=== PATIENT | male | born 1930 | race Caucasian/White ===

== ENCOUNTER → 2016-03-10 | Outpatient (CLI) | payer MEDICARE, OTHER ==
[~2016-03-10] MED LIST: ACET-77 PO; ACET-93 PO; AMOX500C2 PO; ASPI-808 PO; ASPI-983 PO; CHOL100048 PO; CIPR500T4 PO; CLOP75TA69 PO; CLOT15CR9 TP; CLTR1PV45 VG; FERR-74 PO; FURO20TA4 PO; GUAI5LIQ5 PO; HYDR-3729 PO; HYDR-3812 PO; LISI40TA PO; MENT71OI TOP; METO-272 PO; METO100T2 PO; MULT1TAB69 PO; MUPI22OI2 TP; NAPR375T3 PO; OMEP40CA36 PO; OXYM-12 NS; PROM25SU43 RC
--- OUTSIDE RECORDS SUMMARY | 2016-03-10 11:32 | XMS REPORT | Continuity of Care Document ---
Author Author [facility] Organization [facility] Address Unknown Phone Unavailable Care Team Providers Care Assembler For Puller Over Hand Name Role Phone JOAN STODDARD MD PCP Insurance Providers Payer Name Policy Number Subscriber Name Relationship Wps Medicare [id number] [place] 18 Self / Same As Patient For Life [id number] [place] 18 Self / Same As [...] Pain 11/21/14 Discontinued Oxymetazoline Hcl 30 Ml [place], 2 Sprays Nasal Bedtime as needed for [...] - 99.5) 09/09/2015 6:21am Temperature (Calculated Celsius) 36.54061 degrees C (36.4 - 37.5) 09/09/2015 6:21am [...] 11 inches 09/09/2015 6:21am Height (Calculated Centimeters) 180.212550 cm 09/09/2015 6:21am Weight (Pounds) 146 pounds 09/09/2015 6:21am Weight (Ounces) 1.5 oz 09/09/2015 6:21am Weight (Calculated Grams) 45077.487 gm 09/09/2015 6:21am Weight (Calculated Kilograms) 66.838938 kilograms 09/09/2015 6:21am Calculated BMI 20.36 09/09/2015 6:21am Results No known relevant diagnostic tests, laboratory data and/or discharge summary. Procedures No known history of procedures. Encounters Encounter Location Arrival/Admit Date Discharge/Depart Date Attending Provider Departed Emergency Room [facility] 09/09/15 6:10am 09/08 8:25am MARIA ISABEL PRICE DO Recent Diagnosis
[2016-03-10 11:47] LABS: BASOPHILS % (AUTO) 0 % (0-10); EOSINOPHILS % (AUTO) 11 % (0-10); LYMPHOCYTES # (AUTO) 1.1 X 10^3 (1.0-4.0); LYMPHOCYTES % (AUTO) 12 % (12-44); MEAN CORPUSCULAR HEMOGLOBIN 25 PG (25-34); MEAN CORPUSCULAR HGB CONC 32 G/DL (32-36); MEAN CORPUSCULAR VOLUME 77 FL (80-99); MEAN PLATELET VOLUME 8.8 FL (7.4-10.4); MONOCYTES # (AUTO) 0.5 X 10^3 (0.0-1.0); MONOCYTES % (AUTO) 5 % (0-12); NEUTROPHILS # (AUTO) 6.9 X 10^3 (1.8-7.8); NEUTROPHILS % (AUTO) 73 % (42-75); PLATELET COUNT 627 10^3/uL (130-400); RED BLOOD COUNT 4.45 10^6/uL (4.35-5.85); RED CELL DISTRIBUTION WIDTH 18.9 % (10.0-14.5); WHITE BLOOD COUNT 9.6 10^3/uL (4.3-11.0)
[2016-03-10 12:08] LABS: ERYTHROCYTE SEDIMENTATION RATE 74 MM/HR (0-30)
[2016-03-10 12:10] LABS: ALANINE AMINOTRANSFERASE 7 U/L (0-55); ALBUMIN 3.5 G/DL (3.2-4.5); ANION GAP 9 MMOL/L (5-14); ASPARTATE AMINO TRANSFERASE 13 U/L (5-34); BILIRUBIN,TOTAL 0.4 MG/DL (0.1-1.0); BLOOD UREA NITROGEN 12 MG/DL (7-18); BUN/CREATININE RATIO 16; CALCIUM 9.2 MG/DL (8.5-10.1); CARBON DIOXIDE 27 MMOL/L (21-32); CHLORIDE 99 MMOL/L (98-107); CREATININE SERUM 0.77 MG/DL (0.60-1.30); GFR ESTIMATED > 60; GLUCOSE 106 MG/DL (70-105); POTASSIUM 4.8 MMOL/L (3.6-5.0); SODIUM 135 MMOL/L (135-145); TOTAL PROTEIN 7.5 G/DL (6.4-8.2)
--- NOTE | 2016-03-10 15:31 | Diagnostic Imaging Report ---
INDICATION: Stasis ulcer right foot. FINDINGS: Three views of the right foot show generalized osteopenia. There is no fracture or dislocation. There is cortical thinning along the lateral aspect of the head of the fifth metatarsal that could be due to osteomyelitis. IMPRESSION: Possible osteomyelitis of the head of the fifth metatarsal. Dictated by: Dictated on workstation # [id number]
== END ==
LOC: RAD 11:27
PROVIDERS: ATTEND Internal Medicine
DX: L89.614 Pressure ulcer of right heel, stage 4 (principal); L89.894 Pressure ulcer of other site, stage 4; I70.232 Atherosclerosis of native arteries of right leg with ulceration of calf; G82.20 Paraplegia, unspecified; L89.103 Pressure ulcer of unspecified part of back, stage 3
CPT/HCPCS: 36415; 73630; 80053; 85025; 85652

== ENCOUNTER → 2016-03-14 | Outpatient (CLI) | payer MEDICARE, OTHER ==
--- OUTSIDE RECORDS SUMMARY | 2016-03-14 13:16 | XMS REPORT | Continuity of Care Document ---
Author Author [facility] Organization [facility] Address Unknown Phone Unavailable Care Team Providers Care Plastics Heat Welder Name Role Phone JOAN STODDARD MD PCP Insurance Providers Payer Name Policy Number Subscriber Name Relationship Wps Medicare [id number] [place] 18 Self / Same As Patient For Life [id number] [place] 18 Self / Same As [...] Pain 11/21/14 Discontinued Oxymetazoline Hcl 30 Ml [place], 2 Sprays Nasal Bedtime as needed for [...] - 99.5) 09/09/2015 6:21am Temperature (Calculated Celsius) 36.08914 degrees C (36.4 - 37.5) 09/09/2015 6:21am [...] 11 inches 09/09/2015 6:21am Height (Calculated Centimeters) 180.514949 cm 09/09/2015 6:21am Weight (Pounds) 146 pounds 09/09/2015 6:21am Weight (Ounces) 1.5 oz 09/09/2015 6:21am Weight (Calculated Grams) 06507.487 gm 09/09/2015 6:21am Weight (Calculated Kilograms) 66.023304 kilograms 09/09/2015 6:21am Calculated BMI 20.36 09/09/2015 6:21am Results No known relevant diagnostic tests, laboratory data and/or discharge summary. Procedures No known history of procedures. Encounters Encounter Location Arrival/Admit Date Discharge/Depart Date Attending Provider Departed Emergency Room [facility] 09/09/15 6:10am 09/08 8:25am MARIA ISABEL PRICE DO Recent Diagnosis
--- NOTE | 2016-03-14 14:40 | Diagnostic Imaging Report ---
Examination: Segmental lower extremity pressure assessment and ankle brachial index measurement. Post volume recording waveforms are also obtained in the lower extremities. Indication: Peripheral arterial disease Findings: Systolic pressure in the right Upper extremity is 164, and the left Upper extremity is 163 mmHg. RIGHT Lower extremity systolic pressures are: In the upper thigh 154 , in the lower thigh 131, in the upper calf 103, and at the ankle 112. LEFT Lower extremity systolic pressures are: In the upper thigh 160 , in the lower thigh 174, in the upper calf 142, and at the ankle 137. ELYSE on the right is 0.68, and on the left is 0.84. Pulse volume recordings waveforms demonstrate mild dampening of the PVR waveforms in the right side. Impression: Findings compatible with peripheral arterial disease in the lower extremities worse on the right side. Dictated by: Dictated on workstation # [id number]
== END ==
LOC: RAD 13:12
PROVIDERS: ATTEND Internal Medicine
DX: I70.232 Atherosclerosis of native arteries of right leg with ulceration of calf (principal); L89.614 Pressure ulcer of right heel, stage 4; L89.894 Pressure ulcer of other site, stage 4; L89.103 Pressure ulcer of unspecified part of back, stage 3; G82.20 Paraplegia, unspecified
CPT/HCPCS: 93923

== ENCOUNTER → 2016-03-17 | Outpatient (CLI) | payer MEDICARE, OTHER ==
--- OUTSIDE RECORDS SUMMARY | 2016-03-17 10:38 | XMS REPORT | Continuity of Care Document ---
Author Author [facility] Organization [facility] Address Unknown Phone Unavailable Care Team Providers Care Chronometer Adjuster Name Role Phone JOAN STODDARD MD PCP Insurance Providers Payer Name Policy Number Subscriber Name Relationship Wps Medicare [id number] [place] 18 Self / Same As Patient For Life [id number] [place] 18 Self / Same As [...] Pain 11/21/14 Discontinued Oxymetazoline Hcl 30 Ml [place], 2 Sprays Nasal Bedtime as needed for [...] - 99.5) 09/09/2015 6:21am Temperature (Calculated Celsius) 36.23848 degrees C (36.4 - 37.5) 09/09/2015 6:21am [...] 11 inches 09/09/2015 6:21am Height (Calculated Centimeters) 180.784278 cm 09/09/2015 6:21am Weight (Pounds) 146 pounds 09/09/2015 6:21am Weight (Ounces) 1.5 oz 09/09/2015 6:21am Weight (Calculated Grams) 60900.487 gm 09/09/2015 6:21am Weight (Calculated Kilograms) 66.192418 kilograms 09/09/2015 6:21am Calculated BMI 20.36 09/09/2015 6:21am Results No known relevant diagnostic tests, laboratory data and/or discharge summary. Procedures No known history of procedures. Encounters Encounter Location Arrival/Admit Date Discharge/Depart Date Attending Provider Departed Emergency Room [facility] 09/09/15 6:10am 09/08 8:25am MARIA ISABEL PRICE DO Recent Diagnosis
--- NOTE | 2016-03-17 12:15 | Diagnostic Imaging Report ---
Three views of thoracic spine. INDICATION: Back pain. FINDINGS: There are multilevel compression fractures again seen similar to the 11/05/2015 exam. These appear to involve T6, T7, T9 and T10 levels. No definite change. The alignment of the posterior spinal line appears satisfactory with some limitation to the evaluation existing on this exam, however. The anterior longitudinal ligament demonstrates ossification and some anterior osteophytes along the inferior thoracic spine seen. IMPRESSION: Chronic compression fractures of T6, T7, T9, and T10 levels. Dictated by: Dictated on workstation # [id number]
== END ==
LOC: RAD 10:33
PROVIDERS: ATTEND Internal Medicine
DX: L89.103 Pressure ulcer of unspecified part of back, stage 3 (principal); M48.54XS Collapsed vertebra, not elsewhere classified, thoracic region, sequela of fracture
CPT/HCPCS: 72072

== ENCOUNTER → 2016-05-05 | Outpatient (CLI) | payer MEDICARE, OTHER ==
--- OUTSIDE RECORDS SUMMARY | 2016-05-05 11:15 | XMS REPORT | Continuity of Care Document ---
Author Author [facility] Organization [facility] Address Unknown Phone Unavailable Care Team Providers Care Accredited Legal Secretary Name Role Phone JOAN STODDARD MD PCP Insurance Providers Payer Name Policy Number Subscriber Name Relationship Wps Medicare [id number] [place] 18 Self / Same As Patient For Life [id number] [place] 18 Self / Same As [...] Pain 11/21/14 Discontinued Oxymetazoline Hcl 30 Ml [place], 2 Sprays Nasal Bedtime as needed for [...] Fracture (ED) Prescriptions See Medication Section Referrals OJAN STODDARD MD - Primary Care Physician Additional [...] - 99.5) 09/09/2015 6:21am Temperature (Calculated Celsius) 36.97659 degrees C (36.4 - 37.5) 09/09/2015 6:21am [...] 11 inches 09/09/2015 6:21am Height (Calculated Centimeters) 180.472650 cm 09/09/2015 6:21am Weight (Pounds) 146 pounds 09/09/2015 6:21am Weight (Ounces) 1.5 oz 09/09/2015 6:21am Weight (Calculated Grams) 13351.487 gm 09/09/2015 6:21am Weight (Calculated Kilograms) 66.133800 kilograms 09/09/2015 6:21am Calculated BMI 20.36 09/09/2015 6:21am Results No known relevant diagnostic tests, laboratory data and/or discharge summary. Procedures No known history of procedures. Encounters Encounter Location Arrival/Admit Date Discharge/Depart Date Attending Provider Departed Emergency Room [facility] 09/09/15 6:10am 09/08 8:25am MARIA ISABEL PRICE DO Recent Diagnosis
[2016-05-05 11:27] LABS: MEAN PLATELET VOLUME 8.6 FL (7.4-10.4); RED BLOOD COUNT 4.51 10^6/uL (4.35-5.85); RED CELL DISTRIBUTION WIDTH 19.2 % (10.0-14.5); WHITE BLOOD COUNT 5.9 10^3/uL (4.3-11.0)
== END ==
LOC: LAB 11:10
PROVIDERS: ATTEND Internal Medicine
DX: M86.171 Other acute osteomyelitis, right ankle and foot (principal); L89.614 Pressure ulcer of right heel, stage 4; L89.894 Pressure ulcer of other site, stage 4; I70.232 Atherosclerosis of native arteries of right leg with ulceration of calf; G82.20 Paraplegia, unspecified; L89.103 Pressure ulcer of unspecified part of back, stage 3
CPT/HCPCS: 36415; 85027; 85652

== ENCOUNTER → 2016-05-12 | Outpatient (CLI) | payer MEDICARE, OTHER ==
--- OUTSIDE RECORDS SUMMARY | 2016-05-12 11:15 | XMS REPORT | Continuity of Care Document ---
Author Author [facility] Organization [facility] Address Unknown Phone Unavailable Care Team Providers Care Home Performance Consultant Name Role Phone JOAN STODDARD MD PCP Insurance Providers Payer Name Policy Number Subscriber Name Relationship Wps Medicare [id number] [place] 18 Self / Same As Patient For Life [id number] [place] 18 Self / Same As [...] Pain 11/21/14 Discontinued Oxymetazoline Hcl 30 Ml [place], 2 Sprays Nasal Bedtime as needed for [...] - 99.5) 09/09/2015 6:21am Temperature (Calculated Celsius) 36.46468 degrees C (36.4 - 37.5) 09/09/2015 6:21am [...] 11 inches 09/09/2015 6:21am Height (Calculated Centimeters) 180.737068 cm 09/09/2015 6:21am Weight (Pounds) 146 pounds 09/09/2015 6:21am Weight (Ounces) 1.5 oz 09/09/2015 6:21am Weight (Calculated Grams) 31795.487 gm 09/09/2015 6:21am Weight (Calculated Kilograms) 66.625873 kilograms 09/09/2015 6:21am Calculated BMI 20.36 09/09/2015 6:21am Results No known relevant diagnostic tests, laboratory data and/or discharge summary. Procedures No known history of procedures. Encounters Encounter Location Arrival/Admit Date Discharge/Depart Date Attending Provider Departed Emergency Room [facility] 09/09/15 6:10am 09/08 8:25am MARIA ISABEL PRICE DO Recent Diagnosis
--- NOTE | 2016-05-12 16:04 | Diagnostic Imaging Report ---
Three views of the right foot. INDICATION: Wound. COMPARISON: 03/10/2016. FINDINGS: There is bone resorption involving the head of the fifth metatarsal. Accounting for positional and technique differences, there is no definite change from 03/10/2016. No older baseline studies are available for comparison. There is background osteopenia. Area of a healed skin ulcer and dorsal skin ulceration are also marked with no underlying bony erosion seen. No acute fracture. IMPRESSION: Stable erosion seen at the head of the fifth metatarsal, could relate to osteomyelitis. Unfortunately, no old or baseline radiographs are available for comparison. There is no change, however, from February 2016. Dictated by: Dictated on workstation # [id number]
== END ==
LOC: RAD 11:11
PROVIDERS: ATTEND Internal Medicine
DX: M86.171 Other acute osteomyelitis, right ankle and foot (principal); L89.614 Pressure ulcer of right heel, stage 4; L89.894 Pressure ulcer of other site, stage 4; I70.232 Atherosclerosis of native arteries of right leg with ulceration of calf; G82.20 Paraplegia, unspecified; L89.103 Pressure ulcer of unspecified part of back, stage 3
CPT/HCPCS: 73630

== ENCOUNTER 2016-06-02 09:45 | Outpatient (RCR) | payer MEDICARE, OTHER ==
--- OUTSIDE RECORDS SUMMARY | 2016-03-10 09:13 | XMS REPORT | Continuity of Care Document ---
Author Author [facility] Organization [facility] Address Unknown Phone Unavailable Care Team Providers Care Sustainability Specialist Name Role Phone JOAN STODDARD MD PCP Insurance Providers Payer Name Policy Number Subscriber Name Relationship Wps Medicare [id number] [place] 18 Self / Same As Patient For Life [id number] [place] 18 Self / Same As Patient Advance Directives Directive Response Recorded Date/Time Advance Directives No 09/09/15 6:21am Resuscitation Status Full Code 09/09/15 6:21am Chief Complaint and Reason for Visit Chief Complaint Lower Extremity Reason for Visit Paraplegia following spinal cord injury Osteoporosis Closed fracture of distal end of left fibula and tibia Problems Active Problems Medical Problem Onset Date Status Closed fracture of distal end of left fibula and tibia Unknown Acute Closed fracture of right proximal tibia Unknown Acute Decubitus skin ulcer Unknown Acute Fall on same level Unknown Acute Fracture of distal end of left femur Unknown Acute Hematuria Unknown Acute Hypotension Unknown Acute Hypovolemia Unknown Acute Hypoxia Unknown Acute Osteoporosis Unknown Acute 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 Unknown Acute Paraplegia following spinal cord injury Unknown Acute Urinary tract infection Unknown Acute Medications Current Home Medications Medication Dose Units Route Directions Days/Qty Instructions Start Date Cholecalciferol (Vitamin D3) 1,000 Unit 1,000 Unit Oral Daily Furosemide 20 Mg 20 Mg Oral Daily 11/21/14 Lisinopril 40 Mg 40 Mg Oral Daily 11/21/14 Metoprolol Tartrate 100 Mg 50 Mg Oral Twice A Day 11/24/14 Multivitamin 1 Each 1 Tab Oral Daily 11/24/14 Omeprazole 40 Mg 40 Mg Oral Daily 12/31/14 Hydrocodone/Acetaminophen 1 Each 1 Tab Oral Every 4HRS as needed for Pain 12/31/14 Guaifenesin/Dextromethorphan 5 Ml 5 Ml Oral Every 4HRS as needed for Cough 01/01/15 Promethazine Hcl 25 Mg 25 Mg Rectal Every 4HRS as needed for Nausea/ Vomiting 01/01/15 Acetaminophen 500 Mg 500 Mg Oral Every 6 Hours as needed for Mild Pain 01/01/15 Ferrous Sulfate 325 Mg 325 Mg Oral Three Times A Day 01/01/15 Aspirin 81 Mg 81 Mg Oral Daily 02/09/15 Clopidogrel Bisulfate 75 Mg 75 Mg Oral Daily 02/09/15 Past Home Medications Medication Directions Ordered Status Metoprolol Succinate 50 Mg Tab.sr.24h, 50 Mg Oral Twice A Day 10/05/10 Discontinued Aspirin 325 Mg Tablet, 325 Mg Oral Bedtime 11/21/14 Discontinued Ciprofloxacin Hcl 500 Mg Tablet, 500 Mg Oral Twice A Day 11/21/14 Discontinued Naproxen 375 Mg Tablet, 375 Mg Oral Twice A Day as needed for Pain 11/21/14 Discontinued Oxymetazoline Hcl 30 Ml [place], 2 Sprays Nasal Bedtime as needed for Congestion 11/21/14 Discontinued Mupirocin 22 Gm Oint...g., Topical Twice A Day as needed for Rash 11/24/14 Discontinued Clotrimazole 45 Gm Cr, Vaginal 11/24/14 Discontinued Clotrimazole 15 Gm Cream..g., Topical Twice A Day as needed for Rash Discontinued Hydrocodone/Acetaminophen 1 Each Tablet, 1 Tab Oral Every 4HRS as needed for Pain 11/28/14 Discontinued Acetaminophen 500 Mg Tablet, 1000 Mg Oral Every 6 Hours as needed for Mild Pain 11/28/14 Discontinued Menthol/Lanolin/Calamine/Znox 71 Gm Oint, 0 Gm Topically Three Times A Day Discontinued Amoxicillin 500 Mg Capsule, 500 Mg Oral Every 8HRS 11/28/14 Discontinued Ciprofloxacin Hcl 500 Mg Tablet, 500 Mg Oral Twice A Day 12/07/14 Discontinued Social History Social History Problem Response Recorded Date/Time Alcohol Use Denies Use 09/09/2015 6:21am Recreational Drug Use No 09/09/2015 6:21am Recent Foreign Travel No 09/09/2015 6:21am Recent Infectious Disease Exposure No 09/09/2015 6:21am Hospitalization with Isolation Denies 09/09/2015 6:21am Smoking Status Former Smoker 09/09/2015 6:21am Do you dip or chew tobacco? No 09/09/2015 6:21am Query Response Start Date Stop Date Smoking Status Former Smoker 12/28/2009 Hospital Discharge Instructions No hospital discharge instructions. Plan of Care Discharge Date 09/09/15 8:25am Disposition 03 XFER SNF Condition at Discharge Stable Instructions/Education Provided Ankle Fracture (ED) Prescriptions See Medication Section Referrals JOAN STODDARD MD - Primary Care Physician Additional Instructions/Education MAY CONTINUE YOUR CURRENT HYDROCODONE NEEDED FOR PAIN CONTINUE CURRENT WOUND CARE HEAVILY PAD ENTIRE FOOT AND LOWER LEG UP TO THE KNEE WEAR CAM BOOT AT ALL TIMES FOLLOW UP WITH DR. BRAXTON IN THE OFFICE THIS WEEK DR. STODDARD FOR FURTHER CARE All discharge instructions reviewed with patient and/or family. Voiced understanding. Functional Status No functional status results. Allergies, Adverse Reactions, Alerts No known allergies. Immunizations Name Given Type Date of Pneumonia Vaccine 12/29/11 Historical Date of Influenza Vaccine 12/19/14 Historical Tetanus Booster (TDap) Unknown Historical Vital Signs Acute Vital Signs Vital Response Date/Time Temperature (Fahrenheit) 98.0 degrees F (97.6 - 99.5) 09/09/2015 6:21am Temperature (Calculated Celsius) 36.38620 degrees C (36.4 - 37.5) 09/09/2015 6:21am Pulse Rate (adult) 92 bpm (60 - 90) 09/09/2015 6:21am Respiratory Rate 18 bpm (12 - 24) 09/09/2015 6:21am O2 Sat by Pulse Oximetry 90 % (88 - 100) 09/09/2015 6:21am Blood Pressure 109/57 mm Hg 09/09/2015 6:21am Blood Pressure Mean 74 mm Hg 09/09/2015 6:21am Pain Numeric Pain Scale 0-No Pain 09/09/2015 6:21am Height (Feet) 5 feet 09/09/2015 6:21am Height (Inches) 11 inches 09/09/2015 6:21am Height (Calculated Centimeters) 180.852706 cm 09/09/2015 6:21am Weight (Pounds) 146 pounds 09/09/2015 6:21am Weight (Ounces) 1.5 oz 09/09/2015 6:21am Weight (Calculated Grams) 07367.487 gm 09/09/2015 6:21am Weight (Calculated Kilograms) 66.157710 kilograms 09/09/2015 6:21am Calculated BMI 20.36 09/09/2015 6:21am Results No known relevant diagnostic tests, laboratory data and/or discharge summary. Procedures No known history of procedures. Encounters Encounter Location Arrival/Admit Date Discharge/Depart Date Attending Provider Departed Emergency Room [facility] 09/09/15 6:10am 09/08 8:25am MARIA ISABEL PRICE DO Recent Diagnosis
== END 2016-06-08 | disposition home or self-care (01) ==
LOC: WOUNDCARE 09:45
PROVIDERS: ATTEND Internal Medicine
DX: L89.614 Pressure ulcer of right heel, stage 4 (principal); L89.894 Pressure ulcer of other site, stage 4; I70.232 Atherosclerosis of native arteries of right leg with ulceration of calf; G82.20 Paraplegia, unspecified; L89.103 Pressure ulcer of unspecified part of back, stage 3
CPT/HCPCS: 11042; 36415; 73630; 80053; 85025; 85652; 87070; 87075; 87077; 87101; 87186; 87205; 99214; 99215

== ENCOUNTER → 2016-06-16 | Outpatient (CLI) | payer MEDICARE, OTHER ==
[~2016-06-16] VITALS: Ht 180.3 cm; Wt 66.3 kg
[~2016-06-16] MED LIST changes: +VANCOMYCIN 1 GM/NS 250 ML IVPB IV ONE
--- NOTE | 2016-06-16 14:29 | Diagnostic Imaging Report ---
INDICATION: Evaluate PICC line. COMPARISON: 11/26/2014. FINDINGS: Multiple frontal radiographic view of the chest were obtained. Left upper extremity PICC line is seen with tip in the high SVC. Lungs show chronic appearing asymmetric interstitial thickening within the upper lung garcia, which may be on the basis of underlying fibrosis. There is background of COPD. There is no focal alveolar consolidation, large effusion, nor pneumothorax. Cardiac silhouette and pulmonary vasculature within normal limits. There is aortic atherosclerosis. IMPRESSION: 1. Left upper extremity PICC line with tip in the high SVC. 2. No acute cardiopulmonary process. 3. Background of COPD. Dictated by: Dictated on workstation # [id number]
[2016-06-16 15:42] VITALS: BP 139/62
--- NOTE | 2016-06-27 14:10 | Physician Query-Final Dx ---
DANGELO GR 06/27/16 1410: Clinic Account Progress/Dx Physician Query: Please give a diagnosis for the Vancomycin tx thank you Date of Service Jun 16, 2016 at 12:59 DERRICK FORDE APRN 07/11/16 0831: Clinic Account Progress/Dx DIAGNOSIS: Diagnosis Osteomyelitis R DANGELO MANUEL June 27, 2016 14:10 DERRICK FORDE APRN July 11, 2016 08:31
== END ==
LOC: SDC 12:59
PROVIDERS: ATTEND Nurse Practitioner
DX: M86.9 Osteomyelitis, unspecified (principal); Z45.2 Encounter for adjustment and management of vascular access device
CPT/HCPCS: 36569; 71010; 76937; 96365

== ENCOUNTER → 2016-06-18 | Outpatient (CLI) | payer MEDICARE, OTHER ==
[~2016-06-18] MED LIST changes: -VANCOMYCIN 1 GM/NS 250 ML IVPB IV ONE
[2016-06-19 06:40] LABS: ANION GAP 13 MMOL/L (5-14); BLOOD UREA NITROGEN 10 MG/DL (7-18); BUN/CREATININE RATIO 15; CALCIUM 8.2 MG/DL (8.5-10.1); CARBON DIOXIDE 21 MMOL/L (21-32); CHLORIDE 97 MMOL/L (98-107); CREATININE SERUM 0.65 MG/DL (0.60-1.30); GFR ESTIMATED > 60; GLUCOSE 109 MG/DL (70-105); SODIUM 131 MMOL/L (135-145)
[2016-06-19 06:43] LABS: POTASSIUM 5.3 MMOL/L (3.6-5.0)
== END ==
LOC: CVS 19:01
PROVIDERS: ATTEND Nurse Practitioner Family
DX: M86.9 Osteomyelitis, unspecified (principal)
CPT/HCPCS: 80048; 80202

== ENCOUNTER → 2016-06-21 | Outpatient (CLI) | payer MEDICARE, OTHER ==
[2016-06-21 08:35] LABS: ANION GAP 9 MMOL/L (5-14); BLOOD UREA NITROGEN 7 MG/DL (7-18); BUN/CREATININE RATIO 14; CALCIUM 8.1 MG/DL (8.5-10.1); CARBON DIOXIDE 25 MMOL/L (21-32); CHLORIDE 103 MMOL/L (98-107); CREATININE SERUM 0.51 MG/DL (0.60-1.30); GFR ESTIMATED > 60; GLUCOSE 88 MG/DL (70-105); POTASSIUM 3.9 MMOL/L (3.6-5.0); SODIUM 137 MMOL/L (135-145)
== END ==
LOC: HH 07:39 → CVS 07:39
PROVIDERS: ATTEND Internal Medicine
DX: M86.9 Osteomyelitis, unspecified (principal)
CPT/HCPCS: 80048; 80202

== ENCOUNTER → 2016-06-25 | Outpatient (CLI) | payer MEDICARE, OTHER | LOC: CVS 05:20 | PROVIDERS: ATTEND Internal Medicine | DX: Z51.81 Encounter for therapeutic drug level monitoring (principal); Z79.2 Long term (current) use of antibiotics | CPT/HCPCS: 80202 ==

== ENCOUNTER → 2016-06-29 | Outpatient (CLI) | payer MEDICARE, OTHER ==
[2016-06-29 07:58] LABS: ANION GAP 9 MMOL/L (5-14); BLOOD UREA NITROGEN 12 MG/DL (7-18); BUN/CREATININE RATIO 17; CALCIUM 8.4 MG/DL (8.5-10.1); CARBON DIOXIDE 25 MMOL/L (21-32); CHLORIDE 103 MMOL/L (98-107); CREATININE SERUM 0.72 MG/DL (0.60-1.30); GFR ESTIMATED > 60; GLUCOSE 91 MG/DL (70-105); POTASSIUM 3.8 MMOL/L (3.6-5.0); SODIUM 137 MMOL/L (135-145)
== END ==
LOC: CVS 07:02
PROVIDERS: ATTEND Nurse Practitioner
DX: Z51.81 Encounter for therapeutic drug level monitoring (principal); Z79.2 Long term (current) use of antibiotics
CPT/HCPCS: 80048; 80202

== ENCOUNTER → 2016-07-02 | Outpatient (CLI) | payer MEDICARE, OTHER | LOC: CVS 05:30 | PROVIDERS: ATTEND Internal Medicine | DX: Z51.81 Encounter for therapeutic drug level monitoring (principal); Z79.2 Long term (current) use of antibiotics | CPT/HCPCS: 80202 ==

== ENCOUNTER → 2016-07-05 | Outpatient (CLI) | payer MEDICARE, OTHER | LOC: CVS 05:15 | PROVIDERS: ATTEND Internal Medicine | DX: Z51.81 Encounter for therapeutic drug level monitoring (principal); Z79.2 Long term (current) use of antibiotics | CPT/HCPCS: 80202 ==

== ENCOUNTER → 2016-07-05 | Outpatient (REF) | LOC: CVS 05:33 | PROVIDERS: ATTEND Internal Medicine | DX: Z51.81 Encounter for therapeutic drug level monitoring (principal); Z79.2 Long term (current) use of antibiotics ==

== ENCOUNTER → 2016-07-08 | Outpatient (CLI) | payer MEDICARE, OTHER | LOC: CVS 05:38 | PROVIDERS: ATTEND Internal Medicine | DX: Z51.81 Encounter for therapeutic drug level monitoring (principal); Z79.2 Long term (current) use of antibiotics ==

== ENCOUNTER 2016-07-09 17:58 | Emergency (ER) | payer MEDICARE, OTHER ==
[~2016-07-09] VITALS: Ht 167.6 cm; Wt 77.1 kg
--- NOTE | 2016-07-09 18:12 | ED General ---
General Chief Complaint: Catheter/Drain/Tube Problems Stated Complaint: PICC LINE BLEEDING Nursing Triage Note: alf staff advise that the pt. has been bleeding both dark red and bright red blood from his PICC. alf staff called the pt. pcp whom requested evaluation at the ER. Nursing Sepsis Screen: No Definite Risk Source of Information: Patient History of Present Illness Time Seen by Provider: 17:55 Initial Comments PT ARRIVES VIA EMS FROM [facility] PT HAS PICC LINE IN LEFT AC X 2 WEEKS--BEING TREATED FOR RIGHT FOOT INFECTION/ CHRONIC OSTEOMYELITIS AN HOUR AGO, WAS ON HIS WAY TO THE DINING ROOM WHEN HE NOTICED BLOOD ON HIS SLEEVE AND HAS HAD SOME BLOOD AROUND THE PICC LINE SITE UNDER THE DRESSING NO PAIN NO KNOWN INJURY PCP: DR. CAMACHO Allergies and Home Medications Allergies Coded Allergies: No Known Drug Allergies (Verified , 02/09/15) Home Medications Acetaminophen 500 Mg Tablet, 500 MG PO Q6H PRN for MILD PAIN, (Reported) Aspirin 81 Mg Tablet.dr, 81 MG PO DAILY, (Reported) Cholecalciferol (Vitamin D3) 1,000 Unit Capsule, 1,000 UNIT PO DAILY, (Reported) Clopidogrel Bisulfate 75 Mg Tablet, 75 MG PO DAILY, (Reported) Ferrous Sulfate 325 Mg Tablet, 325 MG PO TID, (Reported) Furosemide 20 Mg Tablet, 20 MG PO DAILY, (Reported) Guaifenesin/Dextromethorphan 5 Ml Liquid, 5 ML PO Q4H PRN for COUGH, (Reported) Hydrocodone/Acetaminophen 1 Each Tablet, 1 TAB PO Q4H PRN for PAIN, (Reported) Lisinopril 40 Mg Tablet, 40 MG PO DAILY, (Reported) Metoprolol Tartrate 100 Mg Tablet, 50 MG PO BID, (Reported) Multivitamin 1 Each Tablet, 1 TAB PO DAILY, (Reported) Omeprazole 40 Mg Capsule.dr, 40 MG PO DAILY, (Reported) Promethazine HCl 25 Mg Supp.rect, 25 MG RC Q4H PRN for NAUSEA/VOMITING, ( Reported) Constitutional: no symptoms reported Musculoskeletal: see HPI Skin: see HPI Past Lyzufnm-Asrlvw-Yqopbp Hx Patient Social History Alcohol Use: Denies Use Recreational Drug Use: No Smoking Status: Never a Smoker Former Smoker/When Quit: Dec 28, 2009 Recent Foreign Travel: No Contact w/Someone Who Travel: No Recent Infectious Disease Expo: No Recent Hopitalizations: Yes Immunizations Up To Date Tetanus Booster (TDap): Unknown Date of Pneumonia Vaccine: Dec 29, 2011 Date of Influenza Vaccine: Dec 19, 2014 Surgeries HX Surgeries: Yes (CAROTID SURGERY, LEFT SHOULDER; RT. TIBIAL FX & LT FEMUR FX ; PICC LINE) Surgeries: Orthopedic, Vascular Surgery Respiratory Hx Respiratory Disorders: Yes (uses o2 at all times.) Respiratory Disorders: COPD Cardiovascular Hx Cardiac Disorders: Yes Cardiac Disorders: Chronic Edema/Swelling, High Cholesterol, Hypertension, Peripheral Vascular Neurological Hx Neurological Disorders: Yes (PARAPLEGIA, CAROTID DISEASE) Neurological Disorders: Paralysis, Spinal Cord Injury Reproductive System Hx Reproductive Disorders: No Genitourinary Hx Genitourinary Disorders: Yes (INDWELLING JONES CATHETER) Genitourinary Disorders: Kidney Infection, Prostate Problems, Kidney Stones, Neurogenic Bladder, UTI-Chronic Gastrointestinal Hx Gastrointestinal Disorders: Yes Gastrointestinal Disorders: Chronic Constipation, Gall Bladder Disease Musculoskeletal Hx Musculoskeletal Disorders: Yes (PARAPLEGIA SINCE [place]; OSTEOMYELITIS) Musculoskeletal Disorders: Osteoporosis, Back Injury, Fractures Endocrine Hx Endocrine Disorders: No HEENT HX ENT Disorders: Yes HEENT Disorders: Dysphagia Cancer Hx Cancer: No Psychosocial Hx Psychiatric Problems: No Integumentary HX Skin/Integumentary Disorder: Yes (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 PICC LINE IS IN PLACE WITH NO EVIDENCE OF DISLODGEMENT. NO SURROUNDING HEMATOMA, OR SIGNS OF INFECTION. PICC LINE EASILY FLUSHED WITHOUT ANY EXTRAVASATION OF FLUID/BLOOD) Additional Procedures : Progress DRESSING TO PICC LINE IN LEFT AC CHANGED/AREA CLEANSED WITH BETASEPT USING STERILE TECHNIQUE Progress/Results/Core Measures Results/Orders My Orders Orders - MARIA ISABEL PRICE DO Chest 1 View, Ap/Pa Only (07/09/16 18:22) Vital Signs/I&O Vital Sign - Last 12Hours 07/09/16 07/09/16 18:02 18:51 Temp 98.0 Pulse 84 86 Resp 14 16 B/P (MAP) 141/80 Pulse Ox 93 97 O2 Delivery Room Air Blood Pressure Mean: 100 Diagnostic Imaging Comments CXR--TIP OF PICC LINE IN SVC, ESSENTIALLY UNCHANGED POSITION--PER RADIOLOGIST REPORT @ 1900 Reviewed: Reviewed by Me Departure Impression Impression: Primary Impression: Bleeding from PICC line Additional Impression: Dressing change Disposition: 03 XFER SNF Condition: Stable Departure-Patient Inst. Referrals: NICHOLE CAMACHO MD (PCP) Primary Care Physician DERRICK FORDE APRN (Family) Primary Care Physician Patient Instructions: How to Care for a Central Line Catheter, Peripherally- Inserted Central Catheter (DC) Add. Discharge Instructions: CONTINUE ALL PREVIOUS ORDERS FOLLOW UP WITH DR. CAMACHO FOR FURTHER CARE All discharge instructions reviewed with patient and/or family. Voiced understanding. MARIA ISABEL PRICE DO July 09, 2016 18:12
[2016-07-09 18:51] VITALS: BP 155/92
--- NOTE | 2016-07-09 18:56 | Diagnostic Imaging Report ---
CLINICAL INDICATION: Verify PICC line placement. EXAM: Portable chest x-ray upright view. COMPARISON: Portable chest x-ray upright view dated 06/16/2016. FINDINGS: Left PICC line is again seen with tip near the distal left innominate vein/SVC junction region. This appears relatively similar compared to the prior study. Otherwise, there is stable increased lung markings throughout both lungs likely representing atelectasis or scarring. There is increased discoid atelectasis or scarring in the medial left lung base. There is no interval lung infiltrate. There is no pleural effusion or pneumothorax. Bilateral apical pleural-parenchymal thickening/scarring is seen. Cardiac silhouette and pulmonary vasculature is within normal limits. The remainder of this exam shows no significant interval change compared to the prior study of comparison. IMPRESSION: 1: Left PICC line is seen with tip in the distal left innominate/SVC junction region. This has not significantly changed from the prior study. 2: Otherwise stable chest x-ray exam with atelectasis or scarring. Dictated by: Dictated on workstation # [id number]
== END 2016-07-09 19:08 ==
LOC: EDUNIT# 17:58 → ER 17:59
DX: T82.838A Hemorrhage due to vascular prosthetic devices, implants and grafts, initial encounter (principal); M86.471 Chronic osteomyelitis with draining sinus, right ankle and foot; G82.20 Paraplegia, unspecified; Z79.82 Long term (current) use of aspirin; Z79.02 Long term (current) use of antithrombotics/antiplatelets; Z79.899 Other long term (current) drug therapy; Z96.0 Presence of urogenital implants
CPT/HCPCS: 71010; 99283

== ENCOUNTER → 2016-07-09 | Outpatient (CLI) | payer MEDICARE, OTHER | LOC: LABNPT 05:10 | PROVIDERS: ATTEND Internal Medicine | DX: Z51.81 Encounter for therapeutic drug level monitoring (principal); Z79.2 Long term (current) use of antibiotics | CPT/HCPCS: 80202 ==

== ENCOUNTER → 2016-07-13 | Outpatient (CLI) | payer MEDICARE, OTHER | LOC: CVS 06:37 | PROVIDERS: ATTEND Nurse Practitioner | DX: Z51.81 Encounter for therapeutic drug level monitoring (principal); Z79.2 Long term (current) use of antibiotics | CPT/HCPCS: 80202 ==

== ENCOUNTER → 2016-07-13 | Outpatient (CLI) | payer MEDICARE, OTHER | LOC: HH 06:36 | PROVIDERS: ATTEND Nurse Practitioner | DX: Z53.9 Procedure and treatment not carried out, unspecified reason (principal) ==

== ENCOUNTER → 2016-07-19 | Outpatient (CLI) | payer MEDICARE, OTHER | LOC: CVS 06:16 | PROVIDERS: ATTEND Internal Medicine | DX: Z51.81 Encounter for therapeutic drug level monitoring (principal); Z79.2 Long term (current) use of antibiotics | CPT/HCPCS: 80202 ==

== ENCOUNTER 2016-07-23 19:12 | Emergency (ER) | payer MEDICARE, OTHER ==
[~2016-07-23] VITALS: Ht 180.3 cm; Wt 54.4 kg
[~2016-07-23 19:12] MED LIST changes: -FAMO-119 PO; -MERO1VIA IV; -NITR-65 PO; -PRD20T PO
[2016-07-23] MEDS ORDERED: NS IV 1000 ML 1,000 ML IV ONE (19:19)
[2016-07-23 19:33] LABS: BASOPHILS % (AUTO) 1 % (0-10); EOSINOPHILS # (AUTO) 0.7 10^3/uL (0.0-0.3); EOSINOPHILS % (AUTO) 10 % (0-10); LYMPHOCYTES # (AUTO) 0.8 X 10^3 (1.0-4.0); LYMPHOCYTES % (AUTO) 11 % (12-44); MEAN CORPUSCULAR HEMOGLOBIN 28 PG (25-34); MEAN CORPUSCULAR HGB CONC 33 G/DL (32-36); MEAN CORPUSCULAR VOLUME 83 FL (80-99); MEAN PLATELET VOLUME 9.7 FL (7.4-10.4); MONOCYTES % (AUTO) 13 % (0-12); NEUTROPHILS # (AUTO) 4.6 X 10^3 (1.8-7.8); NEUTROPHILS % (AUTO) 65 % (42-75); PLATELET COUNT 343 10^3/uL (130-400); RED BLOOD COUNT 3.94 10^6/uL (4.35-5.85); RED CELL DISTRIBUTION WIDTH 15.3 % (10.0-14.5); WHITE BLOOD COUNT 7.1 10^3/uL (4.3-11.0)
[2016-07-23 19:42] LABS: INR 1.3 (0.8-1.4); PROTHROMBIN TIME PATIENT 15.4 SEC (12.2-14.7)
[2016-07-23] MEDS ORDERED: FAMOTIDINE 20MG/2ML IV (PEPCID) IV STA (19:45)
[2016-07-23] MEDS ORDERED: methylPREDNISolone 125 MG (Solu-MEDROL) VIAL IV STA (19:45)
[2016-07-23] MEDS ORDERED: MEROPENEM 1,000 MG in NS (IVPB) 100 ML IV ONE (19:45)
[2016-07-23] MEDS ORDERED: diphenhydrAMINE 50 MG/ML INJ (BENADRYL) IVP ONE (19:45)
--- NOTE | 2016-07-23 19:46 | ED General ---
General Chief Complaint: Fever-Adult/Adol Stated Complaint: SEPSIS Nursing Triage Note: FEVER, RIGHT LOWER EXT. INFECTION. Nursing Sepsis Screen: Possible Sepsis Risk Source of Information: Patient Exam Limitations: No Limitations History of Present Illness Time Seen by Provider: 19:46 Allergies and Home Medications Allergies Coded Allergies: No Known Drug Allergies (Verified , 02/09/15) Home Medications Acetaminophen 500 Mg Tablet, 500 MG PO Q6H PRN for MILD PAIN, (Reported) Aspirin 81 Mg Tablet.dr, 81 MG PO DAILY, (Reported) Cholecalciferol (Vitamin D3) 1,000 Unit Capsule, 1,000 UNIT PO DAILY, (Reported) Clopidogrel Bisulfate 75 Mg Tablet, 75 MG PO DAILY, (Reported) Ferrous Sulfate 325 Mg Tablet, 325 MG PO TID, (Reported) Furosemide 20 Mg Tablet, 20 MG PO DAILY, (Reported) Guaifenesin/Dextromethorphan 5 Ml Liquid, 5 ML PO Q4H PRN for COUGH, (Reported) Hydrocodone/Acetaminophen 1 Each Tablet, 1 TAB PO Q4H PRN for PAIN, (Reported) Lisinopril 40 Mg Tablet, 40 MG PO DAILY, (Reported) Metoprolol Tartrate 100 Mg Tablet, 50 MG PO BID, (Reported) Multivitamin 1 Each Tablet, 1 TAB PO DAILY, (Reported) Omeprazole 40 Mg Capsule.dr, 40 MG PO DAILY, (Reported) Promethazine HCl 25 Mg Supp.rect, 25 MG RC Q4H PRN for NAUSEA/VOMITING, ( Reported) Past Kkstdwq-Tryqth-Rgbrgj Hx Patient Social History Alcohol Use: Denies Use Recreational Drug Use: No Smoking Status: Never a Smoker Former Smoker/When Quit: Dec 28, 2009 2nd Hand Smoke Exposure: No Recent Foreign Travel: No Contact w/Someone Who Travel: No Recent Infectious Disease Expo: No Recent Hopitalizations: Yes (RLE INFECTION) Immunizations Up To Date Tetanus Booster (TDap): Unknown Date of Pneumonia Vaccine: Dec 29, 2011 Date of Influenza Vaccine: Dec 19, 2014 Seasonal Allergies Seasonal Allergies: No Surgeries HX Surgeries: Yes (CAROTID SURGERY, LEFT SHOULDER; RT. TIBIAL FX & LT FEMUR FX ; PICC LINE) Surgeries: Orthopedic, Vascular Surgery Respiratory Hx Respiratory Disorders: Yes (uses o2 at all times.) Respiratory Disorders: COPD Cardiovascular Hx Cardiac Disorders: Yes Cardiac Disorders: Chronic Edema/Swelling, High Cholesterol, Hypertension, Peripheral Vascular Neurological Hx Neurological Disorders: Yes (PARAPLEGIA, CAROTID DISEASE) Neurological Disorders: Paralysis, Spinal Cord Injury Reproductive System Hx Reproductive Disorders: No Genitourinary Hx Genitourinary Disorders: Yes (INDWELLING JONES CATHETER) Genitourinary Disorders: Kidney Infection, Prostate Problems, Kidney Stones, Neurogenic Bladder, UTI-Chronic Gastrointestinal Hx Gastrointestinal Disorders: Yes Gastrointestinal Disorders: Chronic Constipation, Gall Bladder Disease Musculoskeletal Hx Musculoskeletal Disorders: Yes (PARAPLEGIA SINCE [place]; OSTEOMYELITIS) Musculoskeletal Disorders: Osteoporosis, Back Injury, Fractures Endocrine Hx Endocrine Disorders: No HEENT HX ENT Disorders: Yes HEENT Disorders: Dysphagia Cancer Hx Cancer: No Psychosocial Hx Psychiatric Problems: No Integumentary HX Skin/Integumentary Disorder: Yes (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; MRSA) Skin/Integumentary Disorders: Recent Skin Changes Blood Transfusions Hx Blood Disorders: Yes (ANEMIA) Family Medical History Family Medial History: FH: breast cancer 19 MOTHER Physical Exam-Suspected Sepsis Physical Exam Vital Signs Vital Sign - Last 12Hours Capillary Refill : Less Than 3 Seconds Blood Pressure Mean: 87 Focused Exam Lactic Acid Level Laboratory Tests Test 07/23/16 19:20 Lactic Acid Level 1.47 MMOL/L (0.50-2.00) Progress/Results/Core Measures Suspected Sepsis Recent Fever Within 48 Hours: Yes Infection Criteria Present: Documented Infection New/Unexplained Altered Menta: No Sepsis Screen: Possible Sepsis Risk Sepsis Diagnosis: SIRS Temperature:102.4 Pulse: 94 Respiratory Rate: 18 Laboratory Tests 07/23/16 19:20: White Blood Count 7.1 Blood Pressure 104 /79 Mean: 87 Laboratory Tests 07/23/16 19:20: Creatinine 0.98, INR Comment 1.3, Platelet Count 343, Total Bilirubin 0.6 Results/Orders Lab Results Laboratory Tests Test 07/23/16 19:20 07/23/16 20:45 Range/Units White Blood Count 7.1 4.3-11.0 10^3/uL Red Blood Count 3.94 L 4.35-5.85 10^6/uL Hemoglobin 10.9 L 13.3-17.7 G/DL Hematocrit 33 L 40-54 % Mean Corpuscular Volume 83 80-99 FL Mean Corpuscular Hemoglobin 28 25-34 PG Mean Corpuscular Hemoglobin Concent 33 32-36 G/DL Red Cell Distribution Width 15.3 H 10.0-14.5 % Platelet Count 343 130-400 10^3/uL Mean Platelet Volume 9.7 7.4-10.4 FL Neutrophils (%) (Auto) 65 42-75 % Lymphocytes (%) (Auto) 11 L 12-44 % Monocytes (%) (Auto) 13 H 0-12 % Eosinophils (%) (Auto) 10 0-10 % Basophils (%) (Auto) 1 0-10 % Neutrophils # (Auto) 4.6 1.8-7.8 X 10^3 Lymphocytes # (Auto) 0.8 L 1.0-4.0 X 10^3 Monocytes # (Auto) 1.0 0.0-1.0 X 10^3 Eosinophils # (Auto) 0.7 H 0.0-0.3 10^3/uL Basophils # (Auto) 0.0 0.0-0.1 10^3/uL Prothrombin Time 15.4 H 12.2-14.7 SEC INR Comment 1.3 0.8-1.4 Activated Partial Thromboplast Time 90 H 24-35 SEC Sodium Level 132 L 135-145 MMOL/L Potassium Level 3.9 3.6-5.0 MMOL/L Chloride Level 100 98-107 MMOL/L Carbon Dioxide Level 21 21-32 MMOL/L Anion Gap 11 5-14 MMOL/L Blood Urea Nitrogen 24 H 7-18 MG/DL Creatinine 0.98 0.60-1.30 MG/DL Estimat Glomerular Filtration Rate > 60 BUN/Creatinine Ratio 24 Glucose Level 126 H 70-105 MG/DL Lactic Acid Level 1.47 0.50-2.00 MMOL/L Calcium Level 8.5 8.5-10.1 MG/DL Total Bilirubin 0.6 0.1-1.0 MG/DL Aspartate Amino Transf (AST/SGOT) 10 5-34 U/L Alanine Aminotransferase (ALT/SGPT) 6 0-55 U/L Alkaline Phosphatase 65 40-136 U/L Troponin I < 0.30 <0.30 NG/ML Total Protein 5.8 L 6.4-8.2 G/DL Albumin 3.2 3.2-4.5 G/DL Urine Color YELLOW Urine Clarity VERY CLOUDY H Urine pH 5 5-9 Urine Specific [place] 1.020 1.016-1.022 Urine Protein 3+ H NEGATIVE Urine Glucose (UA) NEGATIVE NEGATIVE Urine Ketones NEGATIVE NEGATIVE Urine Nitrite POSITIVE H NEGATIVE Urine Bilirubin NEGATIVE NEGATIVE Urine Urobilinogen NORMAL NORMAL MG/DL Urine Leukocyte Esterase 3+ H NEGATIVE Urine RBC (Auto) 4+ H NEGATIVE Urine RBC 5-10 H /HPF Urine WBC 50-100 H /HPF Urine Squamous Epithelial Cells NONE /HPF Urine Crystals NONE /LPF Urine Bacteria FEW H /HPF Urine Casts NONE /LPF Urine Mucus NEGATIVE /LPF Urine Culture Indicated YES My Orders Orders - SEPIDEH ROTHMAN Cbc With Automated Diff (07/23/16 19:19) Comprehensive Metabolic Panel (07/23/16 19:19) Lactic Acid Analyzer (07/23/16 19:19) Blood Culture (07/23/16 19:19) Sputum Culture (07/23/16 19:19) Ua Culture If Indicated (07/23/16 19:19) Protime With Inr (07/23/16 19:19) Partial Thromboplastin Time (07/23/16 19:19) Chest 1 View, Ap/Pa Only (07/23/16 19:19) O2 (07/23/16 19:19) Saline Lock/Iv-Start (07/23/16 19:19) Saline Lock/Iv-Start (07/23/16 19:19) Ekg Tracing (07/23/16 19:19) Troponin I (07/23/16 19:19) Vital Signs Adult Sepsis Patie Q1HR (07/23/16 19:19) Remove Rings In Anticipation O (07/23/16 19:19) Ns Iv 1000 Ml (Sodium Chloride 0.9%) (07/23/16 19:19) Meropenem (Merrem 1000 Mg) (07/23/16 19:45) Diphenhydramine Injection (Benadryl Inje (07/23/16 19:45) Methylprednisolone Sod Succ (Solu-Medrol (07/23/16 19:45) Famotidine Injection (Pepcid Injection) (07/23/16 19:45) Foot, Right, 3 View (07/23/16 20:09) Urine Culture (07/23/16 20:45) Medications Given in ED Current Medications Medications Dose Ordered Sig/Danie Route Start Time Stop Time Status Last Admin Dose Admin Diphenhydramine HCl 25 mg ONCE ONCE IVP 07/23/16 19:45 07/23/16 19:47 DC 07/23/16 20:24 25 MG Meropenem 1000 mg/ Sodium Chloride 100 ml @ 200 mls/hr ONCE ONCE IV 07/23/16 19:45 07/23/16 20:14 DC 07/23/16 20:25 200 MLS/HR Sodium Chloride 1,000 ml @ 0 mls/hr Q0M ONCE IV 07/23/16 19:19 07/23/16 19:21 DC 07/23/16 19:41 0 MLS/HR Vital Signs/I&O Vital Sign - Last 12Hours 07/23/16 07/23/16 07/23/16 19:20 19:20 20:57 Temp 102.4 98.5 Pulse 94 91 Resp 18 18 B/P (MAP) 104/79 91/49 Pulse Ox 97 97 95 O2 Delivery Nasal Cannula Nasal Cannula O2 Flow Rate 2.00 2.00 2.00 Capillary Refill : Less Than 3 Seconds Blood Pressure Mean: 87 Departure Impression Impression: Primary Impression: Urinary tract infection Additional Impressions: Fever Drug-induced urticaria Disposition: HOME, SELF-CARE Condition: Improved Departure-Patient Inst. Decision time for Depature: 21:29 Referrals: NICHOLE CAMACHO MD (PCP/Family) Primary Care Physician Patient Instructions: Fever, Adult (DC), Hives (DC), Urinary Tract Infection, Adult (DC) Add. Discharge Instructions: All discharge instructions reviewed with patient and/or family. Voiced understanding. Medications as instructed. Discontinue vancomycin. Drink plenty of fluids. Mo Velazquez will follow-up with you at via [facility] for recheck early this week. Return to the emergency department for worsened fever, shortness of air, chest pain, dizziness, inability to urinate, or any other concerns. Scripts Meropenem (Merrem) 1,000 Mg/Vial Vial 1000 MG IV Q8H for 7 Days, #21 VIAL 0 Refills Prov: SEPIDEH ROTHMAN 07/23/16 Nitrofurantoin Monohyd/M-Cryst (Macrobid 100 mg Capsule) 100 Mg Capsule 1 TAB PO BID for 7 Days, #14 CAP 0 Refills Prov: SEPIDEH ROTHMAN 07/23/16 SEPIDEH ROTHMAN July 23, 2016 19:46
--- NOTE | 2016-07-23 19:48 | Diagnostic Imaging Report ---
INDICATION: Fever, right lower extremity infection. COMPARISON STUDY: Chest from May 09. FINDINGS: There are some COPD changes are again identified. There is calcification of the aorta. Left arm PICC line remains in place with its tip in the distal innominate vein. This is unchanged. Heart size and vascularity are normal. IMPRESSION: Stable chest. Dictated by: Dictated on workstation # [id number]
[2016-07-23 19:54] LABS: ALANINE AMINOTRANSFERASE 6 U/L (0-55); ALBUMIN 3.2 G/DL (3.2-4.5); ANION GAP 11 MMOL/L (5-14); ASPARTATE AMINO TRANSFERASE 10 U/L (5-34); BILIRUBIN,TOTAL 0.6 MG/DL (0.1-1.0); BLOOD UREA NITROGEN 24 MG/DL (7-18); BUN/CREATININE RATIO 24; CALCIUM 8.5 MG/DL (8.5-10.1); CARBON DIOXIDE 21 MMOL/L (21-32); CHLORIDE 100 MMOL/L (98-107); CREATININE SERUM 0.98 MG/DL (0.60-1.30); GFR ESTIMATED > 60; GLUCOSE 126 MG/DL (70-105); POTASSIUM 3.9 MMOL/L (3.6-5.0); SODIUM 132 MMOL/L (135-145); TOTAL PROTEIN 5.8 G/DL (6.4-8.2); TROPONIN I < 0.30 NG/ML (<0.30)
--- NOTE | 2016-07-23 20:38 | Diagnostic Imaging Report ---
INDICATION: History of pressure ulcers, right foot deformity, right lower extremity infection COMPARISON STUDIES: Right foot dated May 12. FINDINGS: Four views of the right foot demonstrate stable severe osteopenia. There appears to be increased reabsorption of the head of the fifth metatarsal. No fractures or subluxations are present. IMPRESSION: There is increasing reabsorption at the head of the fifth metatarsal. Possible osteomyelitis. Dictated by: Dictated on workstation # [id number]
[2016-07-23 20:52] LABS: BILIRUBIN,URINE NEGATIVE (NEGATIVE); KETONES,URINE NEGATIVE (NEGATIVE); LEUKOCYTE ESTERASE ,URINE 3+ (NEGATIVE); NITRITE,URINE POSITIVE (NEGATIVE); PH,URINE 5 (5-9); PROTEIN,URINE 3+ (NEGATIVE); UROBILINOGEN,URINE NORMAL (NORMAL)
[2016-07-23 21:01] LABS: WBC,URINE 50-100 /HPF
[2016-07-23] MEDS ORDERED: NITR-65 PO (21:33)
[2016-07-23] MEDS ORDERED: MERO1VIA IV (21:33)
[2016-07-23] MEDS ORDERED: PRD20T PO (21:40)
[2016-07-23] MEDS ORDERED: FAMO-119 PO (21:40)
[2016-07-23 22:00] VITALS: BP 114/56
== END 2016-07-23 22:00 | disposition home or self-care (01) ==
LOC: EDUNIT# 19:12 → ER 19:13
DX: N39.0 Urinary tract infection, site not specified (principal); I10 Essential (primary) hypertension; J44.9 Chronic obstructive pulmonary disease, unspecified; G83.9 Paralytic syndrome, unspecified; Z79.82 Long term (current) use of aspirin; Z79.899 Other long term (current) drug therapy
CPT/HCPCS: 36415; 71010; 73630; 80053; 81000; 83605; 84484; 85025; 85610; 85730; 87040; 87077; 87088; 87186; 93005; 96361; 96365; 96375

== ENCOUNTER → 2016-07-23 | Outpatient (CLI) | payer MEDICARE, OTHER ==
[~2016-07-23] MED LIST changes: +FAMO-119 PO; +MERO1VIA IV; +NITR-65 PO; +PRD20T PO
[2016-07-23 06:45] LABS: BASOPHILS % (AUTO) 0 % (0-10); EOSINOPHILS # (AUTO) 0.6 10^3/uL (0.0-0.3); EOSINOPHILS % (AUTO) 12 % (0-10); LYMPHOCYTES # (AUTO) 0.9 X 10^3 (1.0-4.0); LYMPHOCYTES % (AUTO) 17 % (12-44); MEAN CORPUSCULAR HEMOGLOBIN 28 PG (25-34); MEAN CORPUSCULAR HGB CONC 33 G/DL (32-36); MEAN CORPUSCULAR VOLUME 84 FL (80-99); MEAN PLATELET VOLUME 10.2 FL (7.4-10.4); MONOCYTES # (AUTO) 0.8 X 10^3 (0.0-1.0); MONOCYTES % (AUTO) 15 % (0-12); NEUTROPHILS # (AUTO) 2.8 X 10^3 (1.8-7.8); NEUTROPHILS % (AUTO) 55 % (42-75); PLATELET COUNT 318 10^3/uL (130-400); RED BLOOD COUNT 3.95 10^6/uL (4.35-5.85); RED CELL DISTRIBUTION WIDTH 15.3 % (10.0-14.5)
[2016-07-23 06:57] LABS: ANISOCYTOSIS SLIGHT; BAND NEUTROPHILS 8 %; BASOPHILS % (MANUAL) 0 %; EOSINOPHILS % (MANUAL) 14 %; LYMPHOCYTES % (MANUAL) 13 %; NEUTROPHILS % (MANUAL) 53 %; POIKILOCYTOSIS SLIGHT; REACTIVE LYMPHOCYTES 5 %
[2016-07-23 07:14] LABS: ALANINE AMINOTRANSFERASE 7 U/L (0-55); ALBUMIN 3.4 G/DL (3.2-4.5); ANION GAP 12 MMOL/L (5-14); ASPARTATE AMINO TRANSFERASE 9 U/L (5-34); BILIRUBIN,TOTAL 0.6 MG/DL (0.1-1.0); BLOOD UREA NITROGEN 19 MG/DL (7-18); BUN/CREATININE RATIO 23; CALCIUM 8.1 MG/DL (8.5-10.1); CARBON DIOXIDE 22 MMOL/L (21-32); CHLORIDE 100 MMOL/L (98-107); CREATININE SERUM 0.84 MG/DL (0.60-1.30); GFR ESTIMATED > 60; GLUCOSE 134 MG/DL (70-105); POTASSIUM 3.9 MMOL/L (3.6-5.0); SODIUM 134 MMOL/L (135-145); TOTAL PROTEIN 5.5 G/DL (6.4-8.2)
== END ==
LOC: CVS 06:39
PROVIDERS: ATTEND Internal Medicine
DX: Z51.81 Encounter for therapeutic drug level monitoring (principal); Z79.2 Long term (current) use of antibiotics
CPT/HCPCS: 80053; 85007; 85027

== ENCOUNTER → 2016-08-08 | Outpatient (CLI) | payer MEDICARE, OTHER ==
[~2016-08-08] VITALS: Ht 180.3 cm; Wt 54.5 kg
[~2016-08-08] MED LIST changes: +FAMO-119 PO; +MERO1VIA IV; +NITR-65 PO; +PRD20T PO
--- NOTE | 2016-08-08 13:22 | Diagnostic Imaging Report ---
INDICATION: PICC line placement. TECHNIQUE: PA and lateral views were obtained at 1:00 PM. COMPARISON: 07/23/2016. FINDINGS: A PICC line is seen from the left arm with the tip overlying the upper SVC. The lungs show no focal infiltrate. There is no pneumothorax or pleural fluid. There is a relatively poor inspiration. There are multiple compression deformities in the thoracic spine of uncertain age. IMPRESSION: No acute infiltrate, pneumothorax, or pleural fluid. The left-sided PICC line tip is overlying the upper SVC. There are multiple thoracic spine compression fractures which are of uncertain age. These did appear to be present, however, on the prior study of 03/17/2016. Dictated by: Dictated on workstation # [id number]
[2016-08-08 13:53] VITALS: BP 130/80
== END ==
LOC: SDC 12:36
PROVIDERS: ATTEND Nurse Practitioner
DX: Z45.2 Encounter for adjustment and management of vascular access device (principal)
CPT/HCPCS: 71020; 99211

== ENCOUNTER → 2016-08-12 | Outpatient (CLI) | payer MEDICARE, OTHER | LOC: CVS 19:24 | PROVIDERS: ATTEND Internal Medicine | DX: Z51.81 Encounter for therapeutic drug level monitoring (principal); Z79.2 Long term (current) use of antibiotics | CPT/HCPCS: 80202 ==

== ENCOUNTER → 2016-08-19 | Outpatient (CLI) | payer MEDICARE, OTHER | LOC: CVS 10:13 | PROVIDERS: ATTEND Nurse Practitioner | DX: M86.9 Osteomyelitis, unspecified (principal) | CPT/HCPCS: 80202 ==

== ENCOUNTER → 2016-08-29 | Outpatient (CLI) | payer MEDICARE, OTHER | LOC: CVS 10:20 | PROVIDERS: ATTEND Nurse Practitioner | DX: N17.9 Acute kidney failure, unspecified (principal) | CPT/HCPCS: 85652 ==

== ENCOUNTER 2016-09-01 10:00 | Outpatient (RCR) | payer MEDICARE, OTHER | END 2016-09-07 | disposition home or self-care (01) | LOC: WOUNDCARE 10:00 | PROVIDERS: ATTEND Internal Medicine | DX: L89.614 Pressure ulcer of right heel, stage 4 (principal); L89.894 Pressure ulcer of other site, stage 4; I70.232 Atherosclerosis of native arteries of right leg with ulceration of calf; G82.20 Paraplegia, unspecified; L89.103 Pressure ulcer of unspecified part of back, stage 3 | CPT/HCPCS: 11042; 97597; 99213; 99214 ==

== ENCOUNTER 2016-09-15 10:06 | Outpatient (RCR) | payer MEDICARE, OTHER | END 2016-09-26 16:00 | disposition home or self-care (01) | LOC: WOUNDCARE 10:06 | PROVIDERS: ATTEND Internal Medicine | DX: L89.614 Pressure ulcer of right heel, stage 4 (principal); L89.894 Pressure ulcer of other site, stage 4; I70.232 Atherosclerosis of native arteries of right leg with ulceration of calf; G82.20 Paraplegia, unspecified; L89.103 Pressure ulcer of unspecified part of back, stage 3 | CPT/HCPCS: 11042; 99213 ==

== ENCOUNTER 2017-07-27 14:36 | Emergency (ER) | payer MEDICARE, OTHER ==
[~2017-07-27] VITALS: Ht 165.1 cm; Wt 68.0 kg
[~2017-07-27 14:36] MED LIST changes: +ACHD5005 PO; -FERR-74 PO; +FERR325T18 PO; -HYDR-3812 PO; +METO100T12 PO; -METO100T2 PO; +NAPR-1084 PO; -NAPR375T3 PO
[2017-07-27 15:02] LABS: BASOPHILS % (AUTO) 0 % (0-10); EOSINOPHILS # (AUTO) 0.1 10^3/uL (0.0-0.3); EOSINOPHILS % (AUTO) 1 % (0-10); HEMATOCRIT 35 % (40-54); HEMOGLOBIN 12.1 G/DL (13.3-17.7); LYMPHOCYTES # (AUTO) 0.6 X 10^3 (1.0-4.0); LYMPHOCYTES % (AUTO) 7 % (12-44); MEAN CORPUSCULAR HEMOGLOBIN 31 PG (25-34); MEAN CORPUSCULAR HGB CONC 34 G/DL (32-36); MEAN CORPUSCULAR VOLUME 90 FL (80-99); MEAN PLATELET VOLUME 9.9 FL (7.4-10.4); MONOCYTES # (AUTO) 0.7 X 10^3 (0.0-1.0); MONOCYTES % (AUTO) 8 % (0-12); NEUTROPHILS # (AUTO) 7.3 X 10^3 (1.8-7.8); NEUTROPHILS % (AUTO) 84 % (42-75); PLATELET COUNT 317 10^3/uL (130-400); RED BLOOD COUNT 3.94 10^6/uL (4.35-5.85); RED CELL DISTRIBUTION WIDTH 14.2 % (10.0-14.5); WHITE BLOOD COUNT 8.7 10^3/uL (4.3-11.0)
[2017-07-27 15:15] LABS: ALANINE AMINOTRANSFERASE 12 U/L (0-55); ALKALINE PHOSPHATASE 90 U/L (40-136); BILIRUBIN,TOTAL 0.8 MG/DL (0.1-1.0); BUN/CREATININE RATIO 25; CALCIUM 9.8 MG/DL (8.5-10.1); CARBON DIOXIDE 21 MMOL/L (21-32); CHLORIDE 101 MMOL/L (98-107); GFR ESTIMATED > 60; GLUCOSE 125 MG/DL (70-105); POTASSIUM 4.6 MMOL/L (3.6-5.0); SODIUM 136 MMOL/L (135-145); TOTAL PROTEIN 8.4 GM/DL (6.4-8.2)
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
[2017-07-27 15:22] LABS: BAND NEUTROPHILS 32 %; BASOPHILS % (MANUAL) 0 %; EOSINOPHILS % (MANUAL) 0 %; LYMPHOCYTES % (MANUAL) 5 %; MONOCYTES % (MANUAL) 5 %; NEUTROPHILS % (MANUAL) 58 %; RBC MORPH NORMAL
--- NOTE | 2017-07-27 15:31 | Diagnostic Imaging Report ---
PATIENT HISTORY: Shortness of air. TECHNIQUE: Single frontal view of the chest COMPARISON: 08/08/2016 FINDINGS: Lung volumes are mildly large. There are minimal opacities in the left lung base, likely chronic. Mild perihilar opacities are seen, which appear mildly increased. There is diffuse osteopenia. There is aortic atherosclerosis. IMPRESSION: Large lung volumes with increased perihilar markings, may represent central vascular congestion. Linear opacities in the left lung base are likely scarring/atelectasis. Dictated by: Dictated on workstation # [id number]
[2017-07-27] MEDS ORDERED: CEPH500C PO (15:47)
[2017-07-27] MEDS ORDERED: FURO40TA4 PO (15:47)
[2017-07-27] MEDS ORDERED: CLOT15CR6 TOP (15:47)
[2017-07-27] MEDS ORDERED: HYDR-3816 PO (15:47)
[2017-07-27] MEDS ORDERED: FAMO20TA5 PO (15:47)
[2017-07-27] MEDS ORDERED: DULO30CA48 PO (15:47)
[2017-07-27] MEDS ORDERED: POTA20TA15 PO (15:47)
[2017-07-27] MEDS ORDERED: HYDR-700 PO (15:47)
[2017-07-27] MEDS ORDERED: ACET325T49 PO (15:47)
[2017-07-27] MEDS ORDERED: KETO120S11 TOP (15:47)
[2017-07-27] MEDS ORDERED: MULT-619 PO (15:47)
[2017-07-27 15:48] LABS: BILIRUBIN,URINE NEGATIVE (NEGATIVE); CLARITY,URINE SLIGHTLY CLOUDY; COLOR,URINE YELLOW; GLUCOSE, URINE (UA) NEGATIVE (NEGATIVE); KETONES,URINE NEGATIVE (NEGATIVE); LEUKOCYTE ESTERASE ,URINE 3+ (NEGATIVE); NITRITE,URINE NEGATIVE (NEGATIVE); PH,URINE 8 (5-9); PROTEIN,URINE 2+ (NEGATIVE); UROBILINOGEN,URINE NORMAL (NORMAL)
[2017-07-27] MEDS ORDERED: Z GUARD TOP (15:51)
[2017-07-27] MEDS ORDERED: VITS42.53 TP (15:51)
[2017-07-27 15:56] LABS: AMORPHOUS SEDIMENT,UR FEW AMOR PHOSPHATE /LPF; BACTERIA,URINE MODERATE /HPF; TRIPLE PHOSPHATE CRYSTAL,UR RARE /LPF; WBC,URINE 25-50 /HPF
[2017-07-27] MEDS ORDERED: IBUPROFEN 600 MG (MOTRIN) TAB PO ONE (16:15)
[2017-07-27] MEDS ORDERED: cefTRIAXone INJECTION 1,000 MG in NS (IVPB) 50 ML IV ONE (16:15)
[2017-07-27] MEDS ORDERED: NS IV 1000 ML 1,000 ML IV SCH (16:15)
[2017-07-27 18:43] VITALS: BP 120/58
== END 2017-07-27 18:43 | disposition home or self-care (01) ==
LOC: EDUNIT# 14:36 → ER 14:37
DX: N39.0 Urinary tract infection, site not specified (principal); J44.9 Chronic obstructive pulmonary disease, unspecified; E78.00 Pure hypercholesterolemia, unspecified; I10 Essential (primary) hypertension; M81.0 Age-related osteoporosis without current pathological fracture; I73.9 Peripheral vascular disease, unspecified; Z87.442 Personal history of urinary calculi; Z87.19 Personal history of other diseases of the digestive system; Z86.14 Personal history of Methicillin resistant Staphylococcus aureus infection; Z87.440 Personal history of urinary (tract) infections; Z79.02 Long term (current) use of antithrombotics/antiplatelets
CPT/HCPCS: 36415; 71045; 80053; 81000; 83605; 85007; 85027; 87040; 87088; 93041; 96361; 96365

== ENCOUNTER → 2018-02-20 | Outpatient (CLI) | payer MEDICARE, OTHER ==
[~2018-02-20] MED LIST changes: +ACET325T49 PO; +CEPH500C PO; +CLOT15CR6 TOP; +DULO30CA48 PO; +FAMO20TA5 PO; +FURO40TA4 PO; +HYDR-3816 PO; +HYDR-700 PO; +KETO120S2 TOP; +MULT-619 PO; +POTA20TA15 PO; +VITS42.53 TP; +Z GUARD TOP
== END ==
LOC: CVS 16:15
PROVIDERS: ATTEND Internal Medicine
DX: R19.7 Diarrhea, unspecified (principal)
CPT/HCPCS: 87324; 87449; 87493

== ENCOUNTER → 2018-05-12 | Outpatient (CLI) | payer MEDICARE, OTHER ==
[2018-05-12 17:42] LABS: BILIRUBIN,URINE NEGATIVE (NEGATIVE); CLARITY,URINE SLIGHTLY CLOUDY; COLOR,URINE YELLOW; GLUCOSE, URINE (UA) NEGATIVE (NEGATIVE); KETONES,URINE NEGATIVE (NEGATIVE); LEUKOCYTE ESTERASE ,URINE 3+ (NEGATIVE); NITRITE,URINE POSITIVE (NEGATIVE); PH,URINE 6 (5-9); PROTEIN,URINE 1+ (NEGATIVE); UROBILINOGEN,URINE NORMAL (NORMAL)
[2018-05-12 17:43] LABS: BASOPHILS % (AUTO) 0 % (0-10); EOSINOPHILS % (AUTO) 0 % (0-10); HEMATOCRIT 28 % (40-54); HEMOGLOBIN 8.8 G/DL (13.3-17.7); LYMPHOCYTES # (AUTO) 1.9 X 10^3 (1.0-4.0); LYMPHOCYTES % (AUTO) 9 % (12-44); MEAN CORPUSCULAR HEMOGLOBIN 25 PG (25-34); MEAN CORPUSCULAR HGB CONC 31 G/DL (32-36); MEAN CORPUSCULAR VOLUME 81 FL (80-99); MONOCYTES # (AUTO) 0.8 X 10^3 (0.0-1.0); MONOCYTES % (AUTO) 4 % (0-12); NEUTROPHILS # (AUTO) 17.3 X 10^3 (1.8-7.8); NEUTROPHILS % (AUTO) 87 % (42-75); PLATELET COUNT 640 10^3/uL (130-400); RED CELL DISTRIBUTION WIDTH 16.1 % (10.0-14.5); WHITE BLOOD COUNT 20.1 10^3/uL (4.3-11.0)
[2018-05-12 17:49] LABS: BACTERIA,URINE LARGE /HPF; RBC,URINE 0-2 /HPF; WBC,URINE 25-50 /HPF
[2018-05-12 17:59] LABS: ANISOCYTOSIS MODERATE; BAND NEUTROPHILS 0 %; BASOPHILS % (MANUAL) 0 %; EOSINOPHILS % (MANUAL) 0 %; HYPOCHROMASIA SLIGHT; LYMPHOCYTES % (MANUAL) 7 %; MONOCYTES % (MANUAL) 1 %; NEUTROPHILS % (MANUAL) 92 %
[2018-05-12 18:02] LABS: ALANINE AMINOTRANSFERASE 12 U/L (0-55); ALBUMIN 3.1 GM/DL (3.2-4.5); ALKALINE PHOSPHATASE 105 U/L (40-136); BILIRUBIN,TOTAL 0.4 MG/DL (0.1-1.0); BUN/CREATININE RATIO 17; CALCIUM 8.8 MG/DL (8.5-10.1); CARBON DIOXIDE 20 MMOL/L (21-32); CHLORIDE 98 MMOL/L (98-107); CREATININE SERUM 0.75 MG/DL (0.60-1.30); GFR ESTIMATED > 60; GLUCOSE 109 MG/DL (70-105); POTASSIUM 3.7 MMOL/L (3.6-5.0); SODIUM 130 MMOL/L (135-145); TOTAL PROTEIN 7.9 GM/DL (6.4-8.2)
== END ==
LOC: CVS 17:37
PROVIDERS: ATTEND Physician Assistant
DX: D62 Acute posthemorrhagic anemia (principal); M62.81 Muscle weakness (generalized); R82.90 Unspecified abnormal findings in urine; Z87.440 Personal history of urinary (tract) infections
CPT/HCPCS: 80053; 81000; 85007; 85027; 87077; 87088; 87186

== ENCOUNTER → 2018-05-12 | Outpatient (CLI) | payer MEDICARE, OTHER | LOC: LABNPT 18:07 | PROVIDERS: ATTEND Physician Assistant | DX: R53.81 Other malaise (principal); D62 Acute posthemorrhagic anemia; M62.81 Muscle weakness (generalized) | CPT/HCPCS: 87804 ==

== ENCOUNTER 2018-07-18 09:32 | Emergency (ER) | payer MEDICARE, OTHER ==
[~2018-07-18] VITALS: Ht 165.1 cm; Wt 68.1 kg
--- OUTSIDE RECORDS SUMMARY | 2018-07-18 09:39 | XMS REPORT | Continuity of Care Document ---
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 07/26/2016 SEPIDEH MCCULLOUGH Ot R50.9 FEVER, UNSPECIFIED 07/26/2016 SEPIDEH MCCULLOUGH Ot 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 07/26/2016 SEPIDEH MCCULLOUGH Ot Z79.899 OTHER [facility] (CURRENT) DRUG THERAPY 08/02/2016 NICHOLE CAMACHO MD Ot Z51.81 ENCOUNTER FOR THERAPEUTIC DRUG LEVEL MON 08/02/2016 NICHOLE CAMACHO MD, Ot Z79.2 [facility] (CURRENT) USE OF ANTIBIOTICS 08/05/2016 DERRICK FORDE LEASING SPECIALIST Ot Z51.81 ENCOUNTER FOR THERAPEUTIC DRUG LEVEL MON 08/05/2016 DERRICK FORDE LEASING SPECIALIST Ot Z79.2 [facility] (CURRENT) USE OF ANTIBIOTICS 08/08/2016 NICHOLE CAMACHO MD Ot Z51.81 ENCOUNTER FOR THERAPEUTIC DRUG LEVEL MON 08/08/2016 NICHOLE CAMACHO MD, Ot Z79.2 [facility] (CURRENT) USE OF ANTIBIOTICS 08/10/2016 NICHOLE CAMACHO MD Ot Z51.81 ENCOUNTER FOR THERAPEUTIC DRUG LEVEL MON 08/10/2016 NICHOLE CAMACHO MD, Ot Z79.2 [facility] (CURRENT) USE OF ANTIBIOTICS 08/15/2016 NICHOLE CAMACHO MD, Ot G82.20 PARAPLEGIA, UNSPECIFIED 08/15/2016 NICHOLE CAMACHO MD Ot 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 08/15/2016 NICHOLE CAMACHO MD Ot L89.103 PRESSURE ULCER OF UNSPECIFIED PART OF BA 08/15/2016 NICHOLE CAMACHO MD Ot L89.614 PRESSURE ULCER OF RIGHT HEEL, STAGE 4 08/15/2016 NICHOLE CAMACHO MD, Ot L89.894 PRESSURE ULCER OF OTHER SITE, STAGE 4 08/15/2016 NICHOLE CAMACHO MD, Ot Z51.81 ENCOUNTER FOR THERAPEUTIC DRUG LEVEL MON 08/15/2016 NICHOLE CAMACHO MD, Ot Z79.2 [facility] (CURRENT) USE OF ANTIBIOTICS 08/16/2016 NICHOLE CAMACHO MD, Ot Z51.81 ENCOUNTER FOR THERAPEUTIC DRUG LEVEL MON 08/16/2016 NICHOLE CAMACHO MD, Ot 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 08/17/2016 NICHOLE CAMACHO MD, Ot G82.20 PARAPLEGIA, UNSPECIFIED 08/17/2016 NICHOLE CAMACHO MD, Ot 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 08/17/2016 NICHOLE CAMACHO MD Ot L89.103 PRESSURE ULCER OF UNSPECIFIED PART OF BA 08/17/2016 NICHOLE CAMACHO MD Ot L89.614 PRESSURE ULCER OF RIGHT HEEL, STAGE 4 08/17/2016 NICHOLE CAMACHO MD Ot L89.894 PRESSURE ULCER OF OTHER SITE, STAGE 4 08/17/2016 NICHOLE CAMACHO MD Ot M86.171 OTHER ACUTE OSTEOMYELITIS, RIGHT ANKLE A 08/18/2016 NICHOLE CAMACHO MD Ot Z51.81 ENCOUNTER FOR THERAPEUTIC DRUG LEVEL MON 08/18/2016 NICHOLE CAMACHO MD Ot Z79.2 [facility] (CURRENT) USE OF ANTIBIOTICS 09/01/2016 DERRICK FORDE APRN Ot Z45.2 ENCOUNTER FOR ADJUSTMENT AND MANAGEMENT 09/05/2016 NICHOLE CAMACHO MD Ot Z51.81 ENCOUNTER FOR THERAPEUTIC DRUG LEVEL MON 09/05/2016 NICHOLE CAMACHO MD Ot Z79.2 [facility] (CURRENT) USE OF ANTIBIOTICS 09/07/2016 NICHOLE CAMACHO MD, Ot G82.20 PARAPLEGIA, UNSPECIFIED 09/07/2016 NICHOLE CAMACHO MD Ot 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 09/07/2016 NICHOLE CAMACHO MD Ot L89.103 PRESSURE ULCER OF UNSPECIFIED PART OF BA 09/07/2016 NICHOLE CAMACHO MD Ot L89.614 PRESSURE ULCER OF RIGHT HEEL, STAGE 4 09/07/2016 NICHOLE CAMACHO MD, Ot L89.894 PRESSURE ULCER OF OTHER SITE, STAGE 4 09/08/2016 DERRICK FORDE APRN Ot N17.9 ACUTE KIDNEY FAILURE, UNSPECIFIED 09/08/2016 NICHOLE CAMACHO MD, Ot G82.20 PARAPLEGIA, UNSPECIFIED 09/08/2016 NICHOLE CAMACHO MD Ot 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 09/08/2016 NICHOLE CAMACHO MD, Ot L89.103 PRESSURE ULCER OF UNSPECIFIED PART OF 09/08/2016 NICHOLE CAMACHO MD, Ot L89.614 PRESSURE ULCER OF RIGHT HEEL, STAGE 4 09/08/2016 NICHOLE CAMACHO MD, Ot L89.894 PRESSURE ULCER OF OTHER SITE, STAGE 4 09/09/2016 NICHOLE CAMACHO MD, Ot G82.20 PARAPLEGIA, UNSPECIFIED 09/09/2016 NICHOLE CAMACHO MD Ot 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 09/09/2016 NICHOLE CAMACHO MD Ot L89.103 PRESSURE ULCER OF UNSPECIFIED PART OF 09/09/2016 NICHOLE CAMACHO MD Ot L89.614 PRESSURE ULCER OF RIGHT HEEL, STAGE 4 09/09/2016 NICHOLE CAMACHO MD, Ot L89.894 PRESSURE ULCER OF OTHER SITE, STAGE 4 09/12/2016 DERRICK FORDE LEASING SPECIALIST Ot M86.9 OSTEOMYELITIS, UNSPECIFIED 09/23/2016 DERRICK FORDE LEASING SPECIALIST Ot M86.9 OSTEOMYELITIS, UNSPECIFIED 09/23/2016 DERRICK FORDE LEASING SPECIALIST Ot Z45.2 ENCOUNTER FOR ADJUSTMENT AND MANAGEMENT 09/26/2016 NICHLOE CAMACHO MD, Ot G82.20 PARAPLEGIA, UNSPECIFIED 09/26/2016 NICHOLE CAMACHO MD Ot 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 09/26/2016 NICHOLE CAMACHO MD Ot L89.103 PRESSURE ULCER OF UNSPECIFIED PART OF BA 09/26/2016 NICHOLE CAMACHO MD Ot L89.614 PRESSURE ULCER OF RIGHT HEEL, STAGE 4 09/26/2016 NICHOLE CAMACHO MD Ot L89.894 PRESSURE ULCER OF OTHER SITE, STAGE 4 09/27/2016 DERRICK FORDE LEASING SPECIALIST Ot N17.9 ACUTE KIDNEY FAILURE, UNSPECIFIED 10/03/2016 ASHLEYRANDA ETHELCHON BILLY Ot M86.9 OSTEOMYELITIS, UNSPECIFIED 10/03/2016 DERRICK FORDE LEASING SPECIALIST Ot Z45.2 ENCOUNTER FOR ADJUSTMENT AND MANAGEMENT 11/14/2016 MAURISIO DERRICK Reinoso LEASING SPECIALIST Ot M86.9 OSTEOMYELITIS, UNSPECIFIED 11/14/2016 DERRICK FORDE LEASING SPECIALIST Ot Z45.2 ENCOUNTER FOR ADJUSTMENT AND MANAGEMENT 01/27/2017 SEPIDEH MCCULLOUGH Ot G83.9 PARALYTIC SYNDROME, UNSPECIFIED 01/27/2017 SEPIDEH MCCULLOUGH Ot I10 ESSENTIAL (PRIMARY) HYPERTENSION 01/27/2017 SEPIDEH MCCULLOUGH Ot J44.9 CHRONIC OBSTRUCTIVE PULMONARY DISEASE, U 01/27/2017 SEPIDEH MCCULLOUGH Ot N39.0 URINARY TRACT INFECTION, SITE NOT SPECIF 01/27/2017 SEPIDEH MCCULLOUGH Ot R50.9 FEVER, UNSPECIFIED 01/27/2017 SEPIDEH MCCULLOUGH Ot Z51.81 ENCOUNTER FOR THERAPEUTIC DRUG LEVEL MON 01/27/2017 SEPIDEH MCCULLOUGH Ot Z79.2 [facility] (CURRENT) USE OF ANTIBIOTICS 01/27/2017 SEPIDEH MCCULLOUGH Ot 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 01/27/2017 SEPIDEH MCCULLOUGH Ot 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.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 07/06/2017 SEPIDEH MCCULLOUGH Ot G83.9 PARALYTIC SYNDROME, UNSPECIFIED 07/06/2017 SEPIDEH MCCULLOUGH Ot I10 ESSENTIAL (PRIMARY) HYPERTENSION 07/06/2017 SEPIDEH MCCULLOUGH Ot J44.9 CHRONIC OBSTRUCTIVE PULMONARY DISEASE, U 07/06/2017 SEPIDEH MCCULLOUGH Ot N39.0 URINARY TRACT INFECTION, SITE NOT SPECIF 07/06/2017 SEPIDEH MCCULLOUGH Ot R50.9 FEVER, UNSPECIFIED 07/06/2017 SEPIDEH MCCULLOUGH Ot Z51.81 ENCOUNTER FOR THERAPEUTIC DRUG LEVEL MON 07/06/2017 SEPIDEH MCCULLOUGH Ot 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0 URINARY TRACT INFECTION, SITE NOT SPECIF 07/27/2017 MUSA LINDSEY MD Ot R50.9 FEVER, UNSPECIFIED 07/27/2017 MUSA LINDSEY MD Ot 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 07/27/2017 MUSA LINDSEY MD Ot Z86.14 PERSONAL HISTORY OF METHICILLIN RESIS ST 07/27/2017 MUSA LINDSEY MD Ot Z87.19 PERSONAL HISTORY OF OTHER DISEASES OF TH 07/27/2017 MUSA LINDSEY MD, Ot Z87.440 PERSONAL HISTORY OF URINARY (TRACT) INFE 07/27/2017 MUSA LINDSEY MD Ot Z87.442 PERSONAL HISTORY OF URINARY CALCULI 07/31/2017 MUSA LINDSEY MD Ot E78.00 PURE HYPERCHOLESTEROLEMIA, UNSPECIFIED 07/31/2017 MUSA LINDSEY MD Ot I10 ESSENTIAL (PRIMARY) HYPERTENSION 07/31/2017 MUSA LINDSEY MD Ot I73.9 PERIPHERAL VASCULAR DISEASE, UNSPECIFIED 07/31/2017 MUSA LINDSEY MD, Ot J44.9 CHRONIC OBSTRUCTIVE PULMONARY DISEASE, U 07/31/2017 MUSA LINDSEY MD Ot M81.0 AGE-RELATED OSTEOPOROSIS W/O CURRENT PAT 07/31/2017 MUSA LINDSEY MD Ot N39.0 URINARY TRACT INFECTION, SITE NOT SPECIF 07/31/2017 MUSA LINDSEY MD Ot R50.9 FEVER, UNSPECIFIED 07/31/2017 MUSA LINDSEY MD Ot Z79.02 [facility] (CURRENT) USE OF ANTITHROMBOTI 07/31/2017 MUSA LINDSEY MD Ot Z86.14 PERSONAL HISTORY OF METHICILLIN RESIS ST 07/31/2017 MUSA LINDSEY MD Ot Z87.19 PERSONAL HISTORY OF OTHER DISEASES OF TH 07/31/2017 MUSA LINDSEY MD Ot Z87.440 PERSONAL HISTORY OF URINARY (TRACT) INFE 07/31/2017 MUSA LINDSEY MD Ot Z87.442 PERSONAL HISTORY OF URINARY CALCULI 08/24/2017 MATT GREGORY DO Ot 344.1 PARAPLEGIA NOS 08/24/2017 MATT GREGORY DO Ot 401.9 HYPERTENSION NOS 08/24/2017 MATT GREGORY DO Ot 441.4 ABDOM AORTIC ANEURYSM 08/24/2017 MATT GREGORY DO Ot V15.81 HX OF PAST NONCOMPLIANCE 08/24/2017 MAYITO ADAMSON, MIGEL Haas Ot Z01.818 ENCOUNTER FOR OTHER PREPROCEDURAL EXAMIN 08/24/2017 RICHI ADAMSON, JOAN Quintero Ot M54.6 PAIN IN THORACIC SPINE 08/24/2017 JENNIFER ADAMSON, LENA Odell Ot 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 08/24/2017 LENA RODRIGUEZ MD Ot 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 08/24/2017 NICHOLE CAMACHO MD Ot G82.20 PARAPLEGIA, UNSPECIFIED 08/24/2017 NICHOLE CAMACHO MD Ot 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 UL 08/24/2017 NICHOLE CAMACHO MD Ot L89.103 PRESSURE ULCER OF UNSPECIFIED PART OF BA 08/24/2017 NICHOLE CAMACHO MD Ot L89.614 PRESSURE ULCER OF RIGHT HEEL, STAGE 4 08/24/2017 NICHOLE CAMACHO MD Ot L89.894 PRESSURE ULCER OF OTHER SITE, STAGE 4 08/24/2017 NICHOLE CAMACHO MD Ot G82.20 PARAPLEGIA, UNSPECIFIED 08/24/2017 NICHOLE CAMACHO MD Ot 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 UL 08/24/2017 NICHOLE CAMACHO MD Ot L89.103 PRESSURE ULCER OF UNSPECIFIED PART OF BA 08/24/2017 NICHOLE CAMACHO MD Ot L89.614 PRESSURE ULCER OF RIGHT HEEL, STAGE 4 08/24/2017 NICHOLE CAMACHO MD, Ot L89.894 PRESSURE ULCER OF OTHER SITE, STAGE 4 08/24/2017 NICHOLE CAMACHO MD Ot L89.103 PRESSURE ULCER OF UNSPECIFIED PART OF BA 08/24/2017 NICHOLE CAMACHO MD, Ot M48.54XS COLLAPSED VERTEBRA, NEC, THORACIC REGION 08/24/2017 NICHOLE CAMACHO MD Ot G82.20 PARAPLEGIA, UNSPECIFIED 08/24/2017 NICHOLE CAMACHO MD Ot 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 UL 08/24/2017 NICHOLE CAMACHO MD Ot L89.103 PRESSURE ULCER OF UNSPECIFIED PART OF BA 08/24/2017 NICHOLE CAMACHO MD, Ot L89.614 PRESSURE ULCER OF RIGHT HEEL, STAGE 4 08/24/2017 NICHOLE CAMACHO MD, Ot L89.894 PRESSURE ULCER OF OTHER SITE, STAGE 4 08/24/2017 NICHOLE CAMACHO MD, Ot M86.171 OTHER ACUTE OSTEOMYELITIS, RIGHT ANKLE A 08/24/2017 NICHOLE CAMACHO MD, Ot G82.20 PARAPLEGIA, UNSPECIFIED 08/24/2017 NICHOLE CAMACHO MD Ot 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 08/24/2017 NICHOLE CAMACHO MD Ot L89.103 PRESSURE ULCER OF UNSPECIFIED PART OF BA 08/24/2017 NICHOLE CAMACHO MD Ot L89.614 PRESSURE ULCER OF RIGHT HEEL, STAGE 4 08/24/2017 NICHOLE CAMACHO MD, Ot L89.894 PRESSURE ULCER OF OTHER SITE, STAGE 4 08/24/2017 NICHOLE CAMACHO MD Ot M86.171 OTHER ACUTE OSTEOMYELITIS, RIGHT ANKLE A 08/24/2017 DERRICK FORDE APRN Ot M86.9 OSTEOMYELITIS, UNSPECIFIED 08/24/2017 DERRICK FORDE APRN Ot Z45.2 ENCOUNTER FOR ADJUSTMENT AND MANAGEMENT 08/24/2017 ETHEL HIRSCH Ot M86.9 OSTEOMYELITIS, UNSPECIFIED 08/24/2017 NICHOLE CAMACHO MD Ot M86.9 OSTEOMYELITIS, UNSPECIFIED 08/24/2017 NICHOLE CAMACHO MD Ot Z51.81 ENCOUNTER FOR THERAPEUTIC DRUG LEVEL MON 08/24/2017 NICHOLE CAMACHO MD Ot Z79.2 [facility] (CURRENT) USE OF ANTIBIOTICS 08/24/2017 DERRICK FORDE APRN Ot Z51.81 ENCOUNTER FOR THERAPEUTIC DRUG LEVEL MON 08/24/2017 DERRICK FORDE APRN Ot 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 08/24/2017 NICHOLE CAMACHO MD Ot Z51.81 ENCOUNTER FOR THERAPEUTIC DRUG LEVEL MON 08/24/2017 NICHOLE CAMACHO MD, Ot 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 08/24/2017 NICHOLE CAMACHO MD, Ot Z51.81 ENCOUNTER FOR THERAPEUTIC DRUG LEVEL Mon08/24/2017 NICHOLE CAMACHO MD, Ot 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81 ENCOUNTER FOR THERAPEUTIC DRUG LEVEL Mon08/24/2017 NICHOLE CAMACHO MD Ot Z79.2 [facility] (CURRENT) USE OF ANTIBIOTICS 08/24/2017 NICHOLE CAMACHO MD Ot Z51.81 ENCOUNTER FOR THERAPEUTIC DRUG LEVEL Mon08/24/2017 NICHOLE CAMACHO MD Ot Z79.2 [facility] (CURRENT) USE OF ANTIBIOTICS 08/24/2017 DERRICK FORDE APRN Ot Z45.2 ENCOUNTER FOR ADJUSTMENT AND MANAGEMENT 08/24/2017 NICHOLE CAMACHO MD Ot Z51.81 ENCOUNTER FOR THERAPEUTIC DRUG LEVEL MON 08/24/2017 NICHOLE CAMACHO MD, Ot 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 08/24/2017 DERRICK FORDE APRN Ot M86.9 OSTEOMYELITIS, UNSPECIFIED 08/24/2017 DERRICK FORDE APRN Ot N17.9 ACUTE KIDNEY FAILURE, UNSPECIFIED 08/28/2017 MATT GREGORY DO Ot 344.1 PARAPLEGIA NOS 08/28/2017 MATT GREGORY DO Ot 401.9 HYPERTENSION NOS 08/28/2017 MATT GREGORY DO Ot 441.4 ABDOM AORTIC ANEURYSM 08/28/2017 MATT GREGORY DO Ot V15.81 HX OF PAST NONCOMPLIANCE 08/28/2017 MAYITO ADAMSON, MIGEL Haas Ot Z01.818 ENCOUNTER FOR OTHER PREPROCEDURAL EXAMIN 08/28/2017 RICHI ADAMSON, JOAN Quintero Ot M54.6 PAIN IN THORACIC SPINE 08/28/2017 LENA RODRIGUEZ MD Ot 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 08/28/2017 LENA RODRIGUEZ MD Ot 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 08/28/2017 NICHOLE CAMACHO MD, Ot G82.20 PARAPLEGIA, UNSPECIFIED 08/28/2017 NICHOLE CAMACHO MD Ot 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 UL 08/28/2017 NICHOLE CAMACHO MD Ot L89.103 PRESSURE ULCER OF UNSPECIFIED PART OF BA 08/28/2017 NICHOLE CAMACHO MD Ot L89.614 PRESSURE ULCER OF RIGHT HEEL, STAGE 4 08/28/2017 NICHOLE CAMACHO MD Ot L89.894 PRESSURE ULCER OF OTHER SITE, STAGE 4 08/28/2017 NICHOLE CAMACHO MD Ot G82.20 PARAPLEGIA, UNSPECIFIED 08/28/2017 NICHOLE CAMACHO MD Ot 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 UL 08/28/2017 NICHOLE CAMACHO MD Ot L89.103 PRESSURE ULCER OF UNSPECIFIED PART OF BA 08/28/2017 NICHOLE CAMACHO MD Ot L89.614 PRESSURE ULCER OF RIGHT HEEL, STAGE 4 08/28/2017 NICHOLE CAMACHO MD Ot L89.894 PRESSURE ULCER OF OTHER SITE, STAGE 4 08/28/2017 NICHOLE CAMACHO MD Ot L89.103 PRESSURE ULCER OF UNSPECIFIED PART OF BA 08/28/2017 NICHOLE CAMACHO MD Ot M48.54XS COLLAPSED [place], NEC, THORACIC REGION 08/28/2017 NICHOLE CAMACHO MD, Ot G82.20 PARAPLEGIA, UNSPECIFIED 08/28/2017 NICHOLE CAMACHO MD Ot 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 UL 08/28/2017 NICHOLE CAMACHO MD Ot L89.103 PRESSURE ULCER OF UNSPECIFIED PART OF BA 08/28/2017 NICHOLE CAMACHO MD, Ot L89.614 PRESSURE ULCER OF RIGHT HEEL, STAGE 4 08/28/2017 NICHOLE CAMACHO MD Ot L89.894 PRESSURE ULCER OF OTHER SITE, STAGE 4 08/28/2017 NICHOLE CAMACHO MD Ot M86.171 OTHER ACUTE OSTEOMYELITIS, RIGHT ANKLE A 08/28/2017 NICHOLE CAMACHO MD Ot G82.20 PARAPLEGIA, UNSPECIFIED 08/28/2017 NICHOLE CAMACHO MD Ot 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 UL 08/28/2017 NICHOLE CAMACHO MD Ot L89.103 PRESSURE ULCER OF UNSPECIFIED PART OF BA 08/28/2017 NICHOLE CAMACHO MD, Ot L89.614 PRESSURE ULCER OF RIGHT HEEL, STAGE 4 08/28/2017 NICHOLE CAMACHO MD, Ot L89.894 PRESSURE ULCER OF OTHER SITE, STAGE 4 08/28/2017 NICHOLE CAMACHO MD, Ot M86.171 OTHER ACUTE OSTEOMYELITIS, RIGHT ANKLE A 08/28/2017 DERRICK FORDE APRN Ot M86.9 OSTEOMYELITIS, UNSPECIFIED 08/28/2017 DERRICK FORDE APRN Ot Z45.2 ENCOUNTER FOR ADJUSTMENT AND MANAGEMENT 08/28/2017 ETHEL HIRSCH Ot M86.9 OSTEOMYELITIS, UNSPECIFIED 08/28/2017 NICHOLE CAMACHO MD, Ot M86.9 OSTEOMYELITIS, UNSPECIFIED 08/28/2017 NICHOLE CAMACHO MD Ot Z51.81 ENCOUNTER FOR THERAPEUTIC DRUG LEVEL MON 08/28/2017 NICHOLE CAMACHO MD, Ot 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 08/28/2017 DERRICK FORDE APRN Ot Z51.81 ENCOUNTER FOR THERAPEUTIC DRUG LEVEL MON 08/28/2017 DERRICK FORDE APRN Ot 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 08/28/2017 NICHOLE CAMACHO MD Ot Z51.81 ENCOUNTER FOR THERAPEUTIC DRUG LEVEL Mon08/28/2017 NICHOLE CAMACHO MD Ot 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 08/28/2017 NICHOLE CAMACHO MD Ot Z51.81 ENCOUNTER FOR THERAPEUTIC DRUG LEVEL Mon08/28/2017 NICHOLE CAMACHO MD, Ot Z79.2 [facility] (CURRENT) USE OF ANTIBIOTICS 08/28/2017 NICHOLE CAMACHO MD, Ot Z51.81 ENCOUNTER FOR THERAPEUTIC DRUG LEVEL MON 08/28/2017 NICHOLE CAMACHO MD, Ot 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 08/28/2017 NICHOLE CAMACHO MD, Ot Z51.81 ENCOUNTER FOR THERAPEUTIC DRUG LEVEL MON 08/28/2017 NICHOLE CAMACHO MD, Ot Z79.2 [facility] (CURRENT) USE OF ANTIBIOTICS 08/28/2017 DERRICK FORDE APRN Ot Z53.9 PROCEDURE AND TREATMENT NOT CARRIED OUT, 08/28/2017 DERRICK FORDE APRN Ot Z51.81 ENCOUNTER FOR THERAPEUTIC DRUG LEVEL MON 08/28/2017 DERRICK FORDE APRN Ot Z79.2 [facility] (CURRENT) USE OF ANTIBIOTICS 08/28/2017 NICHOLE CAMACHO MD, Ot Z51.81 ENCOUNTER FOR THERAPEUTIC DRUG LEVEL MON 08/28/2017 NICHOLE CAMACHO MD, Ot 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 08/28/2017 NICHOLE CAMACHO MD, Ot Z51.81 ENCOUNTER FOR THERAPEUTIC DRUG LEVEL MON 08/28/2017 NICHOLE CAMACHO MD, Ot 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 08/28/2017 DERRICK FORDE APRN Ot Z45.2 ENCOUNTER FOR ADJUSTMENT AND MANAGEMENT 08/28/2017 NICHOLE CAMACHO MD, Ot Z51.81 ENCOUNTER FOR THERAPEUTIC DRUG LEVEL MON 08/28/2017 NICHOLE CAMACHO MD, Ot 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 08/28/2017 DERRICK FORDE APRN Ot M86.9 OSTEOMYELITIS, UNSPECIFIED 08/28/2017 DERRICK FORDE APRN Ot N17.9 ACUTE KIDNEY FAILURE, UNSPECIFIED 09/18/2017 MATT GREGORY DO Ot 344.1 PARAPLEGIA NOS 09/18/2017 MATT GREGORY DO Ot 401.9 HYPERTENSION NOS 09/18/2017 MATT GREGORY DO Ot 441.4 ABDOM AORTIC ANEURYSM 09/18/2017 MATT GREGORY DO Ot V15.81 HX OF PAST NONCOMPLIANCE 09/18/2017 MAYITO ADAMSON, MIGEL Haas Ot Z01.818 ENCOUNTER FOR OTHER PREPROCEDURAL EXAMIN 09/18/2017 RICHI ADAMSON, JOAN Quintero Ot M54.6 PAIN IN THORACIC SPINE 09/18/2017 LENA RODRIGUEZ MD Ot 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 09/18/2017 LENA RODRIGUEZ MD Ot 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 09/18/2017 NICHOLE CAMACHO MD, Ot G82.20 PARAPLEGIA, UNSPECIFIED 09/18/2017 NICHOLE CAMACHO MD Ot 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 UL 09/18/2017 NICHOLE CAMACHO MD Ot L89.103 PRESSURE ULCER OF UNSPECIFIED PART OF BA 09/18/2017 NICHOLE CAMACHO MD Ot L89.614 PRESSURE ULCER OF RIGHT HEEL, STAGE 4 09/18/2017 NICHOLE CAMACHO MD Ot L89.894 PRESSURE ULCER OF OTHER SITE, STAGE 4 09/18/2017 NICHOLE CAMACHO MD, Ot G82.20 PARAPLEGIA, UNSPECIFIED 09/18/2017 NICHOLE CAMACHO MD, Ot 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 UL 09/18/2017 NICHOLE CAMACHO MD Ot L89.103 PRESSURE ULCER OF UNSPECIFIED PART OF BA 09/18/2017 NICHOLE CAMACHO MD Ot L89.614 PRESSURE ULCER OF RIGHT HEEL, STAGE 4 09/18/2017 NICHOLE CAMACHO MD Ot L89.894 PRESSURE ULCER OF OTHER SITE, STAGE 4 09/18/2017 NICHOLE CAMACHO MD Ot L89.103 PRESSURE ULCER OF UNSPECIFIED PART OF BA 09/18/2017 NICHOLE CAMACHO MD Ot M48.54XS COLLAPSED [place]RA, NEC, THORACIC REGION 09/18/2017 NICHOLE CAMACHO MD, Ot G82.20 PARAPLEGIA, UNSPECIFIED 09/18/2017 NICHOLE CAMACHO MD Ot 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 09/18/2017 NICHOLE CAMACHO MD Ot L89.103 PRESSURE ULCER OF UNSPECIFIED PART OF BA 09/18/2017 NICHOLE CAMACHO MD Ot L89.614 PRESSURE ULCER OF RIGHT HEEL, STAGE 4 09/18/2017 NICHOLE CAMACHO MD Ot L89.894 PRESSURE ULCER OF OTHER SITE, STAGE 4 09/18/2017 NICHOLE CAMACHO MD Ot M86.171 OTHER ACUTE OSTEOMYELITIS, RIGHT ANKLE A 09/18/2017 NICHOLE CAMCAHO MD Ot G82.20 PARAPLEGIA, UNSPECIFIED 09/18/2017 NICHOLE CAMACHO MD Ot 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 UL 09/18/2017 NICHOLE CAMACHO MD Ot L89.103 PRESSURE ULCER OF UNSPECIFIED PART OF BA 09/18/2017 NICHOLE CAMACHO MD Ot L89.614 PRESSURE ULCER OF RIGHT HEEL, STAGE 4 09/18/2017 NICHOLE CAMACHO MD, Ot L89.894 PRESSURE ULCER OF OTHER SITE, STAGE 4 09/18/2017 NICHOLE CAMACHO MD Ot M86.171 OTHER ACUTE OSTEOMYELITIS, RIGHT ANKLE A 09/18/2017 DERRICK FORDE APRN Ot M86.9 OSTEOMYELITIS, UNSPECIFIED 09/18/2017 DERRICK FORDE APRN Ot Z45.2 ENCOUNTER FOR ADJUSTMENT AND MANAGEMENT 09/18/2017 ETHEL HIRSCH Ot M86.9 OSTEOMYELITIS, UNSPECIFIED 09/18/2017 NICHOLE CAMACHO MD Ot M86.9 OSTEOMYELITIS, UNSPECIFIED 09/18/2017 NICHOLE CAMACHO MD Ot Z51.81 ENCOUNTER FOR THERAPEUTIC DRUG LEVEL MON 09/18/2017 NICHOLE CAMACHO MD Ot Z79.2 [facility] (CURRENT) USE OF ANTIBIOTICS 09/18/2017 DERRICK FORDE APRN Ot Z51.81 ENCOUNTER FOR THERAPEUTIC DRUG LEVEL Mon09/18/2017 DERRICK FORDE APRN Ot Z79.2 [facility] (CURRENT) USE OF ANTIBIOTICS 09/18/2017 NICHOLE CAMACHO MD Ot Z51.81 ENCOUNTER FOR THERAPEUTIC DRUG LEVEL MON 09/18/2017 NICHOLE CAMACHO MD Ot Z79.2 [facility] (CURRENT) USE OF ANTIBIOTICS 09/18/2017 NICHOLE CAMACHO MD Ot Z51.81 ENCOUNTER FOR THERAPEUTIC DRUG LEVEL Mon09/18/2017 NICHOLE CAMACHO MD Ot 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 09/18/2017 NICHOLE CAMACHO MD Ot Z51.81 ENCOUNTER FOR THERAPEUTIC DRUG LEVEL Mon09/18/2017 NICHOLE CAMACHO MD Ot Z79.2 [facility] (CURRENT) USE OF ANTIBIOTICS 09/18/2017 NICHOLE CAMACHO MD Ot Z51.81 ENCOUNTER FOR THERAPEUTIC DRUG LEVEL Mon09/18/2017 NICHOLE CAMACHO MD Ot Z79.2 [facility] (CURRENT) USE OF ANTIBIOTICS 09/18/2017 DERRICK FORDE APRN Ot Z53.9 PROCEDURE AND TREATMENT NOT CARRIED OUT, 09/18/2017 DERRICK FORDE APRN Ot Z51.81 ENCOUNTER FOR THERAPEUTIC DRUG LEVEL MON 09/18/2017 DERRICK FORDE APRN Ot Z79.2 [facility] (CURRENT) USE OF ANTIBIOTICS 09/18/2017 NICHOLE CAMACHO MD Ot Z51.81 ENCOUNTER FOR THERAPEUTIC DRUG LEVEL MON 09/18/2017 NICHOLE CAMACHO MD Ot Z79.2 [facility] (CURRENT) USE OF ANTIBIOTICS 09/18/2017 NICHOLE CAMACHO MD Ot Z51.81 ENCOUNTER FOR THERAPEUTIC DRUG LEVEL MON 09/18/2017 NICHOLE CAMACHO MD Ot Z79.2 [facility] (CURRENT) USE OF ANTIBIOTICS 09/18/2017 DERRICK FORDE APRN Ot Z45.2 ENCOUNTER FOR ADJUSTMENT AND MANAGEMENT 09/18/2017 NICHOLE CAMACHO MD Ot Z51.81 ENCOUNTER FOR THERAPEUTIC DRUG LEVEL MON 09/18/2017 NICHOLE CAMACHO MD Ot Z79.2 [facility] (CURRENT) USE OF ANTIBIOTICS 09/18/2017 DERRICK FORDE APRN Ot M86.9 OSTEOMYELITIS, UNSPECIFIED 09/18/2017 DERRICK FORDE APRN Ot N17.9 ACUTE KIDNEY FAILURE, UNSPECIFIED 11/15/2017 Ot F22 DELUSIONAL DISORDERS 11/15/2017 Ot J34.89 OTHER SPECIFIED DISORDERS OF NOSE AND NA 11/15/2017 Ot R41.82 ALTERED MENTAL STATUS, UNSPECIFIED 11/15/2017 Ot 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, UNSPECIFIED 12/04/2017 Ot F22 DELUSIONAL DISORDERS 12/04/2017 Ot J34.89 OTHER SPECIFIED DISORDERS OF NOSE AND NA 12/04/2017 Ot R41.82 ALTERED MENTAL STATUS, UNSPECIFIED 12/04/2017 Ot 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, UNSPECIFIED 12/20/2017 SEPIDEH MCCULLOUGH Ot G83.9 PARALYTIC SYNDROME, UNSPECIFIED 12/20/2017 SEPIDEH MCCULLOUGH Ot I10 ESSENTIAL (PRIMARY) HYPERTENSION 12/20/2017 SEPIDEH MCCULLOUGH Ot J44.9 CHRONIC OBSTRUCTIVE PULMONARY DISEASE, U 12/20/2017 SEPIDEH MCCULLOUGH Ot N39.0 URINARY TRACT INFECTION, SITE NOT SPECIF 12/20/2017 SEPIDEH MCCULLOUGH Ot R50.9 FEVER, UNSPECIFIED 12/20/2017 SEPIDEH MCCULLOUGH Ot Z51.81 ENCOUNTER FOR THERAPEUTIC DRUG LEVEL MON 12/20/2017 SEPIDEH MCCULLOUGH Ot Z79.2 [facility] (CURRENT) USE OF ANTIBIOTICS 12/20/2017 SEPIDEH MCCULLOUGH Ot 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 12/20/2017 SEPIDEH MCCULLOUGH Ot Z79.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 02/21/2018 NICHOLE CAMACHO MD Ot R19.7 DIARRHEA, UNSPECIFIED 02/21/2018 NICHOLE CAMACHO MD Ot R19.7 DIARRHEA, UNSPECIFIED 02/28/2018 NICHOLE CAMACHO MD Ot R19.7 DIARRHEA, UNSPECIFIED 03/16/2018 NICHOLE CAMACHO MD Ot R19.7 DIARRHEA, UNSPECIFIED 05/14/2018 SEPIDEH MCCULLOUGH L Ot D62 ACUTE POSTHEMORRHAGIC ANEMIA 05/14/2018 SEPIDEH MCCULLOUGH Ot M62.81 MUSCLE WEAKNESS (GENERALIZED) 05/14/2018 SEPIDEH MCCULLOUGH Ot R53.81 OTHER MALAISE 06/04/2018 SEPIDEH MCCULLOUGH L Ot D62 ACUTE POSTHEMORRHAGIC ANEMIA 06/04/2018 SEPIDEH MCCULLOUGH Ot M62.81 MUSCLE WEAKNESS (GENERALIZED) 06/04/2018 SEPIDEH MCCULLOUGH Ot R82.90 UNSPECIFIED ABNORMAL FINDINGS IN URINE 06/04/2018 SEPIDEH MCCULLOUGH Ot Z87.440 PERSONAL HISTORY OF URINARY (TRACT) INFE 06/04/2018 SEPIDEH MCCULLOUGH L Ot D62 ACUTE POSTHEMORRHAGIC ANEMIA 06/04/2018 SEPIDEH MCCULLOUGH Ot M62.81 MUSCLE WEAKNESS (GENERALIZED) 06/04/2018 SEPIDEH MCCULLOUGH L Ot R53.81 OTHER MALAISE 06/19/2018 SEPIDEH MCCULLOUGH Ot D62 ACUTE POSTHEMORRHAGIC ANEMIA 06/19/2018 SEPIDEH MCCULLOUGH Ot M62.81 MUSCLE WEAKNESS (GENERALIZED) 06/19/2018 SEPIDEH MCCULLOUGH L Ot R53.81 OTHER MALAISE 06/25/2018 SEPIDEH MCCULLOUGH L Ot D62 ACUTE POSTHEMORRHAGIC ANEMIA 06/25/2018 SEPIDEH MCCULLOUGH Ot M62.81 MUSCLE WEAKNESS (GENERALIZED) 06/25/2018 SEPIDEH MCCULLOUGH Ot R82.90 UNSPECIFIED ABNORMAL FINDINGS IN URINE 06/25/2018 SEPIDEH MCCULLOUGH Ot Z87.440 PERSONAL HISTORY OF URINARY (TRACT) INFE 06/25/2018 SEPIDEH MCCULLOUGH L Ot D62 ACUTE POSTHEMORRHAGIC ANEMIA 06/25/2018 SEPIDEH MCCULLOUGH Ot M62.81 MUSCLE WEAKNESS (GENERALIZED) 06/25/2018 SEPIDEH MCCULLOUGH Ot R53.81 OTHER MALAISE Procedures There is no data. Results Test Result Range Bacteria identification in isolate by anaerobe culture - 03/17/16 10:05 Bacteria identification in isolate by anaerobe culture NOANA NRG Gram stain microscopy - 03/17/16 10:05 Bacteria identification in wound by culture - 03/17/16 10:05 Bacteria identification in wound by culture [id number] NRG FREE TEXT EXTERNAL SENSITIVITY REPORTED AT 1647, 03-18-16 NRG QUANTITY OF GROWTH Moderate Growth NRG MRSA AGAR MRSA isolated (Screening test for MRSA is positive) NRG CALL POSITIVES (F1 HELP) CALLED TO [facility] [id number] 03/18 08:55 NRG Bacterial susceptibility panel - 03/17/16 10:05 Oxacillin susceptibility test by minimum inhibitory concentration >= NRG Gentamicin susceptibility test by minimum inhibitory concentration <= NRG Clindamycin susceptibility test by minimum inhibitory concentration >= NRG Erythromycin susceptibility test by minimum inhibitory concentration >= NRG Trimethoprim/sulfamethoxazole susceptibility test by minimum inhibitoryconcentration <= NRG Vancomycin susceptibility test by minimum inhibitory concentration <= NRG Levofloxacin susceptibility test by minimum inhibitory concentration 4 NRG Rifampin susceptibility test by minimum inhibitory concentration <= NRG Tetracycline susceptibility test by minimum inhibitory concentration <= NRG Ciprofloxacin susceptibility test by minimum inhibitory concentration R NRG Fungus culture - 03/17/16 10:05 FUNGUS REPORT NO FUNGUS GROWTH OBSERVED NRG Automated blood complete blood count (hemogram) panel - 05/05/16 11:20 Blood leukocytes automated count (number/volume) 5.9 10*3/uL 4.3-11.0 Blood erythrocytes automated count (number/volume) 4.51 10*6/uL 4.35-5.85 Venous blood hemoglobin measurement (mass/volume) 12.1 g/dL 13.3-17.7 Blood hematocrit (volume fraction) 36 % 40-54 Automated erythrocyte mean corpuscular volume 81 [foz_us] 80-99 Automated erythrocyte mean corpuscular hemoglobin (mass per erythrocyte) 27 pg 25-34 Automated erythrocyte mean corpuscular hemoglobin concentration measurement (mass/volume) 33 g/dL 32-36 Automated erythrocyte distribution width ratio 19.2 % 10.0- 14.5 Automated blood platelet count (count/volume) 371 10*3/uL 130-400 Automated blood platelet mean volume measurement 8.6 [foz_us] 7.4-10.4 Erythrocyte sedimentation rate by westergren method - 05/05/16 11:20 Erythrocyte sedimentation rate by westergren method 47 mm 0-30 Whole blood basic metabolic panel - 06/18/16 19:07 Serum or plasma sodium measurement (moles/volume) 131 mmol/L 135-145 Serum or plasma potassium measurement (moles/volume) 5.3 mmol/L 3.6-5.0 Serum or plasma chloride measurement (moles/volume) 97 mmol/L 98-107 Carbon dioxide 21 mmol/L 21-32 Serum or plasma anion gap determination (moles/volume) 13 mmol/L 5-14 Serum or plasma urea nitrogen measurement (mass/volume) 10 mg/dL 7-18 Serum or plasma creatinine measurement (mass/volume) 0.65 mg/dL 0.60-1.30 Serum or plasma urea nitrogen/creatinine mass ratio 15 NRG Serum or plasma creatinine measurement with calculation of estimated glomerular filtration rate > NRG Serum or plasma glucose measurement (mass/volume) 109 mg/dL 70-105 Serum or plasma calcium measurement (mass/volume) 8.2 mg/dL 8.5-10.1 Vancomycin trough - 06/18/16 19:07 Vancomycin trough 11.9 ug/mL 10.0-20.0 Whole blood basic metabolic panel - 06/21/16 07:41 Serum or plasma sodium measurement (moles/volume) 137 mmol/L 135-145 Serum or plasma potassium measurement (moles/volume) 3.9 mmol/L 3.6-5.0 Serum or plasma chloride measurement (moles/volume) 103 mmol/L 98-107 Carbon dioxide 25 mmol/L 21-32 Serum or plasma anion gap determination (moles/volume) 9 mmol/L 5-14 Serum or plasma urea nitrogen measurement (mass/volume) 7 mg/dL 7-18 Serum or plasma creatinine measurement (mass/volume) 0.51 mg/dL 0.60-1.30 Serum or plasma urea nitrogen/creatinine mass ratio 14 NRG Serum or plasma creatinine measurement with calculation of estimated glomerular filtration rate > NRG Serum or plasma glucose measurement (mass/volume) 88 mg/dL 70-105 Serum or plasma calcium measurement (mass/volume) 8.1 mg/dL 8.5-10.1 Vancomycin trough - 06/21/16 07:41 Vancomycin trough 24.2 ug/mL 10.0-20.0 Vancomycin trough - 06/25/16 05:20 Vancomycin trough 20.9 ug/mL 10.0-20.0 Whole blood basic metabolic panel - 06/29/16 06:25 Serum or plasma sodium measurement (moles/volume) 137 mmol/L 135-145 Serum or plasma potassium measurement (moles/volume) 3.8 mmol/L 3.6-5.0 Serum or plasma chloride measurement (moles/volume) 103 mmol/L 98-107 Carbon dioxide 25 mmol/L 21-32 Serum or plasma anion gap determination (moles/volume) 9 mmol/L 5-14 Serum or plasma urea nitrogen measurement (mass/volume) 12 mg/dL 7-18 Serum or plasma creatinine measurement (mass/volume) 0.72 mg/dL 0.60-1.30 Serum or plasma urea nitrogen/creatinine mass ratio 17 NRG Serum or plasma creatinine measurement with calculation of estimated glomerular filtration rate > NRG Serum or plasma glucose measurement (mass/volume) 91 mg/dL 70-105 Serum or plasma calcium measurement (mass/volume) 8.4 mg/dL 8.5-10.1 Vancomycin trough - 06/29/16 06:25 Vancomycin trough 27.1 ug/mL 10.0-20.0 Vancomycin trough - 07/02/16 05:15 Vancomycin trough 23.3 ug/mL 10.0-20.0 Vancomycin trough - 07/05/16 05:15 Vancomycin trough 20.6 ug/mL 10.0-20.0 Vancomycin trough - 07/05/16 05:15 Vancomycin trough 20.6 ug/mL 10.0-20.0 Vancomycin trough - 07/09/16 05:10 Vancomycin trough 21.9 ug/mL 10.0-20.0 Vancomycin trough - 07/13/16 06:15 Vancomycin trough 21.1 ug/mL 10.0-20.0 Vancomycin trough - 07/19/16 05:15 Vancomycin trough 22.2 ug/mL 10.0-20.0 Complete blood count (CBC) with automated white blood cell (WBC) differential - 07/23/16 05:50 Blood leukocytes automated count (number/volume) 5.0 10*3/uL 4.3-11.0 Blood erythrocytes automated count (number/volume) 3.95 10*6/uL 4.35-5.85 Venous blood hemoglobin measurement (mass/volume) 10.9 g/dL 13.3-17.7 Blood hematocrit (volume fraction) 33 % 40-54 Automated erythrocyte mean corpuscular volume 84 [foz_us] 80-99 Automated erythrocyte mean corpuscular hemoglobin (mass per erythrocyte) 28 pg 25-34 Automated erythrocyte mean corpuscular hemoglobin concentration measurement (mass/volume) 33 g/dL 32-36 Automated erythrocyte distribution width ratio 15.3 % 10.0- 14.5 Automated blood platelet count (count/volume) 318 10*3/uL 130-400 Automated blood platelet mean volume measurement 10.2 [foz_us] 7.4-10.4 Automated blood neutrophils/100 leukocytes 55 % 42-75 Automated blood lymphocytes/100 leukocytes 17 % 12-44 Blood monocytes/100 leukocytes 15 % 0-12 Automated blood eosinophils/100 leukocytes 12 % 0-10 Automated blood basophils/100 leukocytes 0 % 0-10 Blood neutrophils automated count (number/volume) 2.8 10*3 1.8-7.8 Blood lymphocytes automated count (number/volume) 0.9 10*3 1.0-4.0 Blood monocytes automated count (number/volume) 0.8 10*3 0.0- 1.0 Automated eosinophil count 0.6 10*3/uL 0.0-0.3 Automated blood basophil count (count/volume) 0.0 10*3/uL 0.0-0.1 Blood manual differential performed detection - 07/23/16 05:50 Blood monocytes/100 leukocytes 7 % NRG Manual blood segmented neutrophils/100 leukocytes 53 % NRG Blood band neutrophils/100 leukocytes 8 % NRG Manual blood lymphocytes/100 leukocytes 13 % NRG Manual eosinophils/100 leukocytes in nose 14 % NRG Manual blood basophils/100 leukocytes 0 % NRG Blood lymphocytes variant/100 leukocytes 5 % NRG Blood anisocytosis detection by light microscopy SLIGHT NRG Blood macrocytes detection by light microscopy SLIGHT NRG Blood poikilocytosis detection by light microscopy SLIGHT NRG Comprehensive metabolic panel - 07/23/16 05:50 Serum or plasma sodium measurement (moles/volume) 134 mmol/L 135-145 Serum or plasma potassium measurement (moles/volume) 3.9 mmol/L 3.6-5.0 Serum or plasma chloride measurement (moles/volume) 100 mmol/L 98-107 Carbon dioxide 22 mmol/L 21-32 Serum or plasma anion gap determination (moles/volume) 12 mmol/L 5-14 Serum or plasma urea nitrogen measurement (mass/volume) 19 mg/dL 7-18 Serum or plasma creatinine measurement (mass/volume) 0.84 mg/dL 0.60-1.30 Serum or plasma urea nitrogen/creatinine mass ratio 23 NRG Serum or plasma creatinine measurement with calculation of estimated glomerular filtration rate > NRG Serum or plasma glucose measurement (mass/volume) 134 mg/dL 70-105 Serum or plasma calcium measurement (mass/volume) 8.1 mg/dL 8.5-10.1 Serum or plasma total bilirubin measurement (mass/volume) 0.6 mg/dL 0.1-1.0 Serum or plasma alkaline phosphatase measurement (enzymatic activity/volume) 70 U/L 40-136 Serum or plasma aspartate aminotransferase measurement (enzymatic activity/volume) 9 U/L 5-34 Serum or plasma alanine aminotransferase measurement (enzymatic activity/volume) 7 U/L 0-55 Serum or plasma protein measurement (mass/volume) 5.5 g/dL 6.4-8.2 Serum or plasma albumin measurement (mass/volume) 3.4 g/dL 3.2-4.5 Complete blood count (CBC) with automated white blood cell (WBC) differential - 07/23/16 19:20 Blood leukocytes automated count (number/volume) 7.1 10*3/uL 4.3-11.0 Blood erythrocytes automated count (number/volume) 3.94 10*6/uL 4.35-5.85 Venous blood hemoglobin measurement (mass/volume) 10.9 g/dL 13.3-17.7 Blood hematocrit (volume fraction) 33 % 40-54 Automated erythrocyte mean corpuscular volume 83 [foz_us] 80-99 Automated erythrocyte mean corpuscular hemoglobin (mass per erythrocyte) 28 pg 25-34 Automated erythrocyte mean corpuscular hemoglobin concentration measurement (mass/volume) 33 g/dL 32-36 Automated erythrocyte distribution width ratio 15.3 % 10.0- 14.5 Automated blood platelet count (count/volume) 343 10*3/uL 130-400 Automated blood platelet mean volume measurement 9.7 [foz_us] 7.4-10.4 Automated blood neutrophils/100 leukocytes 65 % 42-75 Automated blood lymphocytes/100 leukocytes 11 % 12-44 Blood monocytes/100 leukocytes 13 % 0-12 Automated blood eosinophils/100 leukocytes 10 % 0-10 Automated blood basophils/100 leukocytes 1 % 0-10 Blood neutrophils automated count (number/volume) 4.6 10*3 1.8-7.8 Blood lymphocytes automated count (number/volume) 0.8 10*3 1.0-4.0 Blood monocytes automated count (number/volume) 1.0 10*3 0.0- 1.0 Automated eosinophil count 0.7 10*3/uL 0.0-0.3 Automated blood basophil count (count/volume) 0.0 10*3/uL 0.0-0.1 PT panel in platelet poor plasma by coagulation assay - 07/23/16 19:20 Prothrombin time (PT) in platelet poor plasma by coagulation assay 15.4 s 12.2-14.7 INR in platelet poor plasma or blood by coagulation assay 1.3 0.8-1.4 Activated partial thromboplastin time (aPTT) in platelet poor plasma bycoagulation assay - 07/23/16 19:20 Activated partial thromboplastin time (aPTT) in platelet poor plasma bycoagulation assay 90 s 24-35 Blood lactic acid measurement (moles/volume) - 07/23/16 19:20 Blood lactic acid measurement (moles/volume) 1.47 mmol/L 0.50- 2.00 Comprehensive metabolic panel - 07/23/16 19:20 Serum or plasma sodium measurement (moles/volume) 132 mmol/L 135-145 Serum or plasma potassium measurement (moles/volume) 3.9 mmol/L 3.6-5.0 Serum or plasma chloride measurement (moles/volume) 100 mmol/L 98-107 Carbon dioxide 21 mmol/L 21-32 Serum or plasma anion gap determination (moles/volume) 11 mmol/L 5-14 Serum or plasma urea nitrogen measurement (mass/volume) 24 mg/dL 7-18 Serum or plasma creatinine measurement (mass/volume) 0.98 mg/dL 0.60-1.30 Serum or plasma urea nitrogen/creatinine mass ratio 24 NRG Serum or plasma creatinine measurement with calculation of estimated glomerular filtration rate > NRG Serum or plasma glucose measurement (mass/volume) 126 mg/dL 70-105 Serum or plasma calcium measurement (mass/volume) 8.5 mg/dL 8.5-10.1 Serum or plasma total bilirubin measurement (mass/volume) 0.6 mg/dL 0.1-1.0 Serum or plasma alkaline phosphatase measurement (enzymatic activity/volume) 65 U/L 40-136 Serum or plasma aspartate aminotransferase measurement (enzymatic activity/volume) 10 U/L 5-34 Serum or plasma alanine aminotransferase measurement (enzymatic activity/volume) 6 U/L 0-55 Serum or plasma protein measurement (mass/volume) 5.8 g/dL 6.4-8.2 Serum or plasma albumin measurement (mass/volume) 3.2 g/dL 3.2-4.5 Serum or plasma troponin i.cardiac measurement (mass/volume) - 07/23/16 19:20 Serum or plasma troponin i.cardiac measurement (mass/volume) < ng/mL <0.30 Bacterial blood culture - 07/23/16 19:20 Bacterial blood culture NG NRG Bacterial blood culture - 07/23/16 20:00 Bacterial blood culture NG NRG Complete urinalysis with reflex to culture - 07/23/16 20:45 Urine color determination YELLOW NRG Urine clarity determination VERY CLOUDY NRG Urine pH measurement by test strip 5 5-9 Specific gravity of urine by test strip 1.020 1.016-1.022 Urine protein assay by test strip, semi-quantitative 3+ NEGATIVE Urine glucose detection by automated test strip NEGATIVE NEGATIVE Erythrocytes detection in urine sediment by light microscopy 4+ NEGATIVE Urine ketones detection by automated test strip NEGATIVE NEGATIVE Urine nitrite detection by test strip POSITIVE NEGATIVE Urine total bilirubin detection by test strip NEGATIVE NEGATIVE Urine urobilinogen measurement by automated test strip (mass/volume) NORMAL NORMAL Urine leukocyte esterase detection by dipstick 3+ NEGATIVE Automated urine sediment erythrocyte count by microscopy (number/high power field) [HPF] NRG Automated urine sediment leukocyte count by microscopy (number/high power field) [HPF] NRG Bacteria detection in urine sediment by light microscopy FEW NRG Squamous epithelial cells detection in urine sediment by light microscopy NONE NRG Crystals detection in urine sediment by light microscopy NONE NRG Casts detection in urine sediment by light microscopy NONE NRG Mucus detection in urine sediment by light microscopy NEGATIVE NRG Complete urinalysis with reflex to culture YES NRG Bacterial urine culture - 07/23/16 20:45 Bacterial urine culture [id number] NRG COLONY COUNT >100,000/ML NRG FTX;REPORTABLE SENSITIVITY REPORTED 07/25/16 10:45 [facility] Bacterial susceptibility panel - 07/23/16 20:45 Gentamicin susceptibility test by minimum inhibitory concentration <= NRG Tobramycin susceptibility test by minimum inhibitory concentration <= NRG Piperacillin/tazobactam susceptibility test by minimum inhibitory concentration 16 NRG Ciprofloxacin susceptibility test by minimum inhibitory concentration <= NRG Meropenem susceptibility test by minimum inhibitory concentration 1 NRG Cefepime susceptibility test by minimum inhibitory concentration 2 NRG Vancomycin trough - 08/12/16 18:45 Vancomycin trough 21.1 ug/mL 10.0-20.0 Vancomycin trough - 08/19/16 09:50 Vancomycin trough 20.4 ug/mL 10.0-20.0 Erythrocyte sedimentation rate by westergren method - 08/29/16 10:00 Erythrocyte sedimentation rate by westergren method 68 mm 0-30 Complete blood count (CBC) with automated white blood cell (WBC) differential - 07/27/17 14:46 Blood leukocytes automated count (number/volume) 8.7 10*3/uL 4.3-11.0 Blood erythrocytes automated count (number/volume) 3.94 10*6/uL 4.35-5.85 Venous blood hemoglobin measurement (mass/volume) 12.1 g/dL 13.3-17.7 Blood hematocrit (volume fraction) 35 % 40-54 Automated erythrocyte mean corpuscular volume 90 [foz_us] 80-99 Automated erythrocyte mean corpuscular hemoglobin (mass per erythrocyte) 31 pg 25-34 Automated erythrocyte mean corpuscular hemoglobin concentration measurement (mass/volume) 34 g/dL 32-36 Automated erythrocyte distribution width ratio 14.2 % 10.0- 14.5 Automated blood platelet count (count/volume) 317 10*3/uL 130-400 Automated blood platelet mean volume measurement 9.9 [foz_us] 7.4-10.4 Automated blood neutrophils/100 leukocytes 84 % 42-75 Automated blood lymphocytes/100 leukocytes 7 % 12-44 Blood monocytes/100 leukocytes 8 % 0-12 Automated blood eosinophils/100 leukocytes 1 % 0-10 Automated blood basophils/100 leukocytes 0 % 0-10 Blood neutrophils automated count (number/volume) 7.3 10*3 1.8-7.8 Blood lymphocytes automated count (number/volume) 0.6 10*3 1.0-4.0 Blood monocytes automated count (number/volume) 0.7 10*3 0.0- 1.0 Automated eosinophil count 0.1 10*3/uL 0.0-0.3 Automated blood basophil count (count/volume) 0.0 10*3/uL 0.0-0.1 Blood lactic acid measurement (moles/volume) - 07/27/17 14:46 Blood lactic acid measurement (moles/volume) 1.15 mmol/L 0.50- 2.00 Comprehensive metabolic panel - 07/27/17 14:46 Serum or plasma sodium measurement (moles/volume) 136 mmol/L 135-145 Serum or plasma potassium measurement (moles/volume) 4.6 mmol/L 3.6-5.0 Serum or plasma chloride measurement (moles/volume) 101 mmol/L 98-107 Carbon dioxide 21 mmol/L 21-32 Serum or plasma anion gap determination (moles/volume) 14 mmol/L 5-14 Serum or plasma urea nitrogen measurement (mass/volume) 20 mg/dL 7-18 Serum or plasma creatinine measurement (mass/volume) 0.80 mg/dL 0.60-1.30 Serum or plasma urea nitrogen/creatinine mass ratio 25 NRG Serum or plasma creatinine measurement with calculation of estimated glomerular filtration rate > NRG Serum or plasma glucose measurement (mass/volume) 125 mg/dL 70-105 Serum or plasma calcium measurement (mass/volume) 9.8 mg/dL 8.5-10.1 Serum or plasma total bilirubin measurement (mass/volume) 0.8 mg/dL 0.1-1.0 Serum or plasma alkaline phosphatase measurement (enzymatic activity/volume) 90 U/L 40-136 Serum or plasma aspartate aminotransferase measurement (enzymatic activity/volume) 14 U/L 5-34 Serum or plasma alanine aminotransferase measurement (enzymatic activity/volume) 12 U/L 0-55 Serum or plasma protein measurement (mass/volume) 8.4 g/dL 6.4-8.2 Serum or plasma albumin measurement (mass/volume) 4.0 g/dL 3.2-4.5 Blood manual differential performed detection - 07/27/17 14:46 Blood monocytes/100 leukocytes 5 % NRG Manual blood segmented neutrophils/100 leukocytes 58 % NRG Blood band neutrophils/100 leukocytes 32 % NRG Manual blood lymphocytes/100 leukocytes 5 % NRG Manual eosinophils/100 leukocytes in nose 0 % NRG Manual blood basophils/100 leukocytes 0 % NRG Blood erythrocyte morphology finding identification NORMAL NRG Bacterial blood culture - 07/27/17 14:46 Bacterial blood culture NG NRG Bacterial blood culture - 07/27/17 15:08 Bacterial blood culture NG NRG Complete urinalysis with reflex to culture - 07/27/17 15:40 Urine color determination YELLOW NRG Urine clarity determination SLIGHTLY CLOUDY NRG Urine pH measurement by test strip 8 5-9 Specific gravity of urine by test strip 1.010 1.016-1.022 Urine protein assay by test strip, semi-quantitative 2+ NEGATIVE Urine glucose detection by automated test strip NEGATIVE NEGATIVE Erythrocytes detection in urine sediment by light microscopy 3+ NEGATIVE Urine ketones detection by automated test strip NEGATIVE NEGATIVE Urine nitrite detection by test strip NEGATIVE NEGATIVE Urine total bilirubin detection by test strip NEGATIVE NEGATIVE Urine urobilinogen measurement by automated test strip (mass/volume) NORMAL NORMAL Urine leukocyte esterase detection by dipstick 3+ NEGATIVE Automated urine sediment erythrocyte count by microscopy (number/high power field) [HPF] NRG Automated urine sediment leukocyte count by microscopy (number/high power field) [HPF] NRG Bacteria detection in urine sediment by light microscopy MODERATE NRG Crystals detection in urine sediment by light microscopy PRESENT NRG Casts detection in urine sediment by light microscopy NONE NRG Mucus detection in urine sediment by light microscopy NEGATIVE NRG Complete urinalysis with reflex to culture YES NRG Amorphous sediment detection in urine sediment by light microscopy FEW MILLY PHOSPHATE NRG Triple phosphate crystals detection in urine sediment by light microscopy RARE NRG Bacterial urine culture - 07/27/17 15:40 Serum ragweed IgE antibody assay - 02/20/18 14:15 Serum ragweed IgE antibody assay Positive NRG C DIFFICILE AG + TOXIN A/B. - 02/20/18 16:16 FREE TEXT ENTRY 2 POSITIVE FOR GDH ANTIGEN NRG FREE TEXT ENTRY 3 NEGATIVE FOR TOXINS A AND B NRG CALL POSITIVES (F1 HELP) CALLED TO BRIANA/DOYLE 02-21-18 AT 1124/KD NRG RESULTS INDETERMINANT; MOLECULAR TEST TO FOLLOW NRG Complete blood count (CBC) with automated white blood cell (WBC) differential - 05/12/18 17:38 Blood leukocytes automated count (number/volume) 20.1 10*3/uL 4.3-11.0 Blood erythrocytes automated count (number/volume) 3.48 10*6/uL 4.35-5.85 Venous blood hemoglobin measurement (mass/volume) 8.8 g/dL 13.3-17.7 Blood hematocrit (volume fraction) 28 % 40-54 Automated erythrocyte mean corpuscular volume 81 [foz_us] 80-99 Automated erythrocyte mean corpuscular hemoglobin (mass per erythrocyte) 25 pg 25-34 Automated erythrocyte mean corpuscular hemoglobin concentration measurement (mass/volume) 31 g/dL 32-36 Automated erythrocyte distribution width ratio 16.1 % 10.0- 14.5 Automated blood platelet count (count/volume) 640 10*3/uL 130-400 Automated blood platelet mean volume measurement 9.0 [foz_us] 7.4-10.4 Automated blood neutrophils/100 leukocytes 87 % 42-75 Automated blood lymphocytes/100 leukocytes 9 % 12-44 Blood monocytes/100 leukocytes 4 % 0-12 Automated blood eosinophils/100 leukocytes 0 % 0-10 Automated blood basophils/100 leukocytes 0 % 0-10 Blood neutrophils automated count (number/volume) 17.3 10*3 1.8-7.8 Blood lymphocytes automated count (number/volume) 1.9 10*3 1.0-4.0 Blood monocytes automated count (number/volume) 0.8 10*3 0.0- 1.0 Automated eosinophil count 0.0 10*3/uL 0.0-0.3 Automated blood basophil count (count/volume) 0.0 10*3/uL 0.0-0.1 Complete urinalysis with reflex to culture - 05/12/18 17:38 Urine color determination YELLOW NRG Urine clarity determination SLIGHTLY CLOUDY NRG Urine pH measurement by test strip 6 5-9 Specific gravity of urine by test strip 1.010 1.016-1.022 Urine protein assay by test strip, semi-quantitative 1+ NEGATIVE Urine glucose detection by automated test strip NEGATIVE NEGATIVE Erythrocytes detection in urine sediment by light microscopy 2+ NEGATIVE Urine ketones detection by automated test strip NEGATIVE NEGATIVE Urine nitrite detection by test strip POSITIVE NEGATIVE Urine total bilirubin detection by test strip NEGATIVE NEGATIVE Urine urobilinogen measurement by automated test strip (mass/volume) NORMAL NORMAL Urine leukocyte esterase detection by dipstick 3+ NEGATIVE Automated urine sediment erythrocyte count by microscopy (number/high power field) [HPF] NRG Automated urine sediment leukocyte count by microscopy (number/high power field) [HPF] NRG Bacteria detection in urine sediment by light microscopy LARGE NRG Squamous epithelial cells detection in urine sediment by light microscopy NONE NRG Crystals detection in urine sediment by light microscopy NONE NRG Casts detection in urine sediment by light microscopy NONE NRG Mucus detection in urine sediment by light microscopy NEGATIVE NRG Complete urinalysis with reflex to culture YES NRG Comprehensive metabolic panel - 05/12/18 17:38 Serum or plasma sodium measurement (moles/volume) 130 mmol/L 135-145 Serum or plasma potassium measurement (moles/volume) 3.7 mmol/L 3.6-5.0 Serum or plasma chloride measurement (moles/volume) 98 mmol/L 98-107 Carbon dioxide 20 mmol/L 21-32 Serum or plasma anion gap determination (moles/volume) 12 mmol/L 5-14 Serum or plasma urea nitrogen measurement (mass/volume) 13 mg/dL 7-18 Serum or plasma creatinine measurement (mass/volume) 0.75 mg/dL 0.60-1.30 Serum or plasma urea nitrogen/creatinine mass ratio 17 NRG Serum or plasma creatinine measurement with calculation of estimated glomerular filtration rate > NRG Serum or plasma glucose measurement (mass/volume) 109 mg/dL 70-105 Serum or plasma calcium measurement (mass/volume) 8.8 mg/dL 8.5-10.1 Serum or plasma total bilirubin measurement (mass/volume) 0.4 mg/dL 0.1-1.0 Serum or plasma alkaline phosphatase measurement (enzymatic activity/volume) 105 U/L 40-136 Serum or plasma aspartate aminotransferase measurement (enzymatic activity/volume) 18 U/L 5-34 Serum or plasma alanine aminotransferase measurement (enzymatic activity/volume) 12 U/L 0-55 Serum or plasma protein measurement (mass/volume) 7.9 g/dL 6.4-8.2 Serum or plasma albumin measurement (mass/volume) 3.1 g/dL 3.2-4.5 CALCIUM CORRECTED 9.5 mg/dL 8.5-10.1 Blood manual differential performed detection - 05/12/18 17:38 Blood monocytes/100 leukocytes 1 % NRG Manual blood segmented neutrophils/100 leukocytes 92 % NRG Blood band neutrophils/100 leukocytes 0 % NRG Manual blood lymphocytes/100 leukocytes 7 % NRG Manual eosinophils/100 leukocytes in nose 0 % NRG Manual blood basophils/100 leukocytes 0 % NRG Blood anisocytosis detection by light microscopy MODERATE NRG Blood hypochromia detection by light microscopy SLIGHT NRG Bacterial urine culture - 05/12/18 17:38 Bacterial urine culture [id number] NRG COLONY COUNT 30,000 CFU/ML NRG FTX;REPORTABLE SUSCEPTIBILITY REPORTED 05/16/18 10:05 NRG FREE TEXT ENTRY 2 ID REPORTED 05/15/18 11:05 [facility] - 05/12/18 17:38 Gentamicin susceptibility test by minimum inhibitory concentration 4 NRG Trimethoprim/sulfamethoxazole susceptibility test by minimum inhibitoryconcentration R NRG Levofloxacin susceptibility test by minimum inhibitory concentration > NRG Ampicillin susceptibility test by minimum inhibitory concentration > NRG Cefazolin susceptibility test by minimum inhibitory concentration 8 NRG Ceftriaxone susceptibility test by minimum inhibitory concentration <= NRG Ciprofloxacin susceptibility test by minimum inhibitory concentration > NR Nitrofurantoin susceptibility test by minimum inhibitory concentration R NRG Amoxicillin and clavulanate potassium susc [facility]AN[facility] <= [facility] Panel - 05/12/18 17:38 Gentamicin susceptibility test by minimum inhibitory concentration <= NRG Levofloxacin susceptibility test by minimum inhibitory concentration <= NRG Tobramycin susceptibility test by minimum inhibitory concentration S NRG Piperacillin/tazobactam susceptibility test by minimum inhibitory concentration = NRG Ciprofloxacin susceptibility test by minimum inhibitory concentration <= NRG Meropenem susceptibility test by minimum inhibitory concentration 0.5 NRG Aztreonam susceptibility test by minimum inhibitory concentration 8 NRG Cefepime susceptibility test by minimum inhibitory concentration 4 NRG Imipenem susceptibility test by minimum inhibitory concentration 1 NRG Ceftazidime susceptibility test by minimum inhibitory concentration 4 NR [facility] Sensitivity Panel - 05/12/18 17:38 Oxacillin susceptibility test by minimum inhibitory concentration R NR Trimethoprim/sulfamethoxazole susceptibility test by minimum inhibitoryconcentration S NRG Vancomycin susceptibility test by minimum inhibitory concentration 1 NRG Levofloxacin susceptibility test by minimum inhibitory concentration > NR Rifampin susceptibility test by minimum inhibitory concentration <= NR Cefazolin susceptibility test by minimum inhibitory concentration > NR Nitrofurantoin susceptibility test by minimum inhibitory concentration <= NR Penicillin G susceptibility test by minimum inhibitory concentration > NRG Influenza virus A and B antigen detection - 05/12/18 17:44 FLU RESULT NEGATIVE FOR INFLUENZA A AND B ANTIGENS BY IA NRG Encounters ACCT No. Visit Date/Time Discharge Status Pt. Type Provider Facility Loc./Unit Complaint [id number] 05/12/2018 18:07:00 05/12/2018 23:59:59 CLS Outpatient SEPIDEH MCCULLOUGH Via [facility] LABNPT M62.81 [id number] 05/12/2018 17:37:00 05/12/2018 23:59:59 CLS Outpatient SEPIDEH MCCULLOUGH Via [facility] UA,CMP,CBCWD [id number] 02/20/2018 16:15:00 02/20/2018 23:59:59 CLS Outpatient NICHOLE CAMACHO MD Via [facility] [id number] 07/27/2017 14:37:00 07/27/2017 18:43:00 DIS Emergency MUSA LINDSEY MD Via [facility] ER SOA [id number] 09/15/2016 10:06:00 09/26/2016 16:00:00 DIS Outpatient NICHOLE CAMACHO MD Via [facility] WOUNDCARE [id number] 09/01/2016 10:00:00 09/07/2016 00:01:00 DIS Outpatient NICHOLE CAMACHO MD Via [facility] WOUNDCARE [id number] 08/29/2016 10:20:00 08/29/2016 23:59:59 CLS Outpatient DERRICK FORDE APRN Via [facility] SED RATE [id number] 08/19/2016 10:13:00 08/19/2016 23:59:59 CLS Outpatient DERRICK FORDE APRN Via [facility] OSTEOMYLITIS [id number] 08/12/2016 19:24:00 08/12/2016 23:59:59 CLS Outpatient NICHOLE CAMACHO MD Via [facility] VANCOMYCIN THERAPY [id number] 08/08/2016 12:36:00 08/08/2016 23:59:59 CLS Outpatient DERRICK FORDE APRN Via [facility] SDC [id number] 07/23/2016 06:39:00 07/23/2016 23:59:59 CLS Outpatient NICHOLE CAMACHO MD Via [facility] VANCO THERAPY [id number] 07/23/2016 19:13:00 07/23/2016 22:00:00 DIS Outpatient SEPIDEH MCCULLOUGH Via [facility] ER SEPSIS [id number] 07/19/2016 06:16:00 07/19/2016 23:59:59 CLS Outpatient NICHOLE CAMACHO MD Via [facility] VANCO THERAPY [id number] 07/13/2016 06:37:00 07/13/2016 23:59:59 CLS Outpatient DERRICK FORDE APRN Via [facility] VANCO THERAPY [id number] 07/13/2016 06:36:00 07/13/2016 23:59:59 CLS Outpatient DERRICK FORDE APRN Via [facility] [id number] 07/09/2016 05:10:00 07/09/2016 23:59:59 CLS Outpatient NICHOLE CAMACHO MD Via [facility] VANCO THERAPY [id number] 07/09/2016 17:59:00 07/09/2016 19:08:00 DIS Emergency DEE BONILLA MARIA ISABEL Rubalcava Via [facility] ER PICC LINE BLEEDING [id number] 07/08/2016 05:38:00 07/08/2016 23:59:59 CLS Outpatient NICHOLE CAMACHO MD Via [facility] VANCO THERAPY [id number] 07/05/2016 05:33:00 07/05/2016 23:59:59 CLS Outpatient NICHOLE CAMACHO MD Via [facility] [id number] 07/05/2016 05:15:00 07/05/2016 23:59:59 CLS Outpatient NICHOLE CAMACHO MD Via [facility] VANCO THERAPY [id number] 07/02/2016 05:30:00 07/02/2016 23:59:59 CLS Outpatient NICHOLE CAMACHO MD Via [facility] VANCO THERAPY [id number] 06/29/2016 07:02:00 06/29/2016 23:59:59 CLS Outpatient DERRICK FORDE APRN Via [facility] VANCO THERAPY [id number] 06/25/2016 05:20:00 06/25/2016 23:59:59 CLS Outpatient NICHOLE CAMACHO MD Via [facility] VANCO THERAPY [id number] 06/21/2016 07:39:00 06/21/2016 23:59:59 CLS Outpatient NICHOLE CAMACHO MD Via [facility] VANCOMYCIN THERAPY [id number] 06/18/2016 19:01:00 06/18/2016 23:59:59 CLS Outpatient ETHEL HIRSCH CFROBERTA [facility] [id number] 06/16/2016 12:59:00 06/16/2016 23:59:59 [facility] [id number] 06/02/2016 09:45:00 06/08/2016 00:01:00 DIS Outpatient NICHOLE CAMACHO MD Via [facility] WOUNDCARE [id number] 05/12/2016 11:11:00 05/12/2016 23:59:59 CLS Outpatient NICHOLE CAMACHO MD Via [facility] RAD ACUTE OSTEOMYELITIS RIGHT ANKLE FOOT [id number] 05/05/2016 11:10:00 05/05/2016 23:59:59 CLS Outpatient NICHOLE CAMACHO MD Via [facility] LAB M86.171,L89.614,L89.894 [id number] 03/17/2016 10:33:00 03/17/2016 23:59:59 CLS Outpatient NICHOLE CAMACHO MD Via [facility] RAD PRESSURE ULCER OF BACK [id number] 03/14/2016 13:12:00 03/14/2016 23:59:59 CLS Outpatient NICHOLE CAMACHO MD Via [facility] RAD ATHEROSCLEROSIS [place] ART[place] RT LEG [id number] 03/10/2016 11:27:00 03/10/2016 23:59:59 CLS Outpatient NICHOLE CAMACHO MD Via [facility] RAD L89.614 [id number] 11/26/2015 13:09:00 11/26/2015 23:59:59 CLS Outpatient LENA RODRIGUEZ MD Via [facility] RAD R DORSAL FOOT ULCER [id number] 11/05/2015 10:43:00 11/05/2015 23:59:59 CLS Outpatient RICHI ADAMSON, JOAN Quintero [facility] RAD THORACIC BACK PAIN [id number] 09/09/2015 06:10:00 09/09/2015 08:25:00 DIS Emergency DEE , MARIA ISABEL K [facility] ER LEFT FOOT ANKLE INJURY,SWOLLEN [id number] 05/27/2015 08:01:00 05/27/2015 23:59:59 CLS Outpatient LENA RODRIGUEZ MD Via [facility] WOUNDCARE [id number] 02/12/2015 14:25:00 02/12/2015 16:35:00 DIS Emergency CÉSAR ADAMSON, MUSA Rubalcava Via [facility] ER RECTAL BLEEDING [id number] 02/09/2015 07:44:00 02/09/2015 10:45:00 DIS Outpatient MIGEL EDMOND MD Via [facility] BLOOD IN STOOLS [id number] 02/05/2015 05:37:00 02/05/2015 23:59:59 CLS Outpatient MIGEL EDMOND MD Via [facility] PREOP BLOOD IN STOOLS [id number] 01/10/2015 15:00:00 01/10/2015 16:21:00 DIS Emergency CHLOÉ ESPINOSA APRN Via [facility] ER TIB/FIB WOUND [id number] 12/31/2014 14:02:00 01/01/2015 14:30:00 DIS Outpatient TIFFANIE JEAN MD Via [facility] RIGHT PROXIMAL TIBIAL FRACTURE [id number] 11/21/2014 22:21:00 11/28/2014 15:30:00 DIS Inpatient JOAN STODDARD MD Via [facility] SURGICAL R TIBIA FX,L FEMUR FX,UTI,HYPOTENSION,HYPOXIA [id number] 08/03/2012 08:44:00 08/03/2012 23:59:59 CLS Outpatient MATT GREGORY DO [facility] RAD ABD AORTIC ANERUYISM [id number] 10/18/2017 13:38:00 Document Registration [id number] 12/07/2014 22:10:00 Document Registration [id number] 10/03/2010 16:05:00 Document Registration
--- NOTE | 2018-07-18 09:55 | ED Fall/Injury ---
General Chief Complaint: Trauma-Non Activation Stated Complaint: FALL Nursing Triage Note: TO ED PER EMS FROM [facility]IA [facility] [place] FELL OUT OF W/C CO PAIN IN L SHOULDER Source: patient Exam Limitations: no limitations History of Present Illness Date Seen by Provider: July 18, 2018 Time Seen by Provider: 09:45 Initial Comments The patient presents to the ER by EMS from via [facility] [place] with chief complaint that he was reaching to throw it clean next leg into a trashcan and overextended himself falling out of his wheelchair striking the left eyebrow against the floor. He denies loss of consciousness. He is on Plavix. He's said he was having some pain in his left shoulder is they left him laying there until EMS arrived but once they got him out of the floor and into nice comfortable bed in the ER he is no longer having discomfort. He does have some discomfort over his left eye. He does not want anything for it. No confusion nausea vomiting headache. He has a cough but he says his constant for the past 2 years unchanged. No fevers or chills. He has a indwelling [place] catheter. Allergies and Home Medications Allergies Coded Allergies: No Known Drug Allergies (Verified , 02/09/15) Home Medications Acetaminophen 325 Mg Tablet, 650 MG PO Q6H PRN for PAIN-MILD OR TEMPATURE, (Reported) TAKES 2 (325MG) TABLETS Cephalexin 500 Mg Capsule, 500 MG PO BID, (Reported) START DATE 07-22-17 END DATE 07-30-17 Cholecalciferol (Vitamin D3) 1,000 Unit Capsule, 1,000 UNIT PO DAILY, (Reported) Clopidogrel Bisulfate 75 Mg Tablet, 75 MG PO DAILY, (Reported) Clotrimazole/Betamethasone Dip 15 Gm Cream..g., TOP BID PRN for RASH, (Reported) APPLY TO GROIN Duloxetine HCl 30 Mg Capsule.dr, 30 MG PO DAILY, (Reported) Famotidine 20 Mg Tablet, 20 MG PO BID, (Reported) Ferrous Sulfate 325 Mg Tablet, 325 MG PO DAILY, (Reported) Furosemide 40 Mg Tablet, 40 MG PO DAILY, (Reported) Hydrocodone/Acetaminophen 1 Each Tablet, 1 TAB PO Q6H PRN for PAIN-MODERATE, (Reported) Hydroxyzine HCl 25 Mg Tablet, 25 MG PO Q6H PRN for ITCHING, (Reported) Ketoconazole 120 Ml Shampoo, TOP MoWeFr, (Reported) Multivitamins,Therapeutic 1 Each Tablet, 1 TAB PO DAILY, (Reported) Potassium Chloride 20 Meq Tab.er.prt, 20 MEQ PO BID, (Reported) Vits A and D/White Pet/Lanolin 42.5 Gm Oint...g., TP DAILY, (Reported) [Z Guard] , TOP PRN PRN for SKIN PROTECTANT, (Reported) Patient Home Medication List Home Medication List Reviewed: Yes Review of Systems Review of Systems Constitutional: No chills, No diaphoresis Eyes: Denies Blindness, Denies Blurred Vision Ears, Nose, Mouth, Throat: denies ear pain, denies ear discharge Respiratory: No cough, No phlegm Past Knfcxnl-Knyqyc-Yrfzso Hx Patient Social History Alcohol Use: Denies Use Recreational Drug Use: No Smoking Status: Never a Smoker 2nd Hand Smoke Exposure: No Recent Foreign Travel: No Contact w/Someone Who Travel: No Recent Infectious Disease Expo: No Recent Hopitalizations: Yes (RLE INFECTION) Immunizations Up To Date Tetanus Booster (TDap): Unknown Date of Pneumonia Vaccine: Dec 29, 2011 Date of Influenza Vaccine: Dec 19, 2014 Seasonal Allergies Seasonal Allergies: No Past Medical History Surgeries: Yes (CAROTID SURGERY, LEFT SHOULDER; RT. TIBIAL FX & LT FEMUR FX) Orthopedic, Vascular Surgery Respiratory: Yes (uses o2 at all times.) COPD Cardiac: Yes Chronic Edema/Swelling, High Cholesterol, Hypertension, Peripheral Vascular Neurological: Yes (PARAPLEGIA, CAROTID DISEASE) Paralysis, Spinal Cord Injury Reproductive Disorders: No Genitourinary: Yes Kidney Infection, Prostate Problems, Kidney Stones, Neurogenic Bladder, UTI- Chronic Gastrointestinal: Yes Chronic Constipation, Gall Bladder Disease Musculoskeletal: Yes (PARAPLEGIA SINCE [place]) Osteoporosis, Back Injury, Fractures Endocrine: No Dysphagia Cancer: No Psychosocial: No Integumentary: Yes (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 1.5oz. 68.626748ol; 20.36 BMI Method:Stated General Appearance: WD/WN, no apparent distress HEENT: PERRL/EOMI, normal ENT inspection, TMs normal, pharynx normal, other (hematoma, 2 cm over the left eyebrow. No Harris sign, raccoon eyes or hemotympanum) Neck: non-tender, full range of motion, supple, normal inspection Cardiovascular: normal peripheral pulses, regular rate, rhythm, no edema Respiratory: normal breath sounds, no respiratory distress, no accessory muscle use Peripheral Pulses: 2+ Radial Pulses (R), 2+ Radial Pulses (L) Gastrointestinal: normal bowel sounds, non tender, soft Extremities: normal range of motion, non-tender, normal inspection, no calf tenderness, normal capillary refill Neurologic/Psychiatric: alert, normal mood/affect, oriented x 3 Skin: normal color, warm/dry [place] Coma Score Best Eye Response: (4) Open Spontaneously Best Verbal Response: (5) Oriented Best Motor Response: (6) Obeys Commands Jessika Total: 15 Progress/Results/Core Measures Results/Orders My Orders Orders - ALEXANDRA EDWARDS Ct Head/Cervical Spine Wo (07/18/18 09:53) Vital Signs/I&O 07/18/18 09:32 Temp 97.7 Pulse 100 Resp 18 B/P (MAP) 105/65 (78) Pulse Ox 94 O2 Delivery Room Air Blood Pressure Mean: 78 Diagnostic Imaging Diagonstic Imaging: CT (noncontrast) Plain Films/CT/US/NM/MRI: c-spine, head Comments [facility] [place] NAME: SUSSYJUAN [facility]an [facility] REC#: [id number] PT STATUS: REG ER : 1930 PHYSICIAN: ALEXANDRA EDWARDS MD ADMIT DATE: 07/18/18/ER Draft Date of Exam:07/18/18 CT HEAD/CERVICAL SPINE WO PROCEDURE: CT head and CT cervical spine without contrast. TECHNIQUE: Multiple contiguous axial images were obtained through the brain and cervical spine without the use of intravenous contrast. Sagittal and coronal reformations through the cervical spine were then performed. Auto Exposure Controls were utilized during the CT exam to meet ALARA standards for radiation dose reduction. INDICATION: Fall. Comparison is made with prior head CT from 10/18/2017. CT head: There is soft tissue swelling in the left frontal scalp. Ventricles and sulci are prominent consistent with patient's age. No sulcal effacement or midline shift is seen. No acute intra-axial or extra-axial hemorrhage is seen. Cisterns are patent. Visualized paranasal sinuses are clear apart from some fluid or mucosal thickening within the sphenoid. No depressed calvarial fracture is seen. IMPRESSION: Left frontal scalp swelling. No acute intracranial process is detected. CT CERVICAL SPINE: Curvature is normal. There is minimal retrolisthesis of C3 on C4 and C5 on C6. There is severe multilevel degenerative disc disease with disc space narrowing and marginal spurring. No fractures are seen. Odontoid is intact. Prevertebral tissues are within normal limits. IMPRESSION: Severe cervical spondylosis. No acute bony abnormality is detected. Dictated on workstation # [id number] Dict: 07/18/18 1025 Trans: 07/18/18 1032 [facility] [id number] Interpreted by: ELIZABETH HORVATH MD Electronically signed by: Reviewed: Reviewed by Me Departure Impression Primary Impression: Fall from wheelchair Qualified Codes: W05.0XXA - Fall from non-moving wheelchair, initial encounter Additional Impression: Hematoma Disposition: 01 HOME, SELF-CARE Condition: Stable Departure-Patient Inst. Decision time for Depature: 12:10 Referrals: NICHOLE CAMACHO MD (PCP/Family) Primary Care Physician Patient Instructions: HEMATOMA Add. Discharge Instructions: Apply an ice pack to the hematoma over your left eye as necessary. Tylenol and Motrin as necessary. All discharge instructions reviewed with patient and/or family. Voiced understanding. ALEXANDRA EDWARDS July 18, 2018 09:55
--- NOTE | 2018-07-18 10:32 | Diagnostic Imaging Report ---
PROCEDURE: CT head and CT cervical spine without contrast. TECHNIQUE: Multiple contiguous axial images were obtained through the brain and cervical spine without the use of intravenous contrast. Sagittal and coronal reformations through the cervical spine were then performed. Auto Exposure Controls were utilized during the CT exam to meet ALARA standards for radiation dose reduction. INDICATION: Fall. Comparison is made with prior head CT from 10/18/2017. CT head: There is soft tissue swelling in the left frontal scalp. Ventricles and sulci are prominent consistent with patient's age. No sulcal effacement or midline shift is seen. No acute intra-axial or extra-axial hemorrhage is seen. Cisterns are patent. Visualized paranasal sinuses are clear apart from some fluid or mucosal thickening within the sphenoid. No depressed calvarial fracture is seen. IMPRESSION: Left frontal scalp swelling. No acute intracranial process is detected. CT CERVICAL SPINE: Curvature is normal. There is minimal retrolisthesis of C3 on C4 and C5 on C6. There is severe multilevel degenerative disc disease with disc space narrowing and marginal spurring. No fractures are seen. Odontoid is intact. Prevertebral tissues are within normal limits. IMPRESSION: Severe cervical spondylosis. No acute bony abnormality is detected. Dictated by: Dictated on workstation # [id number]
--- NOTE | 2018-07-18 12:17 | NUR ---
CALLED STAFF TO COME GET HER
[2018-07-18 12:54] VITALS: BP 126/67
== END 2018-07-18 13:00 | disposition home or self-care (01) ==
LOC: ER 09:32 → EDUNIT# 09:32 → ER 13:00
DX: S40.012A Contusion of left shoulder, initial encounter (principal); J44.9 Chronic obstructive pulmonary disease, unspecified; I10 Essential (primary) hypertension; E78.00 Pure hypercholesterolemia, unspecified; I73.9 Peripheral vascular disease, unspecified; R40.2142 Coma scale, eyes open, spontaneous, at arrival to emergency department; R40.2252 Coma scale, best verbal response, oriented, at arrival to emergency department; R40.2362 Coma scale, best motor response, obeys commands, at arrival to emergency department; Z87.442 Personal history of urinary calculi; Z79.02 Long term (current) use of antithrombotics/antiplatelets; Z99.81 Dependence on supplemental oxygen; Z87.440 Personal history of urinary (tract) infections; Z80.3 Family history of malignant neoplasm of breast; W05.0XXA Fall from non-moving wheelchair, initial encounter
CPT/HCPCS: 70450; 72125

== ENCOUNTER 2018-10-10 16:28 | Inpatient (IN) | payer MEDICARE, OTHER ==
[~2018-10-10] VITALS: Ht 152.4 cm; Wt 59.1 kg
[2018-10-10] VITALS (17 sets, daily range): BP systolic 89–114; BP diastolic 39–59
[~2018-10-10 16:28] MED LIST changes: -DULO30CA48 PO; +DULO30CA49 PO
[2018-10-10] MEDS ORDERED: LIDOCAINE UROJET 2% GEL 10 ML PKG ONE (16:29)
[2018-10-10] MEDS ORDERED: LIDOCAINE UROJET 2% GEL 10 ML PKG TOP ONE (16:45)
--- NOTE | 2018-10-10 17:10 | ED GU-Male ---
General Chief Complaint: Catheter/Drain/Tube Problems Stated Complaint: CATHETER ISSUES Nursing Triage Note: ARRIVED VIA EMS FROM [facility]. NURSE THERE STATES HIS URINARY CATH WAS CHANGED YESTERDAY DUE TO SEDIMENT CLOGGING IT. TODAY STARTED PASSING BLOOD. CATH WAS REMOVED TODAY AND BLOOD AND CLOTS CAME FROM THE PENIS. STAFF THERE UNABLE TO PUT CATH BACK IN. Source: EMS Exam Limitations: no limitations History of Present Illness Date Seen by Provider: Oct 10, 2018 Time Seen by Provider: 17:07 Initial Comments To ER by EMS from via [facility] with reports of Hematuria and urinary retention. This was noticed yesterday with some sediment in his chronic indwelling Fairbanks catheter. 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 Timing/Duration: yesterday, getting worse Severity/Quality: moderate Radiation: none Prior Genitourinary Problems: none Associated Symptoms: denies symptoms Allergies and Home Medications Allergies Coded Allergies: No Known Drug Allergies (Verified , 02/09/15) Home Medications Acetaminophen 325 Mg Tablet, 650 MG PO Q6H PRN for PAIN-MILD OR TEMPATURE, (Reported) TAKES 2 (325MG) TABLETS Cephalexin 500 Mg Capsule, 500 MG PO BID, (Reported) START DATE 07-22-17 END DATE 07-30-17 Cholecalciferol (Vitamin D3) 1,000 Unit Capsule, 1,000 UNIT PO DAILY, (Reported) Clopidogrel Bisulfate 75 Mg Tablet, 75 MG PO DAILY, (Reported) Clotrimazole/Betamethasone Dip 15 Gm Cream..g., TOP BID PRN for RASH, (Reported) APPLY TO GROIN Duloxetine HCl 30 Mg Capsule.dr, 30 MG PO DAILY, (Reported) Famotidine 20 Mg Tablet, 20 MG PO BID, (Reported) Ferrous Sulfate 325 Mg Tablet, 325 MG PO DAILY, (Reported) Furosemide 40 Mg Tablet, 40 MG PO DAILY, (Reported) Hydrocodone/Acetaminophen 1 Each Tablet, 1 TAB PO Q6H PRN for PAIN-MODERATE, (Reported) Hydroxyzine HCl 25 Mg Tablet, 25 MG PO Q6H PRN for ITCHING, (Reported) Ketoconazole 120 Ml Shampoo, TOP MoWeFr, (Reported) Multivitamins,Therapeutic 1 Each Tablet, 1 TAB PO DAILY, (Reported) Potassium Chloride 20 Meq Tab.er.prt, 20 MEQ PO BID, (Reported) Vits A and D/White Pet/Lanolin 42.5 Gm Oint...g., TP DAILY, (Reported) [Z Guard] , TOP PRN PRN for SKIN PROTECTANT, (Reported) Patient Home Medication List Home Medication List Reviewed: Yes Review of Systems Review of Systems Constitutional: see HPI EENTM: see HPI Respiratory: no symptoms reported Cardiovascular: no symptoms reported Genitourinary: no symptoms reported Musculoskeletal: no symptoms reported Skin: no symptoms reported Psychiatric/Neurological: No Symptoms Reported Endocrine: No Symptoms Reported Past Yhyvjlh-Izsgwc-Orcuht Hx Patient Social History Alcohol Use: Denies Use Recreational Drug Use: No Smoking Status: Unknown if Ever Smoked 2nd Hand Smoke Exposure: No Recent Foreign Travel: No Contact w/Someone Who Travel: No Recent Infectious Disease Expo: No Recent Hopitalizations: Yes (RLE INFECTION) Immunizations Up To Date Tetanus Booster (TDap): Unknown Date of Pneumonia Vaccine: Dec 29, 2011 Date of Influenza Vaccine: Dec 19, 2014 Seasonal Allergies Seasonal Allergies: No Past Medical History Surgeries: Yes (CAROTID SURGERY, LEFT SHOULDER; RT. TIBIAL FX & LT FEMUR FX) Orthopedic, Vascular Surgery Respiratory: Yes (uses o2 at all times.) COPD Cardiac: Yes Chronic Edema/Swelling, High Cholesterol, Hypertension, Peripheral Vascular Neurological: Yes (PARAPLEGIA, CAROTID DISEASE) Paralysis, Spinal Cord Injury Reproductive Disorders: No Genitourinary: Yes Kidney Infection, Prostate Problems, Kidney Stones, Neurogenic Bladder, UTI- Chronic Gastrointestinal: Yes Chronic Constipation, Gall Bladder Disease Musculoskeletal: Yes (PARAPLEGIA SINCE [place]) Osteoporosis, Back Injury, Fractures Endocrine: No Dysphagia Cancer: No Psychosocial: No Integumentary: Yes (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 1.5oz. [id number]; 20.36 BMI Method:Estimated General Appearance: WD/WN, no apparent distress HEENT: PERRL/EOMI, normal ENT inspection Gastrointestinal: non tender, soft; No distended Genital/Rectal: other (blood at the urethral meatus. I was unable to insert a 22 Iranian Fairbanks three-way catheter. I was however able to insert a 16 Iranian Coude. This returned about 600 mL of bloody urine. This was then irrigated by hand with aspiration of bloody urine but no clots visualized.) Extremities: normal range of motion, non-tender Neurologic/Psychiatric: alert, normal mood/affect, oriented x 3 Skin: normal color, warm/dry Focused Exam Lactate Level 10/10/18 17:49: Lactic Acid Level Laboratory Tests Test 10/10/18 17:49 Progress/Results/Core Measures Suspected Sepsis Recent Fever Within 48 Hours: No Infection Criteria Present: Suspected New Infection New/Unexplained Altered Menta: No Sepsis Screen: No Definite Risk SIRS Temperature:98.0 Pulse: 82 Respiratory Rate: 16 Laboratory Tests 10/10/18 17:05: White Blood Count 28.0H Blood Pressure 98 /49 Mean: 65 10/10/18 17:49: Laboratory Tests 10/10/18 17:05: Creatinine 1.24, Platelet Count 482H, Total Bilirubin 0.4 Results/Orders Lab Results Laboratory Tests Test 10/10/18 17:05 10/10/18 17:25 10/10/18 17:49 Range/Units White Blood Count 28.0 H 4.3-11.0 10^3/uL Red Blood Count 3.76 L 4.35-5.85 10^6/uL Hemoglobin 9.6 L 13.3-17.7 G/DL Hematocrit 30 L 40-54 % Mean Corpuscular Volume 80 80-99 FL Mean Corpuscular Hemoglobin 26 25-34 PG Mean Corpuscular Hemoglobin Concent 32 32-36 G/DL Red Cell Distribution Width 19.7 H 10.0-14.5 % Platelet Count 482 H 130-400 10^3/uL Mean Platelet Volume 9.1 7.4-10.4 FL Neutrophils (%) (Auto) 94 H 42-75 % Lymphocytes (%) (Auto) 2 L 12-44 % Monocytes (%) (Auto) 5 0-12 % Eosinophils (%) (Auto) 0 0-10 % Basophils (%) (Auto) 0 0-10 % Neutrophils # (Auto) 26.1 H 1.8-7.8 X 10^3 Lymphocytes # (Auto) 0.5 L 1.0-4.0 X 10^3 Monocytes # (Auto) 1.3 H 0.0-1.0 X 10^3 Eosinophils # (Auto) 0.0 0.0-0.3 10^3/uL Basophils # (Auto) 0.0 0.0-0.1 10^3/uL Neutrophils % (Manual) 82 % Lymphocytes % (Manual) 3 % Monocytes % (Manual) 3 % Band Neutrophils 12 % Toxic Granulation 1+ Dohle Bodies SLIGHT Hypochromasia SLIGHT Blood Morphology Comment Sodium Level 133 L 135-145 MMOL/L Potassium Level 5.1 H 3.6-5.0 MMOL/L Chloride Level 101 98-107 MMOL/L Carbon Dioxide Level 25 21-32 MMOL/L Anion Gap 7 5-14 MMOL/L Blood Urea Nitrogen 43 H 7-18 MG/DL Creatinine 1.24 0.60-1.30 MG/DL Estimat Glomerular Filtration Rate 55 BUN/Creatinine Ratio 35 Glucose Level 185 H 70-105 MG/DL Calcium Level 9.2 8.5-10.1 MG/DL Corrected Calcium 9.8 8.5-10.1 MG/DL Total Bilirubin 0.4 0.1-1.0 MG/DL Aspartate Amino Transf (AST/SGOT) 19 5-34 U/L Alanine Aminotransferase (ALT/SGPT) 9 0-55 U/L Alkaline Phosphatase 109 40-136 U/L Total Protein 7.9 6.4-8.2 GM/DL Albumin 3.3 3.2-4.5 GM/DL Urine Color RED H Urine Clarity BLOODY H Urine pH 7 5-9 Urine Specific Baldwin 1.010 L 1.016-1.022 Urine Protein 4+ NEGATIVE Urine Glucose (UA) NEGATIVE NEGATIVE Urine Ketones 1+ H NEGATIVE Urine Nitrite NEGATIVE NEGATIVE Urine Bilirubin NEGATIVE NEGATIVE Urine Urobilinogen NORMAL NORMAL MG/DL Urine Leukocyte Esterase NEGATIVE NEGATIVE Urine RBC (Auto) 5+ H NEGATIVE Urine RBC TNTC H /HPF Urine WBC TNTC H /HPF Urine Crystals NONE /LPF Urine Bacteria LARGE H /HPF Urine Casts NONE /LPF Urine Mucus LARGE H /LPF Urine Culture Indicated YES My Orders Orders - ESPINSOA,PETER J NEWCOMER HOSTESS Lidocaine 2% (Urojet) (Xylocaine Urojet) (10/10/18 16:45) Cbc With Automated Diff (10/10/18 16:45) Comprehensive Metabolic Panel (10/10/18 16:45) Ua Culture If Indicated (10/10/18 16:45) Manual Differential (10/10/18 17:05) Lactated Ringers (Lr 1000 Ml Iv Solution (10/10/18 17:30) Blood Culture (10/10/18 17:35) Lactic Acid Analyzer (10/10/18 17:35) Urine Culture (10/10/18 17:25) Ceftriaxone For Iv Use (Rocephin For I (10/10/18 18:15) Medications Given in ED Current Medications Medications Dose Ordered Sig/Danie Route Start Time Stop Time Status Last Admin Dose Admin Lidocaine HCl 10 ml ONCE ONCE TOP 10/10/18 16:45 10/10/18 16:47 DC 10/10/18 16:30 10 ML Vital Signs/I&O 10/10/18 16:28 Temp 98.0 Pulse 82 Resp 16 B/P (MAP) 98/49 (65) Pulse Ox 94 O2 Delivery Room Air Capillary Refill : Less Than 3 Seconds Blood Pressure Mean: 65 Departure Impression Primary Impression: Urinary tract infection Qualified Codes: N30.00 - Acute cystitis without hematuria Additional Impression: Sepsis Disposition: 09 ADMITTED INPATIENT Condition: Stable Admissions Decision to Admit Reason: Admit from ER (General) Decision to Admit/Date: Oct 10, 2018 Time/Decision to Admit Time: 18:07 Departure-Patient Inst. Referrals: NICHOLE CAMACHO MD (PCP/Family) Primary Care Physician CHLOÉ ESPINOSA APRN Oct 10, 2018 17:10
[2018-10-10 17:13] LABS: BASOPHILS % (AUTO) 0 % (0-10); EOSINOPHILS % (AUTO) 0 % (0-10); HEMATOCRIT 30 % (40-54); HEMOGLOBIN 9.6 G/DL (13.3-17.7); LYMPHOCYTES # (AUTO) 0.5 X 10^3 (1.0-4.0); LYMPHOCYTES % (AUTO) 2 % (12-44); MEAN CORPUSCULAR HEMOGLOBIN 26 PG (25-34); MEAN CORPUSCULAR HGB CONC 32 G/DL (32-36); MEAN CORPUSCULAR VOLUME 80 FL (80-99); MEAN PLATELET VOLUME 9.1 FL (7.4-10.4); MONOCYTES # (AUTO) 1.3 X 10^3 (0.0-1.0); MONOCYTES % (AUTO) 5 % (0-12); NEUTROPHILS # (AUTO) 26.1 X 10^3 (1.8-7.8); NEUTROPHILS % (AUTO) 94 % (42-75); PLATELET COUNT 482 10^3/uL (130-400); RED CELL DISTRIBUTION WIDTH 19.7 % (10.0-14.5)
[2018-10-10] MEDS ORDERED: LACTATED RINGERS 1,000 ML IV SCH (17:30)
[2018-10-10 17:32] LABS: ALBUMIN 3.3 GM/DL (3.2-4.5); BILIRUBIN,TOTAL 0.4 MG/DL (0.1-1.0); CALCIUM 9.2 MG/DL (8.5-10.1); CREATININE SERUM 1.24 MG/DL (0.60-1.30); POTASSIUM 5.1 MMOL/L (3.6-5.0); TOTAL PROTEIN 7.9 GM/DL (6.4-8.2)
[2018-10-10 17:35] LABS: BAND NEUTROPHILS 12 %; LYMPHOCYTES % (MANUAL) 3 %; MONOCYTES % (MANUAL) 3 %; NEUTROPHILS % (MANUAL) 82 %
[2018-10-10 17:36] LABS: HYPOCHROMASIA SLIGHT; TOXIC GRANULATION/VACUOLAZATIO 1+
[2018-10-10 17:38] LABS: BILIRUBIN,URINE NEGATIVE (NEGATIVE); CLARITY,URINE BLOODY; COLOR,URINE RED; GLUCOSE, URINE (UA) NEGATIVE (NEGATIVE); KETONES,URINE 1+ (NEGATIVE); LEUKOCYTE ESTERASE ,URINE NEGATIVE (NEGATIVE); NITRITE,URINE NEGATIVE (NEGATIVE); PH,URINE 7 (5-9); PROTEIN,URINE 4+ (NEGATIVE); UROBILINOGEN,URINE NORMAL (NORMAL)
[2018-10-10 17:50] LABS: BACTERIA,URINE LARGE /HPF; RBC,URINE TNTC /HPF; WBC,URINE TNTC /HPF
[2018-10-10] MEDS ORDERED: cefTRIAXone FOR IV USE 1,000 MG in WATER (STERILE) FOR INJECTION 10 ML IV ONE (18:15)
--- NOTE | 2018-10-10 18:43 | NUR ---
BRIANA AHMADI AT [facility] NOTIFIED PT WOULD BE AN ADMIT.
--- NOTE | 2018-10-10 18:44 | NUR ---
CHLOÉ IN TALKING TO PT AT THIS TIME.
--- NOTE | 2018-10-10 19:01 | NUR ---
REPORT GIVEN TO KEMAR.
--- NOTE | 2018-10-10 20:00 | NUR ---
JUAN HI admitted to room 420-1, with an admitting diagnosis of SEPSIS, UTI, on 10/10/18 from [facility] via [facility], accompanied by STAFF. JUAN HI introduced to surroundings, call light, bed controls, phone, TV, temperature control, lights, meal times, smoking policy, visitor policy, side rail policy, bathrooms and showers. PATIENT HAS AALYVYN DRESSING TO LEFT LATERAL LOWER LEG, AALYVYN DRESSING TO RIGHT LATERAL FOOT, AND A LARGE BANDAGE TO LEFT GREAT TOE AREA. ALL DRESSINGS IN PLACE WHEN PATIENT ARRIVED TO ROOM 420. SCATTERED BRUISING NOTED.
[2018-10-10] MEDS ORDERED: LACTATED RINGERS IV PRN (20:15)
[2018-10-10] MEDS ORDERED: PIPERACILLIN/TAZO 4.5 GM/NS 100 ML IV NR ×2 (20:30)
[2018-10-10] MEDS ORDERED: VANCOMYCIN 1250 MG/NS 250 ML IVPB IV NR ×2 (20:30)
--- NOTE | 2018-10-10 20:45 | NUR ---
PHYSICIAN NOTIFIED OF LACTIC ACID LEVEL. NNO, PATIENT IS ON SEPSIS PROTOCOL
[2018-10-10] MEDS: LACTATED RINGERS 1,000 ML IV SCH (20:48)
[2018-10-10] MEDS: CEFEPIME 2,000 MG/SWFI 20 ML IV PUSH IV SCH ×2 (20:49)
[2018-10-11] VITALS (29 sets, daily range): BP systolic 90–138; BP diastolic 36–57
[2018-10-11] MEDS: LACTATED RINGERS 1,000 ML IV SCH (01:38)
[2018-10-11] MEDS ORDERED: PIPERACILLIN/TAZO 4.5 GM/NS 100 ML IV SCH ×2 (02:30)
[2018-10-11] MEDS ORDERED: LACTATED RINGERS 1,000 ML IV SCH (04:10)
[2018-10-11 05:14] LABS: BASOPHILS % (AUTO) 0 % (0-10); EOSINOPHILS # (AUTO) 0.1 10^3/uL (0.0-0.3); EOSINOPHILS % (AUTO) 1 % (0-10); HEMATOCRIT 25 % (40-54); HEMOGLOBIN 7.9 G/DL (13.3-17.7); LYMPHOCYTES # (AUTO) 0.6 X 10^3 (1.0-4.0); LYMPHOCYTES % (AUTO) 4 % (12-44); MEAN CORPUSCULAR HEMOGLOBIN 25 PG (25-34); MEAN CORPUSCULAR HGB CONC 31 G/DL (32-36); MEAN CORPUSCULAR VOLUME 80 FL (80-99); MEAN PLATELET VOLUME 9.5 FL (7.4-10.4); MONOCYTES # (AUTO) 0.4 X 10^3 (0.0-1.0); MONOCYTES % (AUTO) 2 % (0-12); NEUTROPHILS # (AUTO) 15.8 X 10^3 (1.8-7.8); NEUTROPHILS % (AUTO) 93 % (42-75); PLATELET COUNT 358 10^3/uL (130-400); RED CELL DISTRIBUTION WIDTH 19.6 % (10.0-14.5); WHITE BLOOD COUNT 16.9 10^3/uL (4.3-11.0)
[2018-10-11 05:44] LABS: ALANINE AMINOTRANSFERASE 9 U/L (0-55); ALBUMIN 2.7 GM/DL (3.2-4.5); ALKALINE PHOSPHATASE 103 U/L (40-136); BILIRUBIN,TOTAL 0.3 MG/DL (0.1-1.0); BUN/CREATININE RATIO 49; CALCIUM 8.4 MG/DL (8.5-10.1); CARBON DIOXIDE 21 MMOL/L (21-32); CHLORIDE 104 MMOL/L (98-107); CREATININE SERUM 0.78 MG/DL (0.60-1.30); GFR ESTIMATED > 60; GLUCOSE 105 MG/DL (70-105); POTASSIUM 4.4 MMOL/L (3.6-5.0); SODIUM 135 MMOL/L (135-145); TOTAL PROTEIN 6.3 GM/DL (6.4-8.2)
[2018-10-11] MEDS ORDERED: CLOT15CR4 TP (10:03)
[2018-10-11] MEDS ORDERED: LOPE2TAB34 PO (10:03)
[2018-10-11] MEDS ORDERED: DEXT1CAP3 PO (10:03)
[2018-10-11] MEDS ORDERED: ONDA8TAB13 PO (10:03)
[2018-10-11] MEDS ORDERED: BISA10SU8 RC (10:03)
[2018-10-11] MEDS ORDERED: ARGI1POW23 PO (10:03)
[2018-10-11] MEDS ORDERED: CALO41.32 PO (10:03)
[2018-10-11] MEDS ORDERED: BENZ-36 PO (10:03)
[2018-10-11] MEDS ORDERED: PHEN30SP8 MM (10:03)
[2018-10-11] MEDS ORDERED: LACT296L10 PO (10:03)
[2018-10-11] MEDS ORDERED: FLUT1DIS26 INH (10:03)
[2018-10-11] MEDS ORDERED: MULT-19 PO (10:03)
[2018-10-11] MEDS ORDERED: MAGN400O7 PO (10:03)
--- NOTE | 2018-10-11 10:03 | NUR ---
UPDATED MED REC WITH PHYSICIAN VISIT FORM FROM [facility].
--- NOTE | 2018-10-11 11:55 | NUR ---
notified of temp of 100.4, Lortab x 1 given po per previous order for pain, received orders to go ahead with blood transfusion.
--- NOTE | 2018-10-11 11:56 | History & Physical-Hospitalist ---
History of Present Illness HPI/Chief Complaint Pt is an 88yoCM with a PMH of paraplegia, dementia, presbycusis who presented to the hospital due to hematuria. He was unaware he was in the hospital this morning. He is unable to provide me any history so all history is obtained.from the records. He has an indwelling kuhn catheter due to his paraplegia and yesterday the NH noted hematuria so attempted to replace the kuhn and they were unable to so sent him to the ER for evaluation. Here he was found to be febrile and have UTI so was admitted for sepsis. Exam Limitations: clinical condition Date Seen 10/11/18 Time Seen by a Provider: 11:38 Attending Physician Tyler Villeda MD PCP Sagar Dorman MD Referring Physician Date of Admission Oct 10, 2018 at 6:40 pm Home Medications & Allergies Home Medications Reviewed patient Home Medication Reconciliation performed by pharmacy medication reconciliations audio/video technician and/or nursing. Patients Allergies have been reviewed. Allergies Allergies Coded Allergies No Known Drug Allergies (Kczebnkm79/14/15) Past Suwlcvq-Rpzwdj-Dwbjrt Hx Past Med/Social Hx: Reviewed Nursing Past Med/Soc Hx Patient Social History Marrital Status: Employed/Student: retired Alcohol Use: Denies Use Recreational Drug Use: No Smoking Status: Unknown if Ever Smoked 2nd Hand Smoke Exposure: No Recent Foreign Travel: No Contact w/other who traveled: No Recent Hopitalizations: Yes Recent Infectious Disease Expo: No Immunizations Up To Date Tetanus Booster (TDap): Unknown Date of Pneumonia Vaccine: Dec 29, 2011 Date of Influenza Vaccine: Dec 19, 2014 Seasonal Allergies Seasonal Allergies: No Past Medical History Surgeries: Orthopedic, Vascular Surgery Cardiac: Chronic Edema/Swelling, High Cholesterol, Hypertension, Peripheral Vascular Neurological: Paralysis, Spinal Cord Injury Reproductive: No Genitourinary: Kidney Infection, Prostate Problems, Kidney Stones, Neurogenic Bladder, UTI-Chronic Gastrointestinal: Chronic Constipation, Gall Bladder Disease Musculoskeletal: Osteoporosis, Back Injury, Fractures HEENT: Dysphagia Skin/Integumentary: Recent Skin Changes History of Blood Disorders: Yes (ANEMIA) Family History Reviewed Nursing Family Hx FH: breast cancer 19 MOTHER Review of Systems ROS-Unable to Obtain: dementia Constitutional: no symptoms reported Physical Exam Physical Exam Vital Signs Vital Signs - First Documented 10/10/18 10/10/18 16:28 19:00 Temp 98.0 Pulse 82 Resp 16 B/P (MAP) 98/49 (65) Pulse Ox 94 O2 Delivery Room Air O2 Flow Rate 2.00 Capillary Refill : Less Than 3 Seconds Height, Weight, BMI Height: 5'0.00" Weight: 130lbs. 3.8oz. 59.419887ht; 20.36 BMI Method:Estimated General Appearance: No Apparent Distress, Chronically ill, Other (gaunt) HEENT: PERRL/EOMI, Moist Mucous Membranes; No Scleral Icterus (L), No Scleral Icterus (R) Neck: Normal Inspection; No Thyromegaly Respiratory: Lungs Clear, No Accessory Muscle Use, No Respiratory Distress Cardiovascular: Regular Rate, Rhythm, No Murmur Gastrointestinal: Normal Bowel Sounds, Non Tender, Soft Extremity: Normal Capillary Refill, No Pedal Edema, Other (muscle atrophy of lower extremiteis) Neurologic/Psychiatric: Alert, Disoriented Skin: Normal Color, Warm/Dry Lymphatic: No Adenopathy Results Results/Procedures Labs Laboratory Tests 10/10/18 17:05 10/11/18 04:45 Patient resulted labs reviewed. Imaging: Reviewed Imaging Report Assessment/Plan Admission Diagnosis Severe Sepsis Admission Status: Inpatient Order (span 2 midnights) Reason for Inpatient Admission: IV antibiotics, await cultures, will take more than two midnights to stabilize for DC Assessment and Plan Severe Sepsis due to UTI and Bacteremia Febrile with leukocytosis Lactic acid elevated Hypotensive on arrival but after reviewing multiple previous encounters here he does not have HTN and appears to run low/normotensive Continue Cefepime, will DC Vanc as blood cultures growing GNR Await ID and sensitivities on culture Paraplegia PT/OT Hyperkalemia Resolved Normocytic anemia Chronic, trend Likely due to chronic disease Dementia Was previously on hospice but was a live discharge on 03/20/2017 Consider reenrollment Palliative Care Consult Diagnosis/Problems Diagnosis/Problems (1) Severe sepsis Status: Acute (2) Bacteremia Status: Acute (3) Urinary tract infection Status: Acute Qualifiers: Urinary tract infection type: catheter-associated UTI Indwelling urinary catheter type: indwelling urethral catheter Encounter type: initial encounter Qualified Codes: T83.511A - Infection and inflammatory reaction due to indwelling urethral catheter, initial encounter; N39.0 - Urinary tract infection, site not specified (4) Normocytic anemia Status: Chronic (5) Hyperkalemia Status: Acute (6) Hematuria Status: Acute Qualifiers: Hematuria type: gross Qualified Codes: R31.0 - Gross hematuria (7) Paraplegia following spinal cord injury Status: Acute Clinical Quality Measures DVT/VTE Risk/Contraindication: Risk Factor Score Per Nursin RFS Level Per Nursing on Admit: 2=Moderate TONY GRACIA MD Oct 11, 2018 11:56 am
[2018-10-11] MEDS ORDERED: MILK OF MAGNESIA 400 MG/5 ML 30 ML UDC PO PRN (12:15)
[2018-10-11] MEDS ORDERED: BISACODYL 10 MG SUPP (DULCOLAX) RC PRN (12:15)
[2018-10-11] MEDS ORDERED: BENZONATATE 100 MG (TESSALON) CAPSULE PO PRN (12:30)
[2018-10-11] MEDS ORDERED: LACTOSE REDUCED FOOD PO SCH (13:00)
--- NOTE | 2018-10-11 13:06 | NUR ---
CM/SS spoke with [facility], where the patient is from. Patient is very hard of hearing and refuses to wear his hearing aids. Patient has previously been on Hospice with [facility]. [facility] staff did report that he had been having some weird conversations / hallucinations. Was reported that patient's lives on [address] at [facility] and is DPOA.
--- NOTE | 2018-10-11 14:20 | NUR ---
Pt is hard of hearing; rapport established [facility] to [facility]. Providing soothing touch and comforting presence.The pt said he backside was hurting and he wanted help repositioned. I reported this to the nurse.
--- NOTE | 2018-10-11 15:05 | Physician Query Clarification ---
PQ-Link Infection to Dev/Proc Admission/Discharge Admission Date: Oct 10, 2018 at 18:40 Discharge Date: The medical record reflects the following clinical scenario: History/Risk Factors: History of chronic indwelling urinary catheter removed day of admission at [facility]. Paraplegia Severe Sepsis Acute cystitis/Hematuria Clinical Findings: Blood culture positive-Gram neg krystin. Treatment: Insertion of 16 Serbian Coude in ED. IV Rocephin. Question: Can you specify if the Severe sepsis/Acute cystitis with hematuria is due to/associated with Chronic indwelling kuhn catheter? Please document a response in Progress Note or Discharge Summary. 1. Yes - [infection] is due to/associated with [device or procedure]. 2. No - [infection] is not due to/associated with [device or procedure]. 3. Other, with explanation of the clinical findings. 4. Clinically undetermined, no explanation for the clinical findings. PHYSICIAN RESPONSE Specify if infection: 1 Please remember a lack of response to the above will prompt a phone page by CDI/Coding staff. In responding to this query, please exercise your independent professional judgment. The purpose of this communication is to more accurately reflect the complexity of your patients condition. The fact that a question is asked does not imply that any particular answer is desired or expected. Thank you for your timely response to this clarification. Requestors name: Hanny Suarez [facility] Phone # ext [phone] or [phone] THIS PHYSICIAN QUERY FORM IS A PERMANENT PART OF THE MEDICAL RECORD HANNY SUAREZ Oct 11, 2018 3:04 pm TONY GRACIA MD Oct 11, 2018 4:09 pm
[2018-10-11] MEDS: KCL 20 MEQ TAB (K-DUR) PO SCH (16:12)
[2018-10-11] MEDS: LACTOBACILLUS ACIDOPHILUS (PROBIOTIC) CAPSULE PO SCH (16:12)
[2018-10-11] MEDS: ACETAMINOPHEN 325 MG TABLET PO PRN (18:54)
[2018-10-11] MEDS ORDERED: VANCOMYCIN 1 GM/NS 250 ML IVPB IV SCH ×2 (19:00)
[2018-10-11] MEDS: CEFEPIME 2,000 MG/SWFI 20 ML IV PUSH IV SCH ×2 (20:16)
[2018-10-11] MEDS ORDERED: [UNRECOGNIZED DRUG - OTHER] PO SCH (21:00)
[2018-10-11] MEDS ORDERED: QUINIDINE PO SCH (21:00)
[2018-10-11] MEDS ORDERED: DEXTROMETHORPHAN HBR PO SCH (21:00)
[2018-10-11] MEDS: RT-ADVAIR HFA 115/21 MCG PER PUFF IH SCH (21:29)
[2018-10-12] VITALS: BP 132/51
[2018-10-12 04:00] VITALS: BP 130/50
[2018-10-12 06:08] LABS: BASOPHILS % (AUTO) 0 % (0-10); EOSINOPHILS # (AUTO) 1.2 10^3/uL (0.0-0.3); EOSINOPHILS % (AUTO) 12 % (0-10); HEMATOCRIT 25 % (40-54); HEMOGLOBIN 7.9 G/DL (13.3-17.7); LYMPHOCYTES # (AUTO) 0.6 X 10^3 (1.0-4.0); LYMPHOCYTES % (AUTO) 6 % (12-44); MEAN CORPUSCULAR HEMOGLOBIN 25 PG (25-34); MEAN CORPUSCULAR HGB CONC 31 G/DL (32-36); MEAN CORPUSCULAR VOLUME 81 FL (80-99); MEAN PLATELET VOLUME 9.8 FL (7.4-10.4); MONOCYTES # (AUTO) 0.4 X 10^3 (0.0-1.0); MONOCYTES % (AUTO) 4 % (0-12); NEUTROPHILS # (AUTO) 7.7 X 10^3 (1.8-7.8); NEUTROPHILS % (AUTO) 78 % (42-75); PLATELET COUNT 348 10^3/uL (130-400); RED CELL DISTRIBUTION WIDTH 19.3 % (10.0-14.5); WHITE BLOOD COUNT 9.8 10^3/uL (4.3-11.0)
[2018-10-12] MEDS: LACTOBACILLUS ACIDOPHILUS (PROBIOTIC) CAPSULE PO SCH ×2 (06:19→11:21)
[2018-10-12] MEDS: KCL 20 MEQ TAB (K-DUR) PO SCH (06:19)
[2018-10-12 06:38] LABS: BUN/CREATININE RATIO 40; CALCIUM 8.4 MG/DL (8.5-10.1); CARBON DIOXIDE 20 MMOL/L (21-32); CHLORIDE 107 MMOL/L (98-107); CREATININE SERUM 0.62 MG/DL (0.60-1.30); GFR ESTIMATED > 60; GLUCOSE 82 MG/DL (70-105); POTASSIUM 3.9 MMOL/L (3.6-5.0); SODIUM 137 MMOL/L (135-145)
[2018-10-12 07:55] VITALS: BP 104/41
[2018-10-12] MEDS ORDERED: CLOPIDOGREL 75 MG (PLAVIX) TABLET PO SCH (09:00)
[2018-10-12] MEDS ORDERED: A & D OINT 113 GM TUBE TP SCH (09:00)
[2018-10-12] MEDS ORDERED: DULoxetine 30 MG (CYMBALTA) CAP PO SCH (09:00)
[2018-10-12] MEDS ORDERED: FUROSEMIDE 40 MG (LASIX) TAB PO SCH (09:00)
[2018-10-12] MEDS: RT-ADVAIR HFA 115/21 MCG PER PUFF IH SCH (09:08)
--- NOTE | 2018-10-12 09:14 | NUR ---
RT REMOVED O2 AT THIS TIME PATIENT WAS SATTING 95% AND ORDER IS FOR 0-6 L PRN TKS GREATER THAN 92%
--- NOTE | 2018-10-12 09:45 | Physical Therapy Evaluation ---
PT Evaluation-General Medical Diagnosis Admission Date Oct 10, 2018 at 18:40 Medical Diagnosis: hematuria/urinary retention Onset Date: Oct 10, 2018 Therapy Diagnosis Therapy Diagnosis: debility Height/Weight Height (Feet): 5 Height (Inches): 0.00 Weight (Pounds): 130 Weight (Ounces): 3.8 Precautions Precautions/Isolations: Fall Prevention, Pressure Ulcer Weight Bear Status Right Lower Extremity: Right Non Weight Bearing Left Lower Extremity: Left Non Weight Bearing Referral Physician: Lois Reason for Referral: Evaluation/Treatment Medical History Pertinent Medical History: COPD, Dementia, HTN, PVD Additional Medical History 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 Patient completes activity by themselves 4 Supervision or touching assist (CGA). [place] provide cues , steadying assist 3 The helper provides less than half the effort to complete the activity 2 The helper provides more than half the effort to complete the activity 1 Dependent. The helper does all the effort to complete an activity 7 Patient refused to complete or attempt activity 9 The patient did not perform the activity before the current illness or injury 88 Not attempted due to Medical conditions or safety concerns Functional Abilities and Goals: Independent: Patient completed the activities by him/herself, with or without an assistive device, with no assistance from a helper. Needed Some Help: Patient needed partial assistance from another person to complete activities. Dependent: A helper completed the activities for the patient. Unknown: Not Applicable: Bed Mobility: 1 Transfers (B,C,W/C) (FIM): 1 (Latrice) Indoor Mobility (Ambulation): Not Applicalbe Stairs: Not Applicalbe Prior Devices Use: Mechanical lift PT Evaluation-Current Subjective Patient agrees to PT. Pain Numeric Pain Scale: 0-No Pain Location: No Pain Reported Objective Patient Orientation: Person, Time Problem Solving: Poor Attachments: Oxygen, [place]banks Catheter ROM/Strength ROM Lower Extremities bilateral hip, knee, ankle contractures (severe) Strength Lower Extremities 0/5 bilaterally Integumentary/Posture Integumentary refer to nursing notes Bowel Incontinence: Yes Bladder Incontinence: Fairbanks Cath Neuromuscular (Tone, Coordination, Reflexes) paraplegic Sensory Vision: Functional Hearing: Impaired Sensation Right Lower Extremit: Impaired Sensation Left Lower Extremity: Impaired Transfers Therapy Code Descriptions/Definitions Functional Starke Measure: 0=Not Assessed/NA 4=Minimal Assistance 1=Total Assistance 5=Supervision or Setup 2=Maximal Assistance 6=Modified Starke 3=Moderate Assistance 7=Complete Starke Transfers (B, C, W/C) (FIM): 1 Scootin Rollin Latrice lift at facility Gait Anticipated Mode of Locomotion: Wheelchair Assessment/Needs Patient is currently at dependent PLOF with all functional mobility and requires a mechanical lift for transfers and dependent for all bed mobility. RN notified to continue with repositioning and transfers as tolerated by patient. No skilled PT indicated. Rehab Potential: Poor PT Plan Treatment/Plan Treatment Plan: Discontinue PT, goals met Treatment Plan: Other Treatment Duration: Oct 12, 2018 Frequency: 1 time per week Estimated Hrs Per Day: .25 hour per day Patient and/or Family Agrees t: Yes Discharge Recommendations Therapy D/C Recommendations: [facility] Placement, [facility] (TCU/NH) Time/GCodes Time In: 850 Time Out: 907 Total Billed Treatment Time: 17 Total Billed Treatment 1 visit EVModC 17 min CAMERON MATHUR PT Oct 12, 2018 09:45
--- NOTE | 2018-10-12 09:55 | Occupational Therapy Eval ---
OT Evaluation-General/PLF Medical Diagnosis Admission Date Oct 10, 2018 at 18:40 Medical Diagnosis: hematuria/urinary retention Onset Date: Oct 10, 2018 Therapy Diagnosis Therapy Diagnosis: debility Height/Weight Height (Feet): 5 Height (Inches): 0.00 Weight (Pounds): 130 Weight (Ounces): 3.8 Precautions Precautions/Isolations: Fall Prevention, Pressure Ulcer Safety Interventions: None Referral Physician: Lois Medical History Pertinent Medical History: COPD, Dementia, HTN, PVD Additional Medical History paraplegia, high cholesterol, chronic edema, gallbladder disease, osteoporosis, UTI-chronic, neurogenic bladder Reviewed History: Yes Social History Home: Custodial ADL-Prior Level of Function Therapy Code Descriptions/Definitions Functional Esmeralda Measure: 0=Not Assessed/NA 4=Minimal Assistance 1=Total Assistance 5=Supervision or Setup 2=Maximal Assistance 6=Modified Esmeralda 3=Moderate Assistance 7=Complete Esmeralda Therapy Quality Codes: 6 Independent with activity with or without an assistive device 5 Patient requires set up or clean up by helper. Patient completes activity by themselves 4 Supervision or touching assist (CGA). Elysian provide cues , steadying assist 3 The helper provides less than half the effort to complete the activity 2 The helper provides more than half the effort to complete the activity 1 Dependent. The helper does all the effort to complete an activity 7 Patient refused to complete or attempt activity 9 The patient did not perform the activity before the current illness or injury 88 Not attempted due to Medical conditions or safety concerns Functional Abilities and Goals: Independent: Patient completed the activities by him/herself, with or without an assistive device, with no assistance from a helper. Needed Some Help: Patient needed partial assistance from another person to complete activities. Dependent: A helper completed the activities for the patient. Unknown: Not Applicable: ADL PLOF Comments Pt states he is able to feed himself and complete grooming. Has assist for other ADLs. Latrice lift is used for transfer to w/c. OT Current Status Subjective Pt in bed, agrees to therapy. No reports of pain. Mental Status/Objective Patient Orientation: Person Attachments: [place] Catheter Current Dentures/Partials: Yes Hand Dominance: Right Upper Extremity ROM Grossly WFL Upper Extremity Coordination Intact ADL-Treatment ADL-Current Pt participated in UE assessment while in supine. Pt washed face with set up. Rolled with assist for wound RN to assess. Pt positioned in bed with needs met. Therapy Code Descriptions/Definitions Functional Esmeralda Measure: 0=Not Assessed/NA 4=Minimal Assistance 1=Total Assistance 5=Supervision or Setup 2=Maximal Assistance 6=Modified Esmeralda 3=Moderate Assistance 7=Complete Esmeralda Therapy Quality Codes: 6 Independent with activity with or without an assistive device 5 Patient requires set up or clean up by helper. Patient completes activity by themselves 4 Supervision or touching assist (CGA). Elysian provide cues , steadying assist 3 The helper provides less than half the effort to complete the activity 2 The helper provides more than half the effort to complete the activity 1 Dependent. The helper does all the effort to complete an activity 7 Patient refused to complete or attempt activity 9 The patient did not perform the activity before the current illness or injury 88 Not attempted due to Medical conditions or safety concerns Eating (FIM): 5 (set up per nursing report.) Grooming (FIM): 5 (washed face with set up.) OT Education/Plan Problem List/Assessment Pt admitted to hospital with hematuria/urinary retention. Pt resides at [place] [facility] and is dependent for mobility/transfers. Pt states he is able to complete grooming and feeding, but has assist with other ADLs. Pt participated in UE assessment and grooming. Requires assist for bed mobility. Per nursing pt is able to feed himself after set up. Pt is at [facility] and does not required skilled OT services at this time. D/c OT. Discharge Recommendations Plan/Recommendations: Discontinue OT Treatment Plan/Plan of Care Treatment,Training & Education: No Treatment Duration: Oct 12, 2018 Frequency: 1 time per week (eval only) Estimated Hrs Per Day: Other (eval only) Rehab Potential: Poor Time/GCodes Start Time: 09:27 Stop Time: 09:39 Total Time Billed (hr/min): 12 Billed Treatment Time 1 visit, EVM(12minutes) STACEY TANNER OT Oct 12, 2018 09:55
[2018-10-12] MEDS ORDERED: ZINC OXIDE 16% OINT (BUTT PASTE) 113 GM TUBE TOP PRN (10:45)
[2018-10-12] MEDS ORDERED: CEPH-507 PO (11:03)
--- NOTE | 2018-10-12 11:12 | Discharge Inst-Simple/Standard ---
Discharge Inst-Standard Patient Instructions/Follow Up Plan of Care/Instructions/FU: Please continue to take your medications as written. Please follow up with your PCP in the next week. Activity as Tolerated: Yes Discharge Diet: No Restrictions Return to The Hospital For: Fever, chills, abdominal pain, chest pain, if you feel you are getting worse. TONY GRACIA MD Oct 12, 2018 11:12
--- NOTE | 2018-10-12 11:36 | NUR ---
CM/SS patient will return to [facility] this day. They will transport at 1330. RN updated.
[2018-10-12 12:00] VITALS: BP 108/48
--- NOTE | 2018-10-12 12:35 | NUR ---
Report called to Sj AHMADI at [facility], transportation to be here at [id number]
[2018-10-12] MEDS: ACETAMINOPHEN 325 MG TABLET PO PRN (12:47)
[2018-10-12] MEDS ORDERED: TROUGH ORDER-PHARMACY XX NR (18:00)
== END 2018-10-12 13:50 | DRG 698 ==
LOC: EDUNIT# 16:28 → ER 16:29 → 4TH 18:40
PROVIDERS: ADMIT Internal Medicine; ATTEND Internal Medicine
DX: T83.511A Infection and inflammatory reaction due to indwelling urethral catheter, initial encounter (principal); A41.9 Sepsis, unspecified organism; R65.20 Severe sepsis without septic shock; N30.01 Acute cystitis with hematuria; G82.20 Paraplegia, unspecified; F03.90 Unspecified dementia, unspecified severity, without behavioral disturbance, psychotic disturbance, mood disturbance, and anxiety; H91.10 Presbycusis, unspecified ear; E87.5 Hyperkalemia; Z66 Do not resuscitate; D63.8 Anemia in other chronic diseases classified elsewhere; R33.9 Retention of urine, unspecified; N31.9 Neuromuscular dysfunction of bladder, unspecified; J44.9 Chronic obstructive pulmonary disease, unspecified; R60.9 Edema, unspecified; I10 Essential (primary) hypertension; E78.00 Pure hypercholesterolemia, unspecified; I73.9 Peripheral vascular disease, unspecified; R13.10 Dysphagia, unspecified; K59.09 Other constipation; M81.0 Age-related osteoporosis without current pathological fracture; Y99.1 Military activity; Z99.81 Dependence on supplemental oxygen; Z86.14 Personal history of Methicillin resistant Staphylococcus aureus infection; Z87.442 Personal history of urinary calculi
CPT/HCPCS: 36415; 51702; 80048; 80053; 81000; 83605; 85007; 85025; 85027; 87040; 87077; 87081; 87088; 87186; 94640; 94760

== ENCOUNTER 2018-10-13 12:54 | Emergency (ER) | payer MEDICARE, OTHER ==
[~2018-10-13] VITALS: Ht 180.3 cm; Wt 77.1 kg
[~2018-10-13 12:54] MED LIST changes: +ARGI1POW23 PO; +BENZ-36 PO; +BISA10SU8 RC; +CALO41.32 PO; +CEPH-507 PO; +CLOT15CR4 TP; +DEXT1CAP3 PO; +FLUT1DIS26 INH; +LACT296L10 PO; +LOPE2TAB34 PO; +MAGN400O7 PO; +MULT-19 PO; +ONDA8TAB13 PO; +PHEN30SP8 MM
[2018-10-13] MEDS ORDERED: NS IV 1000 ML 1,000 ML IV SCH (13:02)
--- NOTE | 2018-10-13 13:07 | NUR ---
PT'S FAMILY TO ROOM. REPORT PT WAS "RED" YESTERDAY WHEN HE WAS DISCHARGED FROM THIS FACILITY ET SENT TO [facility]. DAUGHTER REPORTS PT'S REDNESS IS ACTUALLY BETTER AT THIS TIME THAN IT WAS YESTERDAY. NO OTHER CONCERNS VOICED BY FAMILY
[2018-10-13 13:17] LABS: BASOPHILS % (AUTO) 0 % (0-10); EOSINOPHILS # (AUTO) 1.4 10^3/uL (0.0-0.3); EOSINOPHILS % (AUTO) 13 % (0-10); HEMATOCRIT 30 % (40-54); HEMOGLOBIN 9.4 G/DL (13.3-17.7); LYMPHOCYTES # (AUTO) 0.7 X 10^3 (1.0-4.0); LYMPHOCYTES % (AUTO) 7 % (12-44); MEAN CORPUSCULAR HEMOGLOBIN 25 PG (25-34); MEAN CORPUSCULAR HGB CONC 32 G/DL (32-36); MEAN CORPUSCULAR VOLUME 80 FL (80-99); MEAN PLATELET VOLUME 9.3 FL (7.4-10.4); MONOCYTES # (AUTO) 0.3 X 10^3 (0.0-1.0); MONOCYTES % (AUTO) 3 % (0-12); NEUTROPHILS # (AUTO) 8.3 X 10^3 (1.8-7.8); NEUTROPHILS % (AUTO) 77 % (42-75); PLATELET COUNT 385 10^3/uL (130-400); RED CELL DISTRIBUTION WIDTH 19.5 % (10.0-14.5); WHITE BLOOD COUNT 10.8 10^3/uL (4.3-11.0)
[2018-10-13 13:36] LABS: ALANINE AMINOTRANSFERASE 12 U/L (0-55); ALBUMIN 2.9 GM/DL (3.2-4.5); ALKALINE PHOSPHATASE 116 U/L (40-136); BILIRUBIN,TOTAL 0.3 MG/DL (0.1-1.0); BUN/CREATININE RATIO 29; CALCIUM 8.6 MG/DL (8.5-10.1); CARBON DIOXIDE 22 MMOL/L (21-32); CHLORIDE 105 MMOL/L (98-107); CREATININE SERUM 0.77 MG/DL (0.60-1.30); GFR ESTIMATED > 60; GLUCOSE 105 MG/DL (70-105); POTASSIUM 4.1 MMOL/L (3.6-5.0); SODIUM 137 MMOL/L (135-145); TOTAL PROTEIN 6.6 GM/DL (6.4-8.2)
[2018-10-13 13:41] LABS: BAND NEUTROPHILS 1 %; EOSINOPHILS % (MANUAL) 17 %; LYMPHOCYTES % (MANUAL) 3 %; MONOCYTES % (MANUAL) 2 %; NEUTROPHILS % (MANUAL) 77 %
[2018-10-13 13:42] LABS: ANISOCYTOSIS SLIGHT; HYPOCHROMASIA SLIGHT; MICROCYTOSIS SLIGHT
[2018-10-13 13:57] LABS: BILIRUBIN,URINE NEGATIVE (NEGATIVE); CLARITY,URINE SLIGHTLY CLOUDY; COLOR,URINE YELLOW; GLUCOSE, URINE (UA) NEGATIVE (NEGATIVE); KETONES,URINE NEGATIVE (NEGATIVE); LEUKOCYTE ESTERASE ,URINE 3+ (NEGATIVE); NITRITE,URINE NEGATIVE (NEGATIVE); PH,URINE 5 (5-9); PROTEIN,URINE 2+ (NEGATIVE); UROBILINOGEN,URINE NORMAL (NORMAL)
--- NOTE | 2018-10-13 13:59 | ED General ---
General Stated Complaint: RASH History of Present Illness Date Seen by Provider: Oct 13, 2018 Time Seen by Provider: 13:00 Initial Comments 88-year-old male brought via EMS after discharge yesterday for sepsis. Staff at [facility] called and reported the patient became "red all over, fever, low blood pressure and high pulse" (80s/50s and 120s) he was discharged on Keflex and has been switched to Cipro today. Per EMS no hypotension, fever or tachycardia. Patient denies any complaints at this time. He has slight erythema noted to his left arm no generalized erythema. He's had no injuries. He does report tenderness on his tailbone, he has a dressing there for a pressure ulcer. He was given Vanocmycin while in patient. Timing/Duration: 1-3 Hours Associated Systoms: Denies Symptoms Allergies and Home Medications Allergies Coded Allergies: No Known Drug Allergies (Verified , 02/09/15) Home Medications Acetaminophen 325 Mg Tablet, 650 MG PO Q6H PRN for PAIN-MILD OR TEMPATURE, (Reported) TAKES 2 (325MG) TABLETS Argin/Glut/Cahmb/Collag/Mv-Min 1 Each Powd.pack, 1 PACKET PO BID, (Reported) Benzonatate 100 Mg Capsule, 100 MG PO Q8H PRN for COUGH, (Reported) Bisacodyl 10 Mg Supp.rect, 10 MG RC DAILY PRN for IF NO RESULTS FROM MOM IN 12H, (Reported) Caloric Supplement 7.5 Kcal/1 Ml Liquid, 7.5 KCAL PO BID, (Reported) Cephalexin 500 Mg Capsule, 500 MG PO BID Prescribed by: TONY GRACIA on 10/12/18 1103 Cholecalciferol (Vitamin D3) 1,000 Unit Capsule, 1,000 UNIT PO DAILY, (Reported) Clopidogrel Bisulfate 75 Mg Tablet, 75 MG PO DAILY, (Reported) Clotrimazole/Betamethasone Dip 15 Gm Cream..g., TP BID PRN for YEAST, (Reported) Dextromethorphan HBr/Quinidine 1 Each Capsule, 1 CAP PO BID, (Reported) Duloxetine HCl 30 Mg Capsule.dr, 30 MG PO DAILY, (Reported) Ferrous Sulfate 325 Mg Tablet, 325 MG PO DAILY, (Reported) Fluticasone/Salmeterol 1 Each Blst.w.dev, 1 PUFF INH Q12H, (Reported) Furosemide 40 Mg Tablet, 40 MG PO DAILY, (Reported) Hydroxyzine HCl 25 Mg Tablet, 25 MG PO Q6H PRN for ITCHING, (Reported) Ketoconazole 120 Ml Shampoo, TOP MoWeFr, (Reported) Lactose-Reduced Food 296 Ml Liquid, 296 ML PO TID, (Reported) Loperamide HCl 2 Mg Tablet, 2 MG PO UD PRN for LOOSE STOOLS, (Reported) TAKE 1 TAB AFTER EACH LOOSE STOOL, MAX 4 DOSES IN 24 HOURS Magnesium Hydroxide 400 Mg/5 Ml Oral.susp, 30 ML PO DAILY PRN for IF NO BM IN 3 DAYS, (Reported) Multivitamin with Folic Acid 400 Mcg Tablet, 1 TAB PO DAILY, (Reported) Ondansetron 8 Mg Tab.rapdis, 8 MG PO Q6H PRN for NAUSEA/VOMITING-1ST LINE, (Reported) Phenol/Glycerin 30 Ml [place], 2 SPRAYS MM Q4H PRN for THROAT PAIN, (Reported) Potassium Chloride 20 Meq Tab.er.prt, 20 MEQ PO BID, (Reported) Vits A and D/White Pet/Lanolin 42.5 Gm Oint...g., TP DAILY, (Reported) [Z Guard] , TOP UD PRN for INCONTINENCE, (Reported) Patient Home Medication List Home Medication List Reviewed: Yes Review of Systems Review of Systems Constitutional: no symptoms reported, see HPI Skin: see HPI, change in color (redness) All Other Systems Reviewed Negative Unless Noted: Yes Past Zeylftx-Suiuyx-Srjdxl Hx Past Med/Social Hx: Reviewed Nursing Past Med/Soc Hx Patient Social History 2nd Hand Smoke Exposure: No Recent Foreign Travel: No Contact w/Someone Who Travel: No Recent Hopitalizations: Yes Immunizations Up To Date Tetanus Booster (TDap): Unknown Date of Pneumonia Vaccine: Dec 29, 2011 Date of Influenza Vaccine: Dec 19, 2014 Seasonal Allergies Seasonal Allergies: No Past Medical History Surgeries: Yes (CAROTID SURGERY, LEFT SHOULDER; RT. TIBIAL FX & LT FEMUR FX) Orthopedic, Vascular Surgery Respiratory: Yes (uses o2 at all times.) COPD Cardiac: Yes Chronic Edema/Swelling, High Cholesterol, Hypertension, Peripheral Vascular Neurological: Yes (PARAPLEGIA, CAROTID DISEASE) Paralysis, Spinal Cord Injury Reproductive Disorders: No Genitourinary: Yes Kidney Infection, Prostate Problems, Kidney Stones, Neurogenic Bladder, UTI- Chronic Gastrointestinal: Yes Chronic Constipation, Gall Bladder Disease Musculoskeletal: Yes (PARAPLEGIA SINCE [place]) Osteoporosis, Back Injury, Fractures Endocrine: No Dysphagia Cancer: No Psychosocial: No Integumentary: Yes (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 3.8oz. [id number]; 20.36 BMI Method:Estimated General Appearance: No Apparent Distress, WD/WN HEENT: PERRL/EOMI, TMs Normal, Normal ENT Inspection, Pharynx Normal Neck: Normal Inspection, Non Tender, Supple Respiratory: Chest Non Tender, Lungs Clear, Normal Breath Sounds Cardiovascular: Regular Rate, Rhythm, No Edema, No Murmur, Normal Peripheral Pulses Gastrointestinal: Normal Bowel Sounds, Non Tender, Soft Extremity: Normal Capillary Refill, Non Tender, No Calf Tenderness Skin: Normal Color, Warm/Dry, Erythema (trace left UE. No sigsn of cellulits. ), Other (Ulcer to coccyx with intact dressing dated 10/12/18, no drainage noted. ) Focused Exam Lactate Level 10/13/18 13:07: Lactic Acid Level 1.01 Lactic Acid Level Progress/Results/Core Measures Suspected Sepsis SIRS Temperature: Pulse: Respiratory Rate: Laboratory Tests 10/13/18 13:07: White Blood Count 10.8 Blood Pressure / Mean: 10/13/18 13:07: Lactic Acid Level 1.01 Laboratory Tests 10/13/18 13:07: Creatinine 0.77, Platelet Count 385, Total Bilirubin 0.3 Results/Orders Lab Results Laboratory Tests Test 10/13/18 13:07 10/13/18 13:46 Range/Units White Blood Count 10.8 4.3-11.0 10^3/uL Red Blood Count 3.71 L 4.35-5.85 10^6/uL Hemoglobin 9.4 L 13.3-17.7 G/DL Hematocrit 30 L 40-54 % Mean Corpuscular Volume 80 80-99 FL Mean Corpuscular Hemoglobin 25 25-34 PG Mean Corpuscular Hemoglobin Concent 32 32-36 G/DL Red Cell Distribution Width 19.5 H 10.0-14.5 % Platelet Count 385 130-400 10^3/uL Mean Platelet Volume 9.3 7.4-10.4 FL Neutrophils (%) (Auto) 77 H 42-75 % Lymphocytes (%) (Auto) 7 L 12-44 % Monocytes (%) (Auto) 3 0-12 % Eosinophils (%) (Auto) 13 H 0-10 % Basophils (%) (Auto) 0 0-10 % Neutrophils # (Auto) 8.3 H 1.8-7.8 X 10^3 Lymphocytes # (Auto) 0.7 L 1.0-4.0 X 10^3 Monocytes # (Auto) 0.3 0.0-1.0 X 10^3 Eosinophils # (Auto) 1.4 H 0.0-0.3 10^3/uL Basophils # (Auto) 0.0 0.0-0.1 10^3/uL Neutrophils % (Manual) 77 % Lymphocytes % (Manual) 3 % Monocytes % (Manual) 2 % Eosinophils % (Manual) 17 % Band Neutrophils 1 % Hypochromasia SLIGHT Anisocytosis SLIGHT Microcytosis SLIGHT Sodium Level 137 135-145 MMOL/L Potassium Level 4.1 3.6-5.0 MMOL/L Chloride Level 105 98-107 MMOL/L Carbon Dioxide Level 22 21-32 MMOL/L Anion Gap 10 5-14 MMOL/L Blood Urea Nitrogen 22 H 7-18 MG/DL Creatinine 0.77 0.60-1.30 MG/DL Estimat Glomerular Filtration Rate > 60 BUN/Creatinine Ratio 29 Glucose Level 105 70-105 MG/DL Lactic Acid Level 1.01 0.50-2.00 MMOL/L Calcium Level 8.6 8.5-10.1 MG/DL Corrected Calcium 9.5 8.5-10.1 MG/DL Total Bilirubin 0.3 0.1-1.0 MG/DL Aspartate Amino Transf (AST/SGOT) 15 5-34 U/L Alanine Aminotransferase (ALT/SGPT) 12 0-55 U/L Alkaline Phosphatase 116 40-136 U/L Total Protein 6.6 6.4-8.2 GM/DL Albumin 2.9 L 3.2-4.5 GM/DL Urine Color YELLOW Urine Clarity SLIGHTLY CLOUDY Urine pH 5 5-9 Urine Specific [place] 1.010 L 1.016-1.022 Urine Protein 2+ H NEGATIVE Urine Glucose (UA) NEGATIVE NEGATIVE Urine Ketones NEGATIVE NEGATIVE Urine Nitrite NEGATIVE NEGATIVE Urine Bilirubin NEGATIVE NEGATIVE Urine Urobilinogen NORMAL NORMAL MG/DL Urine Leukocyte Esterase 3+ H NEGATIVE Urine RBC (Auto) 5+ H NEGATIVE Urine RBC TNTC H /HPF Urine WBC TNTC H /HPF Urine Squamous Epithelial Cells NONE /HPF Urine Crystals PRESENT H /LPF Urine Amorphous Sediment MOD MILLY URATES H /LPF Urine Bacteria FEW H /HPF Urine Casts NONE /LPF Urine Mucus SMALL H /LPF Urine Culture Indicated YES My Orders Orders - DUNCAN REEVES Ed Iv/Invasive Line Start (10/13/18 13:02) Ns Iv 1000 Ml (Sodium Chloride 0.9%) (10/13/18 13:02) Cbc With Automated Diff (10/13/18 13:02) Comprehensive Metabolic Panel (10/13/18 13:02) Lactic Acid Analyzer (10/13/18 13:02) Ua Culture If Indicated (10/13/18 13:02) Manual Differential (10/13/18 13:07) Urine Culture (10/13/18 13:46) Vital Signs/I&O 10/13/18 12:59 Temp 98.8 Pulse 82 Resp 18 B/P (MAP) 118/36 (63) Pulse Ox 93 O2 Delivery Room Air Capillary Refill : Progress Note : Time: 13:00 Progress Note Patient seen and evaluated, no complaints at this time. Will obtain labs and give 1 L normal saline. 1330 patient blood pressure 120/55, continues to have no erythema noted and not tachycardic. He's remained afebrile. and daughter are present, he is conversing with them. 1400 labs essentially normal, he is continued to be normotensive and no tachycardia. Blood pressure 120/70. Normal saline is 75% infuse. Will continue this.. [facility] notified for transfer. 1430 discharge instructions and return precautions reviewed with the patient and family. Departure Impression Primary Impression: UTI (urinary tract infection) Qualified Codes: N30.01 - Acute cystitis with hematuria Disposition: HOME, SELF-CARE Condition: Improved Departure-Patient Inst. Decision time for Depature: 14:45 Referrals: NICHOLE CAMACHO MD (PCP/Family) Primary Care Physician Patient Instructions: Urinary Tract Infection, Adult (DC) Add. Discharge Instructions: Continue to administer the Cipro as ordered. Alternate between Tylenol 650 mg and ibuprofen 600 mg every 4 hours for pain or fever. Activity as tolerated. Follow-up with PCP next week, sooner if symptoms worsen Copy Copies To 1: SEPIDEH ROTHMAN AMY ARNP Oct 13, 2018 13:59
[2018-10-13 14:21] LABS: AMORPHOUS SEDIMENT,UR MOD AMOR URATES /LPF; BACTERIA,URINE FEW /HPF; RBC,URINE TNTC /HPF; WBC,URINE TNTC /HPF
--- NOTE | 2018-10-13 14:21 | NUR ---
PT TURNED AT THIS TIME, PILLOW PLACED UNDER LT HIP FOR COMFORT
--- NOTE | 2018-10-13 14:24 | NUR ---
THIS RN NOTIFIED [facility] PT WOULD BE READY TO RETURN TO THEM IN AN HR. UNDERSTANDING VOICED
--- NOTE | 2018-10-13 15:20 | NUR ---
PT DISCHARGED TO [facility] AT THIS TIME. INSTR DISCUSSED W/ FAMILY ET [facility] STAFF. PT TO CONTINUE ABX PRESCRIBED, F/U W/ PCP ET RETURN IF SYMPTOMS CHANGE OR GET WORSE. UNDERSTANDING VOICED, NO QUESTIONS.
--- NOTE | 2018-10-13 15:21 | NUR ---
IV DISCONTINUED AT THIS TIME.
[2018-10-13 15:25] VITALS: BP 113/70
== END 2018-10-13 15:25 | disposition home or self-care (01) ==
LOC: EDUNIT# 12:54 → ER 12:55
DX: N39.0 Urinary tract infection, site not specified (principal); J44.9 Chronic obstructive pulmonary disease, unspecified; I10 Essential (primary) hypertension; E78.00 Pure hypercholesterolemia, unspecified; I73.9 Peripheral vascular disease, unspecified; M81.0 Age-related osteoporosis without current pathological fracture; L89.159 Pressure ulcer of sacral region, unspecified stage; Z80.3 Family history of malignant neoplasm of breast; Z87.442 Personal history of urinary calculi; Z87.440 Personal history of urinary (tract) infections; Z99.81 Dependence on supplemental oxygen; Z79.02 Long term (current) use of antithrombotics/antiplatelets; Z79.51 Long term (current) use of inhaled steroids
CPT/HCPCS: 36415; 80053; 81000; 83605; 85007; 85027; 87077; 87088; 87186; 96360; 96361

== ENCOUNTER 2019-01-23 07:29 | Inpatient (IN) | payer MEDICARE, OTHER ==
[~2019-01-23] VITALS: Ht 154.9 cm; Wt 62.8 kg
--- NOTE | 2019-01-23 07:37 | NUR ---
[employer] TESTER NOTIFIED OF NEEDING [address] CATH.
--- NOTE | 2019-01-23 08:15 | NUR ---
JONES IRRIGATED WITH BOTTLE OF STERILE WATER. BLOODY URINE RETURN. NO CLOTS SEEN.
--- NOTE | 2019-01-23 08:24 | NUR ---
[employer] HACKLER NOTIFIED OF NEEDING IRRIGATION BAG AND TUBING FOR PT.
--- NOTE | 2019-01-23 08:45 | NUR ---
BLADDER IRRIGATION STARTED WITH NS. IRRIGATION WOULD NOT FLOW ET JONES FLUSHED AGAIN EASILY WITH A CLOT EXTRACTED.
[2019-01-23 08:53] LABS: BASOPHILS # (AUTO) 0.1 10^3/uL (0.0-0.1); BASOPHILS % (AUTO) 0 % (0-10); EOSINOPHILS # (AUTO) 1.2 10^3/uL (0.0-0.3); EOSINOPHILS % (AUTO) 7 % (0-10); HEMATOCRIT 34 % (40-54); HEMOGLOBIN 10.4 G/DL (13.3-17.7); LYMPHOCYTES % (AUTO) 12 % (12-44); MEAN CORPUSCULAR HEMOGLOBIN 25 PG (25-34); MEAN CORPUSCULAR HGB CONC 31 G/DL (32-36); MEAN CORPUSCULAR VOLUME 81 FL (80-99); MONOCYTES % (AUTO) 6 % (0-12); NEUTROPHILS # (AUTO) 12.2 X 10^3 (1.8-7.8); NEUTROPHILS % (AUTO) 74 % (42-75); PLATELET COUNT 443 10^3/uL (130-400); RED CELL DISTRIBUTION WIDTH 21.8 % (10.0-14.5); WHITE BLOOD COUNT 16.4 10^3/uL (4.3-11.0)
--- NOTE | 2019-01-23 08:56 | ED GU-Male ---
General Chief Complaint: Catheter/Drain/Tube Problems Stated Complaint: CATHETER ISSUES Nursing Triage Note: ARRIVED VIA EMS FROM [facility]. STAFF REPORTS BLOOD IN THE CATH AND AROUND THE TIP THIS AM WHICH IS NOT UNUSUAL. THEY TOOK THE JONES OUT TO BE REPLACED BUT COULD NOT GET IT REPLACED. Source: patient Exam Limitations: no limitations History of Present Illness Date Seen by Provider: Jan 23, 2019 Time Seen by Provider: 07:42 Initial Comments Here with report from EMS and [facility] the patient's catheter clogged and they tried to replace it. They could not get the catheter back in. Multiple nurses tried at the [facility] and were unable to get it in. Patient has chronic hematuria. He denies pain but has limited feeling below the waist and is bedbound and contracted to the lower extremities. No reported fever, chills, vomiting or diarrhea. Timing/Duration: this morning Severity/Quality: moderate Location: other (no pain) Radiation: none Activities at Onset: none Sexual Lismore History: not active Associated Symptoms: No fever/chills, No nausea/vomiting Allergies and Home Medications Allergies Coded Allergies: No Known Drug Allergies (Verified , 02/09/15) Home Medications Acetaminophen 325 Mg Tablet, 650 MG PO Q6H PRN for PAIN-MILD OR TEMPATURE, (Reported) TAKES 2 (325MG) TABLETS Argin/Glut/Cahmb/Collag/Mv-Min 1 Each Powd.pack, 1 PACKET PO BID, (Reported) Benzonatate 100 Mg Capsule, 100 MG PO Q8H PRN for COUGH, (Reported) Bisacodyl 10 Mg Supp.rect, 10 MG RC DAILY PRN for IF NO RESULTS FROM MOM IN 12H, (Reported) Caloric Supplement 7.5 Kcal/1 Ml Liquid, 7.5 KCAL PO BID, (Reported) Cephalexin 500 Mg Capsule, 500 MG PO BID Prescribed by: TONY GRACIA on 10/12/18 1103 Cholecalciferol (Vitamin D3) 1,000 Unit Capsule, 1,000 UNIT PO DAILY, (Reported) Clopidogrel Bisulfate 75 Mg Tablet, 75 MG PO DAILY, (Reported) Clotrimazole/Betamethasone Dip 15 Gm Cream..g., TP BID PRN for YEAST, (Reported) Dextromethorphan HBr/Quinidine 1 Each Capsule, 1 CAP PO BID, (Reported) Duloxetine HCl 30 Mg Capsule.dr, 30 MG PO DAILY, (Reported) Ferrous Sulfate 325 Mg Tablet, 325 MG PO DAILY, (Reported) Fluticasone/Salmeterol 1 Each Blst.w.dev, 1 PUFF INH Q12H, (Reported) Furosemide 40 Mg Tablet, 40 MG PO DAILY, (Reported) Hydroxyzine HCl 25 Mg Tablet, 25 MG PO Q6H PRN for ITCHING, (Reported) Ketoconazole 120 Ml Shampoo, TOP MoWeFr, (Reported) Lactose-Reduced Food 296 Ml Liquid, 296 ML PO TID, (Reported) Loperamide HCl 2 Mg Tablet, 2 MG PO UD PRN for LOOSE STOOLS, (Reported) TAKE 1 TAB AFTER EACH LOOSE STOOL, MAX 4 DOSES IN 24 HOURS Magnesium Hydroxide 400 Mg/5 Ml Oral.susp, 30 ML PO DAILY PRN for IF NO BM IN 3 DAYS, (Reported) Multivitamin with Folic Acid 400 Mcg Tablet, 1 TAB PO DAILY, (Reported) Ondansetron 8 Mg Tab.rapdis, 8 MG PO Q6H PRN for NAUSEA/VOMITING-1ST LINE, (Reported) Phenol/Glycerin 30 Ml Firth, 2 SPRAYS MM Q4H PRN for THROAT PAIN, (Reported) Potassium Chloride 20 Meq Tab.er.prt, 20 MEQ PO BID, (Reported) Vits A and D/White Pet/Lanolin 42.5 Gm Oint...g., TP DAILY, (Reported) [Z Guard] , TOP UD PRN for INCONTINENCE, (Reported) Patient Home Medication List Home Medication List Reviewed: Yes Review of Systems Review of Systems Constitutional: see HPI; No chills, No fever Respiratory: no symptoms reported Cardiovascular: no symptoms reported Gastrointestinal: no symptoms reported Genitourinary: see HPI; denies dysuria; hematuria Musculoskeletal: see HPI; No muscle pain All Other Systemes Reviewed Negative Unless Noted: Yes Past Otywtnx-Xdpdxo-Kksyzf Hx Past Med/Social Hx: Reviewed Nursing Past Med/Soc Hx Patient Social History Alcohol Use: Denies Use Recreational Drug Use: No Smoking Status: Unknown if Ever Smoked 2nd Hand Smoke Exposure: No Recent Foreign Travel: No Contact w/Someone Who Travel: No Recent Infectious Disease Expo: No Recent Hopitalizations: Yes Immunizations Up To Date Tetanus Booster (TDap): Unknown Date of Pneumonia Vaccine: Dec 29, 2011 Date of Influenza Vaccine: Dec 19, 2014 Seasonal Allergies Seasonal Allergies: No Past Medical History Surgeries: Yes (CAROTID SURGERY, LEFT SHOULDER; RT. TIBIAL FX & LT FEMUR FX) Orthopedic, Vascular Surgery Respiratory: Yes (uses o2 at all times.) COPD Cardiac: Yes Chronic Edema/Swelling, High Cholesterol, Hypertension, Peripheral Vascular Neurological: Yes (PARAPLEGIA, CAROTID DISEASE) Paralysis, Spinal Cord Injury Reproductive Disorders: No Genitourinary: Yes Kidney Infection, Prostate Problems, Kidney Stones, Neurogenic Bladder, UTI-C hronic Gastrointestinal: Yes Chronic Constipation, Gall Bladder Disease Musculoskeletal: Yes (PARAPLEGIA SINCE [place]) Osteoporosis, Back Injury, Fractures Endocrine: No Dysphagia Cancer: No Psychosocial: No Integumentary: Yes (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 3.8oz. 77.593828ex; 19.00 BMI Method:Stated General Appearance: WD/WN, no apparent distress Cardiovascular: regular rate, rhythm, no murmur Respiratory: lungs clear Gastrointestinal: non tender, soft Male: No erythema; other (draining blood tinged urine.) Neurologic/Psychiatric: alert, oriented x 3 Skin: normal color, warm/dry Focused Exam Lactate Level 01/23/19 10:05: Lactic Acid Level 0.93 Lactic Acid Level Laboratory Tests Test 01/23/19 10:05 Lactic Acid Level 0.93 MMOL/L (0.50-2.00) Progress/Results/Core Measures Suspected Sepsis Recent Fever Within 48 Hours: No Infection Criteria Present: None New/Unexplained Altered Menta: No Sepsis Screen: No Definite Risk SIRS Temperature: Pulse: 77 Respiratory Rate: 16 Laboratory Tests 01/23/19 08:45: White Blood Count 16.4H Blood Pressure 146 /53 Mean: 84 01/23/19 10:05: Lactic Acid Level 0.93 Laboratory Tests 01/23/19 08:45: Creatinine 0.67, Platelet Count 443H, Total Bilirubin 0.5 Results/Orders Lab Results Laboratory Tests Test 01/23/19 08:45 01/23/19 09:48 01/23/19 10:05 Range/Units White Blood Count 16.4 H 4.3-11.0 10^3/uL Red Blood Count 4.17 L 4.35-5.85 10^6/uL Hemoglobin 10.4 L 13.3-17.7 G/DL Hematocrit 34 L 40-54 % Mean Corpuscular Volume 81 80-99 FL Mean Corpuscular Hemoglobin 25 25-34 PG Mean Corpuscular Hemoglobin Concent 31 L 32-36 G/DL Red Cell Distribution Width 21.8 H 10.0-14.5 % Platelet Count 443 H 130-400 10^3/uL Mean Platelet Volume 9.0 7.4-10.4 FL Neutrophils (%) (Auto) 74 42-75 % Lymphocytes (%) (Auto) 12 12-44 % Monocytes (%) (Auto) 6 0-12 % Eosinophils (%) (Auto) 7 0-10 % Basophils (%) (Auto) 0 0-10 % Neutrophils # (Auto) 12.2 H 1.8-7.8 X 10^3 Lymphocytes # (Auto) 2.0 1.0-4.0 X 10^3 Monocytes # (Auto) 1.0 0.0-1.0 X 10^3 Eosinophils # (Auto) 1.2 H 0.0-0.3 10^3/uL Basophils # (Auto) 0.1 0.0-0.1 10^3/uL Neutrophils % (Manual) 73 % Lymphocytes % (Manual) 13 % Monocytes % (Manual) 2 % Eosinophils % (Manual) 9 % Basophils % (Manual) 0 % Band Neutrophils 3 % Anisocytosis SLIGHT Sodium Level 140 135-145 MMOL/L Potassium Level 4.4 3.6-5.0 MMOL/L Chloride Level 105 98-107 MMOL/L Carbon Dioxide Level 26 21-32 MMOL/L Anion Gap 9 5-14 MMOL/L Blood Urea Nitrogen 18 7-18 MG/DL Creatinine 0.67 0.60-1.30 MG/DL Estimat Glomerular Filtration Rate > 60 BUN/Creatinine Ratio 27 Glucose Level 104 70-105 MG/DL Calcium Level 8.9 8.5-10.1 MG/DL Corrected Calcium 9.3 8.5-10.1 MG/DL Total Bilirubin 0.5 0.1-1.0 MG/DL Aspartate Amino Transf (AST/SGOT) 13 5-34 U/L Alanine Aminotransferase (ALT/SGPT) 7 0-55 U/L Alkaline Phosphatase 79 40-136 U/L Total Protein 7.6 6.4-8.2 GM/DL Albumin 3.5 3.2-4.5 GM/DL Urine Color RED H Urine Clarity CLOUDY Urine pH 7.5 5-9 Urine Specific [place] 1.010 L 1.016-1.022 Urine Protein 3+ H NEGATIVE Urine Glucose (UA) TRACE H NEGATIVE Urine Ketones 1+ H NEGATIVE Urine Nitrite POSITIVE NEGATIVE Urine Bilirubin NEGATIVE NEGATIVE Urine Urobilinogen >=8.0 < = 1.0 MG/DL Urine Leukocyte Esterase 3+ H NEGATIVE Urine RBC (Auto) 3+ H NEGATIVE Urine RBC TNTC H /HPF Urine WBC 2-5 /HPF Urine Crystals NONE /LPF Urine Bacteria TRACE /HPF Urine Casts NONE /LPF Urine Mucus NEGATIVE /LPF Urine Culture Indicated CULTURE PENDING Lactic Acid Level 0.93 0.50-2.00 MMOL/L My Orders Orders - SATHYA WILSON MD Continuous Bladder Irrigation (01/23/19 08:29) Ed Iv/Invasive Line Start (01/23/19 08:40) Cbc With Automated Diff (01/23/19 08:40) Comprehensive Metabolic Panel (01/23/19 08:40) Manual Differential (01/23/19 08:45) Lactic Acid Analyzer (01/23/19 09:28) Ua Culture If Indicated (01/23/19 09:28) Blood Culture (01/23/19 09:28) Urine Culture (01/23/19 09:28) Ceftriaxone For Iv Use (Rocephin For I (01/23/19 11:00) Medications Given in ED Current Medications Medications Dose Ordered Sig/Danie Route Start Time Stop Time Status Last Admin Dose Admin Ceftriaxone Sodium 1000 mg/ Sterile Water 10 ml @ 200 mls/hr ONCE ONCE IV 01/23/19 11:00 01/23/19 11:02 DC 01/23/19 11: 200 MLS/HR Vital Signs/I&O 01/23/19 07:29 Temp 37.0 Pulse 77 Resp 16 B/P (MAP) 146/53 (84) Pulse Ox 99 O2 Delivery Room Air Capillary Refill : Less Than 3 Seconds Blood Pressure Mean: 84 POS Progress Note : Progress Note Seen and evaluated on arrival. We will reinstall three-way catheter. 0815: Three-way catheter placed with some difficulty. Bloody urine output continues although fair amount of blood noted when catheter was placed and bladder. This was irrigated several times. 0850: Having significant difficulty with the ca theter. We were able to get it flushed and have started continuous bladder irrigation now because of the amount of clots that he is passing. We will watch this for a bit and see how he does. We will go ahead and check labs now. He may require admission for persistent significant hematuria for bladder irrigation. We will recheck after labs have posted. 1125: I have added blood cultures and lactic acid and initiated Rocephin 1 g IV for urinary tract infection. I have discussed the case with Dr. Butler. He agrees with continuous bladder irrigation until clear and then we can stop that and continue flushing catheter daily or multiple times daily as needed. He is out of town but will answer calls if needed. I did discuss the case with Dr. Quintero and he accepts patient for admission, inpatient status. Patient agrees to plan. Departure Communication (Admissions) Time/Spoke to Admitting Phy: 11:15 Impression Primary Impression: Urinary tract infection Qualified Codes: N30.01 - Acute cystitis with hematuria Additional Impression: Hematuria Qualified Codes: R31.9 - Hematuria, unspecified Disposition: 09 ADMITTED INPATIENT Condition: Stable Admissions Decision to Admit Reason: Admit from ER (General) Decision to Admit/Date: Jan 23, 2019 Time/Decision to Admit Time: 11:15 Departure-Patient Inst. Referrals: NICHOLE CAMACHO MD (PCP/Family) Primary Care Physician SATHYA WILSON MD Jan 23, 2019 08:56 POS
[2019-01-23 09:13] LABS: ALANINE AMINOTRANSFERASE 7 U/L (0-55); ALBUMIN 3.5 GM/DL (3.2-4.5); ALKALINE PHOSPHATASE 79 U/L (40-136); BILIRUBIN,TOTAL 0.5 MG/DL (0.1-1.0); BUN/CREATININE RATIO 27; CALCIUM 8.9 MG/DL (8.5-10.1); CARBON DIOXIDE 26 MMOL/L (21-32); CHLORIDE 105 MMOL/L (98-107); CREATININE SERUM 0.67 MG/DL (0.60-1.30); GFR ESTIMATED > 60; GLUCOSE 104 MG/DL (70-105); POTASSIUM 4.4 MMOL/L (3.6-5.0); SODIUM 140 MMOL/L (135-145); TOTAL PROTEIN 7.6 GM/DL (6.4-8.2)
[2019-01-23 09:20] LABS: ANISOCYTOSIS SLIGHT; BAND NEUTROPHILS 3 %; BASOPHILS % (MANUAL) 0 %; EOSINOPHILS % (MANUAL) 9 %; LYMPHOCYTES % (MANUAL) 13 %; MONOCYTES % (MANUAL) 2 %; NEUTROPHILS % (MANUAL) 73 %
--- NOTE | 2019-01-23 09:52 | NUR ---
APPX 2000CC OF URINE DRAINED FROM CATH.
--- NOTE | 2019-01-23 09:52 | NUR ---
LAB CONTACTED THAT THEY WOULD NEED TO GET A SET OF BC AND A LACTIC.
[2019-01-23 10:12] LABS: BILIRUBIN,URINE NEGATIVE (NEGATIVE); CLARITY,URINE CLOUDY; COLOR,URINE RED; GLUCOSE, URINE (UA) TRACE (NEGATIVE); KETONES,URINE 1+ (NEGATIVE); LEUKOCYTE ESTERASE ,URINE 3+ (NEGATIVE); NITRITE,URINE POSITIVE (NEGATIVE); PH,URINE 7.5 (5-9); PROTEIN,URINE 3+ (NEGATIVE)
[2019-01-23 10:19] LABS: RBC,URINE TNTC /HPF
[2019-01-23 10:20] LABS: BACTERIA,URINE TRACE /HPF
--- NOTE | 2019-01-23 10:54 | NUR ---
[facility] NOTIFIED OF PT BEING ADMITTED.
[2019-01-23] MEDS ORDERED: cefTRIAXone FOR IV USE 1,000 MG in WATER (STERILE) FOR INJECTION 10 ML IV ONE (11:00)
--- NOTE | 2019-01-23 11:00 | NUR ---
JONES IRRIGATED AGAIN DUE TO NOT DRAINING PROPERLY.
--- NOTE | 2019-01-23 11:50 | NUR ---
2ND BAG OF IRRIGATION HUNG.
--- NOTE | 2019-01-23 12:00 | NUR ---
URINE IS NOW CLEAR IN THE TUBING OF THE JONES. IRRIGATION FLUID SLOWED DOWN.
--- NOTE | 2019-01-23 12:15 | NUR ---
JUAN HI admitted to room 422-1, with an admitting diagnosis of UTI, on 01/23/19 from AM via ER, accompanied by RN .JUAN HI introduced to surroundings, call light, bed controls, phone, TV, temperature control, lights, meal times, smoking policy, visitor policy, side rail policy, bathrooms and showers. JUAN HI verbalizes understanding that [facility] is not responsible for the loss or damage to any personal effects or valuables that are kept in the patients posession during their hospitalization. JUAN HI verbalizes understanding of Interdisciplinary Patient Education. Patient and/or family were informed about the Rapid Response Team and its purpose.
[2019-01-23] MEDS ORDERED: ONDANSETRON 4 MG/2 ML (SDV) Z0FRAN IV PRN (12:30)
[2019-01-23] MEDS ORDERED: CATHETER FLUSH 10 ML SYR IV PRN (12:30)
[2019-01-23] MEDS: NS IV 1000 ML 1,000 ML IV SCH (12:51)
[2019-01-23 13:11] VITALS: BP 100/59
[2019-01-23] MEDS ORDERED: NYST15CR TOP (13:45)
[2019-01-23] MEDS ORDERED: CLOT15CR5 TOP (13:45)
[2019-01-23] MEDS ORDERED: RISP0.253 PO (13:45)
--- NOTE | 2019-01-23 14:29 | NUR ---
UPDATED MED REC WITH MAR FROM [facility].
--- NOTE | 2019-01-23 14:35 | History & Physical-Hospitalist ---
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 He was at [facility] and they tried to exchange his kuhn today. They made three attempts but were unsuccessful and he was thus brought to the ER. A kuhn was placed in the ER and he passed bright red urine and some clots. He was started on continuous bladder irrigation. There was concern for urinary tract infection and thus a UA was then obtained and was concerning for UTI. He is being admitted for CBI and antibiotics for UTI. He denies fevers and chills. He reports crampy abdominal p ain. He denies nausea and vomiting. He has no other complaints. Source: patient Exam Limitations: no limitations Date Seen 01/23/19 Time Seen by a Provider: 14:30 Attending Physician Ward Doherty MD PCP Sagar Dorman MD Referring Physician Date of Admission Jan 23, 2019 at 11:52 Home Medications & Allergies Home Medications Reviewed patient Home Medication Reconciliation performed by pharmacy medication reconciliations converting technician and/or nursing. Patients Allergies have been reviewed. Allergies Allergies Coded Allergies No Known Drug Allergies (Gwueceby79/14/15) Past Xxplwyu-Amcrda-Iogefr Hx Past Med/Social Hx: Reviewed Nursing Past Med/Soc Hx Patient Social History Alcohol Use: Denies Use Recreational Drug Use: No Smoking Status: Unknown if Ever Smoked 2nd Hand Smoke Exposure: No Recent Foreign Travel: No Contact w/other who traveled: No Recent Hopitalizations: Yes Recent Infectious Disease Expo: No Immunizations Up To Date Tetanus Booster (TDap): Unknown Date of Pneumonia Vaccine: Jan 23, 2019 Date of Influenza Vaccine: Oct 28, 2018 Seasonal Allergies Seasonal Allergies: No Past Medical History Surgeries: Orthopedic, Vascular Surgery Cardiac: Chronic Edema/Swelling, High Cholesterol, Hypertension, Peripheral Vascular Neurological: Paralysis, Spinal Cord Injury Reproductive: No Genitourinary: Kidney Infection, Prostate Problems, Kidney Stones, Neurogenic Bladder, UTI-Chronic Gastrointestinal: Chronic Constipation, Gall Bladder Disease Musculoskeletal: Osteoporosis, Back Injury, Fractures HEENT: Dysphagia Skin/Integumentary: Recent Skin Changes History of Blood Disorders: Yes (ANEMIA) Family History Reviewed Nursing Family Hx FH: breast cancer 19 MOTHER Review of Systems Constitutional: no symptoms reported EENTM: no symptoms reported Respiratory: no symptoms reported Cardiovascular: no symptoms reported Gastrointestinal: abdominal pain (suprapubic) Genitourinary: other (hematuria) Musculoskeletal: no symptoms reported Skin: no symptoms reported Psychiatric/Neurological: No Symptoms Reported Physical Exam Physical Exam Vital Signs Vital Signs - First Documented 01/23/19 01/23/19 07:29 12:00 Temp 37.0 Pulse 77 Resp 16 B/P (MAP) 146/53 (84) Pulse Ox 99 O2 Delivery Room Air O2 Flow Rate 2.00 Capillary Refill : Less Than 3 Seconds Height, Weight, BMI Height: 5'11.00" Weight: 170lbs. 3.8oz. 77.422361nd; 26.17 BMI Method:Stated General Appearance: No Apparent Distress, Chronically ill, Thin HEENT: PERRL/EOMI, Moist Mucous Membranes Neck: Normal Inspection, Supple Respiratory: Lungs Clear, Normal Breath Sounds, No Respiratory Distress Cardiovascular: Regular Rate, Rhythm, No Edema, No Murmur Gastrointestinal: Normal Bowel Sounds, Soft, Tenderness (suprapubic) Extremity: Normal Inspection, Non Tender, No Pedal Edema Neurologic/Psychiatric: Alert, Oriented x3, Normal Mood/Affect, Other (paraplegia) Skin: Normal Color, Cool Results Results/Procedures Labs Laboratory Tests 01/23/19 08:45 Patient resulted labs reviewed. Assessment/Plan Admission Diagnosis Acute cystitis with hematuria Admission Status: Observation Assessment and Plan Hematuria Traumatic kuhn insertion Urinary tract infection Chronic indwelling kuhn catheter -Kuhn in place -Continuous bladder irrigation -IV Rocephin -Await urine culture Paraplegia -Clinically significant, no acute management needs DVT Prophylaxis: held due to hematuria Diagnosis/Problems Diagnosis/Problems (1) Urinary tract infection Status: Acute Qualifiers: Urinary tract infection type: acute cystitis Hematuria presence: with hematuria Qualified Codes: N30.01 - Acute cystitis with hematuria (2) Hematuria Status: Acute Qualifiers: Hematuria type: unspecified type Qualified Codes: R31.9 - Hematuria, unspecified (3) Complication of Kuhn catheter Status: Acute Qualifiers: Encounter type: initial encounter Qualified Codes: T83.9XXA - Unspecified complication of genitourinary prosthetic device, implant and graft, initial encounter (4) Chronic indwelling Kuhn catheter Status: Chronic Clinical Quality Measures DVT/VTE Risk/Contraindication: Risk Factor Score Per Nursin RFS Level Per Nursing on Admit: 4+=Very High WARD DOHERTY MD 27, 2019 14:35 POS
[2019-01-23 16:00] VITALS: BP 123/61
[2019-01-23 20:32] VITALS: BP 126/65
[2019-01-24] VITALS: BP 119/57
[2019-01-24 04:00] VITALS: BP 148/54
[2019-01-24 05:27] LABS: BASOPHILS % (AUTO) 0 % (0-10); EOSINOPHILS # (AUTO) 0.5 10^3/uL (0.0-0.3); EOSINOPHILS % (AUTO) 4 % (0-10); HEMATOCRIT 29 % (40-54); HEMOGLOBIN 9.1 G/DL (13.3-17.7); LYMPHOCYTES # (AUTO) 1.3 X 10^3 (1.0-4.0); LYMPHOCYTES % (AUTO) 11 % (12-44); MEAN CORPUSCULAR HEMOGLOBIN 26 PG (25-34); MEAN CORPUSCULAR HGB CONC 32 G/DL (32-36); MEAN CORPUSCULAR VOLUME 81 FL (80-99); MONOCYTES # (AUTO) 1.1 X 10^3 (0.0-1.0); MONOCYTES % (AUTO) 9 % (0-12); NEUTROPHILS # (AUTO) 9.7 X 10^3 (1.8-7.8); NEUTROPHILS % (AUTO) 76 % (42-75); PLATELET COUNT 328 10^3/uL (130-400); RED CELL DISTRIBUTION WIDTH 21.7 % (10.0-14.5); WHITE BLOOD COUNT 12.7 10^3/uL (4.3-11.0)
[2019-01-24 06:04] LABS: ALANINE AMINOTRANSFERASE 6 U/L (0-55); ALBUMIN 3.1 GM/DL (3.2-4.5); ALKALINE PHOSPHATASE 75 U/L (40-136); BILIRUBIN,TOTAL 0.6 MG/DL (0.1-1.0); BUN/CREATININE RATIO 26; CALCIUM 8.6 MG/DL (8.5-10.1); CARBON DIOXIDE 24 MMOL/L (21-32); CHLORIDE 106 MMOL/L (98-107); CREATININE SERUM 0.69 MG/DL (0.60-1.30); GFR ESTIMATED > 60; GLUCOSE 116 MG/DL (70-105); POTASSIUM 4.1 MMOL/L (3.6-5.0); SODIUM 139 MMOL/L (135-145); TOTAL PROTEIN 6.5 GM/DL (6.4-8.2)
[2019-01-24 08:00] VITALS: BP 181/88
[2019-01-24] MEDS: NS IV 1000 ML 1,000 ML IV SCH (09:13)
[2019-01-24] MEDS: cefTRIAXone 1,000 MG/SWFI 10 ML IV PUSH IV SCH ×2 (09:14)
--- NOTE | 2019-01-24 10:51 | Progress Note - Hospitalist ---
Subjective HPI/CC On Admission Date Seen by Provider: Jan 24, 2019 Time Seen by Provider: 09:15 hematuria Subjective/Events-last exam He feels ok this morning with no complaints. He denies fevers, chills, chest p ain, dyspnea, abdominal pain, nausea, vomiting, diarrhea. Focused Exam Lactate Level 01/23/19 10:05: Lactic Acid Level 0.93 Objective Exam Vital Signs Vital Signs Date Time Temp Pulse Resp B/P (MAP) Pulse Ox O2 Delivery O2 Flow Rate FiO2 01/24/19 08:00 36.4 77 20 181/88 (119) 100 Nasal Cannula 2.00 Capillary Refill : Less Than 3 Seconds General Appearance: No Apparent Distress, Thin HEENT: PERRL/EOMI, Pharynx Normal Neck: Normal Inspection, Supple Respiratory: Lungs Clear, Normal Breath Sounds, No Respiratory Distress Cardiovascular: Regular Rate, Rhythm, No Edema, No Murmur Gastrointestinal: Normal Bowel Sounds, Non Tender, Soft Genital/Rectal: Other (kuhn with red urine and some clots) Extremity: Normal Inspection, Non Tender, No Pedal Edema Neurologic/Psychiatric: Alert, Other (paraplegia) Skin: Normal Color, Warm/Dry Results/Procedures Lab Laboratory Tests 01/24/19 05:15 Patient resulted labs reviewed. Assessment/Plan Assessment and Plan Assess & Plan/Chief Complaint Hematuria following kuhn insertion Urinary tract infection Chronic indwelling kuhn catheter -Kuhn in place -Continue CBI -Continue Rocephin -Await urine culture Paraplegia -Clinically significant, no acute management needs DVT Prophylaxis: held due to hematuria Diagnosis/Problems Diagnosis/Problems (1) Urinary tract infection Status: Acute Qualifiers: Urinary tract infection type: acute cystitis Hematuria presence: with hematuria Qualified Codes: N30.01 - Acute cystitis with hematuria (2) Hematuria Status: Acute Qualifiers: Hematuria type: unspecified type Qualified Codes: R31.9 - Hematuria, unspecified (3) Complication of Kuhn catheter Status: Acute Qualifiers: Encounter type: initial encounter Qualified Codes: T83.9XXA - Unspecified complication of genitourinary prosthetic device, implant and graft, initial encounter (4) Chronic indwelling Kuhn catheter Status: Chronic Clinical Quality Measures DVT/VTE Risk/Contraindication: Risk Factor Score Per Nursin RFS Level Per Nursing on Admit: 4+=Very High WARD DOHERTY MD Jan 24, 2019 10:51 POS
[2019-01-24] MEDS ORDERED: ONDANSETRON 4 MG (ZOFRAN) ORAL DISSOLVE TAB PO PRN (11:00)
[2019-01-24] MEDS ORDERED: MELATONIN 3 MG TABLET PO PRN (11:00)
[2019-01-24] MEDS ORDERED: POLYETHYLENE GLYCOL 17 GM (MIRALAX) PACK PO PRN (11:00)
[2019-01-24 12:00] VITALS: BP 163/84
[2019-01-24 16:00] VITALS: BP 148/62
[2019-01-24] MEDS: ACETAMINOPHEN 325 MG TABLET PO PRN (20:35)
[2019-01-24] MEDS: DOCUSATE SODIUM 100 MG (COLACE) CAP PO SCH (21:00)
[2019-01-24] MEDS: risperiDONE 0.25 MG (RisperDAL) TAB PO SCH (21:41)
[2019-01-24] MEDS: ZOLPIDEM 5 MG (AMBIEN) TAB PO PRN (21:41)
[2019-01-24] MEDS: hydrOXYzine (VISTARIL/ATARAX) 25 MG capsule/tablet PO PRN (21:41)
[2019-01-25] MEDS: NS IV 1000 ML 1,000 ML IV SCH ×2 (04:58→23:48)
[2019-01-25 05:24] LABS: HEMOGLOBIN 9.5 G/DL (13.3-17.7); MEAN PLATELET VOLUME 9.4 FL (7.4-10.4); RED CELL DISTRIBUTION WIDTH 21.6 % (10.0-14.5); WHITE BLOOD COUNT 25.3 10^3/uL (4.3-11.0)
[2019-01-25 07:41] LABS: ANISOCYTOSIS MODERATE; BAND NEUTROPHILS 2 %; HYPOCHROMASIA SLIGHT; LYMPHOCYTES % (MANUAL) 3 %; MICROCYTOSIS SLIGHT; MONOCYTES % (MANUAL) 2 %; NEUTROPHILS % (MANUAL) 93 %; POIKILOCYTOSIS SLIGHT; SPHEROCYTES SLIGHT
[2019-01-25 07:42] LABS: TOXIC GRANULATION/VACUOLAZATIO 1+
[2019-01-25 08:00] VITALS: BP 120/56
[2019-01-25] MEDS: DOCUSATE SODIUM 100 MG (COLACE) CAP PO SCH ×2 (08:12→20:37)
[2019-01-25] MEDS: FUROSEMIDE 40 MG (LASIX) TAB PO SCH (08:12)
[2019-01-25] MEDS: DULoxetine 30 MG (CYMBALTA) CAP PO SCH (08:12)
[2019-01-25] MEDS: risperiDONE 0.25 MG (RisperDAL) TAB PO SCH ×2 (08:12→20:37)
[2019-01-25] MEDS: cefTRIAXone 1,000 MG/SWFI 10 ML IV PUSH IV SCH ×2 (08:12)
[2019-01-25] MEDS: CLOPIDOGREL 75 MG (PLAVIX) TABLET PO SCH (08:12)
--- NOTE | 2019-01-25 12:10 | Diagnostic Imaging Report ---
INDICATION: Fever, urinary tract infection, hematuria. FINDINGS: Frontal view of the chest is unchanged from 07/09/2017. Left diaphragm remains elevated with some scarring in the left base. Remainder of the chest is clear. Heart size and vascularity are normal. Calcification aorta is again identified. IMPRESSION: There are no acute findings. Dictated by: Dictated on workstation # [id number]
--- NOTE | 2019-01-25 14:09 | Progress Note - Hospitalist ---
Subjective HPI/CC On Admission Date Seen by Provider: Jan 25, 2019 Time Seen by Provider: 09:50 hematuria Subjective/Events-last exam He reports no complaints or concerns. He ate his breakfast. He denies fevers and chills. He denies cough and shortness of breath. He denies abdominal pain, nausea, and vomiting. He had several bowel movements yesterday. Focused Exam Lactate Level 01/23/19 10:05: Lactic Acid Level 0.93 Objective Exam Vital Signs Vital Signs Date Time Temp Pulse Resp B/P (MAP) Pulse Ox O2 Delivery O2 Flow Rate FiO2 01/25/19 08:00 91 Nasal Cannula 2.00 01/25/19 08:00 38.2 89 22 120/56 (77) Capillary Refill : Less Than 3 SecondsLess Than 3 Seconds General Appearance: No Apparent Distress, Thin Neck: Normal Inspection, Supple Respiratory: Lungs Clear, Normal Breath Sounds, No Respiratory Distress Cardiovascular: Regular Rate, Rhythm, No Edema, No Murmur Gastrointestinal: Normal Bowel Sounds, Non Tender, Soft Extremity: Non Tender, No Pedal Edema Neurologic/Psychiatric: Alert, Normal Mood/Affect; No Disoriented; Other (pa raplegic, hearing difficulty) Skin: Warm/Dry, Pallor Results/Procedures Lab Laboratory Tests 01/25/19 04:41 Patient resulted labs reviewed. Imaging: Reviewed Imaging Report Assessment/Plan Assessment and Plan Assess & Plan/Chief Complaint Hematuria following kuhn insertion Urinary tract infection Chronic indwelling kuhn catheter -Kuhn in place -Continue CBI -Urine culture with no growth, but obtained after CBI began -Continue Rocephin Fever Leukocytosis -Blood cultures negative -Urine culture negative -Currently on Rocephin for possible UTI -Chest xray normal -Obtain specimen for C diff testing Paraplegia -Clinically significant, no acute management needs DVT Prophylaxis: held due to hematuria Diagnosis/Problems Diagnosis/Problems (1) Urinary tract infection Status: Acute Qualifiers: Urinary tract infection type: acute cystitis Hematuria presence: with hematuria Qualified Codes: N30.01 - Acute cystitis with hematuria (2) Hematuria Status: Acute Qualifiers: Hematuria type: unspecified type Qualified Codes: R31.9 - Hematuria, unspecified (3) Complication of Kuhn catheter Status: Acute Qualifiers: Encounter type: initial encounter Qualified Codes: T83.9XXA - Unspecified complication of genitourinary prosthetic device, implant and graft, initial enco unter (4) Chronic indwelling Kuhn catheter Status: Chronic (5) Fever Status: Acute (6) Leukocytosis Status: Acute Clinical Quality Measures DVT/VTE Risk/Contraindication: Risk Factor Score Per Nursin RFS Level Per Nursing on Admit: 4+=Very High WARD DOHERTY MD Jan 25, 2019 14:09 POS
[2019-01-25 16:10] VITALS: BP 102/50
[2019-01-26 00:07] VITALS: BP 117/53
[2019-01-26 05:52] LABS: MEAN PLATELET VOLUME 9.7 FL (7.4-10.4); RED CELL DISTRIBUTION WIDTH 21.4 % (10.0-14.5); WHITE BLOOD COUNT 16.3 10^3/uL (4.3-11.0)
[2019-01-26] MEDS ORDERED: NS IV 500 ML 500 ML IV SCH (07:00)
[2019-01-26 08:00] VITALS: BP 120/56
[2019-01-26] MEDS: CLOPIDOGREL 75 MG (PLAVIX) TABLET PO SCH (08:57)
[2019-01-26] MEDS: DULoxetine 30 MG (CYMBALTA) CAP PO SCH (08:57)
[2019-01-26] MEDS: risperiDONE 0.25 MG (RisperDAL) TAB PO SCH ×2 (08:57→20:09)
[2019-01-26] MEDS: cefTRIAXone 1,000 MG/SWFI 10 ML IV PUSH IV SCH ×2 (08:57)
[2019-01-26] MEDS: DOCUSATE SODIUM 100 MG (COLACE) CAP PO SCH ×2 (08:57→20:04)
[2019-01-26] MEDS: FUROSEMIDE 40 MG (LASIX) TAB PO SCH (08:57)
[2019-01-26] MEDS: NS IV 1000 ML 1,000 ML IV SCH ×2 (08:58→20:21)
[2019-01-26 09:20] VITALS: BP 112/54
[2019-01-26 09:35] VITALS: BP 112/53
--- NOTE | 2019-01-26 10:53 | Progress Note - Hospitalist ---
Subjective HPI/CC On Admission Date Seen by Provider: Jan 26, 2019 Time Seen by Provider: 09:05 hematuria Subjective/Events-last exam He has no complaints. He is wondering when he can leave. He denies lightheaded ness and dizziness. He denies chest pain and dyspnea. He denies abdominal pain, nausea, and vomiting. Objective Exam Vital Signs Vital Signs Date Time Temp Pulse Resp B/P (MAP) Pulse Ox O2 Delivery O2 Flow Rate FiO2 01/26/19 09:35 36.8 80 18 112/53 99 Nasal Cannula 2.00 Capillary Refill : Less Than 3 SecondsLess Than 3 Seconds General Appearance: No Apparent Distress, WD/WN, Chronically ill Neck: Normal Inspection, Supple Respiratory: Lungs Clear, Normal Breath Sounds, No Respiratory Distress Cardiovascular: Regular Rate, Rhythm, No Edema, No Murmur Gastrointestinal: Normal Bowel Sounds, Non Tender, Soft Extremity: Normal Inspection, Non Tender, No Pedal Edema Neurologic/Psychiatric: Alert, Other (paraplegic, difficulty hearing) Skin: Warm/Dry, Pallor Results/Procedures Lab Laboratory Tests 01/26/19 05:20 Patient resulted labs reviewed. Assessment/Plan Assessment and Plan Assess & Plan/Chief Complaint Hematuria following kuhn insertion Acute blood loss anemia Urinary tract infection Chronic indwelling kuhn catheter -Kuhn in place -Continue CBI -Urine culture with no growth, but obtained after CBI began -Continue Rocephin -Transfuse 1 unit PRBC today Fever, resolved Leukocytosis, improving Diarrhea -C diff testing indeterminate -Confirmatory testing pending Paraplegia -Clinically significant, no acute management needs DVT Prophylaxis: held due to hematuria Diagnosis/Problems Diagnosis/Problems (1) Urinary tract infection Status: Acute Qualifiers: Urinary tract infection type: acute cystitis Hematuria presence: with hematuria Qualified Codes: N30.01 - Acute cystitis with hematuria (2) Hematuria Status: Acute Qualifiers: Hematuria type: unspecified type Qualified Codes: R31.9 - Hematuria, unspecified (3) Complication of Kuhn catheter Status: Acute Qualifiers: Encounter type: initial encounter Qualified Codes: T83.9XXA - Unspecified complication of genitourinary prosthetic device, implant and graft, initial encounter (4) Chronic indwelling Kuhn catheter Status: Chronic (5) Fever Status: Resolved Resolution Date/Time: 01/26/19 @ 10:53 (6) Leukocytosis Status: Acute Clinical Quality Measures DVT/VTE Risk/Contraindication: Risk Factor Score Per Nursin RFS Level Per Nursing on Admit: 4+=Very High WARD DOHERTY MD Jan 26, 2019 10:53 POS
[2019-01-26 12:51] VITALS: BP 112/58
[2019-01-26 16:00] VITALS: BP 142/65
[2019-01-26] MEDS: ACETAMINOPHEN 325 MG TABLET PO PRN (17:30)
[2019-01-26] MEDS: hydrOXYzine (VISTARIL/ATARAX) 25 MG capsule/tablet PO PRN (17:31)
[2019-01-26] MEDS: ZOLPIDEM 5 MG (AMBIEN) TAB PO PRN (20:09)
[2019-01-27] VITALS: BP 114/50
[2019-01-27] MEDS ORDERED: VANCOMYCIN 50 MG/ML ORAL SOLN 150 ML PO SCH ×2 (03:15→04:15)
[2019-01-27 06:14] LABS: HEMOGLOBIN 8.7 G/DL (13.3-17.7); MEAN PLATELET VOLUME 9.6 FL (7.4-10.4); RED CELL DISTRIBUTION WIDTH 21.2 % (10.0-14.5); WHITE BLOOD COUNT 13.7 10^3/uL (4.3-11.0)
[2019-01-27 06:37] LABS: BUN/CREATININE RATIO 31; CALCIUM 7.9 MG/DL (8.5-10.1); CARBON DIOXIDE 19 MMOL/L (21-32); CHLORIDE 110 MMOL/L (98-107); CREATININE SERUM 0.67 MG/DL (0.60-1.30); GFR ESTIMATED > 60; GLUCOSE 94 MG/DL (70-105); MAGNESIUM 1.7 MG/DL (1.6-2.4); POTASSIUM 3.4 MMOL/L (3.6-5.0); SODIUM 139 MMOL/L (135-145)
[2019-01-27 08:00] VITALS: BP 108/64
[2019-01-27] MEDS: RT-ADVAIR HFA 115/21 MCG PER PUFF IH SCH (09:41)
[2019-01-27] MEDS: cefTRIAXone 1,000 MG/SWFI 10 ML IV PUSH IV SCH ×2 (10:08)
[2019-01-27] MEDS: VANCOMYCIN 50 MG/ML ORAL SOLN 150 ML PO SCH ×3 (10:08→20:32)
[2019-01-27] MEDS: DULoxetine 30 MG (CYMBALTA) CAP PO SCH (10:09)
[2019-01-27] MEDS: risperiDONE 0.25 MG (RisperDAL) TAB PO SCH ×2 (10:10→20:29)
[2019-01-27] MEDS: FUROSEMIDE 40 MG (LASIX) TAB PO SCH (10:10)
[2019-01-27] MEDS: CLOPIDOGREL 75 MG (PLAVIX) TABLET PO SCH (10:10)
[2019-01-27] MEDS: DOCUSATE SODIUM 100 MG (COLACE) CAP PO SCH (10:11)
--- NOTE | 2019-01-27 13:14 | Progress Note - Hospitalist ---
Subjective HPI/CC On Admission Date Seen by Provider: Jan 27, 2019 Time Seen by Provider: 13:10 hematuria Subjective/Events-last exam Pt has no complaints. Denies any pain tomorrow. Did complain of pain with clott ing of catheter. Only concern is about getting the [employer] game on. Objective Exam Vital Signs Vital Signs Date Time Temp Pulse Resp B/P (MAP) Pulse Ox O2 Delivery O2 Flow Rate FiO2 01/27/19 09:42 94 Nasal Cannula 2.00 01/27/19 08:00 35.6 76 16 108/64 (79) Capillary Refill : Less Than 3 SecondsLess Than 3 Seconds General Appearance: Chronically ill, Thin Respiratory: Lungs Clear, No Accessory Muscle Use, No Respiratory Distress Cardiovascular: Regular Rate, Rhythm, No Murmur Gastrointestinal: Normal Bowel Sounds, Soft Genital/Rectal: Other (catheter in place with clear red tinged urine) Results/Procedures Lab Laboratory Tests 01/27/19 05:56 Patient resulted labs reviewed. Assessment/Plan Assessment and Plan Assess & Plan/Chief Complaint Hematuria following kuhn insertion Acute blood loss anemia s/p transfusion Urinary tract infection Chronic indwelling kuhn catheter -Kuhn in place -Continue CBI, urology consulted, appreciate their assistance -Urine culture with no growth, but obtained after CBI began -Continue Rocephin -Hgb improved C diff colitis Fever, resolved Leukocytosis, improving Diarrhea -C diff testing positive - Continue oral vanc - lost loose stools 01/26 Paraplegia- chronic -Clinically significant, no acute management needs -pt/ot tomorrow DVT Prophylaxis: held due to hematuria and anemia Diagnosis/Problems Diagnosis/Problems (1) Hematuria Status: Acute Qualifiers: Hematuria type: unspecified type Qualified Codes: R31.9 - Hematuria, unspecified (2) Urinary tract infection Status: Acute Qualifiers: Urinary tract infection type: acute cystitis Hematuria presence: with hematuria Qualified Codes: N30.01 - Acute cystitis with hematuria (3) Normocytic anemia Status: Chronic (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
[2019-01-27 16:00] VITALS: BP 147/70
[2019-01-27] MEDS: ZOLPIDEM 5 MG (AMBIEN) TAB PO PRN (20:29)
[2019-01-27] MEDS: ADVAIR HFA 115/21 MCG INHALER 8 GM IH SCH (22:06)
[2019-01-28 00:15] VITALS: BP 128/58
[2019-01-28] MEDS: VANCOMYCIN 50 MG/ML ORAL SOLN 150 ML PO SCH ×4 (02:39→21:05)
[2019-01-28 05:26] LABS: HEMOGLOBIN 8.4 G/DL (13.3-17.7); MEAN PLATELET VOLUME 9.9 FL (7.4-10.4); RED CELL DISTRIBUTION WIDTH 21.1 % (10.0-14.5); WHITE BLOOD COUNT 8.5 10^3/uL (4.3-11.0)
[2019-01-28 05:49] LABS: BUN/CREATININE RATIO 17; CALCIUM 7.9 MG/DL (8.5-10.1); CARBON DIOXIDE 24 MMOL/L (21-32); CHLORIDE 105 MMOL/L (98-107); CREATININE SERUM 0.59 MG/DL (0.60-1.30); GFR ESTIMATED > 60; GLUCOSE 89 MG/DL (70-105); SODIUM 137 MMOL/L (135-145)
--- NOTE | 2019-01-28 06:58 | NUR ---
Dr. Butler notified of consult for hematuria.
--- NOTE | 2019-01-28 07:30 | NUR ---
Dr. Peacock notified of consult (no answer/message left).
[2019-01-28 08:00] VITALS: BP 171/70
[2019-01-28] MEDS: risperiDONE 0.25 MG (RisperDAL) TAB PO SCH ×2 (09:28→21:05)
[2019-01-28] MEDS: FUROSEMIDE 40 MG (LASIX) TAB PO SCH (09:28)
[2019-01-28] MEDS: CLOPIDOGREL 75 MG (PLAVIX) TABLET PO SCH (09:28)
[2019-01-28] MEDS: DULoxetine 30 MG (CYMBALTA) CAP PO SCH (09:28)
[2019-01-28] MEDS: cefTRIAXone 1,000 MG/SWFI 10 ML IV PUSH IV SCH ×2 (09:28)
[2019-01-28] MEDS: ADVAIR HFA 115/21 MCG INHALER 8 GM IH SCH (09:45)
--- NOTE | 2019-01-28 10:28 | NUR ---
CM DISCHARGE PLANNING: Patient is a resident at [facility] et will be returning there at discharge. Currently he has CBI in place. He is being co-treated by PT et OT at this time. Therapy reports that they have been using the annemarie lift for transfers. Spoke with [facility] et they report that he will benefit from skilled therapies et nursing at discharge.
--- NOTE | 2019-01-28 10:35 | Physician Query Clarification ---
PQ-Link Infection to Dev/Proc Admission/Discharge Admission Date: Jan 23, 2019 at 11:52 Discharge Date: The medical record reflects the following clinical scenario: History/Risk Factors: Chronic indwelling kuhn catheter Paraplegia Clinical Findings:Bright red urine with clots. Treatment: Continuous bladder irrigation and IV antibiotics. Question: Can you specify if the Acute cystitis with hematuria is due to/associated with chronic indwelling kuhn catheter? Please document a response in Progress Note or Discharge Summary. 1. Yes - [infection] is due to/associated with [device or procedure]. 2. No - [infection] is not due to/associated with [device or procedure]. 3. Other, with explanation of the clinical findings. 4. Clinically undetermined, no explanation for the clinical findings. PHYSICIAN RESPONSE Specify if infection: 1 Please remember a lack of response to the above will prompt a phone page by CDI/Coding staff. In responding to this query, please exercise your independent professional judgment. The purpose of this communication is to more accurately reflect the complexity of your patients condition. The fact that a question is asked does not imply that any particular answer is desired or expected. Thank you for your timely response to this clarification. Requestors name: Hanny Suarez [facility] Phone # ext [phone] or [phone] THIS PHYSICIAN QUERY FORM IS A PERMANENT PART OF THE MEDICAL RECORD HANNY SUAREZ Jan 28, 2019 10:35 TONY PERKINS MD Jan 28, 2019 15:33 POS
--- NOTE | 2019-01-28 10:41 | Occupational Therapy Eval ---
OT Evaluation-General/PLF Medical Diagnosis Admission Date Jan 23, 2019 at 11:52 Medical Diagnosis: UTI, hematuria Onset Date: Feb 22, 2019 Therapy Diagnosis Therapy Diagnosis: impaired ADLs and functional mobility Height/Weight Height (Feet): 5 Height (Inches): 11.00 Weight (Pounds): 170 Weight (Ounces): 3.8 Precautions Precautions/Isolations: Contact Isolation, Fall Prevention, Pressure Ulcer Safety Interventions: None Referral Physician: Lois Referral Reason: Activity Tolerance, Self Care, Evaluation/Treatment, Strengthening/ROM Medical History Pertinent Medical History: COPD, Dementia, HTN, PVD Current History Per H&P: "Bernard Whitney is an 88yoM with H spinal cord injury resulting in paraplegia, chronic indwelling kuhn, who presented with hematuria. He was at [facility] and they tried to exchange his kuhn today. They made three attempts but were unsuccessful and he was thus brought to the ER. A kuhn was placed in the ER and he passed bright red urine and some clots. He was started on continuous bladder irrigation. There was concern for urinary tract infection and thus a UA was then obtained and was concerning for UTI. He is being admitted for CBI and antibiotics for UTI. He denies fevers and chills. He reports crampy abdominal pain. He denies nausea and vomiting. He has no other complaints" Reviewed History: Yes Social History Home: Group Home ADL-Prior Level of Function SCALE: Activities may be completed with or without assistive devices. 9-Iqsrodbjcz-yymwsvc completes the activity by him/herself with no assistance from a helper. 5-Set-up or Clean-up Assistance-helper sets up or cleans up; patient completes activity. [place] assists only prior to or following the activity. 4-Supervision or Touching Assistance-helper provides verbal cues and/or touching/steadying and/or contact guard assistance as patient completes activity. Assistance may be provided throughout the activity or intermittently. 3-Partial/Moderate Assistance-helper does LESS THAN HALF the effort. [place] lifts, holds or supports trunk or limbs, but provides less than half the effort. 2-Substantial/Maximal Assistance-helper does MORE THAN HALF the effort. [place] lifts or holds trunk or limbs and provides more than half the effort. 1-Tqhcjjhkq-auvpzf does ALL the effort. Patient does none of the effort to complete the activity. Or, the assistance of 2 or more helpers is required for the patient to complete the activity. If activity was not attempted, code reason: 7-Patient Refused. 9-Not Applicable-not attempted and the patient did not perform the activity before the current illness, exacerbation or injury. 10-Not Attempted due to Environmental Limitations-(lack of equipment, weather restraints, etc.). 88-Not Attempted due to Medical Conditions or Safety Concerns. ADL PLOF Comments Pt unable to provide information about PLOF , when asked how long he has lived at [facility], pt replied "I have been here since 1965". When asked how he gets from the bed to the chair he said "just like you", when asked if he gets up and stands, he implied they use a machine to get him up. Self Care: Dependent Functional Cognition: Needed Some Help DME/Equipment Comments annemarie for transfers due to paraplegia OT Current Status Subjective Pt laying in bed, agreeable to OT/PT co-treat. When asked if he was having any pain he stated "[place]". When asked if he was hurting anywhere, he replied "I don't know what you mean". Pt later denied having any pain. Pt stated "I want to go home" multiple times during session. Mental Status/Objective Patient Orientation: Confused Attachments: Kuhn Catheter, Oxygen Current Upper Extremity ROM Pt able to flex BUE shoulders to approximately 90 degrees, WFL elbow ROM. Upper Extremity Coordination unable to assess due to difficulty following directions. Upper Extremity Sensation unable to assess due to difficulty following directions and confusion Upper Extremity Strength unable to assess, pt unable to follow directions to test strength. Pt had difficulty following directions and confusion causing difficulty obtaining information with task. ADL-Treatment Eating (QC): 7 Oral Hygiene (QC): 7 Shower/Bathe Self (QC): 7 Upper Body Dressing (QC): 7 Lower Body Dressing (QC): 7 On/Off Footwear (QC): 7 Toileting Hygiene (QC): 7 Toilet Transfer (QC): 1 (based on clinical reasoning, pt would be dependent for transfer due to need for annemarie secondary to paraplegia.) Other Treatments OT/PT cotreat due to decline in overall function and increased medical complexity requiring the skill of 2 disciplines that a pipe organ technician could not perform. OT focused on UEs, sequencing and cueing, while PT focused on overall gross movement and LE placement. Pt attempted to provide information about PLOF but unable to accurately assess secondary to confusion and difficulty following directions. Pt declined repositioning when asked. Post OT/PT cotreat, pt laying in bed, call light in reach and all needs met. Education OT Patient Education: Correct positioning, Energy conservation, Modified ADL techniques, Progress toward Goal/Update tx plan, Purpose of tx/functional activities Teaching Recipient: Patient Teaching Methods: Discussion Response to Teaching: Reinforcement Needed OT Snf Goals Diathermy Equipment Repairer Goals Time Frame: Jan 28, 2019 Eating (QC): 0 Oral Hygiene (QC): 0 Toileting Hygiene (QC): 0 Shower/Bathe Self (QC): 0 Upper Body Dressing (QC): 0 Lower Body Dressing (QC): 0 On/Off Footwear (QC): 0 Additional Goals: 1-Demonstrate ADL Tasks, 2-Verbalize Understanding, 3- ImproveStrength/Christopher 1=Demonstrate adherence to instructed precautions during ADL tasks. 2=Patient will verbalize/demonstrate understanding of assistive devices/modifications for ADL. 3=Patient will improve strength/tolerance for activity to enable patient to perform ADL's. OT Education/Plan Problem List/Assessment Assessment: No Skilled OT Needs ID'd Based on chart review and discussion with pt, pt is dependent with all ADLs. As pt is at PLOF, no skilled OT services are indicated. D/C OT at this time due to pt functioning at PLOF. Discharge Recommendations Plan/Recommendations: Discontinue OT Therapy Discharge Recommendati: 24 Hour Supervision Treatment Plan/Plan of Care Treatment,Training & Education: Yes Patient would benefit from OT for education, treatment and training to promote independence in ADL's, mobility, safety and/or upper extremity function for ADL's. Plan of Care: OTHER (discontinue OT services due to pt being at PLOF.) Treatment Duration: Jan 28, 2019 Frequency: 1 time per week (eval only) Estimated Hrs Per Day: Other (eval only) Time/GCodes Start Time: 10:19 Stop Time: 10:29 Total Time Billed (hr/min): 10 Billed Treatment Time 5028-7948 OT/PT Co-treat 1, EVL GALEN PARKER OT Jan 28, 2019 10:41 POS
--- NOTE | 2019-01-28 11:35 | Physical Therapy Evaluation ---
PT Evaluation-General Medical Diagnosis Admission Date Jan 23, 2019 at 11:52 Medical Diagnosis: UTI, hematuria Onset Date: Feb 22, 2019 Therapy Diagnosis Therapy Diagnosis: weakness Height/Weight Height (Feet): 5 Height (Inches): 11.00 Weight (Pounds): 170 Weight (Ounces): 3.8 Precautions Precautions/Isolations: Contact Isolation, Fall Prevention Weight Bear Status Right Lower Extremity: Right Weight Bearing/Tolerated Left Lower Extremity: Left Weight Bearing/Tolerated Referral Physician: Lois Reason for Referral: Evaluation/Treatment Medical History Pertinent Medical History: COPD, Dementia, HTN, PVD Additional Medical History SCI-paraplegia BLE and contractures Current History ER from [facility] d/t chronic hematuria and catheter issues Reviewed History: Yes Social History Home: Half-Way Prior Prior Level of Function SCALE: Activities may be completed with or without assistive devices. 5-Mlbjkwvfoq-xphajcw completes the activity by him/herself with no assistance from a helper. 5-Set-up or Clean-up Assistance-helper sets up or cleans up; patient completes activity. [place] assists only prior to or following the activity. 4-Supervision or Touching Assistance-helper provides verbal cues and/or touching/steadying and/or contact guard assistance as patient completes activity. Assistance may be provided throughout the activity or intermittently. 3-Partial/Moderate Assistance-helper does LESS THAN HALF the effort. [place] lifts, holds or supports trunk or limbs, but provides less than half the effort. 2-Substantial/Maximal Assistance-helper does MORE THAN HALF the effort. [place] lifts or holds trunk or limbs and provides more than half the effort. 9-Fmbhjwxef-moonsy does ALL the effort. Patient does none of the effort to comp lete the activity. Or, the assistance of 2 or more helpers is required for the patient to complete the activity. If activity was not attempted, code reason: 7-Patient Refused. 9-Not Applicable-not attempted and the patient did not perform the activity before the current illness, exacerbation or injury. 10-Not Attempted due to Environmental Limitations-(lack of equipment, weather restraints, etc.). 88-Not Attempted due to Medical Conditions or Safety Concerns. Bed Mobility: 2 Transfers (B,C,W/C): 1 Gait: 9 Stairs: 9 Indoor Mobility (Ambulation): Dependent Prior Devices Use: Manual wheelchair, Mechanical lift PT Evaluation-Current Subjective Patient agrees to therapy at this time. Co-treat/evaluate with OT for safety. Patient had difficulty hearing, understanding, and answering questions. Reported pain but unable to localize or rate. Paraplegia for 50+ years. 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 Sensory Vision: Functional Hearing: Hearing Aid/Aides Transfers Roll Left to Right (QC): 88 Sit to Lying (QC): 88 Lying to Sitting/Side of Bed(Q: 88 Sit to Stand (QC): 9 Chair/Tjp-pk-Jpkbz Xfer(QC): 88 Car Transfer (QC): 88 Patient is Latrice lift transfers and dependent assist with all mobility PLOF Gait Does the Patient Walk?: No and Walking Goal NOT indicated Walk 10 feet (QC): 9 Walk 50 ft with 2 Turns(QC): 9 Walk 150 ft (QC): 9 Walking 10ft/uneven surface-QC: 9 Wheelchair Training Does the Pt Use a Wheelchair?: Yes Wheel 50 ft with 2 turns (QC): 88 Wheel 150 ft (QC): 88 Type of Wheelchair: Manual Stairs 1 Step (curb) (QC): 9 4 Steps (QC): 9 12 Steps (QC): 9 Balance Standing Static: Poor Standing Dynamic: Poor Picking up an Object (QC): 88 Assessment/Needs Patient remained supine in bed throughout treatment session and declined OOB activity. Patient co-treated with OT. Per patient report, transfers with Latrice lift at [facility] and unable to assist with transfers. Patient demonstrated BLE flexion contracture with limited ROM and no LE strength. At this time, patient remains at limited PLOF and does not require skilled physical therapy treatment. Rehab Potential: Guarded PT Aerospace Engineer Goals Aerospace Engineer Goals PT Aerospace Engineer Goals Time Frame: Jan 28, 2019 Roll Left & Right (QC): 2 Sit to Lying (QC): 1 Lying-Sitting on Side/Bed(QC): 1 Sit to Stand (QC): 9 Chair/Mnm-vc-Mqdjf Xfer(QC): 1 Toilet Transfer (QC): 1 Car Transfer (QC): 1 Does the Patient Walk: No and Walking Goal NOT indicated Walk 10 feet (QC): 9 Walk 50ft with 2 Turns (QC): 9 Walk 150 ft (QC): 9 Walking 10ft on Uneven Surface: 9 1 Step (curb) (QC): 9 4 Steps (QC): 9 12 Steps (QC): 9 Picking up an Object (QC): 2 Does the Pt use WC or Scooter?: Yes Type: Manual Type: Manual PT Plan Treatment/Plan Treatment Plan: Discontinue PT Treatment Duration: Jan 28, 2019 Frequency: 1 time per week Estimated Hrs Per Day: .25 hour per day Patient and/or Family Agrees t: Yes Time/GCodes Time In: 1019 Time Out: 1029 Total Billed Treatment Time: 10 Total Billed Treatment 1 visit EVLowC 10min CAMERON MATHUR PT Jan 28, 2019 11:35 POS
[2019-01-28] MEDS ORDERED: KCL 10 MEQ TAB (MICRO K) PO NR (12:30)
--- NOTE | 2019-01-28 13:08 | Progress Note - Hospitalist ---
Subjective HPI/CC On Admission Date Seen by Provider: Jan 28, 2019 Time Seen by Provider: 13:03 hematuria Subjective/Events-last exam Pt reports doing well. Does not think he has had diarrhea but unsure. No new co mplaints. Urine more clear. Objective Exam Vital Signs Vital Signs Date Time Temp Pulse Resp B/P (MAP) Pulse Ox O2 Delivery O2 Flow Rate FiO2 01/28/19 09:46 94 Nasal Cannula 2.00 01/28/19 08:00 36.6 84 16 171/70 (103) Capillary Refill : Less Than 3 SecondsLess Than 3 Seconds General Appearance: No Apparent Distress, Chronically ill Cardiovascular: Regular Rate, Rhythm, No Murmur Genital/Rectal: Other (kuhn in place with blood tinged urine) Neurologic/Psychiatric: Alert, Other (hard of hearing, unsure of baseline mentation) Results/Procedures Lab Laboratory Tests 01/28/19 04:50 Patient resulted labs reviewed. Assessment/Plan Assessment and Plan Assess & Plan/Chief Complaint Hematuria following kuhn insertion Acute blood loss anemia s/p transfusion Urinary tract infection Chronic indwelling kuhn catheter -Kuhn in place -Continue CBI, urology consulted, appreciate their assistance -Continue Rocephin -Hgb stable C diff colitis Fever, resolved Leukocytosis, improving Diarrhea -C diff testing positive - Continue oral vanc - last loose stools 01/26 Paraplegia- chronic -Clinically significant, no acute management needs -pt/ot tomorrow DVT Prophylaxis: held due to hematuria and anemia Diagnosis/Problems Diagnosis/Problems (1) Hematuria Status: Acute Qualifiers: Hematuria type: unspecified type Qualified Codes: R31.9 - Hematuria, unspecified (2) Urinary tract infection Status: Acute Qualifiers: Urinary tract infection type: acute cystitis Hematuria presence: with hematuria Qualified Codes: N30.01 - Acute cystitis with hematuria (3) Normocytic anemia Status: Chronic (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
--- NOTE | 2019-01-28 13:54 | NUR ---
"RD ASSESSMENT PMHx: Paraplegia; hypercholesterolemia; HTN; chronic constipation; dysphagia PT INTERACTION: Pt was awake and pleasant during nutrition assessment. Note pt very hard of hearing and difficult to get information from. Note pt avg PO intake of 37% x3d, per chart review. Pt states no recent issues with n/v/c/d at this time. Note recent 31# wt loss x3mon, per chart review. This is significant at 19%. Given pt's poor PO intake and significant wt loss, pt meets criteria for malnutrition per ASPEN guidelines. ABNORMAL NUTRITION-RELATED LAB VALUES LOW: K 3.0; cr 0.59; Ca 7.9 HIGH: Est. kcal needs: 2648-3266 kcal | 25-30 kcal/kg Est. Pro needs: 63-75 g Pro/kg | 1.0-1.2 g Pro/kg PES STATEMENT: Inadequate oral intake (NI-2.1) related to loss of appetite as evidenced by avg PO intake 37% x3d INTERVENTION: Continue with current diet order of Regular diet. Continue with current supplementation order of Ensure Enlive (vary) with meals TID. Provides 350 kcal and 13 g Pro per serving. Will continue to follow and reassess as pt needs and status change. MONITOR/EVALUATE: PO Intake; Plan of Care; Hydration Status; Weight Status; Lab Values Felisa Scott, , RD, LD"
[2019-01-28 15:57] VITALS: BP 133/62
[2019-01-28] MEDS: RT-ADVAIR HFA 115/21 MCG PER PUFF IH SCH (20:13)
--- NOTE | 2019-01-28 22:15 | NUR ---
THIS RN SPOKE WITH PTS DAUGHTER-DIGNA TORRES ABOUT CYSTOSCOPY PROCEDURE IN AM BY DR. FENG. I INFORMED HER THAT PT HAS SLIGHT CONFUSION AT TIMES AND THAT I WOULD HAVE TO OBTAIN CONSENT FROM NEXT OF KIN. SHE INFORMED ME THAT PTS IS STILL ALIVE AND LIVES AT [facility] BUT CAN HAVE SLIGHT CONFUSION AT TIMES ALSO. THIS RN EDUCATED DIGNA TORRES ABOUT CYSTOSCOPY PROCEDURE IN THE MORNING. SHE GAVE TELEPHONE CONSENT AT THIS TIME AND VERIFIED WITH RN JAY NEGRON.
--- NOTE | 2019-01-28 23:49 | CONSULTATION REPORT ---
DATE OF SERVICE: 01/28/2019 ATTENDING PHYSICIAN: Dr. Heart. SUMMARY: After reviewing the patient's records, interviewing him and examining him, this is an 88-year-old white man, who underwent a traumatic change of the catheter with three negative attempts presented to the emergency room with gross hematuria and clot retention. I was successful in putting a 3-way catheter and start him on CBI. The patient has no known drug allergies. 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 He is on clopidogrel and he is still on it. It was not held. The cultures were all negative. He is feeling well. The urine is really very clear on just mild drip of the CBI. IMPRESSION: Gross hematuria post-traumatic catheterization. PLAN: Cystoscopy at bedside tomorrow. If everything looks good and the urine remained clear, he may be dismissed tomorrow or after tomorrow. The plan was fully explained to the patient. Job ID: [id number] DocumentID: [id number] Dictated Date: 01/28/2019 18:33:58 Stitchdown Thread Laster Date: 01/28/2019 23:48:20 Dictated By: CHRISTINE FENG MD
[2019-01-28 23:59] VITALS: BP 110/54
[2019-01-29] MEDS: VANCOMYCIN 50 MG/ML ORAL SOLN 150 ML PO SCH ×3 (02:53→15:00)
[2019-01-29 06:35] LABS: HEMOGLOBIN 8.7 G/DL (13.3-17.7); MEAN PLATELET VOLUME 9.9 FL (7.4-10.4); RED CELL DISTRIBUTION WIDTH 20.5 % (10.0-14.5); WHITE BLOOD COUNT 7.8 10^3/uL (4.3-11.0)
[2019-01-29] MEDS ORDERED: KCL 10 MEQ TAB (MICRO K) PO SCH (07:00)
[2019-01-29 08:00] VITALS: BP 131/52
[2019-01-29] MEDS: ADVAIR HFA 115/21 MCG INHALER 8 GM IH SCH (08:23)
[2019-01-29] MEDS ORDERED: LIDOCAINE UROJET 2% GEL 10 ML PKG ONE (08:29)
--- NOTE | 2019-01-29 08:38 | Progress Note-Pre Operative ---
Pre-Operative Progress Note H&P Reviewed The H&P was reviewed, patient examined and no changes noted. Date Seen by Provider: Jan 29, 2019 Time Seen by Provider: 08:37 Date H&P Reviewed: Jan 29, 2019 Time H&P Reviewed: 08:37 Pre-Operative Diagnosis: GROSS HEMATURIA CHRISTINE FENG MD Jan 29, 2019 08:38 POS
--- NOTE | 2019-01-29 08:44 | Progress Note-Post Operative ---
Post-Operative Progess Note Surgeon (s)/Rating Examiner (s) Surgeon CHRISTINE FENG MD Rating Examiner: NONE Pre-Operative Diagnosis GROSS HEMATURIA Post-Operative Diagnosis SAME Procedure & Operative Findings Date of Procedure 01/29/19 Procedure Performed/Findings CYSTOSCOPY Anesthesia Type LOCAL Estimated Blood Loss Estimated blood loss (mL): NONE Specimens/Packing Specimens Removed NONE Packing: NONE CHRISTINE FENG MD Jan 29, 2019 08:44 POS
[2019-01-29] MEDS: CLOPIDOGREL 75 MG (PLAVIX) TABLET PO SCH (09:52)
[2019-01-29] MEDS: FUROSEMIDE 40 MG (LASIX) TAB PO SCH (09:52)
[2019-01-29] MEDS: risperiDONE 0.25 MG (RisperDAL) TAB PO SCH (09:52)
[2019-01-29] MEDS: DULoxetine 30 MG (CYMBALTA) CAP PO SCH (09:52)
[2019-01-29] MEDS ORDERED: cefTRIAXone FOR IV USE 1,000 MG in WATER (STERILE) FOR INJECTION 10 ML IV NR (10:00)
[2019-01-29] MEDS ORDERED: RELABEL FOR HOME USE MC SCH (10:00)
--- NOTE | 2019-01-29 10:00 | Discharge Inst-Skilled Nursing ---
Discharge Inst-Skilled NF Reconcile Patient Problems Problems Reviewed?: Yes Chief Complaint hematuria Consult/Follow Up/Orders Skilled NF Admit to: [facility] Certification (SNF) I certify that SNF services are required to be given on an inpatient basis because of the above named patient's need for senior living care on a continuing basis for the conditions(s) for which he/she was receiving inpatient hospital services prior to his/her transfer to the SNF. Halfway Facility Order: Nursing Services, Gate Shear Operator-Evaluate & Treat, Physical Therapy-Evaluate & Treat Oxygen Delivery Method: Nasal Cannula (2 lpm) Discharge Diet: No Restrictions Daily Activity as Tolerated: Yes Resuscitation Status: Do Not Resuscitate New & Resume Previous Orders Tony Abreu Jan 29, 2019 09:59 TONY ABREU MD Jan 29, 2019 10:00 POS
--- NOTE | 2019-01-29 11:13 | NUR ---
CM FINALIZED DISCHARGE PLAN: Patient is returning to [facility] today skilled for PT, OT, et Nursing. Spoke with Cassandra BURNETT at [facility] et they will bring his wheel chair, oxygen, pants, et a blanket for transport. They will pick him up at 2 p.m. Updated his primary care nurse Darlin et his daughter Fariha of POC. No further needs or interventions noted at this time.
--- NOTE | 2019-01-29 12:56 | Discharge Summary ---
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 Discharge Summary Discharge Physical Exam Allergies: Coded Allergies: No Known Drug Allergies (Verified , 02/09/15) Vitals & I&Os Vital Signs Date Time Temp Pulse Resp B/P (MAP) Pulse Ox O2 Delivery O2 Flow Rate FiO2 01/29/19 10:00 Nasal Cannula 01/29/19 08:23 99 2.00 01/29/19 08:00 37.8 71 16 131/52 (78) General Appearance: No Apparent Distress, Chronically ill Respiratory: Lungs Clear, No Respiratory Distress Cardiovascular: Regular Rate, Rhythm, No Murmur Gastrointestinal: Normal Bowel Sounds, Non Tender, Soft Hospital Course Pt was admitted following traumatic catheter change for hematuria. He underwent CBI and did well and urine cleared. He was seen by urology and bedside cystocopy was done and was negative for mass or active bleed. Urology changed catheter as well. [facility] Labs (last 24 hrs) Laboratory Tests 01/29/19 05:43: White Blood Count 7.8, Red Blood Count 3.46L, Hemoglobin 8.7L, Hematocrit 28L, Mean Corpuscular Volume 80, Mean Corpuscular Hemoglobin 25, Mean Corpuscular Hemoglobin Concent 31L, Red Cell Distribution Width 20.5H, Platelet Count 369, Mean Platelet Volume 9.9 Microbiology 01/23/19 Blood Culture - Preliminary, Resulted No growth 01/25/19 C. difficile DNA Amplification - Final, Complete 01/25/19 C. difficile GDH Antigen & Toxins - Final, Complete 01/23/19 Urine Culture - Final, Complete NO GROWTH Patient resulted labs reviewed. Pending Labs Laboratory Tests 01/29/19 05:43: White Blood Count 7.8, Red Blood Count 3.46, Hemoglobin 8.7, Hematocrit 28, Mean Corpuscular Volume 80, Mean Corpuscular Hemoglobin 25, Mean Corpuscular Hemoglobin Concent 31, Red Cell Distribution Width 20.5, Platelet Count 369, Mean Platelet Volume 9.9 Discussion & Recommendations Discharge Planning: >30 minutes discharge planning Discharge Home Medications: Active Scripts Active Reported Clotrimazole 15 Gm Cream..g. TOP BID APPLY TO RASH ON BOTTOM UNTIL RESOLVED Nystatin 15 Gm Cream..g. TOP QID APPLY TO GROIN FOLDS AND PERINEUM AREA UNTIL RASH RESOLVES Risperidone 0.25 Mg Tablet 0.25 Mg PO BID Advair 250-50 Diskus (Fluticasone/Salmeterol) 1 Each Blst.w.dev 1 Puff INH BID Loperamide (Loperamide HCl) 2 Mg Tablet 2 Mg PO UD PRN TAKE 1 TAB AFTER EACH LOOSE STOOL, MAX 4 DOSES IN 24 HOURS Chloraseptic Max [place] (Phenol/Glycerin) 30 Ml [place] 2 Sprays MM Q4H PRN Ondansetron Odt (Ondansetron) 8 Mg Tab.rapdis 8 Mg PO Q6H PRN Benzonatate 100 Mg Capsule 100 Mg PO Q8H PRN Nuedexta 20-10 mg Capsule (Dextromethorphan HBr/Quinidine) 1 Each Capsule 1 Cap PO BID Bisacodyl 10 Mg Supp.rect 10 Mg RC DAILY PRN Milk of Magnesia (Magnesium Hydroxide) 400 Mg/5 Ml Oral.susp 30 Ml PO DAILY PRN Lotrisone Cream (Clotrimazole/Betamethasone Dip) 15 Gm Cream..g. TP BID PRN Thera Tablet (Multivitamin with Folic Acid) 400 Mcg Tablet 1 Tab PO DAILY [Z Guard] TOP UD PRN Hydroxyzine HCl 25 Mg Tablet 25 Mg PO Q6H PRN Potassium Chloride 20 Meq Tab.er.prt 20 Meq PO BID Duloxetine HCl 30 Mg Capsule.dr 30 Mg PO DAILY Ketoconazole 120 Ml Shampoo TOP MOTH Acetaminophen 325 Mg Tablet 650 Mg PO Q6H PRN TAKES 2 (325MG) TABLETS Furosemide 40 Mg Tablet 40 Mg PO DAILY Plavix (Clopidogrel Bisulfate) 75 Mg Tablet 75 Mg PO DAILY Ferrous Sulfate 325 Mg Tablet 325 Mg PO DAILY Vitamin D (Cholecalciferol (Vitamin D3)) 1,000 Unit Capsule 1,000 Unit PO DAILY Instructions to patient/family Please see electronic discharge instructions given to patient. Clinical Quality Measures DVT/VTE Risk/Contraindication: Risk Factor Score Per Nursin RFS Level Per Nursing on Admit: 4+=Very High Problem Qualifiers (1) Hematuria: Hematuria type: unspecified type Qualified Codes: R31.9 - Hematuria, unspecified (2) Urinary tract infection: Urinary tract infection type: acute cystitis Hematuria presence: with hematuria Qualified Codes: N30.01 - Acute cystitis with hematuria TONY GRACIA MD Jan 29, 2019 12:56 POS
[2019-01-29] MEDS ORDERED: VANCOMYCIN 50 MG/ML ORAL SOLN 150 ML PO SCH (14:30)
[2019-01-29] MEDS ORDERED: VANC50SO PO (14:54)
[2019-01-29 15:10] VITALS: BP 131/52
--- NOTE | 2019-01-29 15:27 | OPERATIVE REPORT ---
DATE OF SERVICE: 01/29/2019 PREOPERATIVE DIAGNOSIS: Gross hematuria. POSTOPERATIVE DIAGNOSIS: Gross hematuria. OPERATION PERFORMED: Cystoscopy. SURGEON: Issac Feng MD ANESTHESIA: Local. COMPLICATIONS: None. DESCRIPTION OF PROCEDURE: With the patient supine the catheter was removed. The urine was really clear. The urethra was infiltrated with 2% lidocaine jelly. Penile clamp was applied. This was then removed and a flexible cystoscopy was introduced under vision. The anterior urethra was normal. The prostate showed quite a bit of trauma from the previous catheterization attempts, but there was no active bleeding was pushing the urethra down went through with the cystoscope. The bladder was clean. No bladder tumor. No bleeding only trabeculations. Cystoscopy was confirmed in an antegrade fashion and cystoscope was removed. I went ahead and inserted an 18-Turkish Fair[place] catheter using sterile technique to avoid further trauma because of the false passages. It went in easily with clear urine return. I inflated the balloon to 10 mL, and left it indwelling. The patient tolerated the procedure and anesthesia well and remained in his bed in stable condition. PLAN: May discharge to the [facility]. Do not change the catheter before 6 weeks. Only with one attempt at that time we failed. Bring him to the emergency room to be performed by the ER personnel. We will also keep the genitalia up because of the edema of the genitalia. The patient is circumcised. I examined him to make sure he does not have a paraphimosis. The patient tolerated the procedure and anesthesia well and remained in his bed in stable condition as I mentioned. Job ID: [id number] DocumentID: [id number] Dictated Date: 01/29/2019 10:07:04 Crisis Counselor Date: 01/29/2019 15:26:23 Dictated By: ISSAC FENG MD
--- OUTSIDE RECORDS SUMMARY | 2019-02-18 02:56 | XMS REPORT | CCD ---
Author Author DoD Organization DoD Address Unknown Phone Unavailable Care Team Providers Care Ice Cream Freezer Name Role Phone Unavailable Unavailable Allergies and Adverse Reactions (C-CDA) Substance Reaction Effective Time Source This section is an empty allergy results section. History Of Immunizations (C-CDA) Vaccine Series # Dosage Date Administered By Drug Oracle Reports Developer Lot Number CVX Code Refusal Reason This section is an empty immunization se ction. There are multiple immunizations systems within the [facility] ([facility]). All immunizations and exemptions/refusals for this patient that are stored in the [facility]'s Clinical Data Repository (CDR) are included here, but this list is empty. Medications (C-CDA) Product Name RouteOfAdministra tion Timing Qty Order Date Order Qty Status Start Date Expiration Date Last Dispensed Date Discontinued Date Source Dosage ADVAIR DISKUS (FLUTICASONE/SALMETEROL), 250-50MCG, DISK W/DEV, INHALATION, GLAXOSMITHKLINE, 60 ea. BLIST PACK [id number] 60 Active [id number] Pharmacy Data Tr ansaction Service [address] Formulary Units ADVAIR DISKUS (FLUTICASONE/SALMETEROL), 250-50MCG, DISK W/DEV, INHALATION, GLAXOSMITHKLINE, 60 ea. BLIST PACK [id number] 60 Active 20190116 Pharmacy Data Tr ansaction Service [address] Formulary Units KETOCONAZOLE (KETOCONAZOLE), 2%, SHAMPOO , TOPICAL, PERRIGO CO., 120 ml BOTTLE [id number] 120 Active 20190114 8 Pharmacy Data Transaction Service [address] Formulary Units CIPROFLOXACIN HCL (CIPROFLOXACIN HCL), 5 00MG, TABLET, ORAL, 'S LAB, 100 ea. BOTTLE [id number] 16 Active 20190112 Pharmacy Data Transaction Service Facili [address] Formulary Units RISPERIDONE (RISPERIDONE), 0.25 MG, TABL ET, ORAL, [facility], 60 ea. BOTTLE [id number] 6 Active [id number] Pharmacy Data Transaction Service Facility [address] Formulary Units RISPERIDONE (RISPERIDONE), 0.25 MG, TABL ET, ORAL, [facility], 60 ea. BOTTLE [id number] 6 Active [id number] Pharmacy Data Transaction Service Facility [address] [place] [address] Formulary Units RISPERIDONE (RISPERIDONE), 0.25 MG, TABL ET, ORAL, [facility], 60 ea. BOTTLE [id number] 1 Active [id number] Pharmacy Data Transaction Service Facility [address] Formulary Units RISPERIDONE (RISPERIDONE), 0.25 MG, TABL ET, ORAL, [facility], 60 ea. BOTTLE [id number] 60 Active [id number] Pharmacy Data Transaction Service Facility [address] [place] [address] Formulary Units ADVAIR DISKUS (FLUTICASONE/SALMETEROL), 250-50MCG, DISK W/DEV, INHALATION, GLAXOSMITHKLINE, 60 ea. BLIST PACK [id number] 60 Active [id number] Pharmacy Data Tr ansaction Service Facility [address] [place] [address] Formulary Units ADVAIR DISKUS (FLUTICASONE/SALMETEROL), 250-50MCG, DISK W/DEV, INHALATION, GLAXOSMITHKLINE, 60 ea. BLIST PACK [id number] 60 Active [id number] Pharmacy Data Tr ansaction Service Facility [address] [place] [address] Formulary Units FLUCONAZOLE (FLUCONAZOLE), 200MG, TABLET , ORAL, GLENMARK PHARMA, 30 ea. BOTTLE [id number] 1 Active [id number] Pharmacy Data Transaction Service Facility [address] [place] [address] Formulary Units FLUCONAZOLE (FLUCONAZOLE), 100MG, TABLET , ORAL, GLENMARK PHARMA, 30 ea. BOTTLE [id number] 9 Active [id number] Pharmacy Data Transaction Service Facility [address] [place] [address] Formulary Units CLOTRIMAZOLE (CLOTRIMAZOLE), 1 %, CREAM( GM), TOPICAL, GLENMARK PHARMA, 30 g TUBE [id number] 30 Active [id number] 201 [id number] Pharmacy Data Transaction Service Facility [address] [place] [address] Formulary Units CLOTRIMAZOLE (CLOTRIMAZOLE), 1 %, CREAM( GM), TOPICAL, GLENMARK PHARMA, 30 g TUBE [id number] 30 Active [id number] 201 [id number] Pharmacy Data Transaction Service Facility [address] Formulary Units CLOTRIMAZOLE (CLOTRIMAZOLE), 1 %, CREAM( GM), TOPICAL, GLENMARK PHARMA, 30 g TUBE [id number] 30 Active [id number] 201 [id number] Pharmacy Data Transaction Service Facility [address] [place] [address] Formulary Units CLOTRIMAZOLE (CLOTRIMAZOLE), 1 %, CREAM( GM), TOPICAL, GLENMARK PHARMA, 30 g TUBE [id number] 30 Active [id number] 201 [id number] Pharmacy Data Transaction Service Facility [address] [place] [address] Formulary Units ADVAIR DISKUS (FLUTICASONE/SALMETEROL), 250-50MCG, DISK W/DEV, INHALATION, GLAXOSMITHKLINE, 60 ea. BLIST PACK [id number] 60 Active [id number] Pharmacy Data Tr ansaction Service Facility [address] [place] [address] Formulary Units ADVAIR DISKUS (FLUTICASONE/SALMETEROL), 250-50MCG, DISK W/DEV, INHALATION, GLAXOSMITHKLINE, 60 ea. BLIST PACK [id number] 60 Active [id number] [facility] [address] Formulary Units NYSTATIN (NYSTATIN), 368234/G, CREAM(GM), TOPICAL, PER JOSE ANTONIO CO., 30 g TUBE [id number] 30 Active [id number] Pharmacy Data Transaction Service Facility [address] [place] [address] Formulary Units DULOXETINE HCL (DULOXETINE HCL), 30 MG, CAPSULE DR, ORAL, TORRENT PHARMAC, 30 ea. BOTTLE [id number] 30 Active [id number] Pharmacy Data Transaction Service Facili ty [address] [place] [address] Formulary Units DULOXETINE HCL (DULOXETINE HCL), 30 MG, CAPSULE DR, ORAL, TORRENT PHARMAC, 30 ea. BOTTLE [id number] 30 Active [id number] Pharmacy Data Transaction Service Facili ty [address] Formulary Units BENZONATATE (benzonatate), 100 MG, CAPSU LE, ORAL, [facility], 500 ea. BOTTLE [id number] 30 Active [id number] Pharmacy Data Transaction Service Facili ty [address] [place] [address] Formulary Units NUEDEXTA (DEXTROMETHORPHAN HBR/QUINIDINE ), 20 MG-10MG, CAPSULE, ORAL, AVANIR PHARMACE, 60 ea. BOTTLE [id number] 60 Active [id number] Pharmacy Data Transaction Se [facility] [address] Formulary Units NUEDEXTA (DEXTROMETHORPHAN HBR/QUINIDINE ), 20 MG-10MG, CAPSULE, ORAL, AVANIR PHARMACE, 60 ea. BOTTLE [id number] 60 Active [id number] Pharmacy Data Transaction Se [facility] [address] Formulary Units NUEDEXTA (DEXTROMETHORPHAN HBR/QUINIDINE ), 20 MG-10MG, CAPSULE, ORAL, AVANIR PHARMACE, 60 ea. BOTTLE [id number] 60 Active [id number] Pharmacy Data Transaction Se [address] Formulary Units NUEDEXTA (DEXTROMETHORPHAN HBR/QUINIDINE ), 20 MG-10MG, CAPSULE, ORAL, AVANIR PHARMACE, 60 ea. BOTTLE [id number] 60 Active [id number] Pharmacy Data Transaction Se [address] Formulary Units POTASSIUM CHLORIDE (POTASSIUM CHLORIDE), 20MEQ, TAB PRT SR, ORAL, [facility], 100 ea. BOTTLE [id number] 60 Active [id number] Pharmacy Data Transaction Service Facili ty [address] Formulary Units POTASSIUM CHLORIDE (POTASSIUM CHLORIDE), 20MEQ, TAB PRT SR, ORAL, [facility], 100 ea. BOTTLE [id number] 60 Active [id number] Pharmacy Data Transaction Service Facili ty [address] [place] [address] Formulary Units FAMOTIDINE (FAMOTIDINE), 20MG, TABLET, O RAL, IVAX PHARMACEUT, 100 ea. BOTTLE [id number] 7 Active [id number] Pharmacy Data Transaction Service Facility [address] [place] [address] Formulary Units PREDNISONE (PREDNISONE), 20MG, TABLET, ORAL, JOVON LA BS., 100 ea. BOTTLE [id number] 3 Active [id number] Pharmacy Data Transaction Service Facility [address] [place] [address] Formulary Units POTASSIUM CHLORIDE (POTASSIUM CHLORIDE), 20MEQ, TAB PRT SR, ORAL, [facility], 500 ea. BOTTLE [id number] 60 Active [id number] Pharmacy Data Transaction Service Facili ty [address] [place] [address] Formulary Units CLOPIDOGREL BISULFATE (CLOPIDOGREL BISUL FATE), 75MG, TABLET, ORAL, APOTEX RUDOLPH, 90 ea. BOTTLE [id number] 30 Active [id number] Pharmacy Data Transaction Service Facili ty [address] [place] [address] Formulary Units CLOTRIMAZOLE-BETAMETHASONE (CLOTRIMAZOLE /BETAMET DIPROP), 1-0.05%, CREAM(GM), TOPICAL, ACTAVIS MID JIMMY, 15 g TUBE [id number] 1 5 Active [id number] Pharmacy Data T ransaction Service Facility [address] [place] [address] Formulary Units LOPERAMIDE (LOPERAMIDE HCL), 2MG, CAPSULE, ORAL, MYLAN, 100 ea. BOTTLE [id number] 30 Active [id number] Pharmacy Data Transaction Service Facility [address] [place] [address] Formulary Units KETOCONAZOLE (KETOCONAZOLE), 2%, SHAMPOO , TOPICAL, PERRIGO CO., 120 ml BOTTLE [id number] 120 Active [id number] Pharmacy Data Transaction Service Facility [address] [place] [address] Formulary Units HYDROXYZINE HCL (hydroxyzine HCl), 25 MG , TABLET, ORAL, [employer] PHARMA, 100 ea. BOTTLE [id number] 30 Active [id number] Pharmacy Data Transaction Service Facili ty [address] [place] [address] Formulary Units FUROSEMIDE (FUROSEMIDE), 40MG, TABLET, ORAL, JOVON TEAGUE., 1000 ea. BOTTLE [id number] 30 Active [id number] Pharmacy Data Transaction Service Facility [address] [place] [address] Formulary Units ONDANSETRON ODT (ONDANSETRON), 8 MG, TAB RAPDIS, ORAL, CITRON PHARMA L, 30 ea. BLIST PACK [id number] 30 Active [id number] Pharmacy Data Transaction Service Facili ty [address] [place] [address] Formulary Units CEPHALEXIN (CEPHALEXIN MONOHYDRATE), 500 MG, CAPSULE, ORAL, LUPIN PHARMACEU, 500 ea. BOTTLE [id number] 10 Active [id number] Pharmacy Data Transaction Service Facili ty [address] [place] [address] Formulary Units ADVAIR DISKUS (FLUTICASONE/SALMETEROL), 250-50MCG, DISK W/DEV, INHALATION, GLAXOSMITHKLINE, 60 ea. BLIST PACK [id number] 60 Active [id number] Pharmacy Data Tr ansaction Service Facility [address] [place] [address] Formulary Units CIPROFLOXACIN HCL (CIPROFLOXACIN HCL), 5 00MG, TABLET, ORAL, 'S LAB, 100 ea. BOTTLE [id number] 20 Active [id number] Pharmacy Data Transaction Service Facili ty [address] [place] [address] Formulary Units CLOPIDOGREL BISULFATE (CLOPIDOGREL BISUL FATE), 75MG, TABLET, ORAL, APOTEX RUDOLPH, 90 ea. BOTTLE [id number] 30 Active [id number] Pharmacy Data Transaction Service Facili ty [address] [place] [address] Formulary Units FUROSEMIDE (FUROSEMIDE), 40MG, TABLET, ORAL, JOVON LA BS., 1000 ea. BOTTLE [id number] 30 Active [id number] Pharmacy Data Transaction Service Facility [address] [place] [address] Formulary Units HYDROXYZINE HCL (HYDROXYZINE HCL), 25 MG , TABLET, ORAL, [employer], 500 ea. BOTTLE [id number] 30 Active [id number] Pharmacy Data Transaction Service Facili ty [address] Formulary Units HYDROXYZINE HCL (hydroxyzine HCl), 25 MG , TABLET, ORAL, [email or web address], 100 ea. BOTTLE [id number] 30 Active [id number] Pharmacy Data Transaction Service Facili ty [address] [place] [address] Formulary Units CLOPIDOGREL BISULFATE (CLOPIDOGREL BISUL FATE), 75MG, TABLET, ORAL, APOTEX RUDOLPH, 90 ea. BOTTLE [id number] 30 Active [id number] Pharmacy Data Transaction Service Facili ty [address] [place] [address] Formulary Units FUROSEMIDE (FUROSEMIDE), 40MG, TABLET, ORAL, JOVON LA BS., 1000 ea. BOTTLE [id number] 30 Active [id number] Pharmacy Data Transaction Service Facility [address] [place] [address] Formulary Units POTASSIUM CHLORIDE (POTASSIUM CHLORIDE), 20MEQ, TAB PRT SR, ORAL, [facility], 100 ea. BOTTLE [id number] 60 Active [id number] Pharmacy Data Transaction Service Facili ty [address] [place] [address] Formulary Units SULFAMETHOXAZOLE-TRIMETHOPRIM (SULFAMETH OXAZOLE/TRIMETHOPRIM), 800-160MG, TABLET, ORAL, AUROBINDO PHARM, 500 ea. BOTTLE 2018 0827 14 Active [id number] Pharmacy Data T ransaction Service Facility [address] [place] [address] Formulary Units ADVAIR DISKUS (FLUTICASONE/SALMETEROL), 250-50MCG, DISK W/DEV, INHALATION, GLAXOSMITHKLINE, 60 ea. BLIST PACK [id number] 60 Active [id number] Pharmacy Data Tr [facility] Service [address] Formulary Units ACETYLCYSTEINE (ACETYLCYSTEINE), 200 MG/ ML, VIAL, MISCELL, JEFFREY PHARMACEUTI, 30 ml VIAL [id number] 30 Active [id number] Pharmacy Data Transaction Service Facili ty [address] [place] [address] Formulary Units ADVAIR DISKUS (FLUTICASONE/SALMETEROL), 250-50MCG, DISK W/DEV, INHALATION, GLAXOSMITHKLINE, 60 ea. BLIST PACK [id number] 60 Active [id number] [facility] [address] [place] [address] Formulary Units ADVAIR DISKUS (FLUTICASONE/SALMETEROL), 250-50MCG, DISK W/DEV, INHALATION, GLAXOSMITHKLINE, 60 ea. BLIST PACK [id number] 60 Active [id number] Pharmacy Data Tr [address] Formulary Units ALBUTEROL SULFATE (ALBUTEROL SULFATE), 2 .5 MG/3ML, VIAL-NEB, INHALATION, MYLAN, 3 ml VIAL [id number] 75 Active [id number] Pharmacy Data Transaction Service Facili ty [address] [place] [address] Formulary Units PREDNISONE (PREDNISONE), 20MG, TABLET, ORAL, JOVON MENEZES BS., 100 ea. BOTTLE [id number] 12 Active [id number] Pharmacy Data Transaction Service Facility [address] [place] [address] Formulary Units ALBUTEROL SULFATE (ALBUTEROL SULFATE), 2 .5 MG/3ML, VIAL-NEB, INHALATION, MYLAN, 3 ml VIAL [id number] 75 Active [id number] Pharmacy Data Transaction Service Facili ty [address] [place] [address] Formulary Units DOXYCYCLINE HYCLATE (DOXYCYCLINE HYCLATE ), 100MG, CAPSULE, ORAL, [facility] 500 ea. BOTTLE [id number] 14 Active [id number] Pharmacy Data Transaction Service Facili [address] Formulary Units PREDNISONE (PREDNISONE), 20MG, TABLET, ORAL, JOVON MENEZES BS., 100 ea. BOTTLE [id number] 10 Active [id number] Pharmacy Data Transaction Service [address] Formulary Units OSELTAMIVIR PHOSPHATE (oseltamivir phosp hate), 75 MG, CAPSULE, ORAL, LUPIN PHARMACEU, 10 ea. BLIST PACK [id number] 5 A ctive [id number] Pharmacy Data Tr ansaction Service [address] Formulary Units CLOPIDOGREL BISULFATE (CLOPIDOGREL BISUL FATE), 75MG, TABLET, ORAL, APOTEX RUDOLPH, 90 ea. BOTTLE [id number] 30 Active [id number] Pharmacy Data Transaction Service Facili [address] Formulary Units CLOPIDOGREL BISULFATE (CLOPIDOGREL BISUL FATE), 75MG, TABLET, ORAL, APOTEX RUDOLPH, 90 ea. BOTTLE [id number] 30 Active [id number] Pharmacy Data Transaction Service [address] Formulary Units CLOPIDOGREL BISULFATE (CLOPIDOGREL BISUL FATE), 75MG, TABLET, ORAL, APOTEX RUDOLPH, 90 ea. BOTTLE [id number] 30 Active [id number] Pharmacy Data Transaction Service Facili [address] Formulary Units CLOPIDOGREL BISULFATE (CLOPIDOGREL BISUL FATE), 75MG, TABLET, ORAL, APOTEX RUDOLPH, 90 ea. BOTTLE [id number] 30 Active [id number] Pharmacy Data Transaction Service Facili [address] Formulary Units DULOXETINE HCL (DULOXETINE HCL), 30 MG, CAPSULE DR, ORAL, APOTEX RUDOLPH, 30 ea. BOTTLE [id number] 30 Active [id number] Pharmacy Data Transaction Service Fac[facility] Formulary Units DULOXETINE HCL (DULOXETINE HCL), 30 MG, CAPSULE DR, ORAL, APOTEX RUDOLPH, 30 ea. BOTTLE [id number] 30 Active [id number] Pharmacy Data Transaction Service [address] Formulary Units DULOXETINE HCL (DULOXETINE HCL), 30 MG, CAPSULE DR, ORAL, TORRENT PHARMAC, 30 ea. BOTTLE [id number] 30 Active [id number] Pharmacy Data Transaction Service [address] Formulary Units DULOXETINE HCL (DULOXETINE HCL), 30 MG, CAPSULE DR, ORAL, TORRENT PHARMAC, 30 ea. BOTTLE [id number] 30 Active [id number] Pharmacy Data Transaction Service Facili ty [address] Formulary Units DULOXETINE HCL (DULOXETINE HCL), 30 MG, CAPSULE DR, ORAL, TORRENT PHARMAC, 30 ea. BOTTLE [id number] 30 Active [id number] Pharmacy Data Transaction Service [address] Formulary Units METRONIDAZOLE (METRONIDAZOLE), 500MG, TA BLET, ORAL, [employer], 500 ea. BOTTLE [id number] 40 Active [id number] Pharmacy Data Transaction Service Facility [address] [place] [address] Formulary Units CHOLESTYRAMINE (CHOLESTYRAMINE (WITH SUG AR)), 4 G, POWDER, ORAL, [facility], 378 g JAR [id number] 378 Active [id number] Pharmacy Data Transaction Service [address] Formulary Units FUROSEMIDE (FUROSEMIDE), 40MG, TABLET, ORAL, JOVON LA BS., 1000 ea. BOTTLE [id number] 30 Active [id number] Pharmacy Data Transaction Service Facility [address] [place] [address] Formulary Units FUROSEMIDE (FUROSEMIDE), 40MG, TABLET, ORAL, JOVON LA BS., 1000 ea. BOTTLE [id number] 30 Active [id number] Pharmacy Data Transaction Service [address] Formulary Units HYDROXYZINE HCL (hydroxyzine HCl), 25 MG , TABLET, ORAL, [employer]AR[employer], 100 ea. BOTTLE [id number] 30 Active [id number] Pharmacy Data Transaction Service [address] Formulary Units HYDROXYZINE HCL (hydroxyzine HCl), 25 MG , TABLET, ORAL, [employer] PHARMA, 100 ea. BOTTLE [id number] 30 Active [id number] Pharmacy Data Transaction Service Facil ty [address] [place] [address] Formulary Units HYDROXYZINE HCL (hydroxyzine HCl), 25 MG , TABLET, ORAL, HER[employer]ARMA, 100 ea. BOTTLE [id number] 30 Active [id number] Pharmacy Data Transaction Service [facility] ty [address] [place] [address] Formulary Units HYDROXYZINE HCL (hydroxyzine HCl), 25 MG , TABLET, ORAL, [employer]ARMA, 100 ea. BOTTLE [id number] 30 Active [id number] Pharmacy Data Transaction Service [facility] [address] Formulary Units HYDROXYZINE HCL (hydroxyzine HCl), 25 MG , TABLET, ORAL, HERITAGE PHARMA, 100 ea. BOTTLE [id number] 30 Active [id number] Pharmacy Data Transaction Service [facility] [address] Formulary Units HYDROXYZINE HCL (hydroxyzine HCl), 25 MG , TABLET, ORAL, HER[employer]ARMA, 100 ea. BOTTLE [id number] 30 Active [id number] Pharmacy Data Transaction Service [facility] [address] Formulary Units HYDROXYZINE HCL (hydroxyzine HCl), 25 MG , TABLET, ORAL, [employer]ARMA, 100 ea. BOTTLE [id number] 30 Active [id number] Pharmacy Data Transaction Service [address] Formulary Units HYDROXYZINE HCL (hydroxyzine HCl), 25 MG , TABLET, ORAL, HER[employer] PHARMA, 100 ea. BOTTLE [id number] 30 Active [id number] Pharmacy Data Transaction Service [address] Formulary Units CLINDAMYCIN HCL (CLINDAMYCIN HCL), 300MG , CAPSULE, ORAL, RANBAXY, 100 ea. BOTTLE [id number] 21 Active [id number] Pharmacy Data Transaction Service [address] Formulary Units This section includes all outpatient medications ordered within the last 15 months. Problem List (C-CDA) Name Status Onset Date Chronicity Code Source This section is an empty problems section. Procedures (C-CDA) Date/Time Procedure Type Provider Procedure Comment This section is an empty procedures section. Diagnostic tests and laboratory results (C-CDA) Collection Date/Time Order/Patton el Test Result Ref Range Interpretation Source Order Comment Result Comment Result Interpretation Comment Specimen This section is an empty lab results sec tion. This section includes all laboratory results (except microbiology and pathology) for the past 15 months up to a maximum of 50 results panels. Vitals (C-CDA) Collection Date/Time Test Result Site Method Source This section is an empty vitals section This section is an empty vitals section. This section includes information documenting the patient's vital signs for the past 15 months up to a maximum of 50 sets. Height and weight values may have been measured or stated by the patient. History of encounters (C-CDA) Date/Time Encounter Type Reason for Visit Provider Disposition Source This section is an empty appointments/ad missions. This section is an empty appointments/admissions. This section includes appointments/admissions for the past 280 months. Insurance providers (C-CDA) Plan Type Plan Name Group No Source Relation to Subscriber This section is an empty insurance secti on. This section contains current [place] (non-) insurance information as known by the Department of Defense. This information is empty. Social History (C-CDA) Tobacco Table Date/Time Provider Tobacco Use What type of tobacco product? Would you like to quit? Amount of tobacco used per day/duration? This section is an empty social history section. No Information Plan of Care (C-CDA) This section is an empty plan of care section. No Information Instructions (C-CDA) This section is an empty Instructions section. No Information Functional Status (C-CDA) This section is an empty functional status section. No Information
--- OUTSIDE RECORDS SUMMARY | 2019-02-18 02:58 | XMS REPORT | Continuity of Care Document ---
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 N39.0 URINARY TRACT INFECTION, SITE NOT SPECIF 07/06/2017 SEPIDEH MCCULLOUGH Ot R50.9 FEVER, UNSPECIFIED 07/06/2017 SEPIDEH MCCULLOUGH Ot Z51.81 ENCOUNTER FOR THERAPEUTIC DRUG LEVEL MON 07/06/2017 SEPIDEH MCCULLOUGH Ot Z79.2 RESIDENTIAL (CURRENT) USE OF ANTIBIOTICS 07/06/2017 SEPIDEH MCCULLOUGH Ot Z79.82 TREE TOPPER (CURRENT) USE OF ASPIRIN 07/06/2017 SEPIDEH MCCULLOUGH Ot Z79.899 OTHER TREE TOPPER (CURRENT) DRUG THERAPY 07/27/2017 MUSA LINDSEY MD, Ot E78.00 PURE HYPERCHOLESTEROLEMIA, UNSPECIFIED 07/27/2017 MSUA LINDSEY MD, Ot I10 ESSENTIAL (PRIMARY) HYPERTENSION 07/27/2017 MUSA LINDSEY MD Ot I73 .9 PERIPHERAL VASCULAR DISEASE, UNSPECIFIED 07/27/2017 MUSA LINDSEY MD, Ot J44 .9 CHRONIC OBSTRUCTIVE PULMONARY DISEASE, U 07/27/2017 MUSA LINDSEY MD Ot M81 .0 AGE-RELATED OSTEOPOROSIS W/O CURRENT PAT 07/27/2017 MUSA LINDSEY MD Ot N39 .0 URINARY TRACT INFECTION, SITE NOT SPECIF 07/27/2017 MUSA LINDSEY MD Ot R50 .9 FEVER, UNSPECIFIED 07/27/2017 UMSA LINDSEY MD Ot Z79.02 RESIDENTIAL (CURRENT) USE OF ANTITHROMBOTI 07/27/2017 MUSA LINDSEY MD Ot Z86.14 PERSONAL HISTORY OF METHICILLIN RESIS ST 07/27/2017 MUSA LINDSEY MD Ot Z87.19 PERSONAL HISTORY OF OTHER DISEASES OF TH 07/27/2017 MUSA LINDSEY MD Ot Z87.440 PERSONAL HISTORY OF URINARY (TRACT) INFE 07/27/2017 MUSA LINDSEY MD Ot Z87.442 PERSONAL HISTORY OF URINARY CALCULI 07/31/2017 MUSA LINDSEY MD Ot E78.00 PURE HYPERCHOLESTEROLEMIA, UNSPECIFIED 07/31/2017 MUSA LINDSEY MD Ot I10 ESSENTIAL (PRIMARY) HYPERTENSION 07/31/2017 MUSA LINDSEY MD Ot I73 .9 PERIPHERAL VASCULAR DISEASE, UNSPECIFIED 07/31/2017 MUSA LINDSEY MD, Ot J44 .9 CHRONIC OBSTRUCTIVE PULMONARY DISEASE, U 07/31/2017 MUSA LINDSEY MD, Ot M81 .0 AGE-RELATED OSTEOPOROSIS W/O CURRENT PAT 07/31/2017 MUSA LINDSEY MD, Ot N39 .0 URINARY TRACT INFECTION, SITE NOT SPECIF 07/31/2017 MUSA LINDSEY MD, Ot R50 .9 FEVER, UNSPECIFIED 07/31/2017 MUSA LINDSEY MD, Ot Z79.02 RESIDENTIAL (CURRENT) USE OF ANTITHROMBOTI 07/31/2017 MUSA LINDSEY MD, Ot Z86.14 PERSONAL HISTORY OF METHICILLIN RESIS ST 07/31/2017 MUSA LINDSEY MD, Ot Z87.19 PERSONAL HISTORY OF OTHER DISEASES OF TH 07/31/2017 MUSA LINDSEY MD, Ot Z87.440 PERSONAL HISTORY OF URINARY (TRACT) INFE 07/31/2017 MUSA LINDSEY MD, Ot Z87.442 PERSONAL HISTORY OF URINARY CALCULI 08/24/2017 MATT GREGORY DO Ot 344.1 PARAPLEGIA NOS 08/24/2017 MATT GREGORY DO Ot 401.9 HYPERTENSION NOS 08/24/2017 MATT GREGORY DO Ot 441.4 ABDOM AORTIC ANEURYSM 08/24/2017 MATT GREGORY DO Ot V15.8 1 HX OF PAST NONCOMPLIANCE 08/24/2017 MAYITO ADAMSON, MIGEL Haas Ot Z01.818 ENCOUNTER FOR OTHER PREPROCEDURAL EXAMIN 08/24/2017 RICHI ADAMSON, JOAN Quintero Ot M54.6 PAIN IN THORACIC SPINE 08/24/2017 LENA RODRIGUEZ MD Ot 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 08/24/2017 LENA RODRIGUEZ MD Ot 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 08/24/2017 NICHOLE CAMACHO MD Ot G82.2 0 PARAPLEGIA, UNSPECIFIED 08/24/2017 NICHOLE CAMACHO MD Ot 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 08/24/2017 NICHOLE CAMACHO MD Ot L89.1 03 PRESSURE ULCER OF UNSPECIFIED PART OF BA 08/24/2017 NICHOLE CAMACHO MD Ot 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, STAGE 4 08/24/2017 NICHOLE CAMACHO MD Ot L89.8 94 PRESSURE ULCER OF OTHER SITE, STAGE 4 08/24/2017 NICHOLE CAMACHO MD Ot G82.2 0 PARAPLEGIA, UNSPECIFIED 08/24/2017 NICHOLE CAMACHO MD Ot 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 08/24/2017 NICHOLE CAMACHO MD Ot L89.1 03 PRESSURE ULCER OF UNSPECIFIED PART OF BA 08/24/2017 NICHOLE CAMACHO MD Ot 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, STAGE 4 08/24/2017 NICHOLE CAMACHO MD Ot L89.8 94 PRESSURE ULCER OF OTHER SITE, STAGE 4 08/24/2017 NICHOLE CAMACHO MD Ot L89.1 03 PRESSURE ULCER OF UNSPECIFIED PART OF BA 08/24/2017 NICHOLE CAMACHO MD Ot M48.54XS COLLAPSED VERTEBRA, NEC, THORACIC REGION 08/24/2017 NICHOLE CAMACHO MD Ot G82.2 0 PARAPLEGIA, UNSPECIFIED 08/24/2017 NICHOLE CAMACHO MD Ot 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 08/24/2017 NICHOLE CAMACHO MD Ot L89.1 03 PRESSURE ULCER OF UNSPECIFIED PART OF BA 08/24/2017 NICHOLE CAMACHO MD Ot 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, STAGE 4 08/24/2017 NICHOLE CAMACHO MD Ot L89.8 94 PRESSURE ULCER OF OTHER SITE, STAGE 4 08/24/2017 NICHOLE CAMACHO MD Ot M86.1 71 OTHER ACUTE OSTEOMYELITIS, RIGHT ANKLE A 08/24/2017 NICHOLE CAMACHO MD Ot G82.2 0 PARAPLEGIA, UNSPECIFIED 08/24/2017 NICHOLE CAMACHO MD Ot 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 08/24/2017 NICHOLE CAMACHO MD Ot L89.1 03 PRESSURE ULCER OF UNSPECIFIED PART OF BA 08/24/2017 NICHOLE CAMACHO MD Ot 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, STAGE 4 08/24/2017 NICHOLE CAMACHO MD Ot L89.8 94 PRESSURE ULCER OF OTHER SITE, STAGE 4 08/24/2017 NICHOLE CAMACHO MD Ot M86.1 71 OTHER ACUTE OSTEOMYELITIS, RIGHT ANKLE A 08/24/2017 DERRICK FORDE APRN Ot M86.9 OSTEOMYELITIS, UNSPECIFIED 08/24/2017 DERRICK FORDE APRN Ot Z45.2 ENCOUNTER FOR ADJUSTMENT AND MANAGEMENT 08/24/2017 ASHLEYETHEL TOLENTINO Peter BILLY Ot M86.9 OSTEOMYELITIS, UNSPECIFIED 08/24/2017 NICHOLE CAMACHO MD Ot M86.9 OSTEOMYELITIS, UNSPECIFIED 08/24/2017 NICHOLE CAMACHO MD Ot Z51.8 1 ENCOUNTER FOR THERAPEUTIC DRUG LEVEL MON 08/24/2017 NICHOLE CAMACHO MD Ot Z79.2 RESIDENTIAL (CURRENT) USE OF ANTIBIOTICS 08/24/2017 DERRICK FORDE APRN Ot Z51.81 ENCOUNTER FOR THERAPEUTIC DRUG LEVEL MON 08/24/2017 DERRICK FORDE APRN Ot Z79.2 TREE TOPPER (CURRENT) USE OF ANTIBIOTICS 08/24/2017 NICHOLE CAMACHO MD Ot Z51.8 1 ENCOUNTER FOR THERAPEUTIC DRUG LEVEL MON 08/24/2017 NICHOLE CAMACHO MD Ot Z79.2 RESIDENTIAL (CURRENT) USE OF ANTIBIOTICS 08/24/2017 NICHOLE CAMACHO MD Ot Z51.8 1 ENCOUNTER FOR THERAPEUTIC DRUG LEVEL MON 08/24/2017 NICHOLE CAMACHO MD Ot Z79.2 TREE TOPPER (CURRENT) USE OF ANTIBIOTICS 08/24/2017 NICHOLE CAMACHO MD Ot Z51.8 1 ENCOUNTER FOR THERAPEUTIC DRUG LEVEL MON 08/24/2017 NICHOLE CAMACHO MD Ot Z79.2 TREE TOPPER (CURRENT) USE OF ANTIBIOTICS 08/24/2017 NICHOLE CAMACHO MD Ot Z51.8 1 ENCOUNTER FOR THERAPEUTIC DRUG LEVEL MON 08/24/2017 NICHOLE CAMACHO MD Ot Z79.2 RESIDENTIAL (CURRENT) USE OF ANTIBIOTICS 08/24/2017 DERRICK FORDE APRN Ot Z53.9 PROCEDURE AND TREATMENT NOT CARRIED OUT, 08/24/2017 DERRICK FORDE APRN Ot Z51.81 ENCOUNTER FOR THERAPEUTIC DRUG LEVEL Mon08/24/2017 DERRICK FORDE APRN Ot Z79.2 TREE TOPPER (CURRENT) USE OF ANTIBIOTICS 08/24/2017 NICHOLE CAMACHO MD Ot Z51.8 1 ENCOUNTER FOR THERAPEUTIC DRUG LEVEL MON 08/24/2017 NICHOLE CAMACHO MD Ot Z79.2 TREE TOPPER (CURRENT) USE OF ANTIBIOTICS 08/24/2017 NICHOLE CAMACHO MD Ot Z51.8 1 ENCOUNTER FOR THERAPEUTIC DRUG LEVEL Mon08/24/2017 NICHOLE CAMACHO MD Ot Z79.2 TREE TOPPER (CURRENT) USE OF ANTIBIOTICS 08/24/2017 DERRICK FORDE APRN Ot Z45.2 ENCOUNTER FOR ADJUSTMENT AND MANAGEMENT 08/24/2017 NICHOLE CAMACHO MD Ot Z51.8 1 ENCOUNTER FOR THERAPEUTIC DRUG LEVEL MON 08/24/2017 NICHOLE CAMACHO MD Ot Z79.2 TREE TOPPER (CURRENT) USE OF ANTIBIOTICS 08/24/2017 DERRICK FORDE PACKING INSPECTOR Ot M86.9 OSTEOMYELITIS, UNSPECIFIED 08/24/2017 DERRICK FORDE PACKING INSPECTOR Ot N17.9 ACUTE KIDNEY FAILURE, UNSPECIFIED 08/28/2017 MATT GREGORY DO Ot 344.1 PARAPLEGIA NOS 08/28/2017 MATT GREGORY DO Ot 401.9 HYPERTENSION NOS 08/28/2017 MATT GREGORY DO Ot 441.4 ABDOM AORTIC ANEURYSM 08/28/2017 MATT GREGORY DO Ot V15.8 1 HX OF PAST NONCOMPLIANCE 08/28/2017 MAYITO ADAMSON, MIGEL Haas Ot Z01.818 ENCOUNTER FOR OTHER PREPROCEDURAL EXAMIN 08/28/2017 RICHI ADAMSON, JOAN Quintero Ot M54.6 PAIN IN THORACIC SPINE 08/28/2017 ELNA RODRIGUEZ MD Ot 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 08/28/2017 LENA RODRIGUEZ MD Ot 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 08/28/2017 NICHOLE CAMACHO MD Ot G82.2 0 PARAPLEGIA, UNSPECIFIED 08/28/2017 NICHOLE CAMACHO MD Ot 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 08/28/2017 NICHOLE CAMACHO MD Ot L89.1 03 PRESSURE ULCER OF UNSPECIFIED PART OF BA 08/28/2017 NICHOLE CAMACHO MD Ot 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, STAGE 4 08/28/2017 NICHOLE CAMACHO MD Ot L89.8 94 PRESSURE ULCER OF OTHER SITE, STAGE 4 08/28/2017 NICHOLE CAMACHO MD Ot G82.2 0 PARAPLEGIA, UNSPECIFIED 08/28/2017 NICHOLE CAMACHO MD Ot 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 08/28/2017 NICHOLE CAMACHO MD Ot L89.1 03 PRESSURE ULCER OF UNSPECIFIED PART OF BA 08/28/2017 NICHOLE CAMACHO MD Ot 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, STAGE 4 08/28/2017 NICHOLE CAMACHO MD Ot L89.8 94 PRESSURE ULCER OF OTHER SITE, STAGE 4 08/28/2017 NICHOLE CAMACHO MD Ot L89.1 03 PRESSURE ULCER OF UNSPECIFIED PART OF BA 08/28/2017 NICHOLE CAMACHO MD Ot M48.54XS COLLAPSED VERTEBRA, NEC, THORACIC REGION 08/28/2017 NICHOLE CAMACHO MD Ot G82.2 0 PARAPLEGIA, UNSPECIFIED 08/28/2017 NICHOLE CAMACHO MD Ot 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 08/28/2017 NICHOLE CAMACHO MD, Ot L89.1 03 PRESSURE ULCER OF UNSPECIFIED PART OF BA 08/28/2017 NICHOLE CAMACHO MD, Ot 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, STAGE 4 08/28/2017 NICHOLE CAMACHO MD Ot L89.8 94 PRESSURE ULCER OF OTHER SITE, STAGE 4 08/28/2017 NICHOLE CAMACHO MD Ot M86.1 71 OTHER ACUTE OSTEOMYELITIS, RIGHT ANKLE A 08/28/2017 NICHOLE CAMACHO MD, Ot G82.2 0 PARAPLEGIA, UNSPECIFIED 08/28/2017 NICHOLE CAMACHO MD Ot 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 08/28/2017 NICHOLE CAMACHO MD Ot L89.1 03 PRESSURE ULCER OF UNSPECIFIED PART OF BA 08/28/2017 NICHOLE CAMACHO MD Ot 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, STAGE 4 08/28/2017 NICHOLE CAMACHO MD Ot L89.8 94 PRESSURE ULCER OF OTHER SITE, STAGE 4 08/28/2017 NICHOLE CAMACHO MD Ot M86.1 71 OTHER ACUTE OSTEOMYELITIS, RIGHT ANKLE A 08/28/2017 DERRICK FORDE APRN Ot M86.9 OSTEOMYELITIS, UNSPECIFIED 08/28/2017 DERRICK FORDE APRN Ot Z45.2 ENCOUNTER FOR ADJUSTMENT AND MANAGEMENT 08/28/2017 ETHEL HIRSCH Ot M86.9 OSTEOMYELITIS, UNSPECIFIED 08/28/2017 NICHOLE CAMACHO MD Ot M86.9 OSTEOMYELITIS, UNSPECIFIED 08/28/2017 NICHOLE CAMACHO MD Ot Z51.8 1 ENCOUNTER FOR THERAPEUTIC DRUG LEVEL MON 08/28/2017 NICHOLE CAMACHO MD Ot Z79.2 RESIDENTIAL (CURRENT) USE OF ANTIBIOTICS 08/28/2017 DERRICK FORDE APRN Ot Z51.81 ENCOUNTER FOR THERAPEUTIC DRUG LEVEL MON 08/28/2017 DERRICK FORDE APRN Ot Z79.2 RESIDENTIAL (CURRENT) USE OF ANTIBIOTICS 08/28/2017 NICHOLE CAMACHO MD Ot Z51.8 1 ENCOUNTER FOR THERAPEUTIC DRUG LEVEL MON 08/28/2017 NICHOLE CAMACHO MD, Ot Z79.2 TREE TOPPER (CURRENT) USE OF ANTIBIOTICS 08/28/2017 NICHOLE CAMACHO MD, Ot Z51.8 1 ENCOUNTER FOR THERAPEUTIC DRUG LEVEL MON 08/28/2017 NICHOLE CAMACHO MD, Ot Z79.2 TREE TOPPER (CURRENT) USE OF ANTIBIOTICS 08/28/2017 NICHOLE CAMACHO MD, Ot Z51.8 1 ENCOUNTER FOR THERAPEUTIC DRUG LEVEL Mon08/28/2017 NICHOLE CAMACHO MD, Ot Z79.2 TREE TOPPER (CURRENT) USE OF ANTIBIOTICS 08/28/2017 NICHOLE CAMACHO MD Ot Z51.8 1 ENCOUNTER FOR THERAPEUTIC DRUG LEVEL MON 08/28/2017 NICHOLE CAMACHO MD Ot Z79.2 RESIDENTIAL (CURRENT) USE OF ANTIBIOTICS 08/28/2017 DERRICK FORDE APRN Ot Z53.9 PROCEDURE AND TREATMENT NOT CARRIED OUT, 08/28/2017 DERRICK FORDE APRN Ot Z51.81 ENCOUNTER FOR THERAPEUTIC DRUG LEVEL MON 08/28/2017 DERRICK FORDE APRN Ot Z79.2 TREE TOPPER (CURRENT) USE OF ANTIBIOTICS 08/28/2017 NICHOLE CAMACHO MD Ot Z51.8 1 ENCOUNTER FOR THERAPEUTIC DRUG LEVEL Mon08/28/2017 NICHOLE CAMACHO MD Ot Z79.2 RESIDENTIAL (CURRENT) USE OF ANTIBIOTICS 08/28/2017 NICHOLE CAMACHO MD Ot Z51.8 1 ENCOUNTER FOR THERAPEUTIC DRUG LEVEL MON 08/28/2017 NICHOLE CAMACHO MD Ot Z79.2 RESIDENTIAL (CURRENT) USE OF ANTIBIOTICS 08/28/2017 DERRICK FORDE APRN Ot Z45.2 ENCOUNTER FOR ADJUSTMENT AND MANAGEMENT 08/28/2017 NICHOLE CAMACHO MD Ot Z51.8 1 ENCOUNTER FOR THERAPEUTIC DRUG LEVEL MON 08/28/2017 NICHOLE CAMACHO MD, Ot Z79.2 TREE TOPPER (CURRENT) USE OF ANTIBIOTICS 08/28/2017 DERRICK FORDE APRN Ot M86.9 OSTEOMYELITIS, UNSPECIFIED 08/28/2017 DERRICK FORDE APRN Ot N17.9 ACUTE KIDNEY FAILURE, UNSPECIFIED 09/18/2017 MATT GREGORY DO Ot 344.1 PARAPLEGIA NOS 09/18/2017 MATT GREGORY DO Ot 401.9 HYPERTENSION NOS 09/18/2017 MATT GREGORY DO Ot 441.4 ABDOM AORTIC ANEURYSM 09/18/2017 MATT GREGORY DO Ot V15.8 1 HX OF PAST NONCOMPLIANCE 09/18/2017 MAYITO ADAMSON, MIGEL Haas Ot Z01.818 ENCOUNTER FOR OTHER PREPROCEDURAL EXAMIN 09/18/2017 RICHI ADAMSON, JOAN Quintero Ot M54.6 PAIN IN THORACIC SPINE 09/18/2017 LENA RODRIGUEZ MD Ot 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 09/18/2017 LENA RODRIGUEZ MD Ot 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 09/18/2017 NICHOLE CAMACHO MD Ot G82.2 0 PARAPLEGIA, UNSPECIFIED 09/18/2017 NICHOLE CAMACHO MD Ot 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 09/18/2017 NICHOLE CAMACHO MD Ot L89.1 03 PRESSURE ULCER OF UNSPECIFIED PART OF BA 09/18/2017 NICHOLE CAMACHO MD Ot 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, STAGE 4 09/18/2017 NICHOLE CAMACHO MD Ot L89.8 94 PRESSURE ULCER OF OTHER SITE, STAGE 4 09/18/2017 NICHOLE CAMACHO MD Ot G82.2 0 PARAPLEGIA, UNSPECIFIED 09/18/2017 NICHOLE CAMACHO MD Ot 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 09/18/2017 NICHOLE CAMACHO MD Ot L89.1 03 PRESSURE ULCER OF UNSPECIFIED PART OF BA 09/18/2017 NICHOLE CAMACHO MD Ot 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, STAGE 4 09/18/2017 NICHOLE CAMACHO MD Ot L89.8 94 PRESSURE ULCER OF OTHER SITE, STAGE 4 09/18/2017 NICHOLE CAMACHO MD Ot L89.1 03 PRESSURE ULCER OF UNSPECIFIED PART OF BA 09/18/2017 NICHOLE CAMACHO MD Ot M48.54XS COLLAPSED VERTEBRA, NEC, THORACIC REGION 09/18/2017 NICHOLE CAMACHO MD Ot G82.2 0 PARAPLEGIA, UNSPECIFIED 09/18/2017 NICHOLE CAMACHO MD Ot 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 09/18/2017 NICHOLE CAMACHO MD Ot L89.1 03 PRESSURE ULCER OF UNSPECIFIED PART OF BA 09/18/2017 NICHOLE CAMACHO MD Ot 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, STAGE 4 09/18/2017 NICHOLE CAMACHO MD Ot L89.8 94 PRESSURE ULCER OF OTHER SITE, STAGE 4 09/18/2017 NICHOLE CAMACHO MD Ot M86.1 71 OTHER ACUTE OSTEOMYELITIS, RIGHT ANKLE A 09/18/2017 NICHOLE CAMACHO MD Ot G82.2 0 PARAPLEGIA, UNSPECIFIED 09/18/2017 NICHOLE CAMACHO MD Ot 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 09/18/2017 NICHOLE CAMACHO MD Ot L89.1 03 PRESSURE ULCER OF UNSPECIFIED PART OF BA 09/18/2017 NICHOLE CAMACHO MD Ot 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, STAGE 4 09/18/2017 NICHOLE CAMACHO MD Ot L89.8 94 PRESSURE ULCER OF OTHER SITE, STAGE 4 09/18/2017 NICHOLE CAMACHO MD Ot M86.1 71 OTHER ACUTE OSTEOMYELITIS, RIGHT ANKLE A 09/18/2017 DERRICK FORDE APRN Ot M86.9 OSTEOMYELITIS, UNSPECIFIED 09/18/2017 DERRICK FORDE APRN Ot Z45.2 ENCOUNTER FOR ADJUSTMENT AND MANAGEMENT 09/18/2017 ETHEL HIRSCH Ot M86.9 OSTEOMYELITIS, UNSPECIFIED 09/18/2017 NICHOLE CAMACHO MD Ot M86.9 OSTEOMYELITIS, UNSPECIFIED 09/18/2017 NICHOLE CAMACHO MD Ot Z51.8 1 ENCOUNTER FOR THERAPEUTIC DRUG LEVEL MON 09/18/2017 NICHOLE CAMACHO MD Ot Z79.2 TREE TOPPER (CURRENT) USE OF ANTIBIOTICS 09/18/2017 DERRICK FORDE APRN Ot Z51.81 ENCOUNTER FOR THERAPEUTIC DRUG LEVEL Mon09/18/2017 DERRICK FORDE APRN Ot Z79.2 TREE TOPPER (CURRENT) USE OF ANTIBIOTICS 09/18/2017 NICHOLE CAMACHO MD Ot Z51.8 1 ENCOUNTER FOR THERAPEUTIC DRUG LEVEL Mon09/18/2017 NICHOLE CAMACHO MD Ot Z79.2 RESIDENTIAL (CURRENT) USE OF ANTIBIOTICS 09/18/2017 NICHOLE CAMACHO MD Ot Z51.8 1 ENCOUNTER FOR THERAPEUTIC DRUG LEVEL Mon09/18/2017 NICHOLE CAMACHO MD Ot Z79.2 RESIDENTIAL (CURRENT) USE OF ANTIBIOTICS 09/18/2017 NICHOLE CAMACHO MD Ot Z51.8 1 ENCOUNTER FOR THERAPEUTIC DRUG LEVEL MON 09/18/2017 NICHOLE CAMACHO MD Ot Z79.2 RESIDENTIAL (CURRENT) USE OF ANTIBIOTICS 09/18/2017 NICHOLE CAMACHO MD Ot Z51.8 1 ENCOUNTER FOR THERAPEUTIC DRUG LEVEL MON 09/18/2017 NICHOLE CAMACHO MD Ot Z79.2 RESIDENTIAL (CURRENT) USE OF ANTIBIOTICS 09/18/2017 DERRICK FORDE APRN Ot Z53.9 PROCEDURE AND TREATMENT NOT CARRIED OUT, 09/18/2017 DERRICK FORDE APRN Ot Z51.81 ENCOUNTER FOR THERAPEUTIC DRUG LEVEL Mon09/18/2017 DERRICK FORDE APRN Ot Z79.2 RESIDENTIAL (CURRENT) USE OF ANTIBIOTICS 09/18/2017 NICHOLE CAMACHO MD Ot Z51.8 1 ENCOUNTER FOR THERAPEUTIC DRUG LEVEL Mon09/18/2017 NICOHLE CAMACHO MD Ot Z79.2 TREE TOPPER (CURRENT) USE OF ANTIBIOTICS 09/18/2017 NICHOLE CAMACHO MD Ot Z51.8 1 ENCOUNTER FOR THERAPEUTIC DRUG LEVEL Mon09/18/2017 NICHOLE CAMACHO MD Ot Z79.2 TREE TOPPER (CURRENT) USE OF ANTIBIOTICS 09/18/2017 DERRICK FORDE APRN Ot Z45.2 ENCOUNTER FOR ADJUSTMENT AND MANAGEMENT 09/18/2017 NICHOLE CAMACHO MD Ot Z51.8 1 ENCOUNTER FOR THERAPEUTIC DRUG LEVEL Mon09/18/2017 NICHOLE CAMACHO MD Ot Z79.2 TREE TOPPER (CURRENT) USE OF ANTIBIOTICS 09/18/2017 DERRICK FORDE APRN Ot M86.9 OSTEOMYELITIS, UNSPECIFIED 09/18/2017 DERRICK FORDE APRN Ot N17.9 ACUTE KIDNEY FAILURE, UNSPECIFIED 11/15/2017 Ot F22 DELUSI ONAL DISORDERS 11/15/2017 Ot J34.89 OTH ER SPECIFIED DISORDERS OF NOSE AND NA 11/15/2017 Ot R41.82 ALT ERED MENTAL STATUS, UNSPECIFIED 11/15/2017 Ot R90.82 WHI TE MATTER DISEASE, UNSPECIFIED 12/04/2017 Ot F22 DELUSI ONAL DISORDERS 12/04/2017 Ot J34.89 OTH ER SPECIFIED DISORDERS OF NOSE AND NA 12/04/2017 Ot R41.82 ALT ERED MENTAL STATUS, UNSPECIFIED 12/04/2017 Ot R90.82 WHI TE MATTER DISEASE, UNSPECIFIED 12/20/2017 SEPIDEH MCCULLOUGH Ot G83.9 PARALYTIC SYNDROME, UNSPECIFIED 12/20/2017 SEPIDEH MCCULLOUGH Ot I 10 ESSENTIAL (PRIMARY) HYPERTENSION 12/20/2017 SEPIDEH MCCULLOUGH Ot J44.9 CHRONIC OBSTRUCTIVE PULMONARY DISEASE, U 12/20/2017 SEPIDEH MCCULLOUGH Ot N39.0 URINARY TRACT INFECTION, SITE NOT SPECIF 12/20/2017 SEPIDEH MCCULLOUGH Ot R50.9 FEVER, UNSPECIFIED 12/20/2017 SEPIDEH MCCULLOUGH Ot Z51.81 ENCOUNTER FOR THERAPEUTIC DRUG LEVEL MON 12/20/2017 SEPIDEH MCCULLOUGH Ot Z79.2 TREE TOPPER (CURRENT) USE OF ANTIBIOTICS 12/20/2017 SEPIDEH MCCULLOUGH Ot Z79.82 RESIDENTIAL (CURRENT) USE OF ASPIRIN 12/20/2017 SEPIDEH MCCULLOUGH Ot Z79.899 OTHER RESIDENTIAL (CURRENT) DRUG THERAPY 02/21/2018 NICHOLE CAMACHO MD Ot R19.7 DIARRHEA, UNSPECIFIED 02/21/2018 NICHOLE CAMACHO MD Ot R19.7 DIARRHEA, UNSPECIFIED 02/28/2018 NICHOLE CAMACHO MD Ot R19.7 DIARRHEA, UNSPECIFIED 03/16/2018 NICHOLE CAMACHO MD Ot R19.7 DIARRHEA, UNSPECIFIED 05/14/2018 SEPIDEH MCCULLOUGH Ot D 62 ACUTE POSTHEMORRHAGIC ANEMIA 05/14/2018 SEPIDEH MCCULLOUGH Ot M62.81 MUSCLE WEAKNESS (GENERALIZED) 05/14/2018 SEPIDEH MCCULLOUGH Ot R53.81 OTHER MALAISE 06/04/2018 SEPIDEH MCCULLOUGH Ot D 62 ACUTE POSTHEMORRHAGIC ANEMIA 06/04/2018 SEPIDEH MCCULLOUGH Ot M62.81 MUSCLE WEAKNESS (GENERALIZED) 06/04/2018 SEPIDEH MCCULLOUGH Ot R82.90 UNSPECIFIED ABNORMAL FINDINGS IN URINE 06/04/2018 SEPIDEH MCCULLOUGH Ot Z87.440 PERSONAL HISTORY OF URINARY (TRACT) INFE 06/04/2018 SEPIDEH MCCULLOUGH Ot D 62 ACUTE POSTHEMORRHAGIC ANEMIA 06/04/2018 SEPIDEH MCCULLOUGH Ot M62.81 MUSCLE WEAKNESS (GENERALIZED) 06/04/2018 SEPIDEH MCCULLOUGH Ot R53.81 OTHER MALAISE 06/19/2018 SEPIDEH MCCULLOUGH Ot D 62 ACUTE POSTHEMORRHAGIC ANEMIA 06/19/2018 SEPIDEH MCCULLOUGH Ot M62.81 MUSCLE WEAKNESS (GENERALIZED) 06/19/2018 SEPIDEH MCCULLOUGH Ot R53.81 OTHER MALAISE 06/25/2018 SEPIDEH MCCULLOUGH Ot D 62 ACUTE POSTHEMORRHAGIC ANEMIA 06/25/2018 SEPIDEH MCCULLOUGH Ot M62.81 MUSCLE WEAKNESS (GENERALIZED) 06/25/2018 SEPIDEH MCCULLOUGH Ot R82.90 UNSPECIFIED ABNORMAL FINDINGS IN URINE 06/25/2018 SEPIDEH MCCULLOUGH Ot Z87.440 PERSONAL HISTORY OF URINARY (TRACT) INFE 06/25/2018 SEPIDEH MCCULLOUGH Ot D 62 ACUTE POSTHEMORRHAGIC ANEMIA 06/25/2018 SEPIDEH MCCULLOUGH Ot M62.81 MUSCLE WEAKNESS (GENERALIZED) 06/25/2018 SEPIDEH MCCULLOUGH Ot R53.81 OTHER MALAISE 07/18/2018 ALEXANDRA EDWARDS MD Ot E78. 00 PURE HYPERCHOLESTEROLEMIA, UNSPECIFIED 07/18/2018 ALEXANDRA EDWARDS MD Ot I10 ESSENTIAL (PRIMARY) HYPERTENSION 07/18/2018 ALEXANDRA EDWARDS MD Ot I73. 9 PERIPHERAL VASCULAR DISEASE, UNSPECIFIED 07/18/2018 ALEXANDRA EDWARDS MD Ot J44. 9 CHRONIC OBSTRUCTIVE PULMONARY DISEASE, U 07/18/2018 ALEXANDRA EDWARDS MD Ot M25.512 PAIN IN LEFT SHOULDER 07/18/2018 ALEXANDRA EDWARDS MD Ot R40.2142 COMA SCALE, EYES OPEN, SPONTANEOUS, EMR 07/18/2018 ALEXANDRA EDWARDS MD Ot R40.2252 COMA SCALE, BEST VERBAL RESPONSE, ORIENT 07/18/2018 ALEXANDRA EDWARDS MD Ot R40.2362 COMA SCALE, BEST MOTOR RESPONSE, OBEYS C 07/18/2018 ALEXANDRA EDWARDS MD Ot S40.012A CONTUSION OF LEFT SHOULDER, INITIAL ENCO 07/18/2018 ALEXANDRA EDWARDS MD Ot W05.0XXA FALL FROM NON-MOVING WHEELCHAIR, INITIAL 07/18/2018 ALEXANDRA EDWARDS MD Ot Z79. 02 TREE TOPPER (CURRENT) USE OF ANTITHROMBOTI 07/18/2018 ALEXANDRA EDWARDS MD Ot Z80. 3 FAMILY HISTORY OF MALIGNANT NEOPLASM OF 07/18/2018 ALEXANRDA EDWARDS MD Ot Z87.440 PERSONAL HISTORY OF URINARY (TRACT) INFE 07/18/2018 ALEXANDRA EDWARDS MD Ot Z87.442 PERSONAL HISTORY OF URINARY CALCULI 07/18/2018 ALEXANDRA EDWARDS MD Ot Z99. 81 DEPENDENCE ON SUPPLEMENTAL OXYGEN 07/20/2018 ALEXANDRA EDWARDS MD Ot E78. 00 PURE HYPERCHOLESTEROLEMIA, UNSPECIFIED 07/20/2018 ALEXANDAR EDWARDS MD Ot I10 ESSENTIAL (PRIMARY) HYPERTENSION 07/20/2018 ALEXANDRA EDWARDS MD Ot I73. 9 PERIPHERAL VASCULAR DISEASE, UNSPECIFIED 07/20/2018 ALEXANDRA EDWARDS MD, Ot J44. 9 CHRONIC OBSTRUCTIVE PULMONARY DISEASE, U 07/20/2018 ALEXANDRA EDWARDS MD Ot M25.512 PAIN IN LEFT SHOULDER 07/20/2018 ALEXANDRA EDWARDS MD Ot R40.2142 COMA SCALE, EYES OPEN, SPONTANEOUS, EMR 07/20/2018 ALEXANDRA EDWARDS MD Ot R40.2252 COMA SCALE, BEST VERBAL RESPONSE, ORIENT 07/20/2018 ALEXANDRA EDWARDS MD Ot R40.2362 COMA SCALE, BEST MOTOR RESPONSE, OBEYS C 07/20/2018 ALEXANDRA EDWARDS MD Ot S40.012A CONTUSION OF LEFT SHOULDER, INITIAL ENCO 07/20/2018 ALEXANDRA EDWARDS MD Ot W05.0XXA FALL FROM NON-MOVING WHEELCHAIR, INITIAL 07/20/2018 ALEXANDRA EDWARDS MD Ot Z79. 02 TREE TOPPER (CURRENT) USE OF ANTITHROMBOTI 07/20/2018 ALEXANDRA EDWARDS MD Ot Z80. 3 FAMILY HISTORY OF MALIGNANT NEOPLASM OF 07/20/2018 ALEXANDRA EDWARDS MD, Ot Z87.440 PERSONAL HISTORY OF URINARY (TRACT) INFE 07/20/2018 ALEXANDRA EDWARDS MD Ot Z87.442 PERSONAL HISTORY OF URINARY CALCULI 07/20/2018 ALEXANDRA EDWARDS MD Ot Z99. 81 DEPENDENCE ON SUPPLEMENTAL OXYGEN 10/11/2018 MUSA LINDSEY MD Ot A41 .9 SEPSIS, UNSPECIFIED ORGANISM 10/11/2018 MUSA LINDSEY MD Ot D63 .8 ANEMIA IN OTHER CHRONIC DISEASES CLASSIF 10/11/2018 MUSA LINDSEY MD Ot E78.00 PURE HYPERCHOLESTEROLEMIA, UNSPECIFIED 10/11/2018 MUSA LINDSEY MD Ot E87 .5 HYPERKALEMIA 10/11/2018 MUSA LINDSEY MD Ot F03.90 UNSPECIFIED DEMENTIA WITHOUT BEHAVIORAL 10/11/2018 MUSA LINDSEY MD Ot G82.20 PARAPLEGIA, UNSPECIFIED 10/11/2018 MUSA LINDSEY MD Ot H91.10 PRESBYCUSIS, UNSPECIFIED EAR 10/11/2018 MUSA LINDSEY MD Ot I10 ESSENTIAL (PRIMARY) HYPERTENSION 10/11/2018 MUSA LINDSEY MD Ot I73 .9 PERIPHERAL VASCULAR DISEASE, UNSPECIFIED 10/11/2018 MUSA LINDSEY MD Ot J44 .9 CHRONIC OBSTRUCTIVE PULMONARY DISEASE, U 10/11/2018 MUSA LINDSEY MD Ot K59.09 OTHER CONSTIPATION 10/11/2018 MUSA LINDSEY MD Ot M81 .0 AGE-RELATED OSTEOPOROSIS W/O CURRENT PAT 10/11/2018 MUSA LINDSEY MD Ot N30.01 ACUTE CYSTITIS WITH HEMATURIA 10/11/2018 MUSA LINDSEY MD Ot N31 .9 NEUROMUSCULAR DYSFUNCTION OF BLADDER, UN 10/11/2018 MUSA LINDSEY MD Ot R13.10 DYSPHAGIA, UNSPECIFIED 10/11/2018 MUSA LINDSEY MD Ot R33 .9 RETENTION OF URINE, UNSPECIFIED 10/11/2018 MUAS LINDSEY MD Ot R60 .9 EDEMA, UNSPECIFIED 10/11/2018 MUSA LINDSEY MD Ot R65.20 SEVERE SEPSIS WITHOUT SEPTIC SHOCK 10/11/2018 MUSA LINDSEY MD Ot Y36.430S WAR OP INVOLVING OTH FIREARMS DISCHARGE, 10/11/2018 MUSA LINDSEY MD Ot Y99 .1 ACTIVITY 10/11/2018 MUSA LINDSEY MD Ot Z66 DO NOT RESUSCITATE 10/11/2018 MUSA LINDSEY MD Ot Z86.14 PERSONAL HISTORY OF METHICILLIN RESIS ST 10/11/2018 MUSA LINDSEY MD Ot Z87.442 PERSONAL HISTORY OF URINARY CALCULI 10/11/2018 MUSA LINDSEY MD Ot Z99.81 DEPENDENCE ON SUPPLEMENTAL OXYGEN 10/11/2018 MUSA LINDSEY MD Ot A41 .9 SEPSIS, UNSPECIFIED ORGANISM 10/11/2018 MUSA LINDSEY MD Ot D63 .8 ANEMIA IN OTHER CHRONIC DISEASES CLASSIF 10/11/2018 MUSA LINDSEY MD Ot E78.00 PURE HYPERCHOLESTEROLEMIA, UNSPECIFIED 10/11/2018 MUSA LINDSEY MD Ot E87 .5 HYPERKALEMIA 10/11/2018 MUSA LINDSEY MD Ot F03.90 UNSPECIFIED DEMENTIA WITHOUT BEHAVIORAL 10/11/2018 MUSA LINDSEY MD Ot G82.20 PARAPLEGIA, UNSPECIFIED 10/11/2018 MUSA LINDSEY MD Ot H91.10 PRESBYCUSIS, UNSPECIFIED EAR 10/11/2018 MUSA LINDSEY MD Ot I10 ESSENTIAL (PRIMARY) HYPERTENSION 10/11/2018 MUSA LINDSEY MD Ot I73 .9 PERIPHERAL VASCULAR DISEASE, UNSPECIFIED 10/11/2018 MUSA LINDSEY MD Ot J44 .9 CHRONIC OBSTRUCTIVE PULMONARY DISEASE, U 10/11/2018 MUSA LINDSEY MD Ot K59.09 OTHER CONSTIPATION 10/11/2018 MUAS LINDSEY MD Ot M81 .0 AGE-RELATED OSTEOPOROSIS W/O CURRENT PAT 10/11/2018 MUSA LINDSEY MD Ot N30.01 ACUTE CYSTITIS WITH HEMATURIA 10/11/2018 MUSA LINDSEY MD Ot N31 .9 NEUROMUSCULAR DYSFUNCTION OF BLADDER, UN 10/11/2018 MUSA LINDSEY MD Ot R13.10 DYSPHAGIA, UNSPECIFIED 10/11/2018 MUSA LINDSEY MD Ot R33 .9 RETENTION OF URINE, UNSPECIFIED 10/11/2018 MUSA LINDSEY MD Ot R60 .9 EDEMA, UNSPECIFIED 10/11/2018 MUSA LINDSEY MD Ot R65.20 SEVERE SEPSIS WITHOUT SEPTIC SHOCK 10/11/2018 MUSA LINDSEY MD Ot Y36.430S WAR OP INVOLVING OTH FIREARMS DISCHARGE, 10/11/2018 MUSA LINDSEY MD Ot Y99 .1 ACTIVITY 10/11/2018 MUSA LINDSEY MD Ot Z66 DO NOT RESUSCITATE 10/11/2018 MUSA LINDSEY MD Ot Z86.14 PERSONAL HISTORY OF METHICILLIN RESIS ST 10/11/2018 MUSA LINDSEY MD Ot Z87.442 PERSONAL HISTORY OF URINARY CALCULI 10/11/2018 MUSA LINDSEY MD Ot Z99.81 DEPENDENCE ON SUPPLEMENTAL OXYGEN 10/12/2018 MUSA LINDSEY MD Ot A41 .9 SEPSIS, UNSPECIFIED ORGANISM 10/12/2018 MUSA LINDSEY MD Ot D63 .8 ANEMIA IN OTHER CHRONIC DISEASES CLASSIF 10/12/2018 MUSA LINDSEY MD Ot E78.00 PURE HYPERCHOLESTEROLEMIA, UNSPECIFIED 10/12/2018 MUSA LINDSEY MD Ot E87 .5 HYPERKALEMIA 10/12/2018 MUSA LINDSEY MD Ot F03.90 UNSPECIFIED DEMENTIA WITHOUT BEHAVIORAL 10/12/2018 MUSA LINDSEY MD Ot G82.20 PARAPLEGIA, UNSPECIFIED 10/12/2018 MUSA LINDSEY MD Ot H91.10 PRESBYCUSIS, UNSPECIFIED EAR 10/12/2018 MUSA LINDSEY MD Ot I10 ESSENTIAL (PRIMARY) HYPERTENSION 10/12/2018 MUSA LINDSEY MD Ot I73 .9 PERIPHERAL VASCULAR DISEASE, UNSPECIFIED 10/12/2018 MUSA LINDSEY MD Ot J44 .9 CHRONIC OBSTRUCTIVE PULMONARY DISEASE, U 10/12/2018 MUSA LINDSEY MD Ot K59.09 OTHER CONSTIPATION 10/12/2018 MUSA LINDSEY MD Ot M81 .0 AGE-RELATED OSTEOPOROSIS W/O CURRENT PAT 10/12/2018 MUSA LINDSEY MD Ot N30.01 ACUTE CYSTITIS WITH HEMATURIA 10/12/2018 MUSA LINDSEY MD Ot N31 .9 NEUROMUSCULAR DYSFUNCTION OF BLADDER, UN 10/12/2018 MUSA LINDSEY MD Ot R13.10 DYSPHAGIA, UNSPECIFIED 10/12/2018 MUSA LINDSEY MD Ot R33 .9 RETENTION OF URINE, UNSPECIFIED 10/12/2018 MUSA LINDSEY MD Ot R60 .9 EDEMA, UNSPECIFIED 10/12/2018 MUSA LINDSEY MD Ot R65.20 SEVERE SEPSIS WITHOUT SEPTIC SHOCK 10/12/2018 MUSA LINDSEY MD Ot T83.511A I/I REACT D/T INDWELLING URETHRAL CATHET 10/12/2018 MUSA LINDSEY MD Ot Y36.430S WAR OP INVOLVING OTH FIREARMS DISCHARGE, 10/12/2018 MUSA LINDSEY MD Ot Y99 .1 ACTIVITY 10/12/2018 MUSA LINDSEY MD Ot Z66 DO NOT RESUSCITATE 10/12/2018 MUSA LINDSEY MD Ot Z86.14 PERSONAL HISTORY OF METHICILLIN RESIS ST 10/12/2018 MUSA LINDSEY MD Ot Z87.442 PERSONAL HISTORY OF URINARY CALCULI 10/12/2018 MUSA LINDSEY MD Ot Z99.81 DEPENDENCE ON SUPPLEMENTAL OXYGEN 10/13/2018 DUNCAN REEVESP Ot E78.00 PURE HYPERCHOLESTEROLEMIA, UNSPECIFIED 10/13/2018 LALA, DUNCAN [employer] DRILLING MANAGER Ot I10 ESSENTIAL (PRIMARY) HYPERTENSION 10/13/2018 LALA, DUNCAN G[employer] WE[employer] DRILLING MANAGER Ot I73.9 PERIPHERAL VASCULAR DISEASE, UNSPECIFIED 10/13/2018 LALA DUCNAN G[employer] WELL DRILLING MANAGER Ot J44.9 CHRONIC OBSTRUCTIVE PULMONARY DISEASE, U 10/13/2018 DUNCAN REEVES G[employer] WE[employer] DRILLING MANAGER Ot L89.159 PRESSURE ULCER OF SACRAL REGION, UNSPECI 10/13/2018 DUNCAN REEVES G[employer] WE[employer] DRILLING MANAGER Ot M81.0 AGE- RELATED OSTEOPOROSIS W/O CURRENT PAT 10/13/2018 LALA DUNCAN G[employer] WE[employer] DRILLING MANAGER Ot N39.0 URINARY TRACT INFECTION, SITE NOT SPECIF 10/13/2018 LALA DUNCAN [employer] DRILLING MANAGER Ot R21 RASH AND OTHER NONSPECIFIC SKIN ERUPTION 10/13/2018 LALA DUNCAN [employer] DRILLING MANAGER Ot Z79.02 RESIDENTIAL (CURRENT) USE OF ANTITHROMBOTI 10/13/2018 LALA DUNCAN [employer] DRILLING MANAGER Ot Z79.51 RESIDENTIAL (CURRENT) USE OF INHALED STERO 10/13/2018 DUNCAN REEVES G[employer] WE[employer] DRILLING MANAGER Ot Z80.3 FAMILY HISTORY OF MALIGNANT NEOPLASM OF 10/13/2018 DUNCAN REEVES G[employer] WE[employer] DRILLING MANAGER Ot Z87.440 PERSONAL HISTORY OF URINARY (TRACT) INFE 10/13/2018 LALA DUNCAN G[employer] WE[employer] DRILLING MANAGER Ot Z87.442 PERSONAL HISTORY OF URINARY CALCULI 10/13/2018 DUNCAN REEVES G[employer] WELL DRILLING MANAGER Ot Z99.81 DEPENDENCE ON SUPPLEMENTAL OXYGEN 10/16/2018 LALA DUNCAN G[employer] WE[employer] DRILLING MANAGER Ot E78.00 PURE HYPERCHOLESTEROLEMIA, UNSPECIFIED 10/16/2018 LALA, DUNCAN G[employer] WE[employer] DRILLING MANAGER Ot I10 ESSENTIAL (PRIMARY) HYPERTENSION 10/16/2018 LALA, DUNCAN G[employer] WE[employer] DRILLING MANAGER Ot I73.9 PERIPHERAL VASCULAR DISEASE, UNSPECIFIED 10/16/2018 LALA, DUNCAN G[employer] WE[employer] DRILLING MANAGER Ot J44.9 CHRONIC OBSTRUCTIVE PULMONARY DISEASE, U 10/16/2018 LALA, DUNCAN G[employer] WE[employer] DRILLING MANAGER Ot L89.159 PRESSURE ULCER OF SACRAL REGION, UNSPECI 10/16/2018 LALA, DUNCAN G[employer] WE[employer] DRILLING MANAGER Ot M81.0 AGE- RELATED OSTEOPOROSIS W/O CURRENT PAT 10/16/2018 LALA, DUNCAN G[employer] WE[employer] DRILLING MANAGER Ot N39.0 URINARY TRACT INFECTION, SITE NOT SPECIF 10/16/2018 LALA, DUNCAN G[employer] WE[employer] DRILLING MANAGER Ot R21 RASH AND OTHER NONSPECIFIC SKIN ERUPTION 10/16/2018 LALA, DUNCAN G[employer] WE[employer] DRILLING MANAGER Ot Z79.02 TREE TOPPER (CURRENT) USE OF ANTITHROMBOTI 10/16/2018 LALA, DUNCAN G[employer] WE[employer] DRILLING MANAGER Ot Z79.51 RESIDENTIAL (CURRENT) USE OF INHALED STERO 10/16/2018 LALA, DUNCAN G[employer] WE[employer] DRILLING MANAGER Ot Z80.3 FAMILY HISTORY OF MALIGNANT NEOPLASM OF 10/16/2018 LALA, DUNCAN G[employer] WE[employer] DRILLING MANAGER Ot Z87.440 PERSONAL HISTORY OF URINARY (TRACT) INFE 10/16/2018 LALA, DUNCAN G[employer] WE[employer] DRILLING MANAGER Ot Z87.442 PERSONAL HISTORY OF URINARY CALCULI 10/16/2018 LALA, DUNCAN G[employer] WE[employer] DRILLING MANAGER Ot Z99.81 DEPENDENCE ON SUPPLEMENTAL OXYGEN 10/19/2018 LALA, DUNCAN G[employer] WE[employer] DRILLING MANAGER Ot E78.00 PURE HYPERCHOLESTEROLEMIA, UNSPECIFIED 10/19/2018 LALA, DUNCAN G[employer] WE[employer] DRILLING MANAGER Ot I10 ESSENTIAL (PRIMARY) HYPERTENSION 10/19/2018 LALA, DUNCAN G[employer] WE[employer] DRILLING MANAGER Ot I73.9 PERIPHERAL VASCULAR DISEASE, UNSPECIFIED 10/19/2018 LALA, DUNCAN G[employer] WE[employer] DRILLING MANAGER Ot J44.9 CHRONIC OBSTRUCTIVE PULMONARY DISEASE, U 10/19/2018 LALA DUNCAN G[employer] WE[employer] DRILLING MANAGER Ot L89.159 PRESSURE ULCER OF SACRAL REGION, UNSPECI 10/19/2018 LALA, DUNCAN G[employer] WE[employer] DRILLING MANAGER Ot M81.0 AGE- RELATED OSTEOPOROSIS W/O CURRENT PAT 10/19/2018 LALA, DUNCAN G[employer] WE[employer] DRILLING MANAGER Ot N39.0 URINARY TRACT INFECTION, SITE NOT SPECIF 10/19/2018 LALA DUNCAN G[employer] WE[employer] DRILLING MANAGER Ot R21 RASH AND OTHER NONSPECIFIC SKIN ERUPTION 10/19/2018 LALA, DUNCAN G[employer] WE[employer] DRILLING MANAGER Ot Z79.02 RESIDENTIAL (CURRENT) USE OF ANTITHROMBOTI 10/19/2018 LALA, DUNCAN G[employer] WELL DRILLING MANAGER Ot Z79.51 RESIDENTIAL (CURRENT) USE OF INHALED STERO 10/19/2018 LALA, DUNCAN G[employer] WE[employer] DRILLING MANAGER Ot Z80.3 FAMILY HISTORY OF MALIGNANT NEOPLASM OF 10/19/2018 DUNCAN REEVESP Ot Z87.440 PERSONAL HISTORY OF URINARY (TRACT) INFE 10/19/2018 DUNCAN REEVESP Ot Z87.442 PERSONAL HISTORY OF URINARY CALCULI 10/19/2018 DUNCAN REEVESP Ot Z99.81 DEPENDENCE ON SUPPLEMENTAL OXYGEN 10/23/2018 MAYITO ADAMSON, MIGEL Haas Ot Z01.818 ENCOUNTER FOR OTHER PREPROCEDURAL EXAMIN 10/23/2018 RICHI ADAMSON, JOAN Quintero Ot M54.6 PAIN IN THORACIC SPINE 10/23/2018 JENNIFER ADAMSON, LENA Odell Ot 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 10/23/2018 LENA RODRIGUEZ MD Ot 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 10/23/2018 NICHOLE CAMACHO MD Ot G82.2 0 PARAPLEGIA, UNSPECIFIED 10/23/2018 NICHOLE CAMACHO MD Ot 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 10/23/2018 NICHOLE CAMACHO MD Ot L89.1 03 PRESSURE ULCER OF UNSPECIFIED PART OF BA 10/23/2018 NICHOLE CAMACHO MD Ot 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, STAGE 4 10/23/2018 NICHOLE CAMACHO MD Ot L89.8 94 PRESSURE ULCER OF OTHER SITE, STAGE 4 10/23/2018 NICHOLE CAMACHO MD Ot G82.2 0 PARAPLEGIA, UNSPECIFIED 10/23/2018 NICHOLE CAMACHO MD Ot 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 10/23/2018 NICHOLE CAMACHO MD Ot L89.1 03 PRESSURE ULCER OF UNSPECIFIED PART OF BA 10/23/2018 NICHOLE CAMACHO MD Ot 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, STAGE 4 10/23/2018 NICHOLE CAMACHO MD Ot L89.8 94 PRESSURE ULCER OF OTHER SITE, STAGE 4 10/23/2018 NICHOLE CAMACHO MD Ot L89.1 03 PRESSURE ULCER OF UNSPECIFIED PART OF BA 10/23/2018 NICHOLE CAMACHO MD Ot M48.54XS COLLAPSED VERTEBRA, NEC, THORACIC REGION 10/23/2018 NICHOLE CAMACHO MD Ot G82.2 0 PARAPLEGIA, UNSPECIFIED 10/23/2018 NICHOLE CAMACHO MD Ot 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 10/23/2018 NICHOLE CAMACHO MD Ot L89.1 03 PRESSURE ULCER OF UNSPECIFIED PART OF BA 10/23/2018 NICHOLE CAMACHO MD Ot 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, STAGE 4 10/23/2018 NICHOLE CAMACHO MD Ot L89.8 94 PRESSURE ULCER OF OTHER SITE, STAGE 4 10/23/2018 NICHOLE CAMACHO MD Ot M86.1 71 OTHER ACUTE OSTEOMYELITIS, RIGHT ANKLE A 10/23/2018 NICHOLE CAMACHO MD Ot G82.2 0 PARAPLEGIA, UNSPECIFIED 10/23/2018 NICHOLE CAMACHO MD Ot 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 10/23/2018 NICHOLE CAMACHO MD, Ot L89.1 03 PRESSURE ULCER OF UNSPECIFIED PART OF BA 10/23/2018 NICHOLE CAMACHO MD, Ot 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, STAGE 4 10/23/2018 NICHOLE CAMACHO MD Ot L89.8 94 PRESSURE ULCER OF OTHER SITE, STAGE 4 10/23/2018 NICHOLE CAMACHO MD Ot M86.1 71 OTHER ACUTE OSTEOMYELITIS, RIGHT ANKLE A 10/23/2018 DERRICK FORDE APRN Ot M86.9 OSTEOMYELITIS, UNSPECIFIED 10/23/2018 DERRICK FORDE APRN Ot Z45.2 ENCOUNTER FOR ADJUSTMENT AND MANAGEMENT 10/23/2018 ETHEL HIRSCH Ot M86.9 OSTEOMYELITIS, UNSPECIFIED 10/23/2018 NICHOLE CAMACHO MD Ot M86.9 OSTEOMYELITIS, UNSPECIFIED 10/23/2018 NICHOLE CAMACHO MD Ot Z51.8 1 ENCOUNTER FOR THERAPEUTIC DRUG LEVEL MON 10/23/2018 NICHOLE CAMACHO MD Ot Z79.2 RESIDENTIAL (CURRENT) USE OF ANTIBIOTICS 10/23/2018 DERRICK FORDE APRN Ot Z51.81 ENCOUNTER FOR THERAPEUTIC DRUG LEVEL Mon10/23/2018 DERRICK FORDE APRN Ot Z79.2 TREE TOPPER (CURRENT) USE OF ANTIBIOTICS 10/23/2018 NICHOLE CAMACHO MD Ot Z51.8 1 ENCOUNTER FOR THERAPEUTIC DRUG LEVEL Mon10/23/2018 NICHOLE CAMACHO MD Ot Z79.2 RESIDENTIAL (CURRENT) USE OF ANTIBIOTICS 10/23/2018 NICHOLE CAMACHO MD Ot Z51.8 1 ENCOUNTER FOR THERAPEUTIC DRUG LEVEL Mon10/23/2018 NICHOLE CAMACHO MD Ot Z79.2 TREE TOPPER (CURRENT) USE OF ANTIBIOTICS 10/23/2018 NICHOLE CAMACHO MD Ot Z51.8 1 ENCOUNTER FOR THERAPEUTIC DRUG LEVEL MON 10/23/2018 NICHOLE CAMACHO MD Ot Z79.2 RESIDENTIAL (CURRENT) USE OF ANTIBIOTICS 10/23/2018 NICHOLE CAMACHO MD Ot Z51.8 1 ENCOUNTER FOR THERAPEUTIC DRUG LEVEL MON 10/23/2018 NICHOLE CAMACHO MD Ot Z79.2 RESIDENTIAL (CURRENT) USE OF ANTIBIOTICS 10/23/2018 DERRICK FORDE APRN Ot Z53.9 PROCEDURE AND TREATMENT NOT CARRIED OUT, 10/23/2018 DERRICK FORDE APRN Ot Z51.81 ENCOUNTER FOR THERAPEUTIC DRUG LEVEL MON 10/23/2018 DERRICK FORDE APRN Ot Z79.2 TREE TOPPER (CURRENT) USE OF ANTIBIOTICS 10/23/2018 NICHOLE CAMACHO MD, Ot Z51.8 1 ENCOUNTER FOR THERAPEUTIC DRUG LEVEL MON 10/23/2018 NICHOLE CAMACHO MD Ot Z79.2 TREE TOPPER (CURRENT) USE OF ANTIBIOTICS 10/23/2018 NICHOLE CAMACHO MD Ot Z51.8 1 ENCOUNTER FOR THERAPEUTIC DRUG LEVEL MON 10/23/2018 NICHOLE CAMACHO MD Ot Z79.2 TREE TOPPER (CURRENT) USE OF ANTIBIOTICS 10/23/2018 DERRICK FORDE APRN Ot Z45.2 ENCOUNTER FOR ADJUSTMENT AND MANAGEMENT 10/23/2018 NICHLOE CAMACHO MD Ot Z51.8 1 ENCOUNTER FOR THERAPEUTIC DRUG LEVEL MON 10/23/2018 NICHOLE CAMACHO MD Ot Z79.2 RESIDENTIAL (CURRENT) USE OF ANTIBIOTICS 10/23/2018 DERRICK FORDE APRN Ot M86.9 OSTEOMYELITIS, UNSPECIFIED 10/23/2018 DERRICK FORDE APRN Ot N17.9 ACUTE KIDNEY FAILURE, UNSPECIFIED 10/23/2018 Ot F22 DELUSI ONAL DISORDERS 10/23/2018 Ot J34.89 OTH ER SPECIFIED DISORDERS OF NOSE AND NA 10/23/2018 Ot R41.82 ALT ERED MENTAL STATUS, UNSPECIFIED 10/23/2018 Ot R90.82 WHI TE MATTER DISEASE, UNSPECIFIED 10/23/2018 NICHOLE CAMACHO MD Ot R19.7 DIARRHEA, UNSPECIFIED 10/23/2018 SEPIDEH MCCULLOUGH Ot D 62 ACUTE POSTHEMORRHAGIC ANEMIA 10/23/2018 SEPIDEH MCCULLOUGH Ot M62.81 MUSCLE WEAKNESS (GENERALIZED) 10/23/2018 SEPIDEH MCCULLOUGH Ot R82.90 UNSPECIFIED ABNORMAL FINDINGS IN URINE 10/23/2018 SEPIDEH MCCULLOUGH Ot Z87.440 PERSONAL HISTORY OF URINARY (TRACT) INFE 10/23/2018 SEPIDEH MCCULLOUGH Ot D 62 ACUTE POSTHEMORRHAGIC ANEMIA 10/23/2018 SEPIDEH MCCULLOUGH Ot M62.81 MUSCLE WEAKNESS (GENERALIZED) 10/23/2018 SEPIDEH MCCULLOUGH Ot R53.81 OTHER MALAISE 11/23/2018 MAYITO ADAMSON, MIGEL Haas Ot Z01.818 ENCOUNTER FOR OTHER PREPROCEDURAL EXAMIN 11/23/2018 RICHI ADAMSON, JOAN Quintero Ot M54.6 PAIN IN THORACIC SPINE 11/23/2018 JENNIFER ADAMSON, LENA Odell Ot 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 11/23/2018 LENA RODRIGUEZ MD Ot 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 11/23/2018 NICHOLE CAMACHO MD Ot G82.2 0 PARAPLEGIA, UNSPECIFIED 11/23/2018 NICHOLE CAMACHO MD Ot 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 11/23/2018 NICHOLE CAMACHO MD Ot L89.1 03 PRESSURE ULCER OF UNSPECIFIED PART OF BA 11/23/2018 NICHOLE CAMACHO MD Ot 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, STAGE 4 11/23/2018 NICHOLE CAMACHO MD Ot L89.8 94 PRESSURE ULCER OF OTHER SITE, STAGE 4 11/23/2018 NICHOLE CAMACHO MD Ot G82.2 0 PARAPLEGIA, UNSPECIFIED 11/23/2018 NICHOLE CAMACHO MD Ot 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 11/23/2018 NICHOLE CAMACHO MD Ot L89.1 03 PRESSURE ULCER OF UNSPECIFIED PART OF BA 11/23/2018 NICHOLE CAMACHO MD Ot 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, STAGE 4 11/23/2018 NICHOLE CAMACHO MD Ot L89.8 94 PRESSURE ULCER OF OTHER SITE, STAGE 4 11/23/2018 NICHOLE CAMACHO MD Ot L89.1 03 PRESSURE ULCER OF UNSPECIFIED PART OF BA 11/23/2018 NICHOLE CAMACHO MD Ot M48.54XS COLLAPSED VERTEBRA, NEC, THORACIC REGION 11/23/2018 NICHOLE CAMACHO MD, Ot G82.2 0 PARAPLEGIA, UNSPECIFIED 11/23/2018 NICHOLE CAMACHO MD Ot 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 11/23/2018 NICHOLE CAMACHO MD Ot L89.1 03 PRESSURE ULCER OF UNSPECIFIED PART OF BA 11/23/2018 NICHOLE CAMACHO MD Ot 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, STAGE 4 11/23/2018 NICHOLE CAMACHO MD Ot L89.8 94 PRESSURE ULCER OF OTHER SITE, STAGE 4 11/23/2018 NICHOLE CAMACHO MD Ot M86.1 71 OTHER ACUTE OSTEOMYELITIS, RIGHT ANKLE A 11/23/2018 NICHOLE CAMACHO MD, Ot G82.2 0 PARAPLEGIA, UNSPECIFIED 11/23/2018 NICHOLE CAMACHO MD, Ot 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 11/23/2018 NICHOLE CAMACHO MD, Ot L89.1 03 PRESSURE ULCER OF UNSPECIFIED PART OF BA 11/23/2018 NICHOLE CAMACHO MD Ot 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, STAGE 4 11/23/2018 NICHOLE CAMACHO MD Ot L89.8 94 PRESSURE ULCER OF OTHER SITE, STAGE 4 11/23/2018 NICHOLE CAMACHO MD Ot M86.1 71 OTHER ACUTE OSTEOMYELITIS, RIGHT ANKLE A 11/23/2018 DERRICK FORDE APRN Ot M86.9 OSTEOMYELITIS, UNSPECIFIED 11/23/2018 DERRICK FORDE APRN Ot Z45.2 ENCOUNTER FOR ADJUSTMENT AND MANAGEMENT 11/23/2018 ETHEL HIRSCH Ot M86.9 OSTEOMYELITIS, UNSPECIFIED 11/23/2018 NICHOLE CAMACHO MD Ot M86.9 OSTEOMYELITIS, UNSPECIFIED 11/23/2018 NICHOLE CAMACHO MD Ot Z51.8 1 ENCOUNTER FOR THERAPEUTIC DRUG LEVEL Mon11/23/2018 NICHOLE CAMACHO MD Ot Z79.2 RESIDENTIAL (CURRENT) USE OF ANTIBIOTICS 11/23/2018 DERRICK FORDE APRN Ot Z51.81 ENCOUNTER FOR THERAPEUTIC DRUG LEVEL Mon11/23/2018 DERRICK FORDE APRN Ot Z79.2 RESIDENTIAL (CURRENT) USE OF ANTIBIOTICS 11/23/2018 NICHOLE CAMACHO MD Ot Z51.8 1 ENCOUNTER FOR THERAPEUTIC DRUG LEVEL Mon11/23/2018 NICHOLE CAMACHO MD Ot Z79.2 TREE TOPPER (CURRENT) USE OF ANTIBIOTICS 11/23/2018 NICHOLE CAMACHO MD Ot Z51.8 1 ENCOUNTER FOR THERAPEUTIC DRUG LEVEL Mon11/23/2018 NICHOLE CAMACHO MD Ot Z79.2 RESIDENTIAL (CURRENT) USE OF ANTIBIOTICS 11/23/2018 NICHOLE CAMACHO MD Ot Z51.8 1 ENCOUNTER FOR THERAPEUTIC DRUG LEVEL Mon11/23/2018 NICHOLE CAMACHO MD Ot Z79.2 RESIDENTIAL (CURRENT) USE OF ANTIBIOTICS 11/23/2018 NICHOLE CAMACHO MD Ot Z51.8 1 ENCOUNTER FOR THERAPEUTIC DRUG LEVEL MON 11/23/2018 NICHOLE CAMACHO MD Ot Z79.2 TREE TOPPER (CURRENT) USE OF ANTIBIOTICS 11/23/2018 DERRICK FORDE APRN Ot Z53.9 PROCEDURE AND TREATMENT NOT CARRIED OUT, 11/23/2018 DERRICK FORDE APRN Ot Z51.81 ENCOUNTER FOR THERAPEUTIC DRUG LEVEL MON 11/23/2018 DERRICK FORDE APRN Ot Z79.2 RESIDENTIAL (CURRENT) USE OF ANTIBIOTICS 11/23/2018 NICHOLE CAMACHO MD Ot Z51.8 1 ENCOUNTER FOR THERAPEUTIC DRUG LEVEL MON 11/23/2018 NICHOLE CAMACHO MD Ot Z79.2 RESIDENTIAL (CURRENT) USE OF ANTIBIOTICS 11/23/2018 NICHOLE CAMACHO MD Ot Z51.8 1 ENCOUNTER FOR THERAPEUTIC DRUG LEVEL Mon11/23/2018 NICHOLE CAMACHO MD Ot Z79.2 TREE TOPPER (CURRENT) USE OF ANTIBIOTICS 11/23/2018 DERRICK FORED APRN Ot Z45.2 ENCOUNTER FOR ADJUSTMENT AND MANAGEMENT 11/23/2018 NICHOLE CAMACHO MD Ot Z51.8 1 ENCOUNTER FOR THERAPEUTIC DRUG LEVEL MON 11/23/2018 NICHOLE CAMACHO MD Ot Z79.2 RESIDENTIAL (CURRENT) USE OF ANTIBIOTICS 11/23/2018 DERRICK FORDE APRN Ot M86.9 OSTEOMYELITIS, UNSPECIFIED 11/23/2018 DERRICK FORDE APRN Ot N17.9 ACUTE KIDNEY FAILURE, UNSPECIFIED 11/23/2018 Ot F22 DELUSI ONAL DISORDERS 11/23/2018 Ot J34.89 OTH ER SPECIFIED DISORDERS OF NOSE AND NA 11/23/2018 Ot R41.82 ALT ERED MENTAL STATUS, UNSPECIFIED 11/23/2018 Ot R90.82 WHI TE MATTER DISEASE, UNSPECIFIED 11/23/2018 NICHOLE CAMACHO MD Ot R19.7 DIARRHEA, UNSPECIFIED 11/23/2018 SEPIDEH MCCULLOUGH Ot D 62 ACUTE POSTHEMORRHAGIC ANEMIA 11/23/2018 SEPIDEH MCCULLOUGH Ot M62.81 MUSCLE WEAKNESS (GENERALIZED) 11/23/2018 SEPIDEH MCCULLOUGH Ot R82.90 UNSPECIFIED ABNORMAL FINDINGS IN URINE 11/23/2018 SEPIDEH MCCULLOUGH Ot Z87.440 PERSONAL HISTORY OF URINARY (TRACT) INFE 11/23/2018 SEPIDEH MCCULLOUGH Ot D 62 ACUTE POSTHEMORRHAGIC ANEMIA 11/23/2018 SEPIDEH MCCULLOUGH Ot M62.81 MUSCLE WEAKNESS (GENERALIZED) 11/23/2018 SEPIDEH MCCULLOUGH Ot R53.81 OTHER MALAISE 01/23/2019 MAYITO ADAMSON, MIGEL Haas Ot Z01.818 ENCOUNTER FOR OTHER PREPROCEDURAL EXAMIN 01/23/2019 RICHI ADAMSON, JOAN Quintero Ot M54.6 PAIN IN THORACIC SPINE 01/23/2019 LENA RODRIGUEZ MD Ot 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 01/23/2019 LENA RODRIGUEZ MD Ot 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 01/23/2019 NICHOLE CAMACHO MD Ot G82.2 0 PARAPLEGIA, UNSPECIFIED 01/23/2019 NICHOLE CAMACHO MD Ot 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 01/23/2019 NICHOLE CAMACHO MD Ot L89.1 03 PRESSURE ULCER OF UNSPECIFIED PART OF BA 01/23/2019 NICHOLE CAMACHO MD Ot 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, STAGE 4 01/23/2019 NICHOLE CAMACHO MD Ot L89.8 94 PRESSURE ULCER OF OTHER SITE, STAGE 4 01/23/2019 NICHOLE CAMACHO MD Ot G82.2 0 PARAPLEGIA, UNSPECIFIED 01/23/2019 NICHOLE CAMACHO MD Ot 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 01/23/2019 NICHOLE CAMACHO MD Ot L89.1 03 PRESSURE ULCER OF UNSPECIFIED PART OF BA 01/23/2019 NICHOLE CAMACHO MD Ot 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, STAGE 4 01/23/2019 NICHOLE CAMACHO MD Ot L89.8 94 PRESSURE ULCER OF OTHER SITE, STAGE 4 01/23/2019 NICHOLE CAMACHO MD, Ot L89.1 03 PRESSURE ULCER OF UNSPECIFIED PART OF BA 01/23/2019 NICHOLE CAMACHO MD, Ot M48.54XS COLLAPSED VERTEBRA, NEC, THORACIC REGION 01/23/2019 NICHOLE CAMACHO MD, Ot G82.2 0 PARAPLEGIA, UNSPECIFIED 01/23/2019 NICHOLE CAMACHO MD, Ot 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 01/23/2019 NICHOLE CAMACHO MD, Ot L89.1 03 PRESSURE ULCER OF UNSPECIFIED PART OF BA 01/23/2019 NICHOLE CAMACHO MD, Ot 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, STAGE 4 01/23/2019 NICHOLE CAMACHO MD, Ot L89.8 94 PRESSURE ULCER OF OTHER SITE, STAGE 4 01/23/2019 NICHOLE CAMACHO MD, Ot M86.1 71 OTHER ACUTE OSTEOMYELITIS, RIGHT ANKLE A 01/23/2019 NICHOLE CAMACHO MD, Ot G82.2 0 PARAPLEGIA, UNSPECIFIED 01/23/2019 NICHOLE CAMACHO MD, Ot 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 01/23/2019 NICHOLE CAMACHO MD, Ot L89.1 03 PRESSURE ULCER OF UNSPECIFIED PART OF BA 01/23/2019 NICHOLE CAMACHO MD, Ot 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, STAGE 4 01/23/2019 NICHOLE CAMACHO MD, Ot L89.8 94 PRESSURE ULCER OF OTHER SITE, STAGE 4 01/23/2019 NICHOLE CAMACHO MD Ot M86.1 71 OTHER ACUTE OSTEOMYELITIS, RIGHT ANKLE A 01/23/2019 DERRICK FORDE APRN Ot M86.9 OSTEOMYELITIS, UNSPECIFIED 01/23/2019 DERRICK FORDE APRN Ot Z45.2 ENCOUNTER FOR ADJUSTMENT AND MANAGEMENT 01/23/2019 ETHEL HIRSCH Ot M86.9 OSTEOMYELITIS, UNSPECIFIED 01/23/2019 NICHOLE CAMACHO MD, Ot M86.9 OSTEOMYELITIS, UNSPECIFIED 01/23/2019 NICHOLE CAMACHO MD Ot Z51.8 1 ENCOUNTER FOR THERAPEUTIC DRUG LEVEL MON 01/23/2019 NICHOLE CAMACHO MD Ot Z79.2 TREE TOPPER (CURRENT) USE OF ANTIBIOTICS 01/23/2019 DERRICK FORDE APRN Ot Z51.81 ENCOUNTER FOR THERAPEUTIC DRUG LEVEL MON 01/23/2019 DERRICK FORDE APRN Ot Z79.2 RESIDENTIAL (CURRENT) USE OF ANTIBIOTICS 01/23/2019 NICHOLE CAMACHO MD Ot Z51.8 1 ENCOUNTER FOR THERAPEUTIC DRUG LEVEL MON 01/23/2019 NICHOLE CAMACHO MD Ot Z79.2 TREE TOPPER (CURRENT) USE OF ANTIBIOTICS 01/23/2019 NICHOLE CAMACHO MD Ot Z51.8 1 ENCOUNTER FOR THERAPEUTIC DRUG LEVEL MON 01/23/2019 NICHOLE CAMACHO MD Ot Z79.2 RESIDENTIAL (CURRENT) USE OF ANTIBIOTICS 01/23/2019 NICHOLE CAMACHO MD, Ot Z51.8 1 ENCOUNTER FOR THERAPEUTIC DRUG LEVEL MON 01/23/2019 NICHOLE CAMACHO MD, Ot Z79.2 RESIDENTIAL (CURRENT) USE OF ANTIBIOTICS 01/23/2019 NICHOLE CAMACHO MD, Ot Z51.8 1 ENCOUNTER FOR THERAPEUTIC DRUG LEVEL MON 01/23/2019 NICHOLE CAMACHO MD, Ot Z79.2 RESIDENTIAL (CURRENT) USE OF ANTIBIOTICS 01/23/2019 DERRICK FORDE APRN Ot Z53.9 PROCEDURE AND TREATMENT NOT CARRIED OUT, 01/23/2019 DERRICK FORDE APRN Ot Z51.81 ENCOUNTER FOR THERAPEUTIC DRUG LEVEL MON 01/23/2019 DERRICK FORDE APRN Ot Z79.2 TREE TOPPER (CURRENT) USE OF ANTIBIOTICS 01/23/2019 NICHOLE CAMACHO MD Ot Z51.8 1 ENCOUNTER FOR THERAPEUTIC DRUG LEVEL MON 01/23/2019 NICHOLE CAMACHO MD Ot Z79.2 RESIDENTIAL (CURRENT) USE OF ANTIBIOTICS 01/23/2019 NICHOLE CAMACHO MD Ot Z51.8 1 ENCOUNTER FOR THERAPEUTIC DRUG LEVEL MON 01/23/2019 NICHOLE CAMACHO MD Ot Z79.2 RESIDENTIAL (CURRENT) USE OF ANTIBIOTICS 01/23/2019 DERRICK FORDE APRN Ot Z45.2 ENCOUNTER FOR ADJUSTMENT AND MANAGEMENT 01/23/2019 NICHOLE CAMACHO MD Ot Z51.8 1 ENCOUNTER FOR THERAPEUTIC DRUG LEVEL MON 01/23/2019 NICHOLE CAMACHO MD Ot Z79.2 TREE TOPPER (CURRENT) USE OF ANTIBIOTICS 01/23/2019 DERRICK FORDE APRN Ot M86.9 OSTEOMYELITIS, UNSPECIFIED 01/23/2019 DERRICK FORDE APRN Ot N17.9 ACUTE KIDNEY FAILURE, UNSPECIFIED 01/23/2019 Ot F22 DELUSI ONAL DISORDERS 01/23/2019 Ot J34.89 OTH ER SPECIFIED DISORDERS OF NOSE AND NA 01/23/2019 Ot R41.82 ALT ERED MENTAL STATUS, UNSPECIFIED 01/23/2019 Ot R90.82 WHI TE MATTER DISEASE, UNSPECIFIED 01/23/2019 JANICE ADAMSON, NICHOLE Quintero Ot R19.7 DIARRHEA, UNSPECIFIED 01/23/2019 SEPIDEH MCCULLOUGH Ot D 62 ACUTE POSTHEMORRHAGIC ANEMIA 01/23/2019 SEPIDEH MCCULLOUGH Ot M62.81 MUSCLE WEAKNESS (GENERALIZED) 01/23/2019 SEPIDEH MCCULLOUGH Ot R82.90 UNSPECIFIED ABNORMAL FINDINGS IN URINE 01/23/2019 SEPIDEH MCCULLOUGH Ot Z87.440 PERSONAL HISTORY OF URINARY (TRACT) INFE 01/23/2019 SEPIDEH MCCULLOUGH Ot D 62 ACUTE POSTHEMORRHAGIC ANEMIA 01/23/2019 SEPIDEH MCCULLOUGH Ot M62.81 MUSCLE WEAKNESS (GENERALIZED) 01/23/2019 SEPIDEH MCCULLOUGH Ot R53.81 OTHER MALAISE 01/29/2019 WARD DOHERTY MD Ot A04. 72 ENTEROCOLITIS D/T CLOSTRIDIUM DIFFICILE, 01/29/2019 WARD DOHERTY MD Ot D62 ACUTE POSTHEMORRHAGIC ANEMIA 01/29/2019 WARD DOHERTY MD Ot E78. 00 PURE HYPERCHOLESTEROLEMIA, UNSPECIFIED 01/29/2019 WARD DOHERTY MD Ot G82. 22 PARAPLEGIA, INCOMPLETE 01/29/2019 WARD DOHERTY MD Ot I10 ESSENTIAL (PRIMARY) HYPERTENSION 01/29/2019 WARD DOHERTY MD Ot I73. 9 PERIPHERAL VASCULAR DISEASE, UNSPECIFIED 01/29/2019 WARD DOHERTY MD Ot J44. 9 CHRONIC OBSTRUCTIVE PULMONARY DISEASE, U 01/29/2019 WARD DOHERTY MD Ot K59. 09 OTHER CONSTIPATION 01/29/2019 WARD DOHERTY MD Ot M81. 0 AGE-RELATED OSTEOPOROSIS W/O CURRENT PAT 01/29/2019 WARD DOHERTY MD Ot N30. 01 ACUTE CYSTITIS WITH HEMATURIA 01/29/2019 WARD DOHERTY MD Ot N31. 9 NEUROMUSCULAR DYSFUNCTION OF BLADDER, UN 01/29/2019 WARD DOHERTY MD Ot R13. 10 DYSPHAGIA, UNSPECIFIED 01/29/2019 WARD DOHERTY MD Ot R60. 9 EDEMA, UNSPECIFIED 01/29/2019 WARD DOHERTY MD Ot S37.39XA OTHER INJURY OF URETHRA, INITIAL ENCOUNT 01/29/2019 WARD DOHERTY MD, Ot T83.511A I/I REACT D/T INDWELLING URETHRAL CATHET 01/29/2019 WARD DOHERTY MD, Ot Y36.90XS WAR OPERATIONS, UNSPECIFIED, SEQUELA 01/29/2019 WARD DOHERTY MD Ot Z66 DO NOT RESUSCITATE 01/29/2019 WARD DOHERTY MD, Ot Z86. 14 PERSONAL HISTORY OF METHICILLIN RESIS ST 01/29/2019 WARD DOHERTY MD Ot Z99. 81 DEPENDENCE ON SUPPLEMENTAL OXYGEN 01/29/2019 WARD DOHERTY MD, Ot A04. 72 ENTEROCOLITIS D/T CLOSTRIDIUM DIFFICILE, 01/29/2019 WARD DOHERTY MD, Ot D62 ACUTE POSTHEMORRHAGIC ANEMIA 01/29/2019 WARD DOHERTY MD, Ot E78. 00 PURE HYPERCHOLESTEROLEMIA, UNSPECIFIED 01/29/2019 WARD DOHERTY MD Ot G82. 22 PARAPLEGIA, INCOMPLETE 01/29/2019 WARD DOHERTY MD Ot I10 ESSENTIAL (PRIMARY) HYPERTENSION 01/29/2019 WARD DOHERTY MD Ot I73. 9 PERIPHERAL VASCULAR DISEASE, UNSPECIFIED 01/29/2019 WARD DOHERTY MD, Ot J44. 9 CHRONIC OBSTRUCTIVE PULMONARY DISEASE, U 01/29/2019 WARD DOHERTY MD Ot K59. 09 OTHER CONSTIPATION 01/29/2019 WARD DOHERTY MD Ot M81. 0 AGE-RELATED OSTEOPOROSIS W/O CURRENT PAT 01/29/2019 WARD DOHERTY MD Ot N30. 01 ACUTE CYSTITIS WITH HEMATURIA 01/29/2019 WARD DOHERTY MD, Ot N31. 9 NEUROMUSCULAR DYSFUNCTION OF BLADDER, UN 01/29/2019 WARD DOHERTY MD Ot R13. 10 DYSPHAGIA, UNSPECIFIED 01/29/2019 WARD DOHERTY MD Ot R60. 9 EDEMA, UNSPECIFIED 01/29/2019 WARD DOHERTY MD Ot S37.39XA OTHER INJURY OF URETHRA, INITIAL ENCOUNT 01/29/2019 WARD DOHERTY MD, Ot T83.511A I/I REACT D/T INDWELLING URETHRAL CATHET 01/29/2019 WARD DOHERTY MD, Ot Y36.90XS WAR OPERATIONS, UNSPECIFIED, SEQUELA 01/29/2019 BESSY ADAMSON, WARD Haas Ot Z66 DO NOT RESUSCITATE 01/29/2019 BESSY ADAMSON, WARD Haas Ot Z86. 14 PERSONAL HISTORY OF METHICILLIN RESIS ST 01/29/2019 BESSY ADAMSON, WARD Haas Ot Z99. 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 02/04/2019 NICHOLE CAMACHO MD Ot L89.1 03 PRESSURE ULCER OF UNSPECIFIED PART OF BA 02/04/2019 NICHOLE CAMACHO MD Ot 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, STAGE 4 02/04/2019 NICHOLE CAMACHO MD Ot L89.8 94 PRESSURE ULCER OF OTHER SITE, STAGE 4 02/04/2019 NICHOLE CAMACHO MD Ot G82.2 0 PARAPLEGIA, UNSPECIFIED 02/04/2019 NICHOLE CAMACHO MD Ot 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 02/04/2019 NICHOLE CAMACHO MD Ot L89.1 03 PRESSURE ULCER OF UNSPECIFIED PART OF BA 02/04/2019 NICHOLE CAMACHO MD Ot 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, STAGE 4 02/04/2019 NICHOLE CAMACHO MD Ot L89.8 94 PRESSURE ULCER OF OTHER SITE, STAGE 4 02/04/2019 NICHOLE CAMACHO MD Ot L89.1 03 PRESSURE ULCER OF UNSPECIFIED PART OF BA 02/04/2019 NICHOLE CAMACHO MD Ot M48.54XS COLLAPSED VERTEBRA, NEC, THORACIC REGION 02/04/2019 NICHOLE CAMACHO MD Ot G82.2 0 PARAPLEGIA, UNSPECIFIED 02/04/2019 NICHOLE CAMACHO MD Ot 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 02/04/2019 NICHOLE CAMACHO MD Ot L89.1 03 PRESSURE ULCER OF UNSPECIFIED PART OF BA 02/04/2019 NICHOLE CAMACHO MD Ot 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, STAGE 4 02/04/2019 NICHOLE CAMACHO MD Ot L89.8 94 PRESSURE ULCER OF OTHER SITE, STAGE 4 02/04/2019 NICHOLE CAMACHO MD Ot M86.1 71 OTHER ACUTE OSTEOMYELITIS, RIGHT ANKLE A 02/04/2019 NICHOLE CAMACHO MD Ot G82.2 0 PARAPLEGIA, UNSPECIFIED 02/04/2019 NICHOLE CAMACHO MD Ot 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 02/04/2019 NICHOLE CAMACHO MD Ot L89.1 03 PRESSURE ULCER OF UNSPECIFIED PART OF BA 02/04/2019 NICHOLE CAMACHO MD Ot 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, STAGE 4 02/04/2019 NICHOLE CAMACHO MD Ot L89.8 94 PRESSURE ULCER OF OTHER SITE, STAGE 4 02/04/2019 NICHOLE CAMACHO MD Ot M86.1 71 OTHER ACUTE OSTEOMYELITIS, RIGHT ANKLE A 02/04/2019 DERRICK FORDE APRN Ot M86.9 OSTEOMYELITIS, UNSPECIFIED 02/04/2019 DERRICK FORDE APRN Ot Z45.2 ENCOUNTER FOR ADJUSTMENT AND MANAGEMENT 02/04/2019 ETHEL HIRSCH CFROBERTA Ot M86.9 OSTEOMYELITIS, UNSPECIFIED 02/04/2019 NICHOLE CAMACHO MD Ot M86.9 OSTEOMYELITIS, UNSPECIFIED 02/04/2019 NICHOLE CAMACHO MD Ot Z51.8 1 ENCOUNTER FOR THERAPEUTIC DRUG LEVEL MON 02/04/2019 NICHOLE CAMACHO MD Ot Z79.2 RESIDENTIAL (CURRENT) USE OF ANTIBIOTICS 02/04/2019 DERRICK FORDE APRN Ot Z51.81 ENCOUNTER FOR THERAPEUTIC DRUG LEVEL MON 02/04/2019 DERRICK FORDE APRN Ot Z79.2 TREE TOPPER (CURRENT) USE OF ANTIBIOTICS 02/04/2019 NICHOLE CAMACHO MD Ot Z51.8 1 ENCOUNTER FOR THERAPEUTIC DRUG LEVEL MON 02/04/2019 NICHOLE CAMACHO MD Ot Z79.2 TREE TOPPER (CURRENT) USE OF ANTIBIOTICS 02/04/2019 NICHOLE CAMACHO MD Ot Z51.8 1 ENCOUNTER FOR THERAPEUTIC DRUG LEVEL MON 02/04/2019 NICHOLE CAMACHO MD Ot Z79.2 TREE TOPPER (CURRENT) USE OF ANTIBIOTICS 02/04/2019 NICHOLE CAMACHO MD Ot Z51.8 1 ENCOUNTER FOR THERAPEUTIC DRUG LEVEL MON 02/04/2019 NICHOLE CAMACHO MD Ot Z79.2 RESIDENTIAL (CURRENT) USE OF ANTIBIOTICS 02/04/2019 NICHOLE CAMACHO MD Ot Z51.8 1 ENCOUNTER FOR THERAPEUTIC DRUG LEVEL MON 02/04/2019 NICHOLE CAMACHO MD Ot Z79.2 TREE TOPPER (CURRENT) USE OF ANTIBIOTICS 02/04/2019 DERRICK FORDE APRN Ot Z53.9 PROCEDURE AND TREATMENT NOT CARRIED OUT, 02/04/2019 DERRICK FORDE APRN Ot Z51.81 ENCOUNTER FOR THERAPEUTIC DRUG LEVEL MON 02/04/2019 DERRICK FORDE APRN Ot Z79.2 RESIDENTIAL (CURRENT) USE OF ANTIBIOTICS 02/04/2019 NICHOLE CAMACHO MD, Ot Z51.8 1 ENCOUNTER FOR THERAPEUTIC DRUG LEVEL MON 02/04/2019 NICHOLE CAMACHO MD Ot Z79.2 RESIDENTIAL (CURRENT) USE OF ANTIBIOTICS 02/04/2019 NICHOLE CAMACHO MD Ot Z51.8 1 ENCOUNTER FOR THERAPEUTIC DRUG LEVEL MON 02/04/2019 NICHOLE CAMACHO MD Ot Z79.2 RESIDENTIAL (CURRENT) USE OF ANTIBIOTICS 02/04/2019 DERRICK FORDE APRN Ot Z45.2 ENCOUNTER FOR ADJUSTMENT AND MANAGEMENT 02/04/2019 NICHOLE CAMACHO MD Ot Z51.8 1 ENCOUNTER FOR THERAPEUTIC DRUG LEVEL MON 02/04/2019 NICHOLE CAMACHO MD Ot Z79.2 TREE TOPPER (CURRENT) USE OF ANTIBIOTICS 02/04/2019 DERRICK FORDE APRN Ot M86.9 OSTEOMYELITIS, UNSPECIFIED 02/04/2019 DERRICK FORDE APRN Ot N17.9 ACUTE KIDNEY FAILURE, UNSPECIFIED 02/04/2019 Ot F22 DELUSI ONAL DISORDERS 02/04/2019 Ot J34.89 OTH ER SPECIFIED DISORDERS OF NOSE AND NA 02/04/2019 Ot R41.82 ALT ERED MENTAL STATUS, UNSPECIFIED 02/04/2019 Ot R90.82 WHI TE MATTER DISEASE, UNSPECIFIED 02/04/2019 NICHOLE CAMACHO MD Ot R19.7 DIARRHEA, UNSPECIFIED 02/04/2019 SEPIDEH MCCULLOUGH Ot D 62 ACUTE POSTHEMORRHAGIC ANEMIA 02/04/2019 SEPIDEH MCCULLOUGH Ot M62.81 MUSCLE WEAKNESS (GENERALIZED) 02/04/2019 SEPIDEH MCCULLOUGH Ot R82.90 UNSPECIFIED ABNORMAL FINDINGS IN URINE 02/04/2019 SEPIDEH MCCULLOUGH Ot Z87.440 PERSONAL HISTORY OF URINARY (TRACT) INFE 02/04/2019 SEPIDEH MCCULLOUGH Ot D 62 ACUTE POSTHEMORRHAGIC ANEMIA 02/04/2019 SEPIDEH MCCULLOUGH Ot M62.81 MUSCLE WEAKNESS (GENERALIZED) 02/04/2019 SEPIDEH MCCULLOUGH Ot R53.81 OTHER MALAISE Procedures Code Description Performed By Per formed On [id number] IN SPECTION OF BLADDER, ENDO 01/29/2019 Results Test Result Range Bacteria identification in isolate by an aerobe culture - 03/17/16 10:05 Bacteria identification in isolate by anaerobe culture NOANA NRG Gram stain microscopy - 03/17/16 10:05 Bacteria identification in wound by cult ure - 03/17/16 10:05 Bacteria identification in wound by culture [id number] NRG FREE TEXT EXTERNAL SENSITIVITY REPORTED AT 1647, NRG QUANTITY OF GROWTH Moderate Growth NRG MRSA AGAR MRSA isolated (Screening test for MRSA is positive) NRG CALL POSITIVES (F1 HELP) CALLED TO [facility]AR[facility] [id number] 03/18 08:55 NRG Bacterial susceptibility panel - 7 10:05 Oxacillin susceptibility test by minimum inhibitory co ncentration >= NRG Gentamicin susceptibility test by minimum inhibitory c oncentration <= NRG Clindamycin susceptibility test by minimum inhibitory concentration >= NRG Erythromycin susceptibility test by minimum inhibitory concentration >= NRG Trimethoprim/sulfamethoxazole susceptibi lity test by minimum inhibitoryconcentration <= NRG Vancomycin susceptibility test by minimum inhibitory c oncentration <= NRG Levofloxacin susceptibility test by minimum inhibitory concentration 4 NRG Rifampin susceptibility test by minimum inhibitory con centration <= NRG Tetracycline susceptibility test by minimum inhibitory concentration <= NRG Ciprofloxacin susceptibility test by minimum inhibitor y concentration R NRG Fungus culture - 03/17/16 10:05 FUNGUS REPORT NO FUNGUS GROWTH OBSERVED NRG Automated blood complete blood count (he mogram) panel - 05/05/16 11:20 Blood leukocytes automated count (number/volume) 5.9 10*3/uL 4.3-11.0 Blood erythrocytes automated count (number/volume) 4.51 10*6/uL 4.35-5.85 Venous blood hemoglobin measurement (mass/volume) 12.1 g/dL 13.3-17.7 Blood hematocrit (volume fraction) 36 % 40-54 Automated erythrocyte mean corpuscular volume 81 [ foz_us] 80-99 Automated erythrocyte mean corpuscular h emoglobin (mass per erythrocyte) 27 pg 25-34 Automated erythrocyte mean corpuscular h emoglobin concentration measurement (mass/volume) 33 g/dL 32-36 Automated erythrocyte distribution width ratio 19. 2 % 10.0- 14.5 Automated blood platelet count (count/volume) 371 10*3/uL 130-400 Automated blood platelet mean volume measurement 8.6 [foz_us] 7.4-10.4 Erythrocyte sedimentation rate by marcela gren method - 05/05/16 11:20 Erythrocyte sedimentation rate by westergren method 47 mm 0- 30 Whole blood basic metabolic panel - 05/29 04/15 19:07 Serum or plasma sodium measurement (moles/volume) 131 mmol/L 135-145 Serum or plasma potassium measurement (moles/volume) 5.3 mmol/L 3.6-5.0 Serum or plasma chloride measurement (moles/volume) 97 mmol/L 98-107 Carbon dioxide 21 mmol/L 21-32 Serum or plasma anion gap determination (moles/volume) 13 mmol/L 5-14 Serum or plasma urea nitrogen measurement (mass/volume ) 10 mg/dL 7-18 Serum or plasma creatinine measurement (mass/volume) 0.65 mg/dL 0.60-1.30 Serum or plasma urea nitrogen/creatinine mass ratio 15 NRG Serum or plasma creatinine measurement w ith calculation of estimated glomerular filtration rate > NRG Serum or plasma glucose measurement (mass/volume) 109 mg/dL 70-105 Serum or plasma calcium measurement (mass/volume) 8.2 mg/dL 8.5-10.1 Vancomycin trough - 06/18/16 19:07 Vancomycin trough 11.9 ug/mL 10.0-20.0 Whole blood basic metabolic panel - 05/29 07/13 07:41 Serum or plasma sodium measurement (moles/volume) 137 mmol/L 135-145 Serum or plasma potassium measurement (moles/volume) 3.9 mmol/L 3.6-5.0 Serum or plasma chloride measurement (moles/volume) 103 mmol/L 98-107 Carbon dioxide 25 mmol/L 21-32 Serum or plasma anion gap determination (moles/volume) 9 mmol/L 5-14 Serum or plasma urea nitrogen measurement (mass/volume ) 7 mg/dL 7-18 Serum or plasma creatinine measurement (mass/volume) 0.51 mg/dL 0.60-1.30 Serum or plasma urea nitrogen/creatinine mass ratio 14 NRG Serum or plasma creatinine measurement w ith calculation of estimated glomerular filtration rate > NRG Serum or plasma glucose measurement (mass/volume) 88 mg/dL 70-105 Serum or plasma calcium measurement (mass/volume) 8.1 mg/dL 8.5-10.1 Vancomycin trough - 06/21/16 07:41 Vancomycin trough 24.2 ug/mL 10.0-20.0 Vancomycin trough - 06/25/16 05:20 Vancomycin trough 20.9 ug/mL 10.0-20.0 Whole blood basic metabolic panel - 05/13 06:25 Serum or plasma sodium measurement (moles/volume) 137 mmol/L 135-145 Serum or plasma potassium measurement (moles/volume) 3.8 mmol/L 3.6-5.0 Serum or plasma chloride measurement (moles/volume) 103 mmol/L 98-107 Carbon dioxide 25 mmol/L 21-32 Serum or plasma anion gap determination (moles/volume) 9 mmol/L 5-14 Serum or plasma urea nitrogen measurement (mass/volume ) 12 mg/dL 7-18 Serum or plasma creatinine measurement (mass/volume) 0.72 mg/dL 0.60-1.30 Serum or plasma urea nitrogen/creatinine mass ratio 17 NRG Serum or plasma creatinine measurement w ith calculation of estimated glomerular filtration rate > [...] ug/mL 10.0-20.0 Complete blood count (CBC) with automate d white blood cell (WBC) differential - 07/23/16 05:50 Blood leukocytes automated count (number/volume) 5.0 10*3/uL 4.3-11.0 Blood erythrocytes automated count (number/volume) 3.95 10*6/uL 4.35-5.85 Venous blood hemoglobin measurement (mass/volume) 10.9 g/dL 13.3-17.7 Blood hematocrit (volume fraction) 33 % 40-54 Automated erythrocyte mean corpuscular volume 84 [ foz_us] 80-99 Automated erythrocyte mean corpuscular h emoglobin (mass per erythrocyte) 28 pg 25-34 Automated erythrocyte mean corpuscular h emoglobin concentration measurement (mass/volume) 33 g/dL 32-36 Automated erythrocyte distribution width ratio 15. 3 % 10.0- 14.5 Automated blood platelet count [...] 10*3 1.0-4.0 Blood monocytes automated count (number/volume) 0. 8 10*3 0.0-1.0 Automated eosinophil count 0.6 10*3/uL 0 .0-0.3 Automated blood basophil count (count/volume) 0.0 10*3/uL 0.0-0.1 Blood manual differential performed dete ction - 07/23/16 05:50 Blood monocytes/100 leukocytes 7 % NRG Manual blood segmented neutrophils/100 leukocytes 53 % NRG Blood band neutrophils/100 leukocytes 8 % NRG Manual blood lymphocytes/100 leukocytes 13 % NRG Manual eosinophils/100 leukocytes in nose 14 % NRG Manual blood basophils/100 leukocytes 0 % NRG Blood lymphocytes variant/100 leukocytes 5 % NRG Blood anisocytosis detection by light microscopy S LIGHT NRG Blood macrocytes detection by light microscopy SLI GHT NRG Blood poikilocytosis detection by light microscopy SLIGHT NRG Comprehensive metabolic panel - 07/23/16 05:50 Serum or plasma sodium measurement (moles/volume) 134 mmol/L 135-145 Serum or plasma potassium measurement (moles/volume) 3.9 mmol/L 3.6-5.0 Serum or plasma chloride measurement (moles/volume) 100 mmol/L 98-107 Carbon dioxide 22 mmol/L 21-32 Serum or plasma anion gap determination (moles/volume) 12 mmol/L 5-14 Serum or plasma urea nitrogen measurement (mass/volume ) 19 mg/dL 7-18 Serum or plasma creatinine measurement (mass/volume) 0.84 mg/dL 0.60-1.30 Serum or plasma urea nitrogen/creatinine mass ratio 23 NRG Serum or plasma creatinine measurement w ith calculation of estimated glomerular filtration rate > NRG Serum or plasma glucose measurement (mass/volume) 134 mg/dL 70-105 Serum or plasma calcium measurement (mass/volume) 8.1 mg/dL 8.5-10.1 Serum or plasma total bilirubin measurement (mass/volu me) 0.6 mg/dL 0.1-1.0 Serum or plasma alkaline phosphatase valeria surement (enzymatic activity/volume) 70 U/L 40-136 Serum or plasma aspartate aminotransfera se measurement (enzymatic activity/volume) 9 U/L 5-34 Serum or plasma alanine aminotransferase measurement (enzymatic activity/volume) 7 U/L 0-55 Serum or plasma protein measurement (mass/volume) 5.5 g/dL 6.4-8.2 Serum or plasma albumin measurement (mass/volume) 3.4 g/dL 3.2-4.5 Complete blood count (CBC) with automate d white blood cell (WBC) differential - 07/23/16 19:20 Blood leukocytes automated count (number/volume) 7.1 10*3/uL 4.3-11.0 Blood erythrocytes automated count (number/volume) 3.94 10*6/uL 4.35-5.85 Venous blood hemoglobin measurement (mass/volume) 10.9 g/dL 13.3-17.7 Blood hematocrit (volume fraction) 33 % 40-54 Automated erythrocyte mean corpuscular volume 83 [ foz_us] 80-99 Automated erythrocyte mean corpuscular h emoglobin (mass per erythrocyte) 28 pg 25-34 Automated erythrocyte mean corpuscular h emoglobin concentration measurement (mass/volume) 33 g/dL 32-36 Automated erythrocyte distribution width ratio 15. 3 % 10.0- 14.5 Automated blood platelet count [...] 10*3 1.0-4.0 Blood monocytes automated count (number/volume) 1. 0 10*3 0.0-1.0 Automated eosinophil count 0.7 10*3/uL 0 .0-0.3 Automated blood basophil count (count/volume) 0.0 10*3/uL 0.0-0.1 PT panel in platelet poor plasma by coag ulation assay - 07/23/16 19:20 Prothrombin time (PT) in platelet poor plasma by coagu lation assay 15.4 s 12.2-14.7 INR in platelet poor plasma or blood by coagulation as say 1.3 0.8-1.4 Activated partial thromboplastin time (a PTT) in platelet poor plasma bycoagulation assay - 07/23/16 19:20 Activated partial thromboplastin time (a PTT) in platelet poor plasma bycoagulation assay 90 s 24-35 Blood lactic acid measurement (moles/vol ume) - 07/23/16 19:20 Blood lactic acid measurement (moles/volume) 1.47 mmol/L 0.50-2.00 Comprehensive metabolic panel - 07/23/16 19:20 Serum or plasma sodium measurement (moles/volume) 132 mmol/L 135-145 Serum or plasma potassium measurement (moles/volume) 3.9 mmol/L 3.6-5.0 Serum or plasma chloride measurement (moles/volume) 100 mmol/L 98-107 Carbon dioxide 21 mmol/L 21-32 Serum or plasma anion gap determination (moles/volume) 11 mmol/L 5-14 Serum or plasma urea nitrogen measurement (mass/volume ) 24 mg/dL 7-18 Serum or plasma creatinine measurement (mass/volume) 0.98 mg/dL 0.60-1.30 Serum or plasma urea nitrogen/creatinine mass ratio 24 NRG Serum or plasma creatinine measurement w ith calculation of estimated glomerular filtration rate > NRG Serum or plasma glucose measurement (mass/volume) 126 mg/dL 70-105 Serum or plasma calcium measurement (mass/volume) 8.5 mg/dL 8.5-10.1 Serum or plasma total bilirubin measurement (mass/volu me) 0.6 mg/dL 0.1-1.0 Serum or plasma alkaline phosphatase valeria surement (enzymatic activity/volume) 65 U/L 40-136 Serum or plasma aspartate aminotransfera se measurement (enzymatic activity/volume) 10 U/L 5-34 Serum or plasma alanine aminotransferase measurement (enzymatic activity/volume) 6 U/L 0-55 Serum or plasma protein measurement (mass/volume) 5.8 g/dL 6.4-8.2 Serum or plasma albumin measurement (mass/volume) 3.2 g/dL 3.2-4.5 Serum or plasma troponin i.cardiac measu rement (mass/volume) - 07/23/16 19:20 Serum or plasma troponin i.cardiac measurement (mass/v olume) < ng/mL <0.30 Bacterial blood culture - 07/23/16 19:20 Bacterial blood culture NG NRG Bacterial blood culture - 07/23/16 20:00 Bacterial blood culture NG NRG Complete urinalysis with reflex to cultu re - 07/23/16 20:45 Urine color determination YELLOW NRG Urine clarity determination VERY CLOUDY NRG Urine pH measurement by test strip 5 5-9 Specific gravity of urine by test strip 1.020 1.016-1.022 Urine protein assay by test strip, semi-quantitative 3+ NEGATIVE Urine glucose detection by automated test strip NE GATIVE NEGATIVE Erythrocytes detection in urine sediment by light micr oscopy 4+ NEGATIVE Urine ketones detection by automated test strip NE GATIVE NEGATIVE Urine nitrite detection by test strip POSITIVE NEGATIVE Urine total bilirubin detection by test strip NEGA TIVE NEGATIVE Urine urobilinogen measurement by automated test strip (mass/volume) NORMAL NORMAL Urine leukocyte esterase detection by dipstick 3+ NEGATIVE Automated urine sediment erythrocyte cou nt by microscopy (number/high power field) [HPF] NRG Automated urine sediment leukocyte count by microscopy (number/high power field) [HPF] NRG Bacteria detection in urine sediment by light microsco py FEW NRG Squamous epithelial cells detection in u rine sediment by light microscopy NONE NRG Crystals detection in urine sediment by light microsco py NONE NRG Casts detection in urine sediment by light microscopy NONE NRG Mucus detection in urine sediment by light microscopy NEGATIVE NRG Complete urinalysis with reflex to culture YES NRG Bacterial urine culture - 07/23/16 20:45 Bacterial urine culture [id number] NRG COLONY COUNT >100,000/ML NRG FTX;REPORTABLE SENSITIVITY REPORTED 07/25/16 10:45 NRG Bacterial susceptibility panel - 7 20:45 Gentamicin susceptibility test by minimum inhibitory c oncentration <= NRG Tobramycin susceptibility test by minimum inhibitory c oncentration <= NRG Piperacillin/tazobactam susceptibility t est by minimum inhibitory concentration 16 NRG Ciprofloxacin susceptibility test by minimum inhibitor y concentration <= NRG Meropenem susceptibility test by minimum inhibitory co ncentration 1 NRG Cefepime susceptibility test by minimum inhibitory con centration 2 NRG Vancomycin trough - 08/12/16 18:45 Vancomycin trough 21.1 ug/mL 10.0-20.0 Vancomycin trough - 08/19/16 09:50 Vancomycin trough 20.4 ug/mL 10.0-20.0 Erythrocyte sedimentation rate by marcela gren method - 08/29/16 10:00 Erythrocyte sedimentation rate by westergren method 68 mm 0- 30 Complete blood count (CBC) with automate d white blood cell (WBC) differential - 07/27/17 14:46 Blood leukocytes automated count (number/volume) 8.7 10*3/uL 4.3-11.0 Blood erythrocytes automated count (number/volume) 3.94 10*6/uL 4.35-5.85 Venous blood hemoglobin measurement (mass/volume) 12.1 g/dL 13.3-17.7 Blood hematocrit (volume fraction) 35 % 40-54 Automated erythrocyte mean corpuscular volume 90 [ foz_us] 80-99 Automated erythrocyte mean corpuscular h emoglobin (mass per erythrocyte) 31 pg 25-34 Automated erythrocyte mean corpuscular h emoglobin concentration measurement (mass/volume) 34 g/dL 32-36 Automated erythrocyte distribution width ratio 14. 2 % 10.0- 14.5 Automated blood platelet count [...] 10*3 1.0-4.0 Blood monocytes automated count (number/volume) 0. 7 10*3 0.0-1.0 Automated eosinophil count 0.1 10*3/uL 0 .0-0.3 Automated blood basophil count (count/volume) 0.0 10*3/uL 0.0-0.1 Blood lactic acid measurement (moles/vol ume) - 07/27/17 14:46 Blood lactic acid measurement (moles/volume) 1.15 mmol/L 0.50-2.00 Comprehensive metabolic panel - 07/27/17 14:46 Serum or plasma sodium measurement (moles/volume) 136 mmol/L 135-145 Serum or plasma potassium measurement (moles/volume) 4.6 mmol/L 3.6-5.0 Serum or plasma chloride measurement (moles/volume) 101 mmol/L 98-107 Carbon dioxide 21 mmol/L 21-32 Serum or plasma anion gap determination (moles/volume) 14 mmol/L 5-14 Serum or plasma urea nitrogen measurement (mass/volume ) 20 mg/dL 7-18 Serum or plasma creatinine measurement (mass/volume) 0.80 mg/dL 0.60-1.30 Serum or plasma urea nitrogen/creatinine mass ratio 25 NRG Serum or plasma creatinine measurement w ith calculation of estimated glomerular filtration rate > NRG Serum or plasma glucose measurement (mass/volume) 125 mg/dL 70-105 Serum or plasma calcium measurement (mass/volume) 9.8 mg/dL 8.5-10.1 Serum or plasma total bilirubin measurement (mass/volu me) 0.8 mg/dL 0.1-1.0 Serum or plasma alkaline phosphatase valeria surement (enzymatic activity/volume) 90 U/L 40-136 Serum or plasma aspartate aminotransfera se measurement (enzymatic activity/volume) 14 U/L 5-34 Serum or plasma alanine aminotransferase measurement (enzymatic activity/volume) 12 U/L 0-55 Serum or plasma protein measurement (mass/volume) 8.4 g/dL 6.4-8.2 Serum or plasma albumin measurement (mass/volume) 4.0 g/dL 3.2-4.5 Blood manual differential performed dete ction - 07/27/17 14:46 Blood monocytes/100 leukocytes 5 [...] NG NRG Complete urinalysis with reflex to cultu re - 07/27/17 15:40 Urine color determination YELLOW NRG Urine clarity determination SLIGHTLY CLOUDY NRG Urine pH measurement by test strip 8 5-9 Specific gravity of urine by test strip 1.010 1.016-1.022 Urine protein assay by test strip, semi-quantitative 2+ NEGATIVE Urine glucose detection by automated test strip NE GATIVE NEGATIVE Erythrocytes detection in urine sediment by light micr oscopy 3+ NEGATIVE Urine ketones detection by automated test strip NE GATIVE NEGATIVE Urine nitrite detection by test strip NEGATIVE NEGATIVE Urine total bilirubin detection by test strip NEGA TIVE NEGATIVE Urine urobilinogen measurement by automated test strip (mass/volume) NORMAL NORMAL Urine leukocyte esterase detection by dipstick 3+ NEGATIVE Automated urine sediment erythrocyte cou nt by microscopy (number/high power field) [HPF] NRG Automated urine sediment leukocyte count by microscopy (number/high power field) [HPF] NRG Bacteria detection in urine sediment by light microsco py MODERATE NRG Crystals detection in urine sediment by light microsco py PRESENT NRG Casts detection in urine sediment by light microscopy NONE NRG Mucus detection in urine sediment by light microscopy NEGATIVE NRG Complete urinalysis with reflex to culture YES NRG Amorphous sediment detection in urine sediment by ligh t microscopy FEW MILLY PHOSPHATE NRG Triple phosphate crystals detection in u rine sediment by light microscopy RARE NRG Bacterial urine culture - 07/27/17 15:40 Serum ragweed IgE antibody assay - 02/20 14:15 Serum ragweed IgE antibody assay Positive NRG C DIFFICILE AG + TOXIN A/B. - 02/20/18 1 6:16 FREE TEXT ENTRY 2 POSITIVE FOR GDH ANTIGEN NRG FREE TEXT ENTRY 3 NEGATIVE FOR TOXINS A AND B NRG CALL POSITIVES (F1 HELP) CALLED TO BRIANA/Innolight Glenda 02-21-18 AT 1124/KD NRG RESULTS INDETERMINANT; MOLECULAR TEST TO FOLLOW NRG Complete blood count (CBC) with automate d white blood cell (WBC) differential - 05/12/18 17:38 Blood leukocytes automated count (number/volume) 20.1 10*3/uL 4.3-11.0 Blood erythrocytes automated count (number/volume) 3.48 10*6/uL 4.35-5.85 Venous blood hemoglobin measurement (mass/volume) 8.8 g/dL 13.3-17.7 Blood hematocrit (volume fraction) 28 % 40-54 Automated erythrocyte mean corpuscular volume 81 [ foz_us] 80-99 Automated erythrocyte mean corpuscular h emoglobin (mass per erythrocyte) 25 pg 25-34 Automated erythrocyte mean corpuscular h emoglobin concentration measurement (mass/volume) 31 g/dL 32-36 Automated erythrocyte distribution width ratio 16. 1 % 10.0- 14.5 Automated blood platelet count [...] 10*3 1.0-4.0 Blood monocytes automated count (number/volume) 0. 8 10*3 0.0-1.0 Automated eosinophil count 0.0 10*3/uL 0 .0-0.3 Automated blood basophil count (count/volume) 0.0 10*3/uL 0.0-0.1 Complete urinalysis with reflex to cultu re - 05/12/18 17:38 Urine color determination YELLOW NRG Urine clarity determination SLIGHTLY CLOUDY NRG Urine pH measurement by test strip 6 5-9 Specific gravity of urine by test strip 1.010 1.016-1.022 Urine protein assay by test strip, semi-quantitative 1+ NEGATIVE Urine glucose detection by automated test strip NE GATIVE NEGATIVE Erythrocytes detection in urine sediment by light micr oscopy 2+ NEGATIVE Urine ketones detection by automated test strip NE GATIVE NEGATIVE Urine nitrite detection by test strip POSITIVE NEGATIVE Urine total bilirubin detection by test strip NEGA TIVE NEGATIVE Urine urobilinogen measurement by automated test strip (mass/volume) NORMAL NORMAL Urine leukocyte esterase detection by dipstick 3+ NEGATIVE Automated urine sediment erythrocyte cou nt by microscopy (number/high power field) [HPF] NRG Automated urine sediment leukocyte count by microscopy (number/high power field) [HPF] NRG Bacteria detection in urine sediment by light microsco py LARGE NRG Squamous epithelial cells detection in u rine sediment by light microscopy NONE NRG Crystals detection in urine sediment by light microsco py NONE NRG Casts detection in urine sediment [...] 5-14 Serum or plasma urea nitrogen measurement (mass/volume ) 13 mg/dL 7-18 Serum or plasma creatinine measurement (mass/volume) 0.75 mg/dL 0.60-1.30 Serum or plasma urea nitrogen/creatinine mass ratio 17 NRG Serum or plasma creatinine measurement w ith calculation of estimated glomerular filtration rate > NRG Serum or plasma glucose measurement (mass/volume) 109 mg/dL 70-105 Serum or plasma calcium measurement (mass/volume) 8.8 mg/dL 8.5-10.1 Serum or plasma total bilirubin measurement (mass/volu me) 0.4 mg/dL 0.1-1.0 Serum or plasma alkaline phosphatase valeria surement (enzymatic activity/volume) 105 U/L 40-136 Serum or plasma aspartate aminotransfera se measurement (enzymatic activity/volume) 18 U/L 5-34 Serum or plasma alanine aminotransferase measurement (enzymatic activity/volume) 12 U/L 0-55 Serum or plasma protein measurement (mass/volume) 7.9 g/dL 6.4-8.2 Serum or plasma albumin measurement (mass/volume) 3.1 g/dL 3.2-4.5 CALCIUM CORRECTED 9.5 mg/dL 8.5-10.1 Blood manual differential performed dete ction - 05/12/18 17:38 Blood monocytes/100 leukocytes 1 % NRG Manual blood segmented neutrophils/100 leukocytes 92 % NRG Blood band neutrophils/100 leukocytes 0 % NRG Manual blood lymphocytes/100 leukocytes 7 % NRG Manual eosinophils/100 leukocytes in nose 0 % NRG Manual blood basophils/100 leukocytes 0 % NRG Blood anisocytosis detection by light microscopy M ODERATE NRG Blood hypochromia detection by light microscopy SL IGHT NRG Bacterial urine culture - 05/12/18 17:38 Bacterial urine culture [id number] NRG COLONY COUNT 30,000 CFU/ML NRG FTX;REPORTABLE SUSCEPTIBILITY REPORTED 05/16/18 10: 05 NR FREE TEXT ENTRY 2 ID REPORTED 05/15/18 11:05 [facility] - 05/12/18 17:38 Gentamicin susceptibility test by minimum inhibitory c oncentration 4 NRG Trimethoprim/sulfamethoxazole susceptibi lity test by minimum inhibitoryconcentration R NRG Levofloxacin susceptibility test by minimum inhibitory concentration > NRG Ampicillin susceptibility test by minimum inhibitory c oncentration > NRG Cefazolin susceptibility test by minimum inhibitory co ncentration 8 NRG Ceftriaxone susceptibility test by minimum inhibitory concentration <= NRG Ciprofloxacin susceptibility test by minimum inhibitor y concentration > NRG Nitrofurantoin susceptibility test by mi nimum inhibitory concentration R NRG Amoxicillin and clavulanate potassium susc JANIE <= NRG RML Sensitivity Panel - 05/12/18 17:38 Gentamicin susceptibility test by minimum inhibitory c oncentration <= NRG Levofloxacin susceptibility test by minimum inhibitory concentration <= NRG Tobramycin susceptibility test by minimum inhibitory c oncentration S NRG Piperacillin/tazobactam susceptibility t est by minimum inhibitory concentration = NRG Ciprofloxacin susceptibility test by minimum inhibitor y concentration <= NRG Meropenem susceptibility test by minimum inhibitory co ncentration 0.5 NRG Aztreonam susceptibility test by minimum inhibitory co ncentration 8 NRG Cefepime susceptibility test by minimum inhibitory con centration 4 NRG Imipenem susceptibility test by minimum inhibitory con centration 1 NRG Ceftazidime susceptibility test by minimum inhibitory concentration 4 NRG RML Sensitivity Panel - 05/12/18 17:38 Oxacillin susceptibility test by minimum inhibitory co ncentration R NRG Trimethoprim/sulfamethoxazole susceptibi lity test by minimum inhibitoryconcentration S NRG Vancomycin susceptibility test by minimum inhibitory c oncentration 1 NRG Levofloxacin susceptibility test by minimum inhibitory concentration > NRG Rifampin susceptibility test by minimum inhibitory con centration <= NRG Cefazolin susceptibility test by minimum inhibitory co ncentration > NRG Nitrofurantoin susceptibility test by mi nimum inhibitory concentration <= NRG Penicillin G susceptibility test by minimum inhibitory concentration > NRG Influenza virus A and B antigen detectio n - 05/12/18 17:44 FLU RESULT NEGATIVE FOR INFLUENZA A AND B ANTIGENS BY IA NRG Complete blood count (CBC) with automate d white blood cell (WBC) differential - 10/10/18 17:05 Blood leukocytes automated count (number/volume) 28.0 10*3/uL 4.3-11.0 Blood erythrocytes automated count (number/volume) 3.76 10*6/uL 4.35-5.85 Venous blood hemoglobin measurement (mass/volume) 9.6 g/dL 13.3-17.7 Blood hematocrit (volume fraction) 30 % 40-54 Automated erythrocyte mean corpuscular volume 80 [ foz_us] 80-99 Automated erythrocyte mean corpuscular h emoglobin (mass per erythrocyte) 26 pg 25-34 Automated erythrocyte mean corpuscular h emoglobin concentration measurement (mass/volume) 32 g/dL 32-36 Automated erythrocyte distribution width ratio 19. 7 % 10.0- 14.5 Automated blood platelet count (count/volume) 482 10*3/uL 130-400 Automated blood platelet mean volume measurement 9.1 [foz_us] 7.4-10.4 Automated blood neutrophils/100 leukocytes 94 % 42-75 Automated blood lymphocytes/100 leukocytes 2 % 12-44 Blood monocytes/100 leukocytes 5 % 0-12 Automated blood eosinophils/100 leukocytes 0 % 0-10 Automated blood basophils/100 leukocytes 0 % 0-10 Blood neutrophils automated count (number/volume) 26.1 10*3 1.8-7.8 Blood lymphocytes automated count (number/volume) 0.5 10*3 1.0-4.0 Blood monocytes automated count (number/volume) 1. 3 10*3 0.0-1.0 Automated eosinophil count 0.0 10*3/uL 0 .0-0.3 Automated blood basophil count (count/volume) 0.0 10*3/uL 0.0-0.1 Comprehensive metabolic panel - 10/10/18 17:05 Serum or plasma sodium measurement (moles/volume) 133 mmol/L 135-145 Serum or plasma potassium measurement (moles/volume) 5.1 mmol/L 3.6-5.0 Serum or plasma chloride measurement (moles/volume) 101 mmol/L 98-107 Carbon dioxide 25 mmol/L 21-32 Serum or plasma anion gap determination (moles/volume) 7 mmol/L 5-14 Serum or plasma urea nitrogen measurement (mass/volume ) 43 mg/dL 7-18 Serum or plasma creatinine measurement (mass/volume) 1.24 mg/dL 0.60-1.30 Serum or plasma urea nitrogen/creatinine mass ratio 35 NRG Serum or plasma creatinine measurement w ith calculation of estimated glomerular filtration rate 55 NRG Serum or plasma glucose measurement (mass/volume) 185 mg/dL 70-105 Serum or plasma calcium measurement (mass/volume) 9.2 mg/dL 8.5-10.1 Serum or plasma total bilirubin measurement (mass/volu me) 0.4 mg/dL 0.1-1.0 Serum or plasma alkaline phosphatase valeria surement (enzymatic activity/volume) 109 U/L 40-136 Serum or plasma aspartate aminotransfera se measurement (enzymatic activity/volume) 19 U/L 5-34 Serum or plasma alanine aminotransferase measurement (enzymatic activity/volume) 9 U/L 0-55 Serum or plasma protein measurement (mass/volume) 7.9 g/dL 6.4-8.2 Serum or plasma albumin measurement (mass/volume) 3.3 g/dL 3.2-4.5 CALCIUM CORRECTED 9.8 mg/dL 8.5-10.1 Manual absolute plasma cell count - 09/27 06/15 17:05 Blood monocytes/100 leukocytes 3 % NRG Manual blood segmented neutrophils/100 leukocytes 82 % NRG Blood band neutrophils/100 leukocytes 12 % NRG Manual blood lymphocytes/100 leukocytes 3 % NRG Blood toxic granules detection by light microscopy 1+ NRG Blood dohle body detection by light microscopy SLI GHT NRG Blood hypochromia detection by light microscopy SL IGHT NRG Complete urinalysis with reflex to cultu re - 10/10/18 17:25 Urine color determination RED NRG Urine clarity determination BLOODY NR G Urine pH measurement by test strip 7 5-9 Specific gravity of urine by test strip 1.010 1.016-1.022 Urine protein assay by test strip, semi-quantitative 4+ NEGATIVE Urine glucose detection by automated test strip NE GATIVE NEGATIVE Erythrocytes detection in urine sediment by light micr oscopy 5+ NEGATIVE Urine ketones detection by automated test strip 1+ NEGATIVE Urine nitrite detection by test strip NEGATIVE NEGATIVE Urine total bilirubin detection by test strip NEGA TIVE NEGATIVE Urine urobilinogen measurement by automated test strip (mass/volume) NORMAL NORMAL Urine leukocyte esterase detection by dipstick NEG ATIVE NEGATIVE Automated urine sediment erythrocyte cou nt by microscopy (number/high power field) TNTC NRG Automated urine sediment leukocyte count by microscopy (number/high power field) TNTC NRG Bacteria detection in urine sediment by light microsco py LARGE NRG Crystals detection in urine sediment by light microsco py NONE NRG Casts detection in urine sediment by light microscopy NONE NRG Mucus detection in urine sediment by light microscopy LARGE NRG Complete urinalysis with reflex to culture YES NRG Bacterial urine culture - 10/10/18 17:25 Bacterial urine culture [id number] NRG COLONY COUNT 80,000 CFU/ML NRG FTX;REPORTABLE SUSCEPTIBILITY REPORTED 10-12-18 05 NRG Dirithromycin susceptibility test by dis k diffusion - 10/10/18 17:25 Gentamicin susceptibility test by minimum inhibitory c oncentration <= NRG Trimethoprim/sulfamethoxazole susceptibi lity test by minimum inhibitoryconcentration > NRG Levofloxacin susceptibility test by minimum inhibitory concentration <= NRG Ampicillin susceptibility test by minimum inhibitory c oncentration > NRG Cefazolin susceptibility test by minimum inhibitory co ncentration 2 NRG Ceftriaxone susceptibility test by minimum inhibitory concentration <= NRG Ciprofloxacin susceptibility test by minimum inhibitor y concentration 1 NRG Meropenem susceptibility test by minimum inhibitory co ncentration <= NRG Nitrofurantoin susceptibility test by mi nimum inhibitory concentration <= NRG Amoxicillin and clavulanate potassium susc JANIE = NRG Dirithromycin susceptibility test by dis k diffusion - 10/10/18 17:25 Gentamicin susceptibility test by minimum inhibitory c oncentration 4 NRG Trimethoprim/sulfamethoxazole susceptibi lity test by minimum inhibitoryconcentration > NRG Levofloxacin susceptibility test by minimum inhibitory concentration > NRG Ampicillin susceptibility test by minimum inhibitory c oncentration > NRG Cefazolin susceptibility test by minimum inhibitory co ncentration 8 NRG Ceftriaxone susceptibility test by minimum inhibitory concentration <= NRG Ciprofloxacin susceptibility test by minimum inhibitor y concentration > NRG Nitrofurantoin susceptibility test by mi nimum inhibitory concentration R NRG Amoxicillin and clavulanate potassium susc JANIE <= NRG Bacterial blood culture - 10/10/18 17:45 FREE TEXT EXTERNAL REFER TO PREVIOUS CULTURE FOR NRG QUANTITY OF GROWTH Isolated NRG Bacterial blood culture [id number] [facility] FREE TEXT ENTRY 2 SUSCEPTIBILITY NRG Blood lactic acid measurement (moles/vol ume) - 10/10/18 17:49 Blood lactic acid measurement (moles/volume) 3.33 mmol/L 0.50-2.00 Bacterial blood culture - 10/10/18 17:49 FREE TEXT EXTERNAL SUSCEPTIBILITY REPORTED 10-12-18 ,1205 NRG QUANTITY OF GROWTH Isolated NRG Bacterial blood culture [id number] NR [facility] - 10/10/18 17:4 9 Gentamicin susceptibility test by minimum inhibitory c oncentration <= NRG Trimethoprim/sulfamethoxazole susceptibi lity test by minimum inhibitoryconcentration > NRG Levofloxacin susceptibility test by minimum inhibitory concentration <= NRG Ampicillin susceptibility test by minimum inhibitory c oncentration > NRG Cefazolin susceptibility test by minimum inhibitory co ncentration 2 NRG Ceftriaxone susceptibility test by minimum inhibitory concentration <= NRG Piperacillin/tazobactam susceptibility t est by minimum inhibitory concentration <= NRG Ciprofloxacin susceptibility test by minimum inhibitor y concentration 1 NRG Meropenem susceptibility test by minimum inhibitory co ncentration <= NRG Amoxicillin and clavulanate potassium susc JANIE = NRG Imipenem susceptibility test by minimum inhibitory con centration 0.5 NRG [facility] - 10/10/18 17:4 9 Gentamicin susceptibility test by minimum inhibitory c oncentration 4 NRG Trimethoprim/sulfamethoxazole susceptibi lity test by minimum inhibitoryconcentration > NRG Levofloxacin susceptibility test by minimum inhibitory concentration > NRG Ampicillin susceptibility test by minimum inhibitory c oncentration > NRG Cefazolin susceptibility test by minimum inhibitory co ncentration 8 NRG Ceftriaxone susceptibility test by minimum inhibitory concentration <= NRG Piperacillin/tazobactam susceptibility t est by minimum inhibitory concentration <= NRG Ciprofloxacin susceptibility test by minimum inhibitor y concentration > NRG Amoxicillin and clavulanate potassium susc JANIE <= NRG Serum or plasma lactate measurement (mol es/volume) - 10/10/18 19:45 Serum or plasma lactate measurement (moles/volume) 3.20 mmol/L 0.50-2.00 Blood lactic acid measurement (moles/vol ume) - 10/10/18 22:46 Blood lactic acid measurement (moles/volume) 1.31 mmol/L 0.50-2.00 Complete blood count (CBC) with automate d white blood cell (WBC) differential - 10/11/18 04:45 Blood leukocytes automated count (number/volume) 16.9 10*3/uL 4.3-11.0 Blood erythrocytes automated count (number/volume) 3.17 10*6/uL 4.35-5.85 Venous blood hemoglobin measurement (mass/volume) 7.9 g/dL 13.3-17.7 Blood hematocrit (volume fraction) 25 % 40-54 Automated erythrocyte mean corpuscular volume 80 [ foz_us] 80-99 Automated erythrocyte mean corpuscular h emoglobin (mass per erythrocyte) 25 pg 25-34 Automated erythrocyte mean corpuscular h emoglobin concentration measurement (mass/volume) 31 g/dL 32-36 Automated erythrocyte distribution width ratio 19. 6 % 10.0- 14.5 Automated blood platelet count (count/volume) 358 10*3/uL 130-400 Automated blood platelet mean volume measurement 9.5 [foz_us] 7.4-10.4 Automated blood neutrophils/100 leukocytes 93 % 42-75 Automated blood lymphocytes/100 leukocytes 4 % 12-44 Blood monocytes/100 leukocytes 2 % 0-12 Automated blood eosinophils/100 leukocytes 1 % 0-10 Automated blood basophils/100 leukocytes 0 % 0-10 Blood neutrophils automated count (number/volume) 15.8 10*3 1.8-7.8 Blood lymphocytes automated count (number/volume) 0.6 10*3 1.0-4.0 Blood monocytes automated count (number/volume) 0. 4 10*3 0.0-1.0 Automated eosinophil count 0.1 10*3/uL 0 .0-0.3 Automated blood basophil count (count/volume) 0.0 10*3/uL 0.0-0.1 Comprehensive metabolic panel - 10/11/18 04:45 Serum or plasma sodium measurement (moles/volume) 135 mmol/L 135-145 Serum or plasma potassium measurement (moles/volume) 4.4 mmol/L 3.6-5.0 Serum or plasma chloride measurement (moles/volume) 104 mmol/L 98-107 Carbon dioxide 21 mmol/L 21-32 Serum or plasma anion gap determination (moles/volume) 10 mmol/L 5-14 Serum or plasma urea nitrogen measurement (mass/volume ) 38 mg/dL 7-18 Serum or plasma creatinine measurement (mass/volume) 0.78 mg/dL 0.60-1.30 Serum or plasma urea nitrogen/creatinine mass ratio 49 NRG Serum or plasma creatinine measurement w ith calculation of estimated glomerular filtration rate > NRG Serum or plasma glucose measurement (mass/volume) 105 mg/dL 70-105 Serum or plasma calcium measurement (mass/volume) 8.4 mg/dL 8.5-10.1 Serum or plasma total bilirubin measurement (mass/volu me) 0.3 mg/dL 0.1-1.0 Serum or plasma alkaline phosphatase valeria surement (enzymatic activity/volume) 103 U/L 40-136 Serum or plasma aspartate aminotransfera se measurement (enzymatic activity/volume) 14 U/L 5-34 Serum or plasma alanine aminotransferase measurement (enzymatic activity/volume) 9 U/L 0-55 Serum or plasma protein measurement (mass/volume) 6.3 g/dL 6.4-8.2 Serum or plasma albumin measurement (mass/volume) 2.7 g/dL 3.2-4.5 CALCIUM CORRECTED 9.4 mg/dL 8.5-10.1 Methicillin resistant Staphylococcus aur eus (MRSA) screening culture - 10/11/18 08:40 Methicillin resistant Staphylococcus aureus (MRSA) scr eening culture NEG NRG Complete blood count (CBC) with automate d white blood cell (WBC) differential - 10/12/18 05:30 Blood leukocytes automated count (number/volume) 9.8 10*3/uL 4.3-11.0 Blood erythrocytes automated count (number/volume) 3.13 10*6/uL 4.35-5.85 Venous blood hemoglobin measurement (mass/volume) 7.9 g/dL 13.3-17.7 Blood hematocrit (volume fraction) 25 % 40-54 Automated erythrocyte mean corpuscular volume 81 [ foz_us] 80-99 Automated erythrocyte mean corpuscular h emoglobin (mass per erythrocyte) 25 pg 25-34 Automated erythrocyte mean corpuscular h emoglobin concentration measurement (mass/volume) 31 g/dL 32-36 Automated erythrocyte distribution width ratio 19. 3 % 10.0- 14.5 Automated blood platelet count (count/volume) 348 10*3/uL 130-400 Automated blood platelet mean volume measurement 9.8 [foz_us] 7.4-10.4 Automated blood neutrophils/100 leukocytes 78 % 42-75 Automated blood lymphocytes/100 leukocytes 6 % 12-44 Blood monocytes/100 leukocytes 4 % 0-12 Automated blood eosinophils/100 leukocytes 12 % 0-10 Automated blood basophils/100 leukocytes 0 % 0-10 Blood neutrophils automated count (number/volume) 7.7 10*3 1.8-7.8 Blood lymphocytes automated count (number/volume) 0.6 10*3 1.0-4.0 Blood monocytes automated count (number/volume) 0. 4 10*3 0.0-1.0 Automated eosinophil count 1.2 10*3/uL 0 .0-0.3 Automated blood basophil count (count/volume) 0.0 10*3/uL 0.0-0.1 Whole blood basic metabolic panel - 09/27 08/15 06:00 Serum or plasma sodium measurement (moles/volume) 137 mmol/L 135-145 Serum or plasma potassium measurement (moles/volume) 3.9 mmol/L 3.6-5.0 Serum or plasma chloride measurement (moles/volume) 107 mmol/L 98-107 Carbon dioxide 20 mmol/L 21-32 Serum or plasma anion gap determination (moles/volume) 10 mmol/L 5-14 Serum or plasma urea nitrogen measurement (mass/volume ) 25 mg/dL 7-18 Serum or plasma creatinine measurement (mass/volume) 0.62 mg/dL 0.60-1.30 Serum or plasma urea nitrogen/creatinine mass ratio 40 NRG Serum or plasma creatinine measurement w ith calculation of estimated glomerular filtration rate > NRG Serum or plasma glucose measurement (mass/volume) 82 mg/dL 70-105 Serum or plasma calcium measurement (mass/volume) 8.4 mg/dL 8.5-10.1 Complete blood count (CBC) with automate d white blood cell (WBC) differential - 10/13/18 13:07 Blood leukocytes automated count (number/volume) 10.8 10*3/uL 4.3-11.0 Blood erythrocytes automated count (number/volume) 3.71 10*6/uL 4.35-5.85 Venous blood hemoglobin measurement (mass/volume) 9.4 g/dL 13.3-17.7 Blood hematocrit (volume fraction) 30 % 40-54 Automated erythrocyte mean corpuscular volume 80 [ foz_us] 80-99 Automated erythrocyte mean corpuscular h emoglobin (mass per erythrocyte) 25 pg 25-34 Automated erythrocyte mean corpuscular h emoglobin concentration measurement (mass/volume) 32 g/dL 32-36 Automated erythrocyte distribution width ratio 19. 5 % 10.0- 14.5 Automated blood platelet count (count/volume) 385 10*3/uL 130-400 Automated blood platelet mean volume measurement 9.3 [foz_us] 7.4-10.4 Automated blood neutrophils/100 leukocytes 77 % 42-75 Automated blood lymphocytes/100 leukocytes 7 % 12-44 Blood monocytes/100 leukocytes 3 % 0-12 Automated blood eosinophils/100 leukocytes 13 % 0-10 Automated blood basophils/100 leukocytes 0 % 0-10 Blood neutrophils automated count (number/volume) 8.3 10*3 1.8-7.8 Blood lymphocytes automated count (number/volume) 0.7 10*3 1.0-4.0 Blood monocytes automated count (number/volume) 0. 3 10*3 0.0-1.0 Automated eosinophil count 1.4 10*3/uL 0 .0-0.3 Automated blood basophil count (count/volume) 0.0 10*3/uL 0.0-0.1 Blood lactic acid measurement (moles/vol ume) - 10/13/18 13:07 Blood lactic acid measurement (moles/volume) 1.01 mmol/L 0.50-2.00 Comprehensive metabolic panel - 10/13/18 13:07 Serum or plasma sodium measurement (moles/volume) 137 mmol/L 135-145 Serum or plasma potassium measurement (moles/volume) 4.1 mmol/L 3.6-5.0 Serum or plasma chloride measurement (moles/volume) 105 mmol/L 98-107 Carbon dioxide 22 mmol/L 21-32 Serum or plasma anion gap determination (moles/volume) 10 mmol/L 5-14 Serum or plasma urea nitrogen measurement (mass/volume ) 22 mg/dL 7-18 Serum or plasma creatinine measurement (mass/volume) 0.77 mg/dL 0.60-1.30 Serum or plasma urea nitrogen/creatinine mass ratio 29 NRG Serum or plasma creatinine measurement w ith calculation of estimated glomerular filtration rate > NRG Serum or plasma glucose measurement (mass/volume) 105 mg/dL 70-105 Serum or plasma calcium measurement (mass/volume) 8.6 mg/dL 8.5-10.1 Serum or plasma total bilirubin measurement (mass/volu me) 0.3 mg/dL 0.1-1.0 Serum or plasma alkaline phosphatase valeria surement (enzymatic activity/volume) 116 U/L 40-136 Serum or plasma aspartate aminotransfera se measurement (enzymatic activity/volume) 15 U/L 5-34 Serum or plasma alanine aminotransferase measurement (enzymatic activity/volume) 12 U/L 0-55 Serum or plasma protein measurement (mass/volume) 6.6 g/dL 6.4-8.2 Serum or plasma albumin measurement (mass/volume) 2.9 g/dL 3.2-4.5 CALCIUM CORRECTED 9.5 mg/dL 8.5-10.1 Manual absolute plasma cell count - 09/27 09/14 13:07 Blood monocytes/100 leukocytes 2 % NRG Manual blood segmented neutrophils/100 leukocytes 77 % NRG Blood band neutrophils/100 leukocytes 1 % NRG Manual blood lymphocytes/100 leukocytes 3 % NRG Manual eosinophils/100 leukocytes in nose 17 % NRG Blood anisocytosis detection by light microscopy S LIGHT NRG Blood hypochromia detection by light microscopy SL IGHT NRG Blood microcytes detection by light microscopy SLI GHT NRG Complete urinalysis with reflex to cultu re - 10/13/18 13:46 Urine color determination YELLOW NRG Urine clarity determination SLIGHTLY CLOUDY NRG Urine pH measurement by test strip 5 5-9 Specific gravity of urine by test strip 1.010 1.016-1.022 Urine protein assay by test strip, semi-quantitative 2+ NEGATIVE Urine glucose detection by automated test strip NE GATIVE NEGATIVE Erythrocytes detection in urine sediment by light micr oscopy 5+ NEGATIVE Urine ketones detection by automated test strip NE GATIVE NEGATIVE Urine nitrite detection by test strip NEGATIVE NEGATIVE Urine total bilirubin detection by test strip NEGA TIVE NEGATIVE Urine urobilinogen measurement by automated test strip (mass/volume) NORMAL NORMAL Urine leukocyte esterase detection by dipstick 3+ NEGATIVE Automated urine sediment erythrocyte cou nt by microscopy (number/high power field) TNTC NRG Automated urine sediment leukocyte count by microscopy (number/high power field) TNTC NRG Bacteria detection in urine sediment by light microsco py FEW NRG Squamous epithelial cells detection in u rine sediment by light microscopy NONE NRG Crystals detection in urine sediment by light microsco py PRESENT NRG Casts detection in urine sediment by light microscopy NONE NRG Mucus detection in urine sediment by light microscopy SMALL NRG Complete urinalysis with reflex to culture YES NRG Amorphous sediment detection in urine sediment by ligh t microscopy MOD MILLY URATES NRG Bacterial urine culture - 10/13/18 13:46 Bacterial urine culture [id number] NRG COLONY COUNT PREDOMINANCE NRG FTX;REPORTABLE SUSCEPTIBILITY REPORTED 10/16/18 09: 05 NRG Dirithromycin susceptibility test by dis k diffusion - 10/13/18 13:46 Gentamicin susceptibility test by minimum inhibitory c oncentration <= NRG Trimethoprim/sulfamethoxazole susceptibi lity test by minimum inhibitoryconcentration > NRG Levofloxacin susceptibility test by minimum inhibitory concentration <= NRG Ampicillin susceptibility test by minimum inhibitory c oncentration > NRG Cefazolin susceptibility test by minimum inhibitory co ncentration 2 NRG Ceftriaxone susceptibility test by minimum inhibitory concentration <= NRG Ciprofloxacin susceptibility test by minimum inhibitor y concentration 1 NRG Meropenem susceptibility test by minimum inhibitory co ncentration <= NRG Nitrofurantoin susceptibility test by mi nimum inhibitory concentration <= NRG Amoxicillin and clavulanate potassium susc JANIE = NRG Complete blood count (CBC) with automate d white blood cell (WBC) differential - 01/23/19 08:45 Blood leukocytes automated count (number/volume) 16.4 10*3/uL 4.3-11.0 Blood erythrocytes automated count (number/volume) 4.17 10*6/uL 4.35-5.85 Venous blood hemoglobin measurement (mass/volume) 10.4 g/dL 13.3-17.7 Blood hematocrit (volume fraction) 34 % 40-54 Automated erythrocyte mean corpuscular volume 81 [ foz_us] 80-99 Automated erythrocyte mean corpuscular h emoglobin (mass per erythrocyte) 25 pg 25-34 Automated erythrocyte mean corpuscular h emoglobin concentration measurement (mass/volume) 31 g/dL 32-36 Automated erythrocyte distribution width ratio 21. 8 % 10.0- 14.5 Automated blood platelet count (count/volume) 443 10*3/uL 130-400 Automated blood platelet mean volume measurement 9.0 [foz_us] 7.4-10.4 Automated blood neutrophils/100 leukocytes 74 % 42-75 Automated blood lymphocytes/100 leukocytes 12 % 12-44 Blood monocytes/100 leukocytes 6 % 0-12 Automated blood eosinophils/100 leukocytes 7 % 0-10 Automated blood basophils/100 leukocytes 0 % 0-10 Blood neutrophils automated count (number/volume) 12.2 10*3 1.8-7.8 Blood lymphocytes automated count (number/volume) 2.0 10*3 1.0-4.0 Blood monocytes automated count (number/volume) 1. 0 10*3 0.0-1.0 Automated eosinophil count 1.2 10*3/uL 0 .0-0.3 Automated blood basophil count (count/volume) 0.1 10*3/uL 0.0-0.1 Comprehensive metabolic panel - 01/23/19 08:45 Serum or plasma sodium measurement (moles/volume) 140 mmol/L 135-145 Serum or plasma potassium measurement (moles/volume) 4.4 mmol/L 3.6-5.0 Serum or plasma chloride measurement (moles/volume) 105 mmol/L 98-107 Carbon dioxide 26 mmol/L 21-32 Serum or plasma anion gap determination (moles/volume) 9 mmol/L 5-14 Serum or plasma urea nitrogen measurement (mass/volume ) 18 mg/dL 7-18 Serum or plasma creatinine measurement (mass/volume) 0.67 mg/dL 0.60-1.30 Serum or plasma urea nitrogen/creatinine mass ratio 27 NRG Serum or plasma creatinine measurement w ith calculation of estimated glomerular filtration rate > NRG Serum or plasma glucose measurement (mass/volume) 104 mg/dL 70-105 Serum or plasma calcium measurement (mass/volume) 8.9 mg/dL 8.5-10.1 Serum or plasma total bilirubin measurement (mass/volu me) 0.5 mg/dL 0.1-1.0 Serum or plasma alkaline phosphatase valreia surement (enzymatic activity/volume) 79 U/L 40-136 Serum or plasma aspartate aminotransfera se measurement (enzymatic activity/volume) 13 U/L 5-34 Serum or plasma alanine aminotransferase measurement (enzymatic activity/volume) 7 U/L 0-55 Serum or plasma protein measurement (mass/volume) 7.6 g/dL 6.4-8.2 Serum or plasma albumin measurement (mass/volume) 3.5 g/dL 3.2-4.5 CALCIUM CORRECTED 9.3 mg/dL 8.5-10.1 Manual absolute plasma cell count - 12/29 09/14 08:45 Blood monocytes/100 leukocytes 2 % NRG Manual blood segmented neutrophils/100 leukocytes 73 % NRG Blood band neutrophils/100 leukocytes 3 % NRG Manual blood lymphocytes/100 leukocytes 13 % NRG Manual eosinophils/100 leukocytes in nose 9 % NRG Manual blood basophils/100 leukocytes 0 % NRG Blood anisocytosis detection by light microscopy S LIGHT NRG Bacterial blood culture - 01/23/19 09:44 Bacterial blood culture NG NRG Complete urinalysis with reflex to cultu re - 01/23/19 09:48 Urine color determination RED NRG Urine clarity determination CLOUDY NR G Urine pH measurement by test strip 7.5 5-9 Specific gravity of urine by test strip 1.010 1.016-1.022 Urine protein assay by test strip, semi-quantitative 3+ NEGATIVE Urine glucose detection by automated test strip TR CURT NEGATIVE Erythrocytes detection in urine sediment by light micr oscopy 3+ NEGATIVE Urine ketones detection by automated test strip 1+ NEGATIVE Urine nitrite detection by test strip POSITIVE NEGATIVE Urine total bilirubin detection by test strip NEGA TIVE NEGATIVE Urine urobilinogen measurement by automated test strip (mass/volume) >= mg/dL < = 1.0 Urine leukocyte esterase detection by dipstick 3+ NEGATIVE Automated urine sediment erythrocyte cou nt by microscopy (number/high power field) TNTC NRG Automated urine sediment leukocyte count by microscopy (number/high power field) [HPF] NRG Bacteria detection in urine sediment by light microsco py TRACE NRG Crystals detection in urine sediment by light microsco py NONE NRG Casts detection in urine sediment by light microscopy NONE NRG Mucus detection in urine sediment by light microscopy NEGATIVE NRG Complete urinalysis with reflex to culture CULTURE PENDING NRG Bacterial urine culture - 01/23/19 09:48 Bacterial urine culture NG NRG Blood lactic acid measurement (moles/vol ume) - 01/23/19 10:05 Blood lactic acid measurement (moles/volume) 0.93 mmol/L 0.50-2.00 Bacterial blood culture - 01/23/19 10:05 Bacterial blood culture NG NRG Complete blood count (CBC) with automate d white blood cell (WBC) differential - 01/24/19 05:15 Blood leukocytes automated count (number/volume) 12.7 10*3/uL 4.3-11.0 Blood erythrocytes automated count (number/volume) 3.53 10*6/uL 4.35-5.85 Venous blood hemoglobin measurement (mass/volume) 9.1 g/dL 13.3-17.7 Blood hematocrit (volume fraction) 29 % 40-54 Automated erythrocyte mean corpuscular volume 81 [ foz_us] 80-99 Automated erythrocyte mean corpuscular h emoglobin (mass per erythrocyte) 26 pg 25-34 Automated erythrocyte mean corpuscular h emoglobin concentration measurement (mass/volume) 32 g/dL 32-36 Automated erythrocyte distribution width ratio 21. 7 % 10.0- 14.5 Automated blood platelet count (count/volume) 328 10*3/uL 130-400 Automated blood platelet mean volume measurement 9.0 [foz_us] 7.4-10.4 Automated blood neutrophils/100 leukocytes 76 % 42-75 Automated blood lymphocytes/100 leukocytes 11 % 12-44 Blood monocytes/100 leukocytes 9 % 0-12 Automated blood eosinophils/100 leukocytes 4 % 0-10 Automated blood basophils/100 leukocytes 0 % 0-10 Blood neutrophils automated count (number/volume) 9.7 10*3 1.8-7.8 Blood lymphocytes automated count (number/volume) 1.3 10*3 1.0-4.0 Blood monocytes automated count (number/volume) 1. 1 10*3 0.0-1.0 Automated eosinophil count 0.5 10*3/uL 0 .0-0.3 Automated blood basophil count (count/volume) 0.0 10*3/uL 0.0-0.1 Comprehensive metabolic panel - 01/24/19 05:15 Serum or plasma sodium measurement (moles/volume) 139 mmol/L 135-145 Serum or plasma potassium measurement (moles/volume) 4.1 mmol/L 3.6-5.0 Serum or plasma chloride measurement (moles/volume) 106 mmol/L 98-107 Carbon dioxide 24 mmol/L 21-32 Serum or plasma anion gap determination (moles/volume) 9 mmol/L 5-14 Serum or plasma urea nitrogen measurement (mass/volume ) 18 mg/dL 7-18 Serum or plasma creatinine measurement (mass/volume) 0.69 mg/dL 0.60-1.30 Serum or plasma urea nitrogen/creatinine mass ratio 26 NRG Serum or plasma creatinine measurement w ith calculation of estimated glomerular filtration rate > NRG Serum or plasma glucose measurement (mass/volume) 116 mg/dL 70-105 Serum or plasma calcium measurement (mass/volume) 8.6 mg/dL 8.5-10.1 Serum or plasma total bilirubin measurement (mass/volu me) 0.6 mg/dL 0.1-1.0 Serum or plasma alkaline phosphatase valeria surement (enzymatic activity/volume) 75 U/L 40-136 Serum or plasma aspartate aminotransfera se measurement (enzymatic activity/volume) 11 U/L 5-34 Serum or plasma alanine aminotransferase measurement (enzymatic activity/volume) 6 U/L 0-55 Serum or plasma protein measurement (mass/volume) 6.5 g/dL 6.4-8.2 Serum or plasma albumin measurement (mass/volume) 3.1 g/dL 3.2-4.5 CALCIUM CORRECTED 9.3 mg/dL 8.5-10.1 Automated blood complete blood count (he mogram) panel - 01/25/19 04:41 Blood leukocytes automated count (number/volume) 25.3 10*3/uL 4.3-11.0 Blood erythrocytes automated count (number/volume) 3.74 10*6/uL 4.35-5.85 Venous blood hemoglobin measurement (mass/volume) 9.5 g/dL 13.3-17.7 Blood hematocrit (volume fraction) 31 % 40-54 Automated erythrocyte mean corpuscular volume 82 [ foz_us] 80-99 Automated erythrocyte mean corpuscular h emoglobin (mass per erythrocyte) 25 pg 25-34 Automated erythrocyte mean corpuscular h emoglobin concentration measurement (mass/volume) 31 g/dL 32-36 Automated erythrocyte distribution width ratio 21. 6 % 10.0- 14.5 Automated blood platelet count (count/volume) 382 10*3/uL 130-400 Automated blood platelet mean volume measurement 9.4 [foz_us] 7.4-10.4 Manual absolute plasma cell count - 12/29 11/15 04:41 Blood monocytes/100 leukocytes 2 % NRG Manual blood segmented neutrophils/100 leukocytes 93 % NRG Blood band neutrophils/100 leukocytes 2 % NRG Manual blood lymphocytes/100 leukocytes 3 % NRG Blood anisocytosis detection by light microscopy M ODERATE NRG Blood toxic granules detection by light microscopy 1+ NRG Blood poikilocytosis detection by light microscopy SLIGHT NRG Blood hypochromia detection by light microscopy SL IGHT NRG Blood microcytes detection by light microscopy SLI GHT NRG Blood spherocytes detection by light microscopy SL IGHT NRG Clostridium difficile DNA detection by p robe and target amplification method - 01/25/19 15:10 Clostridium difficile DNA detection by p robe and target amplification method Positive NRG C DIFFICILE AG + TOXIN A/B. - 01/25/19 1 5:10 FREE TEXT ENTRY 2 POSITIVE FOR GDH ANTIGEN NRG FREE TEXT ENTRY 3 NEGATIVE FOR TOXINS A AND B NRG CALL POSITIVES (F1 HELP) CALLED TO DIGNA SCHWARTZ SON, RN 01/26/19 9:10 NRG RESULTS INDETERMINANT; MOLECULAR TEST TO FOLLOW NR [facility] - 01/26/19 05:20 Blood leukocytes automated count (number/volume) 16.3 10*3/uL 4.3-11.0 Blood erythrocytes automated count (number/volume) 2.58 10*6/uL 4.35-5.85 Venous blood hemoglobin measurement (mass/volume) 7.0 g/dL 13.3-17.7 Blood hematocrit (volume fraction) 21 % 40-54 Automated erythrocyte mean corpuscular volume 81 [ foz_us] 80-99 Automated erythrocyte mean corpuscular h emoglobin (mass per erythrocyte) 27 pg 25-34 Automated erythrocyte mean corpuscular h emoglobin concentration measurement (mass/volume) 32 g/dL 32-36 Automated erythrocyte distribution width ratio 21. 4 % 10.0- 14.5 Automated blood platelet count (count/volume) 288 10*3/uL 130-400 Automated blood platelet mean volume measurement 9.7 [foz_us] 7.4-10.4 RED CELLS LEUKO REDUCED AS1 - 01/26/19 0 7:22 RED CELLS LEUKO REDUCED AS1 T RANSFUSED 01/26/19 0910 NR Blood type T Indirect antibody screen [facility] - 01/26/19 07:22 WRISTBAND NUMBER [id number] NRG ABO+Rh group AP NRG Blood group antibody screen NEGATIVE NR Automated blood [facility] - 01/27/19 05:56 Blood leukocytes automated count (number/volume) 13.7 10*3/uL 4.3-11.0 Blood erythrocytes automated count (number/volume) 3.47 10*6/uL 4.35-5.85 Venous blood hemoglobin measurement (mass/volume) 8.7 g/dL 13.3-17.7 Blood hematocrit (volume fraction) 28 % 40-54 Automated erythrocyte mean corpuscular volume 79 [ foz_us] 80-99 Automated erythrocyte mean corpuscular h emoglobin (mass per erythrocyte) 25 pg 25-34 Automated erythrocyte mean corpuscular h emoglobin concentration measurement (mass/volume) 32 g/dL 32-36 Automated erythrocyte distribution width ratio 21. 2 % 10.0- 14.5 Automated blood platelet count (count/volume) 324 10*3/uL 130-400 Automated blood platelet mean volume measurement 9.6 [foz_us] 7.4-10.4 Whole blood basic metabolic panel - 03/17 05:56 Serum or plasma sodium measurement (moles/volume) 139 mmol/L 135-145 Serum or plasma potassium measurement (moles/volume) 3.4 mmol/L 3.6-5.0 Serum or plasma chloride measurement (moles/volume) 110 mmol/L 98-107 Carbon dioxide 19 mmol/L 21-32 Serum or plasma anion gap determination (moles/volume) 10 mmol/L 5-14 Serum or plasma urea nitrogen measurement (mass/volume ) 21 mg/dL 7-18 Serum or plasma creatinine measurement (mass/volume) 0.67 mg/dL 0.60-1.30 Serum or plasma urea nitrogen/creatinine mass ratio 31 NRG Serum or plasma creatinine measurement w ith calculation of estimated glomerular filtration rate > NRG Serum or plasma glucose measurement (mass/volume) 94 mg/dL 70-105 Serum or plasma calcium measurement (mass/volume) 7.9 mg/dL 8.5-10.1 Magnesium - 01/27/19 05:56 Magnesium 1.7 mg/dL 1.6-2.4 Automated blood complete blood count (he mogram) panel - 01/28/19 04:50 Blood leukocytes automated count (number/volume) 8.5 10*3/uL 4.3-11.0 Blood erythrocytes automated count (number/volume) 3.40 10*6/uL 4.35-5.85 Venous blood hemoglobin measurement (mass/volume) 8.4 g/dL 13.3-17.7 Blood hematocrit (volume fraction) 27 % 40-54 Automated erythrocyte mean corpuscular volume 79 [ foz_us] 80-99 Automated erythrocyte mean corpuscular h emoglobin (mass per erythrocyte) 25 pg 25-34 Automated erythrocyte mean corpuscular h emoglobin concentration measurement (mass/volume) 32 g/dL 32-36 Automated erythrocyte distribution width ratio 21. 1 % 10.0- 14.5 Automated blood platelet count (count/volume) 373 10*3/uL 130-400 Automated blood platelet mean volume measurement 9.9 [foz_us] 7.4-10.4 Whole blood basic metabolic panel - 04/17 04:50 Serum or plasma sodium measurement (moles/volume) 137 mmol/L 135-145 Serum or plasma potassium measurement (moles/volume) 3.0 mmol/L 3.6-5.0 Serum or plasma chloride measurement (moles/volume) 105 mmol/L 98-107 Carbon dioxide 24 mmol/L 21-32 Serum or plasma anion gap determination (moles/volume) 8 mmol/L 5-14 Serum or plasma urea nitrogen measurement (mass/volume ) 10 mg/dL 7-18 Serum or plasma creatinine measurement (mass/volume) 0.59 mg/dL 0.60-1.30 Serum or plasma urea nitrogen/creatinine mass ratio 17 NRG Serum or plasma creatinine measurement w ith calculation of estimated glomerular filtration rate > NRG Serum or plasma glucose measurement (mass/volume) 89 mg/dL 70-105 Serum or plasma calcium measurement (mass/volume) 7.9 mg/dL 8.5-10.1 Methicillin resistant Staphylococcus aur eus (MRSA) screening culture - 01/28/19 22:41 Methicillin resistant Staphylococcus aureus (MRSA) scr eening culture NEG NRG Automated blood complete blood count (he mogram) panel - 01/29/19 05:43 Blood leukocytes automated count (number/volume) 7.8 10*3/uL 4.3-11.0 Blood erythrocytes automated count (number/volume) 3.46 10*6/uL 4.35-5.85 Venous blood hemoglobin measurement (mass/volume) 8.7 g/dL 13.3-17.7 Blood hematocrit (volume fraction) 28 % 40-54 Automated erythrocyte mean corpuscular volume 80 [ foz_us] 80-99 Automated erythrocyte mean corpuscular h emoglobin (mass per erythrocyte) 25 pg 25-34 Automated erythrocyte mean corpuscular h emoglobin concentration measurement (mass/volume) 31 g/dL 32-36 Automated erythrocyte distribution width ratio 20. 5 % 10.0- 14.5 Automated blood platelet count (count/volume) 369 10*3/uL 130-400 Automated blood platelet mean volume measurement 9.9 [foz_us] 7.4-10.4 Encounters ACCT No. Visit Date/Time Discharge Status Pt. Type Provider Facility Loc./Unit Complaint [id number] 01/23/2019 11:52:00 15:10:00 DIS Inpatient BESSY ADAMSON, WARD Haas [facility] 4TH UTI/HEMATURIA [id number] 10/13/2018 12:55:00 15:25:00 DIS Emergency DUNCAN REEVES [facility] ER RASH [id number] 10/10/2018 18:40:00 13:50:00 DIS Inpatient CÉSAR ADAMSON, MUSA Rubalcava [facility] 4TH UTI,SEPSIS [id number] 07/18/2018 09:32:00 13:00:00 DIS Emergency ALEXANDRA EDWARDS MD [facility] ER FALL [id number] 05/12/2018 18:07:00 23:59:59 CLS Outpatient SEPIDEH MCCULLOUGH [facility] LABNPT M62.81 [id number] 05/12/2018 17:37:00 23:59:59 CLS Outpatient SEPIDEH MCCULLOUGH [facility] UA,CMP,CBCWD [id number] 02/20/2018 16:15:00 23:59:59 CLS Outpatient NICHOLE CAMACHO MD [facility] [id number] 07/27/2017 14:37:00 18:43:00 DIS Emergency MUSA LINDSEY MD [facility] ER SOA [id number] 09/15/2016 10:06:00 017 16:00:00 DIS Outpatient NICHOLE CAMACHO MD [facility] WOUNDCARE [id number] 09/01/2016 10:00:00 017 00:01:00 DIS Outpatient NICHOLE CAMACHO MD [facility] WOUNDCARE [id number] 08/29/2016 10:20:00 23:59:59 CLS Outpatient DERRICK FORDE APRN [facility] SED RATE [id number] 08/19/2016 10:13:00 017 23:59:59 CLS Outpatient DERRICK FORDE APRN [facility] OSTEOMYLITIS [id number] 08/12/2016 19:24:00 017 23:59:59 CLS Outpatient NICHOLE CAMACHO MD [facility] VANCOMYCIN THERAPY [id number] 08/08/2016 12:36:00 017 23:59:59 CLS Outpatient DERRICK FORDE APRN [facility] SDC [id number] 07/23/2016 06:39:00 017 23:59:59 CLS Outpatient NICHOLE CAMACHO MD [facility] VANCO THERAPY [id number] 07/23/2016 19:13:00 017 22:00:00 DIS Emergency SEPIDEH MCCULLOUGH [facility] ER SEPSIS [id number] 07/19/2016 06:16:00 017 23:59:59 CLS Outpatient NICHOLE CAMACHO MD [facility] VANCO THERAPY [id number] 07/13/2016 06:37:00 017 23:59:59 CLS Outpatient DERRICK FORDE APRN [facility] VANCO THERAPY [id number] 07/13/2016 06:36:00 017 23:59:59 CLS Outpatient DERRICK FORDE APRN [facility] [id number] 07/09/2016 05:10:00 017 23:59:59 CLS Outpatient NICHOLE CAMACHO MD [facility] VANCO THERAPY [id number] 07/09/2016 17:59:00 017 19:08:00 DIS Emergency MARIA ISABEL PRICE DO [facility] ER PICC LINE BLEEDING [id number] 07/08/2016 05:38:00 017 23:59:59 CLS Outpatient NICHOLE CAMACHO MD [facility] VANCO THERAPY [id number] 07/05/2016 05:33:00 017 23:59:59 CLS Outpatient NICHOLE CAMACHO MD [facility] [id number] 07/05/2016 05:15:00 017 23:59:59 CLS Outpatient NICHOLE CAMACHO MD [facility] VANCO THERAPY [id number] 07/02/2016 05:30:00 017 23:59:59 CLS Outpatient NICHOLE CAMACHO MD [facility] VANCO THERAPY [id number] 06/29/2016 07:02:00 017 23:59:59 CLS Outpatient DERRICK FORDE APRN [facility] VANCO THERAPY [id number] 06/25/2016 05:20:00 017 23:59:59 CLS Outpatient NICHOLE CAMACHO MD [facility] VANCO THERAPY [id number] 06/21/2016 07:39:00 017 23:59:59 CLS Outpatient NICHOLE CAMACHO MD [facility] VANCOMYCIN THERAPY [id number] 06/18/2016 19:01:00 017 23:59:59 CLS Outpatient ETHEL HIRSCH [facility] [id number] 06/16/2016 12:59:00 017 23:59:59 [facility] [id number] 06/02/2016 09:45:00 017 00:01:00 DIS Outpatient NICHOLE CAMACHO MD [facility] WOUNDCARE [id number] 05/12/2016 11:11:00 017 23:59:59 CLS Outpatient NICHOLE CAMACHO MD [facility] ACUTE OSTEOMYELITIS RIG HT ANKLE FOOT [id number] 05/05/2016 11:10:00 017 23:59:59 CLS Outpatient NICHOLE CAMACHO MD [facility] LAB M86.171,L89.614,L89.894 [id number] 03/17/2016 10:33:00 017 23:59:59 CLS Outpatient NICHOLE CAMACHO MD [facility] RAD PRESSURE ULCER OF BACK [id number] 03/14/2016 13:12:00 017 23:59:59 CLS Outpatient NICHOLE CAMACHO MD [facility] 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 [id number] 03/10/2016 11:27:00 017 23:59:59 CLS Outpatient NICHOLE CAMACHO MD [facility] RAD L89.614 [id number] 11/26/2015 13:09:00 016 23:59:59 CLS Outpatient LENA RODRIGUEZ MD [facility] RAD R DORSAL FOOT ULCER [id number] 11/05/2015 10:43:00 016 23:59:59 CLS Outpatient JOAN STODDARD MD [facility] RAD THORACIC BACK PAIN [id number] 09/09/2015 06:10:00 016 08:25:00 DIS Emergency DEE DO, MARIA ISABEL Rubalcava Vi a [facility] ER LEFT FOOT ANKLE INJUR Y,SWOLLEN [id number] 05/27/2015 08:01:00 016 23:59:59 CLS Outpatient LENA RODRIGUEZ MD [facility] WOUNDCARE [id number] 02/12/2015 14:25:00 015 16:35:00 DIS Emergency MUSA LINDSEY MD [facility] ER RECTAL BLEEDING [id number] 02/09/2015 07:44:00 015 10:45:00 DIS Outpatient MIGEL EDMOND MD [facility] SDC BLOOD IN STOOLS [id number] 02/05/2015 05:37:00 23:59:59 CLS Outpatient MIGEL EDMOND MD [facility] PREOP BLOOD IN STOOLS [id number] 01/10/2015 15:00:00 16:21:00 DIS Emergency CHLOÉ ESPINOSA APRN [facility] ER TIB/FIB WOUND [id number] 12/31/2014 14:02:00 14:30:00 DIS Outpatient TIFFANIE JEAN MD [facility] SDC RIGHT PROXIMAL TIBIAL F RACTURE [id number] 11/21/2014 22:21:00 15:30:00 DIS Inpatient JOAN STODDARD MD [facility] SURGICAL R TIBIA FX,L FEMUR FX,UTI,HYPOTENSION,HYPOXIA [id number] 08/03/2012 08:44:00 23:59:59 CLS Outpatient MATT GREGORY DO [facility] RAD ABD AORTIC ANERUYISM [id number] 10/18/2017 13:38:00 Document Registration [id number] 12/07/2014 22:10:00 Document Registration [id number] 10/03/2010 16:05:00 Document Registration
== END 2019-01-29 15:10 | DRG 699 ==
LOC: EDUNIT# 07:29 → ER 07:30 → 4TH 11:52
PROVIDERS: ADMIT Internal Medicine; ATTEND Internal Medicine
PROC: 0TJB8ZZ Inspection of Bladder, Via Natural or Artificial Opening Endoscopic (ICD-10-PCS; principal; 2019-01-29 09:31)
DX: T83.511A Infection and inflammatory reaction due to indwelling urethral catheter, initial encounter (principal); N30.01 Acute cystitis with hematuria; D62 Acute posthemorrhagic anemia; G82.22 Paraplegia, incomplete; A04.72 Enterocolitis due to Clostridium difficile, not specified as recurrent; S37.39XA Other injury of urethra, initial encounter; Z66 Do not resuscitate; J44.9 Chronic obstructive pulmonary disease, unspecified; I10 Essential (primary) hypertension; E78.00 Pure hypercholesterolemia, unspecified; R60.9 Edema, unspecified; I73.9 Peripheral vascular disease, unspecified; N31.9 Neuromuscular dysfunction of bladder, unspecified; K59.09 Other constipation; R13.10 Dysphagia, unspecified; M81.0 Age-related osteoporosis without current pathological fracture; Y36.90XS War operations, unspecified, sequela; Z99.81 Dependence on supplemental oxygen; Z86.14 Personal history of Methicillin resistant Staphylococcus aureus infection
CPT/HCPCS: 36415; 51702; 71045; 80048; 80053; 81000; 83605; 83735; 85007; 85025; 85027; 86850; 86900; 86901; 86920; 87040; 87081; 87088; 87324; 87449; 87493; 94640; 94760; 96374

== ENCOUNTER → 2020-01-14 | Outpatient (CLI) | payer MEDICARE, OTHER ==
[~2020-01-14] MED LIST changes: -ACET-77 PO; +ACET-78 PO; +ASPI-1238 PO; -ASPI-983 PO; +CLOT15CR28 TOP; +HYDR-34 PO; -HYDR-3816 PO; +KETO120S13 TOP; -KETO120S2 TOP; -MULT-19 PO; +MULT-20 PO; +MULT-567 PO; -MULT1TAB69 PO; +NYST15CR TOP; +OMEP40CA27 PO; -OMEP40CA36 PO; +RISP0.253 PO; +VANC50SO PO
== END ==
LOC: WOUNDCARE 16:02
PROVIDERS: ATTEND Surgery
DX: I96 Gangrene, not elsewhere classified (principal); L98.492 Non-pressure chronic ulcer of skin of other sites with fat layer exposed; G82.20 Paraplegia, unspecified

== ENCOUNTER → 2020-01-21 | Outpatient (CLI) | payer MEDICARE, OTHER | LOC: WOUNDCARE 16:00 | PROVIDERS: ATTEND Surgery | DX: L98.492 Non-pressure chronic ulcer of skin of other sites with fat layer exposed (principal); I96 Gangrene, not elsewhere classified; G82.20 Paraplegia, unspecified; L02.214 Cutaneous abscess of groin ==